=== PATIENT | female | born 1930 | race African-American/Black ===

== ENCOUNTER 2016-12-16 23:27 | Inpatient (IN) | payer MEDICARE, OTHER ==
[~2016-12-16] VITALS: Ht 160 cm; Wt 67.7 kg
[~2016-12-16 23:27] MED LIST: BUPR150T11 PO; FURO80TA72 PO; GLYB5TAB3 PO; HYDR-2666 PO; HYDR-2869 PO; HYDR-965 PO; ISOS20TA4 PO; LOSA25TA PO; MECL12.52 PO; METO-269 PO; MULT1TAB97 PO; OMEGA-3 + VITA1 EACH PO; POTA20TA82 PO; PRED-220 PO; PREG50CA PO
[2016-12-17 00:17] LABS: OBC FLU VALID
[2016-12-17 00:19] LABS: BASO # 0.1 x10^3/uL (0.0-0.2); BASO % 1 % (0-3); EOS % 2 % (0-3); HEMATOCRIT 32.6 % (36.0-47.0); HEMOGLOBIN 10.2 g/dL (12.0-15.5); LYMPH # 2.3 x10^3/uL (1.0-4.8); LYMPH % 38 % (24-48); MEAN CORPUSCULAR HEMOGLOBIN 22 pg (25-35); MEAN CORPUSCULAR HGB CONC 31 g/dL (31-37); MEAN CORPUSCULAR VOLUME 69 fL (79-100); MONO % 6 % (0-9); NEUT % 54 % (31-73); PLATELET COUNT 203 x10^3/uL (140-400); RED BLOOD COUNT 4.73 x10^6/uL (3.50-5.40); RED CELL DISTRIBUTION WIDTH 20.6 % (11.5-14.5); WHITE BLOOD COUNT 6.2 x10^3/uL (4.0-11.0)
[2016-12-17 00:31] LABS: CALCIUM 9.1 mg/dL (8.5-10.1); CREATININE 1.3 mg/dL (0.6-1.0); GFR 46.9; POTASSIUM 4.5 mmol/L (3.5-5.1)
[2016-12-17 00:32] LABS: INR 1.2 (0.8-1.1); PROTHROMBIN TIME PATIENT 14.1 SEC (11.7-14.0)
[2016-12-17 00:37] LABS: ALBUMIN 3.2 g/dL (3.4-5.0); ALBUMIN/GLOBULIN RATIO 0.9 (1.0-1.7); TOTAL BILIRUBIN 0.4 mg/dL (0.2-1.0); TOTAL PROTEIN 6.9 g/dL (6.4-8.2)
[2016-12-17 00:59] LABS: BILIRUBIN,URINE NEGATIVE (NEG); GLUCOSE,URINE NEGATIVE (NEG); NITRITE,URINE NEGATIVE (NEG); PH,URINE 5.5; PROTEIN,URINE NEGATIVE (NEG-TRACE)
[2016-12-17 01:05] LABS: BACTERIA,URINE MANY /HPF (0-FEW); SQUAMOUS EPITHELIAL CELL,UR FEW /LPF
[2016-12-17] MEDS ORDERED: FUROSEMIDE 40 MG/4 ML VIAL IVP ONE (01:15)
--- NOTE | 2016-12-17 01:42 | ED.ADGEN ---
Past Medical History Past Medical History: CAD, CHF, Diabetes-Type II, DVT, Hypertension, UT, Other Additional Past Medical Histor: mi in 1996 Past Surgical History: Appendectomy, Hysterectomy, Pacemaker, Other Additional Past Surgical Histo: triple bypass 1996,hernia repair Alcohol Use: None Drug Use: None Adult General Chief Complaint Chief Complaint: SHORTNESS OF BREATH HPI HPI Patient is a 86 year old woman, history of type 2 diabetes mellitus, hypertension, CHF, who presents to the emergency department from her nursing facility via EMS with a complaint of increasing shortness of breath over the past several days, with cough productive of clear sputum. Patient denies any chest pain, states that she's had increased swelling in her lower extremities over the same time, denies any fevers or chills, any headache, any body aches, any injuries, any GI or complaints. Patient does not use oxygen at baseline, baseline O2 saturation was 89% on room air, patient placed on 2 L nasal cannula , oxygen saturations in the mid 90s. Review of Systems Review of Systems Constitutional: Denies fever or chills. [] Eyes: Denies change in visual acuity. [] HENT: Denies nasal congestion or sore throat. [] Respiratory: Cough productive of clear sputum, shortness of breath. Cardiovascular: Denies chest pain, positive for lower extremity edema. GI: Denies abdominal pain, nausea, vomiting, bloody stools or diarrhea. [] : Denies dysuria. [] Musculoskeletal: Denies back pain or joint pain. [] Integument: Denies rash. [] Neurologic: Denies headache, focal weakness or sensory changes. [] Endocrine: Denies polyuria or polydipsia. [] Lymphatic: Denies swollen glands. [] Psychiatric: Denies depression or anxiety. [] Current Medications Current Medications Current Medications Medications (Trade) Dose Ordered Sig/Santsoh Start Time Stop Time Status Last Admin Dose Admin Furosemide (Lasix) 40 mg 1X ONCE 12/17/16 01:15 12/17/16 01:16 DC 12/17/16 00:59 40 MG Allergies Allergies Allergies Coded Allergies Type Severity Reaction Last Updated Verified Iodinated Contrast Media - IV Dye Allergy Severe Anaphylaxis 11/01/14 Yes Sulfa (Sulfonamide Antibiotics) Allergy Intermediate 11/01/14 Yes Physical Exam Physical Exam Constitutional: Well developed, well nourished, no acute distress, non-toxic appearance. [] HENT: Normocephalic, atraumatic, bilateral external ears normal, oropharynx moist, no oral exudates, nose normal. [] Eyes: PERRLA, EOMI, conjunctiva normal, no discharge. [] Neck: Normal range of motion, no tenderness, supple, no stridor. [] Cardiovascular:Heart rate regular rhythm, no murmur [] Lungs & Thorax: Bilateral breath sounds clear to auscultation [] Abdomen: Bowel sounds normal, soft, no tenderness, no masses, no pulsatile masses. [] Skin: Warm, dry, no erythema, no rash. [] Back: No tenderness, no CVA tenderness. [] Extremities: No tenderness, no cyanosis, no clubbing, ROM intact, no edema. [] Neurologic: Alert and oriented X 3, normal motor function, normal sensory function, no focal deficits noted. [] Psychologic: Affect normal, judgement normal, mood normal. [] Current Patient Data Vital Signs Vital Signs Date Time Temp Pulse Resp B/P Pulse Ox O2 Delivery O2 Flow Rate FiO2 12/16/16 23:40 98.2 63 22 229/96 100 Nasal Cannula 2 98.2 Lab Values Laboratory Tests Test 12/16/16 23:53 12/17/16 00:04 12/17/16 00:30 Influenza Type A Antigen Negative (NEGATIVE) Influenza Type B Antigen Negative (NEGATIVE) White Blood Count 6.2x10^3/uL (4.0-11.0) Red Blood Count 4.73x10^6/uL (3.50-5.40) Hemoglobin 10.2g/dL (12.0-15.5) L Hematocrit 32.6% (36.0-47.0) L Mean Corpuscular Volume 69fL (79-100) L Mean Corpuscular Hemoglobin 22pg (25-35) L Mean Corpuscular Hemoglobin Concent 31g/dL (31-37) Red Cell Distribution Width 20.6% (11.5-14.5) H Platelet Count 203x10^3/uL (140-400) Neutrophils (%) (Auto) 54% (31-73) Lymphocytes (%) (Auto) 38% (24-48) Monocytes (%) (Auto) 6% (0-9) Eosinophils (%) (Auto) 2% (0-3) Basophils (%) (Auto) 1% (0-3) Neutrophils # (Auto) 3.3x10^3uL (1.8-7.7) Lymphocytes # (Auto) 2.3x10^3/uL (1.0-4.8) Monocytes # (Auto) 0.4x10^3/uL (0.0-1.1) Eosinophils # (Auto) 0.1x10^3/uL (0.0-0.7) Basophils # (Auto) 0.1x10^3/uL (0.0-0.2) Platelet Estimate Pending Prothrombin Time 14.1SEC (11.7-14.0) H Prothrombin Time INR 1.2 (0.8-1.1) H PTT 33SEC (24-38) Sodium Level 139mmol/L (136-145) Potassium Level 4.5mmol/L (3.5-5.1) Chloride Level 102mmol/L (98-107) Carbon Dioxide Level 32mmol/L (21-32) Anion Gap 5 (6-14) L Blood Urea Nitrogen 33mg/dL (7-20) H Creatinine 1.3mg/dL (0.6-1.0) H Estimated GFR (Cockcroft-Gault) 46.9 BUN/Creatinine Ratio 25 (6-20) H Glucose Level 133mg/dL (70-99) H Calcium Level 9.1mg/dL (8.5-10.1) Total Bilirubin 0.4mg/dL (0.2-1.0) Aspartate Amino Transferase (AST) 29U/L (15-37) Alanine Aminotransferase (ALT) 43U/L (14-59) Alkaline Phosphatase 106U/L (46-116) Troponin I Quantitative 0.046ng/mL (0.000-0.055) EJ-Knz-M-Type Natriuretic Peptide 8779pg/mL (0-449) H Total Protein 6.9g/dL (6.4-8.2) Albumin 3.2g/dL (3.4-5.0) L Albumin/Globulin Ratio 0.9 (1.0-1.7) L Urine Collection Type U cath Urine Color Yellow Urine Clarity Clear Urine pH 5.5 Urine Specific [place] 1.015 Urine Protein Negativemg/dL (NEG-TRACE) Urine Glucose (UA) Negativemg/dL (NEG) Urine Ketones (Stick) Negativemg/dL (NEG) Urine Blood Negative (NEG) Urine Nitrite Negative (NEG) Urine Bilirubin Negative (NEG) Urine Urobilinogen Dipstick 1.0mg/dL (0.2 mg/dL) Urine Leukocyte Esterase Small (NEG) Urine RBC 1-2/HPF (0-2) Urine WBC 5-10/HPF (0-4) Urine Squamous Epithelial Cells Few/LPF Urine Bacteria Many/HPF (0-FEW) Urine Hyaline Casts Few/HPF Urine Mucus Mod/LPF Laboratory Tests 12/17/16 00:04 Laboratory Tests 12/17/16 00:04 EKG EKG EC: Paced rhythm, with occasional PVCs noted, heart rate 70 bpm, left ventricular hypertrophy noted, limited interpretation secondary to body habitus and paced rhythm. As interpreted by me. Radiology/Procedures Radiology/Procedures Chest x-ray: One view: Patient with evidence of cephalization, possible small effusion in the left lower lobe, concerning for congestive heart failure. Pacemaker ACD in place. No pneumothorax, no discrete infiltrates identified. No bony normalities identified. As interpreted by me. [] Course & Med Decision Making Course & Med Decision Making Pertinent Labs and Imaging studies reviewed. (See chart for details) Patient's examination and history are concerning for CHF exacerbation, patient with a proBNP greater than 8700, chest x-ray findings with cephalization. Patient receives 20 of Lasix once daily orally, creatinine and the ED is 1.3, patient given 40 mg of Lasix IV. She is agreeable for [facility], is resting comfortably on 2 L nasal cannula at this time. Findings as above discussed with Dr. Kinney, call for the patient's primary care provider, patient accepted to his service as a full admission to the cardiac telemetry floor with consultation and bridge orders per his request. Dragon Disclaimer Dragon Disclaimer This electronic medical record was generated, in whole or in part, using a voice recognition dictation system. Departure Impression: Primary Impression: CHF (congestive heart failure) Additional Impression: Cough Disposition: ADMITTED INPATIENT Admitting Physician: Barb Kinney Condition: STABLE Problem Qualifiers Primary Impression: CHF (congestive heart failure) Congestive heart failure type: unspecified congestive heart failure type Congestive heart failure chronicity: unspecified congestive heart failure chronicity Qualified Code: I50.9 - Heart failure, unspecified CHARLES BISWAS DO Dec 17, 2016 01:42
[2016-12-17 03:37] VITALS: BP 180/62
[2016-12-17] MEDS ORDERED: MIRT7.5T8 PO (04:26)
[2016-12-17] MEDS ORDERED: ACET500T68 PO (04:26)
[2016-12-17] MEDS ORDERED: CHOL20002 PO (04:26)
[2016-12-17] MEDS ORDERED: COLL30OI TP (04:26)
[2016-12-17] MEDS ORDERED: FURO20TA3 PO (04:26)
[2016-12-17] MEDS ORDERED: GABA-585 PO (04:26)
[2016-12-17] MEDS ORDERED: MAGN400O4 PO (04:26)
[2016-12-17] MEDS ORDERED: DICL100G7 TP (04:26)
[2016-12-17] MEDS ORDERED: POTA10CA PO (04:26)
[2016-12-17] MEDS ORDERED: PANT40GR PO (04:26)
[2016-12-17] MEDS ORDERED: DOCU-27 PO (04:26)
[2016-12-17 05:02] LABS: PLT ESTIMATE ADEQUATE (ADEQUATE)
[2016-12-17 05:03] LABS: ANISOCYTOSIS MOD; HYPOCHROMIA MOD; MICROCYTOSIS MARKED; TARGET CELLS OCC
[2016-12-17 05:04] LABS: BURR CELLS OCC; OVALOCYTES FEW; POLYCHROMASIA SLIGHT; SCHISTOCYTES OCC
[2016-12-17 07:00] VITALS: BP 153/51
--- NOTE | 2016-12-17 07:42 | RAD ---
Portable chest, 12/16/2016: History: Shortness of breath, chest pain Comparison is made to a study from 06/27/2016. A left-sided transvenous pacemaker remains in place with 2 leads extending into the right heart. There is been a previous median sternotomy. The patient is rotated to the left. There is mild chronic elevation of the right hemidiaphragm. The heart is at the upper limits of normal in size. The pulmonary vascularity is prominent. There are mild left perihilar and bibasilar opacities suggesting mild pulmonary edema. The left hemidiaphragm is partially obscured. There is slight pleural thickening in the lateral costophrenic angles. IMPRESSION: Mild congestive heart failure.
--- NOTE | 2016-12-17 07:56 | EKG ---
[facility] [address] [place] [address] Test Date: 2016-12-16 Test Time: 23:37:35 Pat Name: SHIKHA AGUILAR Department: Room: 263 1 Gender: F Market Development Specialist: : [id number] Requested By: CHARLES BISWAS Order Number: [id number] Reading MD: Gregorio Carter Measurements Intervals [place] Rate: 70 P: AK: QRS: 46 QRSD: 116 T: -132 QT: 402 QTc: 437 Interpretive Statements PROBABLE DEMAND VENTRICULAR PACED RHYTHM Electronically Signed On 12-31-2016 14:47:24 SHAPER SETTER by Gregorio Carter
[2016-12-17] MEDS ORDERED: COLLAGENASE 250 UNIT/GM TOPICAL OINTMENT 30GM TUBE. TP SCH (09:00)
[2016-12-17] MEDS ORDERED: HYDROCODONE/APAP 7.5/325MG TABLET. PO PRN (09:00)
[2016-12-17] MEDS ORDERED: MECLIZINE HCL 12.5 MG TABLET. PO PRN (09:00)
[2016-12-17] MEDS: DOCUSATE SODIUM 100 MG CAPSULE PO SCH ×2 (10:00→21:00)
--- NOTE | 2016-12-17 10:23 | PDOC ---
Provider Note Provider Note Pt seen.H&P dictated. #[id number] TAMERA ALMAZAN MD Dec 17, 2016 10:23
[2016-12-17] MEDS ORDERED: DEXTROSE 50% 25 GM / 50ML DISP.SYRIN. IV PRN (10:30)
[2016-12-17 11:00] VITALS: BP 154/58
[2016-12-17] MEDS: DICLOFENAC SODIUM 1% TOPICAL GEL 100GM TUBE. TP SCH ×4 (11:27→22:27)
[2016-12-17] MEDS: GLYBURIDE 5 MG TABLET PO SCH (11:28)
[2016-12-17] MEDS: buPROPion SR 150 MG TABLET.SA PO SCH (11:28)
[2016-12-17] MEDS: ENOXAPARIN 30 MG/0.3 ML DISP.SYRIN. SQ SCH (11:28)
[2016-12-17] MEDS: HYDRALAZINE 50 MG TABLET PO SCH ×2 (11:29→17:58)
[2016-12-17] MEDS: POTASSIUM CHLORIDE 20 MEQ TABLET.ER. PO SCH ×2 (11:29→17:57)
[2016-12-17] MEDS: MIRTAZAPINE 7.5 MG TABLET. PO SCH (11:30)
[2016-12-17] MEDS: LOSARTAN POTASSIUM 25 MG TABLET. PO SCH (11:30)
[2016-12-17] MEDS: PANTOPRAZOLE 40 MG TABLET. PO SCH (11:30)
[2016-12-17] MEDS: MULTIVITAMIN with MINERAL TABLET. PO SCH (11:30)
[2016-12-17] MEDS: PREDNISONE 10 MG TABLET PO SCH (11:30)
[2016-12-17] MEDS: FUROSEMIDE 80 MG TABLET PO SCH ×2 (11:31→15:46)
[2016-12-17] MEDS: ISOSORBIDE MONONITRATE 20 MG TABLET PO SCH (11:31)
[2016-12-17] MEDS: INSULIN ASPART 300 UNITS/3 ML INSULN.PEN SQ SCH ×2 (12:00→17:00)
[2016-12-17 15:03] VITALS: BP 139/54
[2016-12-17] MEDS: ACETAMINOPHEN 500 MG TABLET PO PRN (15:46)
--- NOTE | 2016-12-17 17:28 | ACF ---
Admission Forms Criteria HEART FAILURE: COMMON COMPLICATIONS Clinical Indications for Inpatient Care (Place 'X' for any and all applicable criteria): Ongoing inpatient care may be indicated for heart failure with ANY ONE of the following (1)(2)(3)(4)(5): [ ]I. Ongoing need for care for primary condition requiring frequent therapy adjustments because of changes in cardiac function (eg, drug dosage changes for drugs that are renally metabolized) [ ]II. New-onset heart failure [ ]III. Heart failure with decreased urine output not responsive to attempts to optimize volume status [ ]IV. Acute cardiac ischemia causing or associated with failure [X]V. Complications of heart failure, including ANY ONE of the following: [ ]a) Pericardial effusion [ ]b) Symptomatic pleural effusion [ ]c) O2 saturation <90% or PO2 < 60 mm Hg (8.0 kPa) on room air or require baseline supplemental O2 [ ]d) Tachypnea [X]e) Dyspnea [ ]f) Syncope [ ]g) Change in mental status [ ]h) Acute renal insufficiency that is severe (reduction of more than 50% in estimated glomerular filtration rate from baseline) or progressive reduction of more than 25% in estimated glomerular filtration rate from baseline, with creatinine continuing to rise) [ ]i) Hemodynamic instability [ ]j) Anasarca [ ]k) Clinically significant metabolic abnormalities due to heart failure (eg, new-onset metabolic acidosis) Extended stay beyond goal length of stay for primary condition may be needed until ALL of the following are present(1)(3): [ ]a) Stable and effective diuretic regimen established (or patient on stable dialysis regimen if in chronic renal failure) [ ]b) Breathing comfortably at rest [ ]c) Saturation of arterial oxygen greater than 90% or at acceptable baseline [ ]d) Pulmonary edema absent or improved [ ]e) Hemodynamic stability [ ]f) Volume status acceptable on oral medication [ ]g) Peripheral or sacral edema absent or improved [ ]h) Renal function stable and manageable at a lower level of care [ ]i) Complications (eg, pleural effusion) resolved or manageable at a lower level of care [ ]j) Patient or caregiver has received written discharge instructions or educational material addressing activity level, diet, discharge medications, follow-up appointment, weight monitoring, and what to do if symptoms worsen The original [email or web address] content created by [employer] has been revised. The portions of the content which have been revised are identified through the use of italic text or in bold, and [facility] has neither reviewed nor approved the modified material.All other unmodified content is copyright [facility]. Please see references footnoted in the original [facility] edition 2016 Admission Criteria Met?: Yes LISSY FAIRBANKS Dec 17, 2016 17:28
[2016-12-17 19:00] VITALS: BP 141/41
[2016-12-17] MEDS ORDERED: PREGABALIN 50 MG CAPSULE PO SCH (21:00)
[2016-12-17] MEDS ORDERED: GABAPENTIN 100 MG CAPSULE. PO SCH (21:00)
[2016-12-17] MEDS ORDERED: METOPROLOL SUCC 24HR ER 50 MG TAB.ER.24H. PO SCH (21:00)
--- NOTE | 2016-12-17 23:11 | HP ---
ADMIT DATE: 12/17/2016 PATIENT'S LOCATION: 253. REASON FOR ADMISSION TO THE HOSPITAL: Shortness of breath, congestive heart failure, acute on chronic. HISTORY OF PRESENT ILLNESS: The patient is an 86-year-old female patient from retirement [facility]. She has history of congestive heart failure, AFib, CAD, previous bypass surgery in the retirement, she was having shortness of breath, sent to the Emergency Room. BNP was elevated to 800. Chest x-ray shows CHF, was admitted with of acute on chronic congestive heart failure. PAST MEDICAL HISTORY: Has CAD, CHF, diabetes type 2, DVT, hypertension, NV, atrial fibrillation. PAST SURGICAL HISTORY: Has a pacemaker, heart bypass surgery, hernia repair, appendectomy, hysterectomy. ALLERGIES: IVP DYE, SULFA. MEDICATIONS: At the retirement, Lasix, hydrocodone q. 6, vitamin D 2000 units daily, omega fish oil daily, Tylenol q. 6, bupropion 150 mg daily, Santyl daily, Voltaren gel daily, Colace daily, Lasix 80 mg twice a day, gabapentin 100 mg 2 at bed time, 2 tablets, total of 200 mg, glyburide 5 mg daily, hydralazine 50 mg 3 times daily, isosorbide 20 mg daily, losartan 25 mg daily, meclizine 12.5 three times a day, metoprolol 50 mg daily, mirtazapine 7.5 mg daily, vitamin 1 daily, Protonix 40 mg daily, potassium 20 mEq twice a day, prednisone 10 mg daily, Lyrica 50 mg daily. FAMILY HISTORY: Positive for diabetes, hypertension, heart disease. SOCIAL HISTORY: Lives at the retirement long-term care resident. REVIEW OF SYSTEMS: Denies any chest pain, complains of cough, short of breath and occasional wheezing. PHYSICAL EXAMINATION: VITAL SIGNS: At the time of admission, temperature 98, pulse 53, respirations 22, blood pressure 229/96 100% on 2 liters. HEENT: Head is atraumatic. Pupils equal. Oral cavity: Dentures. NECK: Supple. Thyroid not enlarged. JVD not elevated. CHEST: Symmetrical. Pacemaker. CARDIOVASCULAR: S1, S2. LUNGS: Crackles heard once at the base. ABDOMEN: Soft, no mass palpable. EXTERNAL GENITALIA: No Johns. RECTAL: Deferred. EXTREMITIES: 2+edema at the ankles and legs. NEUROLOGIC: The patient has arthritis, moving upper extremities very weak and lower extremities. She has a scar in the lower right thigh, not sure of the details. LABORATORY DATA: White count 6, hemoglobin 10, platelets 203. Electrolytes: Sodium 139, potassium 4.5, chloride 102, bicarbonate 32, BUN 35, creatinine 1.3, glucose 133. LFTs were normal. INR is 1.2. Urine negative for infection. Serology negative for influenza. Chest x-ray shows CHF. EKG irregular. FINAL IMPRESSION: 1. Acute on chronic systolic heart failure. 2. Chronic systolic heart failure. 3. History of sick sinus syndrome, history of pacemaker. 4. History of coronary artery disease, previous bypass surgery. 5. Diabetes. 6. Hypertension. 7. General debility. PLAN: At this time, admit to hospital, echocardiogram, cardiology consultation. IV Lasix and DVT prophylaxis and see how the patient's condition improves. TAMERA ALMAZAN MD DR: PORSHA/julio JOB#: [id number] / [id number] JARAD Morales
[2016-12-17 23:50] VITALS: BP 141/55
[2016-12-18 03:50] VITALS: BP 155/54
[2016-12-18 05:19] LABS: BASO # 0.1 x10^3/uL (0.0-0.2); BASO % 1 % (0-3); EOS % 1 % (0-3); HEMOGLOBIN 8.9 g/dL (12.0-15.5); LYMPH # 2.3 x10^3/uL (1.0-4.8); LYMPH % 38 % (24-48); MEAN CORPUSCULAR HEMOGLOBIN 22 pg (25-35); MEAN CORPUSCULAR HGB CONC 32 g/dL (31-37); MEAN CORPUSCULAR VOLUME 69 fL (79-100); MONO % 6 % (0-9); NEUT % 54 % (31-73); PLATELET COUNT 182 x10^3/uL (140-400); RED BLOOD COUNT 4.08 x10^6/uL (3.50-5.40); RED CELL DISTRIBUTION WIDTH 20.2 % (11.5-14.5); WHITE BLOOD COUNT 6.3 x10^3/uL (4.0-11.0)
[2016-12-18 05:35] LABS: CALCIUM 8.5 mg/dL (8.5-10.1); CREATININE 1.4 mg/dL (0.6-1.0); POTASSIUM 4.6 mmol/L (3.5-5.1)
[2016-12-18 05:36] LABS: CHOLESTEROL/HDL RATIO 2.2
[2016-12-18 07:00] VITALS: BP 99/42
[2016-12-18] MEDS: INSULIN ASPART 300 UNITS/3 ML INSULN.PEN SQ SCH ×2 (08:00→12:00)
[2016-12-18] MEDS: HYDRALAZINE 50 MG TABLET PO SCH ×2 (09:21→12:00)
[2016-12-18] MEDS: PANTOPRAZOLE 40 MG TABLET. PO SCH (09:21)
[2016-12-18] MEDS: POTASSIUM CHLORIDE 20 MEQ TABLET.ER. PO SCH (09:22)
[2016-12-18] MEDS: ISOSORBIDE MONONITRATE 20 MG TABLET PO SCH (09:22)
[2016-12-18] MEDS: DOCUSATE SODIUM 100 MG CAPSULE PO SCH (09:22)
[2016-12-18] MEDS: GLYBURIDE 5 MG TABLET PO SCH (09:22)
[2016-12-18] MEDS: buPROPion SR 150 MG TABLET.SA PO SCH (09:22)
[2016-12-18] MEDS: MULTIVITAMIN with MINERAL TABLET. PO SCH (09:22)
[2016-12-18] MEDS: PREDNISONE 10 MG TABLET PO SCH (09:23)
[2016-12-18] MEDS: MIRTAZAPINE 7.5 MG TABLET. PO SCH (09:23)
[2016-12-18] MEDS: FUROSEMIDE 80 MG TABLET PO SCH ×2 (09:23→14:39)
[2016-12-18] MEDS: LOSARTAN POTASSIUM 25 MG TABLET. PO SCH (09:23)
[2016-12-18] MEDS: DICLOFENAC SODIUM 1% TOPICAL GEL 100GM TUBE. TP SCH (09:25)
--- NOTE | 2016-12-18 09:28 | PDOC2 ---
CARDIAC CONSULT DATE OF CONSULT Date of Consult DATE: 12/18/16 TIME: 09:18 REASON FOR CONSULT Reason for Consult: CHF REFERRING PHYSICIAN Referring Physician: Dr. Kinney SOURCE Source: Chart review, Patient HISTORY OF PRESENT ILLNESS HISTORY OF PRESENT ILLNESS This is an 86 yo female, with a history of CHF, CAD s/p CABG, AFIB, HTN, HLP, SSS s/p PPM, and DM II, who presented from [facility] with complaints of shortness of breath. Patient reports experiencing shortness of breath yesterday afternoon when she was positioned on her side in bed. When staff repositioned her on her back, patient reports she was unable to catch her breath so EMS was called. Patient denies any chest pain, palpitations, dizziness , diaphoresis, syncope, or recent orthopnea. Does reports chronic LE edema and has had recent cough productive of clear sputum. Outpatient accountant certified public in Dr. Stroud with [facility] Reports compliance with medications. PAST MEDICAL HISTORY Cardiovascular: AFIB, CAD, CHF, HTN, Hyperlipidemia, Other (SSS s/p PPM) Pulmonary: Pneumonia CENTRAL NERVOUS SYSTEM: Other (no pertinent hx) GI: GERD Heme/Onc: No pertinent hx, Other (DVT) Hepatobiliary: No pertinent hx Psych: No pertinent hx Musculoskeletal: Osteoarthritis Rheumatologic: No pertinent hx Infectious disease: No pertinent hx ENT: No pertinent hx Renal/: No pertinent hx Endocrine: Diabetes PAST SURGICAL HISTORY Past Surgical History: Pacemaker, Appendectomy, Hysterectomy FAMILY HISTORY Family History: Diabetes, Heart Disease, Hypertension SOCIAL HISTORY Smoke: No ALCOHOL: none Drugs: None Lives: Correction CURRENT MEDICATIONS CURRENT MEDICATIONS Current Medications Medications (Trade) Dose Ordered Sig/Santosh Route PRN Reason Start Time Stop Time Status Last Admin Dose Admin Bupropion HCl (Wellbutrin Sr) 150 mg DAILY PO 12/17/16 10:00 12/17/16 11:28 Furosemide (Lasix) 80 mg BID92 PO 12/17/16 10:00 12/17/16 15:46 Gabapentin (Neurontin) 200 mg QHS PO 12/17/16 21:00 12/17/16 22:23 Glyburide (Diabeta) 5 mg DAILY PO 12/17/16 10:00 12/17/16 11:28 Hydralazine HCl (Apresoline) 50 mg TIDWMEALS PO 12/17/16 12:00 12/17/16 17:58 Losartan Potassium (Cozaar) 25 mg DAILY PO 12/17/16 10:00 12/17/16 11:30 Metoprolol Succinate (Toprol Xl) 50 mg HS PO 12/17/16 21:00 12/17/16 22:23 Mirtazapine (Remeron) 7.5 mg DAILY PO 12/17/16 10:00 12/17/16 11:30 Prednisone (Prednisone) 10 mg DAILY PO 12/17/16 10:00 12/17/16 11:30 Pregabalin (Lyrica) 50 mg HS PO 12/17/16 21:00 12/17/16 22:24 Isosorbide Mononitrate (Ismo) 20 mg DAILY PO 12/17/16 10:00 12/17/16 11:31 Multivitamins/ Calcium (Thera M Plus) 1 tab DAILY PO 12/17/16 10:00 12/17/16 11:30 Pantoprazole Sodium (Protonix) 40 mg DAILYAC PO 12/17/16 11:30 12/17/16 11:30 Potassium Chloride (Klor-Con) 20 meq BIDWMEALS PO 12/17/16 10:00 12/17/16 17:57 Enoxaparin Sodium (Lovenox 30mg Syringe) 30 mg Q24H SQ 12/17/16 11:00 12/17/16 11:28 ALLERGIES ALLERGIES: Coded Allergies: Iodinated Contrast Media - IV Dye (Verified Allergy, Severe, Anaphylaxis, 11/01/14) Sulfa (Sulfonamide Antibiotics) (Verified Allergy, Intermediate, 11/01/14) ROS Review of System 14 point ROS conducted with pertinent positives noted above in HPI. PHYSICAL EXAM General: Alert, Oriented X3, Cooperative, No acute distress HEENT: Atraumatic, Mucous membr. moist/pink Lungs: Other (diminished bases ) Heart: Normal S1, Normal S2, Other (2/6 systolic murmur ) Abdomen: Soft, No tenderness Extremities: Other (1-2+ bilateral LE edema ) Skin: No rashes, No breakdown, No significant lesion Neuro: Normal speech, Sensation intact Psych/Mental Status: Mental status NL, Mood NL MUSCULOSKELETAL: Osteoarthritic changes both hands VITALS VITALS Vital Signs Date Time Temp Pulse Resp B/P Pulse Ox O2 Delivery O2 Flow Rate FiO2 12/18/16 03:50 98.4 84 16 155/54 96 Nasal Cannula 2.0 98.4 LABS Lab: Laboratory Tests Test 12/17/16 11:58 12/17/16 17:33 12/17/16 20:56 12/18/16 04:21 Glucose (Fingerstick) 99mg/dL (70-99) 99mg/dL (70-99) 179mg/dL (70-99) White Blood Count 6.3x10^3/uL (4.0-11.0) Red Blood Count 4.08x10^6/uL (3.50-5.40) Hemoglobin 8.9g/dL (12.0-15.5) Hematocrit 28.0% (36.0-47.0) Mean Corpuscular Volume 69fL (79-100) Mean Corpuscular Hemoglobin 22pg (25-35) Mean Corpuscular Hemoglobin Concent 32g/dL (31-37) Red Cell Distribution Width 20.2% (11.5-14.5) Platelet Count 182x10^3/uL (140-400) Neutrophils (%) (Auto) 54% (31-73) Lymphocytes (%) (Auto) 38% (24-48) Monocytes (%) (Auto) 6% (0-9) Eosinophils (%) (Auto) 1% (0-3) Basophils (%) (Auto) 1% (0-3) Neutrophils # (Auto) 3.4x10^3uL (1.8-7.7) Lymphocytes # (Auto) 2.3x10^3/uL (1.0-4.8) Monocytes # (Auto) 0.4x10^3/uL (0.0-1.1) Eosinophils # (Auto) 0.1x10^3/uL (0.0-0.7) Basophils # (Auto) 0.1x10^3/uL (0.0-0.2) Sodium Level 143mmol/L (136-145) Potassium Level 4.6mmol/L (3.5-5.1) Chloride Level 106mmol/L (98-107) Carbon Dioxide Level 33mmol/L (21-32) Anion Gap 4 (6-14) Blood Urea Nitrogen 36mg/dL (7-20) Creatinine 1.4mg/dL (0.6-1.0) Estimated GFR (Cockcroft-Gault) 43.0 Glucose Level 59mg/dL (70-99) Calcium Level 8.5mg/dL (8.5-10.1) Triglycerides Level 41mg/dL (0-150) Cholesterol Level 200mg/dL (0-200) LDL Cholesterol, Calculated 100mg/dL (0-100) VLDL Cholesterol, Calculated 8mg/dL (0-40) HDL Cholesterol 92mg/dL (40-60) Cholesterol/HDL Ratio 2.2 Thyroid Stimulating Hormone (TSH) 6.739uIU/mL (0.358-3.74) Test 12/18/16 09:13 Glucose (Fingerstick) 62mg/dL (70-99) ASSESSMENT/PLAN ASSESSMENT/PLAN 1. Acute on chronic HF improved with diuresis. appears compensated check echo to assess LV function. Maintain BP control continue oral diuresis with monitoring of renal function 2. Dyspnea secondary to acute heart failure improved. 3. CAD s/p bypass stable. CP free echo to assess for WMA 4. SSS s/p PPM 5. Malignant hypertension now controlled continue with current therapy 6. Diabetes controlled per PCP 7. GOOD with CKD Problems: NIESHA LUCAS APRN Dec 18, 2016 09:28
[2016-12-18 11:37] VITALS: BP 89/38
--- NOTE | 2016-12-18 12:20 | CARD ---
APPROVED REPORT EXAM: Two-dimensional and M-mode echocardiogram with Doppler and color Doppler. Other Information Quality : Good Rhythm : NSR INDICATION Congestive Heart Failure 2D DIMENSIONS RVDd2.3 (2.9-3.5cm)Left Atrium(2D)5.8 (1.6-4.0cm) IVSd1.0 (0.7-1.1cm)Aortic Root(2D)2.9 (2.0-3.7cm) LVDd4.7 (3.9-5.9cm)LVOT Diameter2.2 (1.8-2.4cm) PWd1.0 (0.7-1.1cm)LVDs3.4 (2.5-4.0cm) FS (%) 28.3 %SV56.3 ml LVEF(%)45.0 (>50%) Aortic Valve AoV Peak Cali.230.8cm/sAoV VTI44.0cm AO Peak GR.21.3mmHgLVOT Peak Cali.116.5cm/s AO Mean GR.10mmHgAVA (VMAX)2.00cm2 AI P 1/2 [id number] Mitral Valve MV E Hqzkbcex571.1cm/sMV E Peak Gr.11mmHg MV DECEL [id number] A Cjrjtraj727.4cm/s MV E Mean Gr.3mmHgE/A Ratio1.4 MV A [id number] Pulmonary Valve PV Peak Xvgcttxq560.3cm/s Tricuspid Valve TR P. Erftmnrh764tt/sTR Peak Gr.36mmHg Pulmonary Vein S1 Dpcwqhkb65.7cm/sD2 Molkraud82.6cm/s PVa [id number] LEFT VENTRICLE The left ventricle is normal size. There is mild to moderate concentric left ventricular hypertrophy. The left ventricular systolic function is mildly decreased. The Ejection Fraction is 45-50%. There i s global hypokinesis of the left ventricle. Transmitral Doppler flow pattern is Grade II-pseudonormal filling dynamics. RIGHT VENTRICLE The right ventricle is normal size. There is normal right ventricular wall thickness. The right ventr icular systolic function is normal. There is a pacemaker lead in the right heart. ATRIA The left atrium is mild to moderately dilated. The right atrium size is normal. The interatrial septu m is intact with no evidence for an atrial septal defect or patent foramen ovale as noted on 2-D or D oppler imaging. AORTIC VALVE There may be a bioprosthetic aortic valve prosthesis. Doppler and Color Flow revealed mild to moderat e aortic regurgitation. There is no significant aortic valvular stenosis. MITRAL VALVE Mitral annular calcification is mild. The mitral valve leaflets are thickened. There is no evidence o f mitral valve prolapse. There is no mitral valve stenosis. Doppler and Color Flow revealed mild mitr al regurgitation. TRICUSPID VALVE The tricuspid valve leaflets are thickened , but open well. Doppler and Color Flow revealed mild to m oderate tricuspid regurgitation. The pulmonary artery systolic pressure is estimated at 41 mmHg. PULMONIC VALVE Doppler and Color Flow revealed mild pulmonic valvular regurgitation. There is no pulmonic valvular s tenosis. GREAT VESSELS The aortic root is normal in size. The ascending aorta is normal in size. The pulmonary artery is nor mal. The IVC is normal in size and collapses >50% with inspiration. PERICARDIAL EFFUSION There is no evidence of significant pericardial effusion. Critical Notification Critical Value: No <Conclusion> The left ventricle is normal size. The left ventricular systolic function is mildly decreased. The Ejection Fraction is 45-50%. There is mild to moderate concentric left ventricular hypertrophy. There is a pacemaker lead in the right heart. There may be a bioprosthetic aortic valve prosthesis. There is no significant aortic valvular stenosis. Doppler and Color Flow revealed mild to moderate aortic regurgitation. Doppler and Color Flow revealed mild mitral regurgitation. Doppler and Color Flow revealed mild to moderate tricuspid regurgitation. The pulmonary artery systolic pressure is estimated at 41 mmHg.
[2016-12-18] MEDS: ENOXAPARIN 30 MG/0.3 ML DISP.SYRIN. SQ SCH (13:09)
[2016-12-18] MEDS: ACETAMINOPHEN 500 MG TABLET PO PRN (14:39)
--- NOTE | 2016-12-18 15:17 | PDOC ---
PROGRESS NOTES Subjective Subjective no sob or cp today Objective Objective Vital Signs Date Time Temp Pulse Resp B/P Pulse Ox O2 Delivery O2 Flow Rate FiO2 12/18/16 12:00 63 89/38 12/18/16 11:37 98.7 14 95 Nasal Cannula 2.0 98.7 Intake and Output 12/18/16 07:00 Intake Total 280 ml Balance 280 ml Intake Oral 280 ml # Voids 5 # Bowel Movements 1 Physical Exam Abdomen: Soft, No tenderness Heart: Normal S1, Normal S2, Other (2/6 systolic murmur ) Extremities: Other (1-2+ bilateral LE edema ) General: Alert, Oriented X3, Cooperative, No acute distress HEENT: Atraumatic, Mucous membr. moist/pink Lungs: Other (diminished bases ) MUSCULOSKELETAL: Osteoarthritic changes both hands Neuro: Normal speech, Sensation intact Psych/Mental Status: Mental status NL, Mood NL Skin: No rashes, No breakdown, No significant lesion Diagnosis Problem List Problems Medical Problems: (1) CHF (congestive heart failure) Status: Acute (2) Cough Status: Acute Assessment Assessment Problems Medical Problems: (1) CHF (congestive heart failure) Status: Acute (2) Cough Status: Acute FINAL IMPRESSION: 1. Acute on chronic systolic heart failure.40% ejf 2. Chronic systolic heart failure. 3. History of sick sinus syndrome, history of pacemaker. 4. History of coronary artery disease, previous bypass surgery. 5. Diabetes. 6. Hypertension. 7. General debility. PLAN: echo lvf 40% improved with lasix , added aldactone to lasix. spoke with cardiology d/c back to CT today. At this time, admit to hospital, echocardiogram, cardiology consultation. IV Lasix and DVT prophylaxis and see how the patient's condition improves. Problems: Plan Plan of Care Problems Medical Problems: (1) CHF (congestive heart failure) Status: Acute (2) Cough Status: Acute Comment Review of Relevant I have reviewed the following items davin (where applicable) has been applied. Labs Laboratory Tests Test 12/17/16 17:33 12/17/16 20:56 12/18/16 04:21 12/18/16 09:13 Glucose (Fingerstick) 99mg/dL (70-99) 179mg/dL (70-99) 62mg/dL (70-99) White Blood Count 6.3x10^3/uL (4.0-11.0) Red Blood Count 4.08x10^6/uL (3.50-5.40) Hemoglobin 8.9g/dL (12.0-15.5) Hematocrit 28.0% (36.0-47.0) Mean Corpuscular Volume 69fL (79-100) Mean Corpuscular Hemoglobin 22pg (25-35) Mean Corpuscular Hemoglobin Concent 32g/dL (31-37) Red Cell Distribution Width 20.2% (11.5-14.5) Platelet Count 182x10^3/uL (140-400) Neutrophils (%) (Auto) 54% (31-73) Lymphocytes (%) (Auto) 38% (24-48) Monocytes (%) (Auto) 6% (0-9) Eosinophils (%) (Auto) 1% (0-3) Basophils (%) (Auto) 1% (0-3) Neutrophils # (Auto) 3.4x10^3uL (1.8-7.7) Lymphocytes # (Auto) 2.3x10^3/uL (1.0-4.8) Monocytes # (Auto) 0.4x10^3/uL (0.0-1.1) Eosinophils # (Auto) 0.1x10^3/uL (0.0-0.7) Basophils # (Auto) 0.1x10^3/uL (0.0-0.2) Sodium Level 143mmol/L (136-145) Potassium Level 4.6mmol/L (3.5-5.1) Chloride Level 106mmol/L (98-107) Carbon Dioxide Level 33mmol/L (21-32) Anion Gap 4 (6-14) Blood Urea Nitrogen 36mg/dL (7-20) Creatinine 1.4mg/dL (0.6-1.0) Estimated GFR (Cockcroft-Gault) 43.0 Glucose Level 59mg/dL (70-99) Calcium Level 8.5mg/dL (8.5-10.1) Triglycerides Level 41mg/dL (0-150) Cholesterol Level 200mg/dL (0-200) LDL Cholesterol, Calculated 100mg/dL (0-100) VLDL Cholesterol, Calculated 8mg/dL (0-40) HDL Cholesterol 92mg/dL (40-60) Cholesterol/HDL Ratio 2.2 Thyroid Stimulating Hormone (TSH) 6.739uIU/mL (0.358-3.74) Test 12/18/16 13:05 Glucose (Fingerstick) 71mg/dL (70-99) Medications Current Medications Gabapentin (Neurontin) 200 mg QHS PO Last administered on 12/17/16 22:23; Start 12/17/16 at 21:00 Metoprolol Succinate (Toprol Xl) 50 mg HS PO Last administered on 12/17/16 22: 23; Start 12/17/16 at 21:00 Pregabalin (Lyrica) 50 mg HS PO Last administered on 12/17/16 22:24; Start at 21:00 Vitals/I & O Vital Sign - Last 24 Hours 12/17/16 12/17/16 12/17/16 12/17/16 17:58 19:00 20:00 22:23 Temp 98.7 98.7 Pulse 80 63 63 Resp 18 B/P 132/65 141/41 141/41 Pulse Ox 99 O2 Delivery Nasal Cannula Nasal Cannula O2 Flow Rate 2.0 2.0 12/17/16 12/18/16 12/18/16 12/18/16 23:50 03:50 07:00 09:21 Temp 98.4 98.4 98.7 98.4 98.4 98.7 Pulse 78 84 64 64 Resp 20 16 16 B/P 141/55 155/54 99/42 117/44 Pulse Ox 99 96 92 O2 Delivery Nasal Cannula Nasal Cannula Nasal Cannula O2 Flow Rate 2.0 2.0 2.0 12/18/16 12/18/16 12/18/16 12/18/16 09:22 09:23 11:37 12:00 Temp 98.7 98.7 Pulse 64 64 63 63 Resp 14 B/P 117/44 117/44 89/38 89/38 Pulse Ox 95 O2 Delivery Nasal Cannula O2 Flow Rate 2.0 Intake and Output 12/17/16 12/17/16 12/18/16 15:00 23:00 07:00 Intake Total 280 ml Balance 280 ml TAMERA ALMAZAN MD Dec 18, 2016 15:17
[2016-12-18 15:52] VITALS: BP 92/40
--- NOTE | 2016-12-22 16:27 | PDOC ---
Provider Note Provider Note Discharge summary dictated. #[id number] TAMERA ALMAZAN MD Dec 22, 2016 16:27
--- NOTE | 2016-12-23 03:18 | DS ---
DATE OF DISCHARGE: 12/18/2016 REASON FOR ADMISSION TO THE HOSPITAL: Shortness of breath. CONSULTATIONS: Dr. Olmstead. PROCEDURES DONE: Echocardiogram. HOSPITAL COURSE: The patient is an 86-year-old female with history of AFib, CHF, half-way and came with shortness of breath, was found to have heart failure. BNP was elevated, was given IV Lasix. Echocardiogram shows a normal function, slightly decreased systolic ejection fraction 45%-50%, LVH. She has a bioprosthetic aortic valve prosthesis, moderate aortic regurgitation and tricuspid regurgitation. PA pressure was 41. The patient was given Lasix and her condition improved, breathing better and she was discharged back to the half-way. Aldactone was added to Lasix. She is already on beta blockers and SARAHI inhibitors. FINAL DIAGNOSES: 1. Acute on chronic systolic heart failure, ejection fraction 45%. 2. 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 3. Sick sinus syndrome, pacemaker. On the whole patient's condition improved. It was felt that she could be discharged back to the half-way. TAMERA ALMAZAN MD DR: PORSHA/julio JOB#: [id number] / [id number] THERESA
== END 2016-12-18 19:00 | DRG 291 ==
LOC: ER 23:27 → 2 SOUTH 12-17 01:00
PROVIDERS: ADMIT Internal Medicine; ATTEND Internal Medicine
DX: I13.0 Hypertensive heart and chronic kidney disease with heart failure and stage 1 through stage 4 chronic kidney disease, or unspecified chronic kidney disease (principal); I50.43 Acute on chronic combined systolic (congestive) and diastolic (congestive) heart failure; N17.9 Acute kidney failure, unspecified; E78.5 Hyperlipidemia, unspecified; I25.10 Atherosclerotic heart disease of native coronary artery without angina pectoris; E11.22 Type 2 diabetes mellitus with diabetic chronic kidney disease; I48.91 Unspecified atrial fibrillation; I49.5 Sick sinus syndrome; K21.9 Gastro-esophageal reflux disease without esophagitis; M19.90 Unspecified osteoarthritis, unspecified site; N18.9 Chronic kidney disease, unspecified; Z82.49 Family history of ischemic heart disease and other diseases of the circulatory system; Z83.3 Family history of diabetes mellitus; Z90.49 Acquired absence of other specified parts of digestive tract; Z95.0 Presence of cardiac pacemaker; I25.2 Old myocardial infarction; Z95.1 Presence of aortocoronary bypass graft; Z87.01 Personal history of pneumonia (recurrent); Z88.2 Allergy status to sulfonamides; Z91.041 Radiographic dye allergy status; Z79.899 Other long term (current) drug therapy; Z79.82 Long term (current) use of aspirin; Z90.710 Acquired absence of both cervix and uterus
CPT/HCPCS: 36415; 71010; 80048; 80053; 80061; 81001; 82947; 83880; 84443; 84484; 85007; 85027; 85610; 85730; 87641; 87804; 93005; 93306; 96374; J0775; J1650; J1940; J7512; 99285-25

== ENCOUNTER 2016-12-28 04:08 | Emergency (ER) | payer MEDICARE, OTHER ==
[~2016-12-28] VITALS: Ht 160 cm; Wt 67.6 kg
[~2016-12-28 04:08] MED LIST changes: +ACET500T68 PO; +CHOL20002 PO; +COLL30OI TP; +DICL100G7 TP; +DOCU-27 PO; +FURO20TA3 PO; +GABA-585 PO; +MAGN400O4 PO; +MIRT7.5T8 PO; +PANT40GR PO; +POTA10CA PO
[2016-12-28] MEDS ORDERED: LIDOCAINE 1%/EPI 1:100,000 20 ML VIAL. IJ ONE (04:30)
--- NOTE | 2016-12-28 04:33 | PHYS DOC ---
Past Medical History Past Medical History: Arthritis, CAD, CHF, Diabetes-Type II, DVT, Hypertension , [place], Other Additional Past Medical Histor: mi in 1996 Past Surgical History: Appendectomy, Hysterectomy, Pacemaker, Other Additional Past Surgical Histo: triple bypass 1996,hernia repair Alcohol Use: None Drug Use: None Adult General Chief Complaint Chief Complaint: MECHANICAL FALL HPI HPI Patient is a 86 year old female who presents status post fall. Patient is resident at [facility]; she says she had to go to the bathroom tonight and tried to get up on her own rather than pushing the call button. She tripped and fell, hitting her head. She denies loss consciousness. She complains of pain at her left eyebrow (where she has laceration) as well as her left lower extremity. She is unsure of last tetanus booster. No other acute complaints. She denies any chest discomfort, shortness of breath, lightheadedness and to the point. Review of Systems Review of Systems Constitutional: Denies fever or chills Eyes: Denies change in visual acuity or eye pain HENT: Denies nasal congestion or sore throat; pain/laceration at L eyebrow Respiratory: Denies cough or shortness of breath Cardiovascular: Denies chest pain GI: Denies abdominal pain, nausea, vomiting, bloody stools or diarrhea : Denies dysuria or hematuria Musculoskeletal: LLE pain Integument: Denies rash or skin lesions Neurologic: Denies headache, focal weakness or sensory changes Current Medications Current Medications Current Medications Medications (Trade) Dose Ordered Sig/Santosh Start Time Stop Time Status Last Admin Dose Admin Acetaminophen (Tylenol) 650 mg 1X ONCE 12/28/16 05:00 12/28/16 05:01 DC 12/28/16 05:43 650 MG Diphtheria/ Tetanus/Acell Pertussis (Boostrix) 0.5 ml STK-MED ONCE 12/28/16 04:48 12/28/16 04:49 DC Lidocaine/ Epinephrine (Xylocaine 1%-Epi 1:100,000) 20 ml 1X ONCE 12/28/16 04:30 12/28/16 04:34 DC 12/28/16 05:45 20 ML Neomycin/ Polymyxin/ Bacitracin (Triple Antibiotic Ointment) 1 pkt 1X ONCE 12/28/16 06:45 12/28/16 06:46 Tetanus/ Diphtheria Toxoids Adsorbed (Tenivac Syringe) 0.5 ml ONCE ONCE 12/28/16 05:00 12/28/16 05:01 DC 12/28/16 05:45 0.5 ML Allergies Allergies Allergies Coded Allergies Type Severity Reaction Last Updated Verified Iodinated Contrast Media - IV Dye Allergy Severe Anaphylaxis 11/01/14 Yes Sulfa (Sulfonamide Antibiotics) Allergy Intermediate 11/01/14 Yes Physical Exam Physical Exam Constitutional: Well developed, well nourished, no acute distress, non-toxic appearance HENT: Normocephalic, bilateral external ears normal. 2.5cm laceration L eyebrow Eyes: PERRL, EOMI, conjunctiva normal, no discharge Neck: Normal range of motion, no stridor, No midline TTP, no stepoff or deformity Cardiovascular: Heart rate normal, regular rhythm, no murmur Lungs & Thorax: Bilateral breath sounds clear to auscultation Abdomen: Bowel sounds normal, soft, non-distended, no TTP Skin: Warm, dry, no erythema, no rash Back: No midline tenderness, no stepoff Extremities: LLE visually unremarkable compared to RLE; 2+ DP pulse b/l; motor function and sensation to light touch intact; mild general TTP around L hip and L knee Neurologic: Alert and oriented to person and place, GCS 15, CN II-XII grossly intact, strength intact and symmetrical throughout, sensation to light touch intact throughout Current Patient Data Vital Signs Vital Signs Date Time Temp Pulse Resp B/P Pulse Ox O2 Delivery O2 Flow Rate FiO2 12/28/16 06:11 60 14 176/65 100 Room Air 12/28/16 04:11 98.5 98.5 EKG EKG [] Radiology/Procedures Radiology/Procedures CT head/c-spine: IMPRESSION Right sphenoid sinusitis Intracranial atrophy No hemorrhage or mass or acute CVA noted. Degenerative change noted in the cervical spine. No acute cervical spine fracture noted. Ground-glass infiltrates right upper lobe correlation w with a chest x-ray or CT chest would be of benefit. X-ray L hip and pelvis (my read): No acute abnormality X-ray L knee (my read): No acute abnormality Course & Med Decision Making Course & Med Decision Making Pertinent Labs and Imaging studies reviewed. (See chart for details) Patient is 86-year-old female who [facility]. Has laceration to left eyebrow. Will obtain CT head and C-spine to rule out serious injury given age. X-rays of left hip and left knee ordered due to complaint of mild pain in left lower extremity. Dose of acetaminophen and tetanus booster ordered. Imaging results as above. Laceration was cleaned and repaired. CT scan of C-spine shows ground glass opacity in right upper lobe of lung. I discussed with patient the need for further imaging to evaluate this ; however she says she strongly wishes to not do any further imaging this morning. As she does not have any acute pulmonary complaints and is maintaining excellent oxygenation on room air we will hold off on this and she can pursue this at a later time. [facility] with instructions for follow-up and return precautions. Dragon Disclaimer Dragon Disclaimer This electronic medical record was generated, in whole or in part, using a voice recognition dictation system. PROCEDURE Procedure Indication: Left forehead laceration Procedure: The patient was placed in the appropriate position and anesthesia around the laceration was achieved with 1% lidocaine with epinephrine. The area was then thoroughly irrigated with sterile saline. The laceration was closed with 3 sutures of 5-0 Prolene. The wound area was then covered with antibiotic ointment and dressed by nursing. Total repaired wound length: 2.5 cm The patient tolerated the procedure well Complications: None Departure Departure Impression: Primary Impression: Fall Additional Impression: Laceration Disposition: 03 TRANSFER SNF Condition: STABLE Referrals: JARAD DUFFY (PCP) Patient Instructions: Facial Laceration Additional Instructions: Thank you for allowing us to provide care today in the Emergency Department. Your laceration required 3 sutures (stitches) to close. These will need to be taken out in about [address] scan of your neck showed an abnormality in your right upper lung. You will need further pictures to further evaluate this. Schedule a follow up appointment with your primary care doctor as soon as possible. Return promptly to the Emergency Department if you develop any new or concerning symptoms. Problem Qualifiers SHEA ARZOLA MD Dec 28, 2016 04:33
[2016-12-28] MEDS ORDERED: DIPHTH,PERTUSS(ACELL),TET TOX 0.5 ML DISP.SYRIN. VAX IM ONE (04:48)
[2016-12-28] MEDS ORDERED: TETANUS AND DIPHTHERIA TOX/PF 0.5 ML DISP.SYRIN. VAX IM ONE (05:00)
[2016-12-28] MEDS ORDERED: ACETAMINOPHEN 325 MG TABLET. PO ONE (05:00)
--- NOTE | 2016-12-28 05:24 | RAD ---
PROCEDURE CT of brain without contrast, CT cervical spine without contrast HISTORY pt fell earlier this morning; headache; pt denies any neck pain TECHNIQUE One or more of the following individualized dose reduction techniques were utilized for this examination: 1. Automated exposure control; 2. Adjustment of the mA and/or kV according to patient size; 3. Use of iterative reconstruction technique.One or more of the following individualized dose reduction techniques were utilized for this examination: 1. Automated exposure control; 2. Adjustment of the mA and/or kV according to patient size; 3. Use of iterative reconstruction technique. COMPARISON Comparison made with the study from June [address] scan of the brain was done without contrast. There is no intracranial hemorrhage or subdural hematoma. Ventricles are normal in size. There is no mass or shift of the midline. There is a fluid level in the right sphenoid sinus from acute sinusitis. CT cervical spine was done without contrast. There is extensive degenerative change in the cervical spine. There are ground-glass infiltrates in the right upper lobe. CT scan of the chest would be of benefit the a right upper lobe lung disease appears new compared to the old examination. There is a central disc protrusion at C2-3. There is disc space narrowing at almost all levels most prominent in the lower cervical spine. There is facet arthritis at several levels. There is no fracture noted in the cervical spine. There is mild scoliosis. IMPRESSION Right sphenoid sinusitis Intracranial atrophy No hemorrhage or mass or acute CVA noted. Degenerative change noted in the cervical spine. No acute cervical spine fracture noted. Ground-glass infiltrates right upper lobe correlation w with a chest x-ray or CT chest would be of benefit. Electronically signed by: Rachid James MD (Dec 28, 2016 05:23:12)
[2016-12-28 06:11] VITALS: BP 176/65
[2016-12-28] MEDS ORDERED: NEOMY/BACITR/POLYMYXIN OINT PACKET. TP ONE (06:45)
--- NOTE | 2016-12-28 07:08 | RAD ---
Pelvis with left hip, 3 views, 12/28/2016: History: Fall, pain No acute fracture or dislocation is identified. There is mild narrowing of the hip joints with mild marginal spurring. Extensive arterial calcifications are present. Vascular stents are present in the right iliac region. IMPRESSION: No acute bony abnormality is detected.
--- NOTE | 2016-12-28 07:09 | RAD ---
Left knee, 3 views, 12/28/2016: History: Fall, pain The bony structures are demineralized. No acute fracture or dislocation is identified. There is mild marginal spurring with chondrocalcinosis. Extensive arterial calcification is present. Multiple surgical clips are evident in the soft tissues. There is subcutaneous edema. IMPRESSION: 1. Degenerative change with chondrocalcinosis. 2. No acute bony abnormality is detected.
== END 2016-12-28 06:45 | disposition home or self-care (01) ==
LOC: ER 04:08
DX: S01.112A Laceration without foreign body of left eyelid and periocular area, initial encounter (principal); M25.562 Pain in left knee; M25.552 Pain in left hip; I10 Essential (primary) hypertension; E11.9 Type 2 diabetes mellitus without complications; I25.10 Atherosclerotic heart disease of native coronary artery without angina pectoris; I25.2 Old myocardial infarction; I11.0 Hypertensive heart disease with heart failure; I50.9 Heart failure, unspecified; Z95.0 Presence of cardiac pacemaker; Z90.710 Acquired absence of both cervix and uterus; M19.90 Unspecified osteoarthritis, unspecified site; Z86.718 Personal history of other venous thrombosis and embolism; Z88.2 Allergy status to sulfonamides; Z91.041 Radiographic dye allergy status; W01.0XXA Fall on same level from slipping, tripping and stumbling without subsequent striking against object, initial encounter; Y93.89 Activity, other specified; Y92.89 Other specified places as the place of occurrence of the external cause; Y99.8 Other external cause status
CPT/HCPCS: 12011; 70450; 72125; 73502; 73562; 90471; 90714; 99284; J3490

== ENCOUNTER 2017-01-05 07:58 | Inpatient (IN) | payer MEDICARE, OTHER ==
[~2017-01-05] VITALS: Ht 160 cm; Wt 63.6 kg
[2017-01-05] MEDS ORDERED: IV NORMAL SALINE 500ML BAG 500 ML IV ONE (08:30)
[2017-01-05 08:53] LABS: BASO # 0.1 x10^3/uL (0.0-0.2); BASO % 1 % (0-3); EOS % 1 % (0-3); HEMOGLOBIN 9.8 g/dL (12.0-15.5); LYMPH # 2.6 x10^3/uL (1.0-4.8); LYMPH % 26 % (24-48); MEAN CORPUSCULAR HEMOGLOBIN 21 pg (25-35); MEAN CORPUSCULAR HGB CONC 32 g/dL (31-37); MEAN CORPUSCULAR VOLUME 68 fL (79-100); MONO % 8 % (0-9); NEUT % 65 % (31-73); PLATELET COUNT 219 x10^3/uL (140-400); RED BLOOD COUNT 4.56 x10^6/uL (3.50-5.40); RED CELL DISTRIBUTION WIDTH 17.8 % (11.5-14.5)
[2017-01-05 09:04] LABS: BILIRUBIN,URINE NEGATIVE (NEG); GLUCOSE,URINE NEGATIVE (NEG); NITRITE,URINE NEGATIVE (NEG); PROTEIN,URINE NEGATIVE (NEG-TRACE); UROBILINOGEN,URINE 0.2 mg/dL (0.2 mg/dL)
--- NOTE | 2017-01-05 09:04 | PHYS DOC ---
Past Medical History Past Medical History: Arthritis, CAD, CHF, Diabetes-Type II, DVT, Hypertension , VA, Other Additional Past Medical Histor: mi in 1996 Past Surgical History: Appendectomy, Hysterectomy, Pacemaker, Other Additional Past Surgical Histo: triple bypass 1996,hernia repair Alcohol Use: None Drug Use: None Adult General Chief Complaint Chief Complaint: URINARY FREQUENCY HPI HPI Patient is a 86 year old female who presents by EMS from nursing facility for confusion and hallucinations starting overnight. She has been treated with ampicillin since 01/02/17 for UTI. She complains of crampy lower abdominal pain and low back pain that are intermittent and spasm-like. She denies nausea or vomiting, fever or chills, chest pain, dyspnea, cough, headache, vision changes , numbness, tingling, weakness, dizziness. Review of Systems Review of Systems Constitutional: Denies fever or chills [] Eyes: Denies change in visual acuity, redness, or eye pain [] HENT: Denies nasal congestion or sore throat [] Respiratory: Denies cough or shortness of breath [] Cardiovascular: No additional information not addressed in HPI [] GI: Denies nausea, vomiting, bloody stools or diarrhea [] : Denies hematuria [] Musculoskeletal: Denies joint pain [] Integument: Denies rash or skin lesions [] Neurologic: Denies headache, focal weakness or sensory changes [] Endocrine: Denies polyuria or polydipsia [] Current Medications Current Medications Current Medications Medications (Trade) Dose Ordered Sig/Santosh Start Time Stop Time Status Last Admin Dose Admin Sodium Chloride (Iv Sodium Chloride 0.9% 500ml Bag) 500 ml @ 500 mls/hr 1X ONCE 01/05/17 08:30 01/05/17 09:29 DC 01/05/17 08:52 500 MLS/HR Allergies Allergies Allergies Coded Allergies Type Severity Reaction Last Updated Verified Iodinated Contrast Media - Oral and Allergy Severe Anaphylaxis 01/05/17 Yes Sulfa (Sulfonamide Antibiotics) Allergy Intermediate 01/05/17 Yes codeine Allergy Intermediate 01/05/17 Yes iodine Allergy Intermediate 01/05/17 Yes Physical Exam Physical Exam Constitutional: Well developed, well nourished, no acute distress, non-toxic appearance. [] HENT: Normocephalic, atraumatic, bilateral external ears normal, oropharynx dry , no oral exudates, nose normal. [] Eyes: PERRLA, EOMI. [] Neck: Normal range of motion, no tenderness, supple. [] Cardiovascular:Heart rate regular rhythm [] Lungs & Thorax: Bilateral breath sounds clear to auscultation [] Abdomen: Bowel sounds normal, soft, no tenderness. [] Skin: Warm, dry, no erythema, no rash. [] Back: No midline spinal tenderness, no CVA tenderness. Has mild bilateral lumbar paraspinal tenderness with no palpable abnormality [] Extremities: No tenderness, ROM intact. [] Neurologic: Alert and oriented to self, normal motor function, normal sensory function, no focal deficits noted. [] Psychologic: Affect normal, mood normal, cooperative. Appears confused [] Current Patient Data Vital Signs Vital Signs Date Time Temp Pulse Resp B/P Pulse Ox O2 Delivery O2 Flow Rate FiO2 01/05/17 10:02 60 16 130/58 96 Room Air 01/05/17 08:00 100.1 100.1 Lab Values Laboratory Tests Test 01/05/17 08:30 01/05/17 08:50 01/05/17 09:00 White Blood Count 10.0x10^3/uL (4.0-11.0) Red Blood Count 4.56x10^6/uL (3.50-5.40) Hemoglobin 9.8g/dL (12.0-15.5) L Hematocrit 31.0% (36.0-47.0) L Mean Corpuscular Volume 68fL (79-100) L Mean Corpuscular Hemoglobin 21pg (25-35) L Mean Corpuscular Hemoglobin Concent 32g/dL (31-37) Red Cell Distribution Width 17.8% (11.5-14.5) H Platelet Count 219x10^3/uL (140-400) Neutrophils (%) (Auto) 65% (31-73) Lymphocytes (%) (Auto) 26% (24-48) Monocytes (%) (Auto) 8% (0-9) Eosinophils (%) (Auto) 1% (0-3) Basophils (%) (Auto) 1% (0-3) Neutrophils # (Auto) 6.4x10^3uL (1.8-7.7) Lymphocytes # (Auto) 2.6x10^3/uL (1.0-4.8) Monocytes # (Auto) 0.8x10^3/uL (0.0-1.1) Eosinophils # (Auto) 0.1x10^3/uL (0.0-0.7) Basophils # (Auto) 0.1x10^3/uL (0.0-0.2) Platelet Estimate Pending Urine Collection Type Unknown Urine Color Yellow Urine Clarity Clear Urine pH 6.0 Urine Specific [place] 1.010 Urine Protein Negativemg/dL (NEG-TRACE) Urine Glucose (UA) Negativemg/dL (NEG) Urine Ketones (Stick) Negativemg/dL (NEG) Urine Blood Negative (NEG) Urine Nitrite Negative (NEG) Urine Bilirubin Negative (NEG) Urine Urobilinogen Dipstick 0.2mg/dL (0.2 mg/dL) Urine Leukocyte Esterase Negative (NEG) Urine RBC 0/HPF (0-2) Urine WBC 0/HPF (0-4) Urine Squamous Epithelial Cells Few/LPF Urine Bacteria 0/HPF (0-FEW) Sodium Level 142mmol/L (136-145) Potassium Level 4.5mmol/L (3.5-5.1) Chloride Level 102mmol/L (98-107) Carbon Dioxide Level 28mmol/L (21-32) Anion Gap 12 (6-14) Blood Urea Nitrogen 92mg/dL (7-20) H Creatinine 2.5mg/dL (0.6-1.0) H Estimated GFR (Cockcroft-Gault) 22.0 Glucose Level 113mg/dL (70-99) H Calcium Level 9.5mg/dL (8.5-10.1) Laboratory Tests 01/05/17 08:30 Laboratory Tests 01/05/17 09:00 EKG EKG EKG as interpreted by me as normal sinus rhythm, rate 61, no ST-T changes, no ectopy Course & Med Decision Making Course & Med Decision Making Pertinent Labs and Imaging studies reviewed. (See chart for details) No evidence of urinary tract infection on today's urinalysis; suspect it is being treated appropriately with antibiotics. She does exhibit some symptoms of delirium and confusion while here in the however she remains cooperative and has not tried to get of bed. She is tolerating oral intake. Her labs reflect acute renal failure. Suspect metabolic encephalopathy. Will admit for IV hydration and further monitoring. Discussed case with Dr. Kinney, who agrees with plan. Dragon Disclaimer Dragon Disclaimer This electronic medical record was generated, in whole or in part, using a voice recognition dictation system. Departure Departure Impression: Primary Impression: Altered mental status Additional Impression: Acute renal failure Disposition: ADMITTED INPATIENT Condition: STABLE Referrals: JARAD DUFFY (PCP) Problem Qualifiers Primary Impression: Altered mental status Altered mental status type: delirium Qualified Code: R41.0 - Disorientation , unspecified Additional Impression: Acute renal failure Acute renal failure type: unspecified Qualified Code: N17.9 - Acute kidney failure, unspecified Josh CANAS MD Jan 05, 2017 09:04
[2017-01-05 09:08] LABS: BACTERIA,URINE 0 /HPF (0-FEW); RBC,URINE 0 /HPF (0-2); SQUAMOUS EPITHELIAL CELL,UR FEW /LPF; WBC,URINE 0 /HPF (0-4)
[2017-01-05 09:24] LABS: CALCIUM 9.5 mg/dL (8.5-10.1); CREATININE 2.5 mg/dL (0.6-1.0); POTASSIUM 4.5 mmol/L (3.5-5.1)
--- NOTE | 2017-01-05 10:09 | ACF ---
Admission Forms Criteria MENTAL STATUS CHANGE Clinical Indications for Inpatient Care (Place 'X' for any and all applicable criteria): Ongoing inpatient care may be needed for ANY ONE of the following(1)(2)(3)(5)(6) : [X]I. Suspected serious etiology (eg, medical disorder, COMB CAPPER event) of mental status change [ ]II. Danger to self or others not manageable at lower level of care [ ]III. Grave disability (eg, inability to perform self care necessary at lower level of care) [ ]IV. Agitation or inappropriate behavior interfering with care for primary condition (eg, attempting to discontinue lines or drains prematurely, unable to cooperate with respiratory care) [ ]V. Delirium [A] [D][E] as described by ANY ONE of the following(26): [ ]a) Delirium due to alcohol or sedative [F] withdrawal [ ]b) Delirium of uncertain etiology that has not responded to appropriate empiric treatment [ ]c) Delirium that prevents performance of a life-sustaining function (eg, feeding or hydrating oneself) [ ]. General contraindications and/or Inappropriate clinical situations for Observational Care in patients with Mental Status Change, when ANY ONE of the following is required: [ ]a) Prediction of prolongation of LOS based on ANY ONE of the following may be considered as a contraindication for observational care 2, 3, 4, 5, 6, 7, 8, 9, 10, 11 [ ]i) Age > 65 yrs. [ ]ii) Patient arriving by ambulance [ ]iii) Patient with high acuity [ ]iv) Patient requiring vital sign monitoring [ ]v) Patient on IV medication [ ]b) Systolic blood pressures 180mmHg 3,12 [ ]c) Patient with altered mental status including delirium and other alteration of consciousness, (3) [ ]d) Patient whose discharge disposition will be to a penitentiary home or rehabilitation home should not be managed in Emergency Department Observation Unit. CMS rule requires 3 days hospital stay before such placement.3,13 [ ]e) Patient with failure to thrive due to broad array of etiologies 3,16,17 [ ]f) Inability to ambulate 3,14 Extended stay beyond goal length of stay for the primary condition may be needed until ALL of the following are present(3)(5): [ ]a) Underlying medical etiology of mental status change is absent, or has been established and adequately treated [ ]b) Danger to self or others is absent or manageable at lower level of care. [ ]c) Behavior crisis management, including physical or chemical restraints, is not required or available at lower level of car [ ]d) Substance or alcohol withdrawal is absent or manageable at lower level of care. [ ]e) Behavioral symptoms (eg, agitation, somnolence, inappropriate behavior) are absent, or are manageable at lower level of care. The original [facility] content created by [facility] has been revised. The portions of the content which have been revised are identified through the use of italic text or in bold, and [facility] has neither reviewed nor approved the modified material. All other unmodified content is copyright [facility]. Please see references footnoted in the original [facility] edition 2016 Admission Criteria Met?: Yes MANI CRAIN Jan 05, 2017 10:09
--- NOTE | 2017-01-05 10:17 | EKG ---
[facility] [address] [place] [address] Test Date: 2017-01-05 Test Time: 09:44:06 Pat Name: SHIKHA AGUILAR Department: Room: Gender: F [place] [employer]: : 1930 Requested By: Josh CANAS Order Number: [id number] Reading MD: Measurements Intervals [place] Rate: 61 P: VT: QRS: 49 QRSD: 112 T: -15 QT: 402 QTc: 406 Interpretive Statements IRREGULAR RHYTHM, NO P-WAVE FOUND QRS(T) CONTOUR ABNORMALITY CONSISTENT WITH ANTEROSEPTAL INFARCT PROBABLY OLD T ABNORMALITY IN INFERIOR LEADS RI6.01 Unconfirmed report No previous ECG available for comparison
[2017-01-05] MEDS ORDERED: POTASSIUM CL 20MEQ-0.45% NACL 1,000 ML IV ONE (10:30)
[2017-01-05 10:51] LABS: ANISOCYTOSIS SLIGHT; HYPOCHROMIA MOD; MICROCYTOSIS MOD; OVALOCYTES PRESENT; PLT ESTIMATE ADEQUATE (ADEQUATE); POIKILOCYTOSIS SLIGHT; TARGET CELLS PRESENT
[2017-01-05 10:52] LABS: SCHISTOCYTES OCC
[2017-01-05 11:03] VITALS: BP 123/51
[2017-01-05] MEDS ORDERED: ACID1TAB4 PO (11:23)
[2017-01-05] MEDS ORDERED: POTA20TA4 PO (11:23)
[2017-01-05 15:00] VITALS: BP 128/80
[2017-01-05 19:00] VITALS: BP 158/47
[2017-01-05] MEDS ORDERED: DEXTROSE 50% 25 GM / 50ML DISP.SYRIN. IV PRN (21:30)
[2017-01-05] MEDS ORDERED: ISOS20TA2 PO (22:09)
[2017-01-05] MEDS: IV DEXTROSE 5 %-0.45 % NACL 1,000 ML IV SCH (22:53)
[2017-01-05] MEDS: CEFTRIAXONE SODIUM 1 GM in IV NORMAL SALINE 50ML 50 ML IV SCH (22:54)
[2017-01-05 23:00] VITALS: BP 132/35
[2017-01-06 03:00] VITALS: BP 120/43
[2017-01-06 04:26] LABS: BASO % 1 % (0-3); EOS % 2 % (0-3); HEMATOCRIT 27.2 % (36.0-47.0); HEMOGLOBIN 9.1 g/dL (12.0-15.5); LYMPH # 2.5 x10^3/uL (1.0-4.8); LYMPH % 36 % (24-48); MEAN CORPUSCULAR HEMOGLOBIN 22 pg (25-35); MEAN CORPUSCULAR HGB CONC 34 g/dL (31-37); MEAN CORPUSCULAR VOLUME 65 fL (79-100); MONO % 9 % (0-9); NEUT % 53 % (31-73); PLATELET COUNT 195 x10^3/uL (140-400); RED BLOOD COUNT 4.16 x10^6/uL (3.50-5.40); RED CELL DISTRIBUTION WIDTH 17.1 % (11.5-14.5)
[2017-01-06 04:47] LABS: ALBUMIN 2.9 g/dL (3.4-5.0); ALBUMIN/GLOBULIN RATIO 0.7 (1.0-1.7); CALCIUM 8.9 mg/dL (8.5-10.1); CHOLESTEROL/HDL RATIO 2.3; GFR 28.5; POTASSIUM 4.3 mmol/L (3.5-5.1); TOTAL BILIRUBIN 0.8 mg/dL (0.2-1.0); TOTAL PROTEIN 6.9 g/dL (6.4-8.2)
[2017-01-06 06:30] LABS: OBC FLU VALID
--- NOTE | 2017-01-06 07:27 | RAD ---
EXAM: Renal/retroperitonal ultrasound HISTORY: Renal failure. COMPARISON: 05/19/2014. FINDINGS: Ultrasound of the kidneys, bladder and retroperitoneum was performed. The right kidney measures 8.3 cm. Cortical thickness and echogenicity are preserved. There is no hydronephrosis. The left kidney measures 7.4 cm. Cortical thickness and echogenicity are preserved. There is no hydronephrosis. The bladder is distended with a prevoid volume of 661 mL. No focal mural lesions are seen. IMPRESSION: 1. Moderate bilateral renal atrophy. No hydronephrosis. 2. Distended bladder. Correlate to exclude outlet obstruction.
[2017-01-06 07:52] VITALS: BP 130/44
[2017-01-06] MEDS: INSULIN ASPART 300 UNITS/3 ML INSULN.PEN SQ SCH ×3 (08:00→17:47)
[2017-01-06] MEDS: ISOSORBIDE MONONITRATE 20 MG TABLET PO SCH (08:52)
[2017-01-06] MEDS: DOCUSATE SODIUM 100 MG CAPSULE PO SCH (08:53)
[2017-01-06] MEDS: PANTOPRAZOLE 40 MG TABLET. PO SCH (08:53)
[2017-01-06] MEDS: HYDRALAZINE 50 MG TABLET PO SCH ×3 (08:53→17:42)
[2017-01-06] MEDS: HEPARIN PF for SUB-Q USE 5,000 UNIT/0.5 ML VIAL. SQ SCH ×2 (09:00→21:15)
[2017-01-06] MEDS ORDERED: COLLAGENASE 250 UNIT/GM TOPICAL OINTMENT 30GM TUBE. TP SCH (09:00)
--- NOTE | 2017-01-06 09:25 | RAD ---
EXAM: Chest one view. HISTORY: Fever, pneumonia. COMPARISON: 12/16/2016. FINDINGS: A frontal view of the chest is obtained. A left-sided pacemaker has its leads in the right atrium and right ventricle. There are changes of coronary artery bypass grafting. Cholecystectomy clips are noted. The right hemidiaphragm is moderately elevated. There is a small right pleural effusion with associated atelectasis. There is no pneumothorax or pleural effusion. The heart is at least mildly enlarged. There are atherosclerotic calcifications of the aorta. IMPRESSION: 1. Moderate elevation of the right hemidiaphragm. Small right pleural effusion. Right basilar atelectasis. 2. At least mild cardiomegaly.
--- NOTE | 2017-01-06 10:17 | PDOC ---
Provider Note Provider Note Pt seen.H&P dictated. #[id number] TAMERA ALMAZAN MD Jan 06, 2017 10:17
[2017-01-06 11:00] VITALS: BP 142/54
--- NOTE | 2017-01-06 11:45 | PDOC2 ---
CONSULT Date of Consult Date of Consult DATE: 01/06/17 TIME: 11:43 Reason for Consult Reason for Consult: renal Fialure Referring Physician Referring Physician: Dr Kinney Identification/Chief Complaint Chief Complaint confusion and hallucinations Problems: Source Source: Chart review, Patient Past Medical History Cardiovascular: AFIB, CAD, CHF, HTN, Hyperlipidemia, Other Pulmonary: Pneumonia CENTRAL NERVOUS SYSTEM: Other GI: GERD Heme/Onc: No pertinent hx, Other Hepatobiliary: No pertinent hx Psych: No pertinent hx Musculoskeletal: Osteoarthritis Rheumatologic: No pertinent hx Infectious disease: No pertinent hx Renal/: No pertinent hx Endocrine: Diabetes Past Surgical History Past Surgical History: Pacemaker, Appendectomy, Hysterectomy Family History Family History: Diabetes, Heart Disease, Hypertension Social History ALCOHOL: none Drugs: None Lives: Intermediate Domestic Violence: Neg Current Problem List Problem List Problems Medical Problems: (1) Acute renal failure Status: Acute (2) Acute renal failure syndrome Status: Acute (3) Altered mental status Status: Acute Current Medications Current Medications Current Medications Sodium Chloride 500 ml @ 500 mls/hr 1X ONCE IV Last administered on 01/05/17 08:52; Admin Dose 500 MLS/HR; Start 01/05/17 at 08:30; Stop 01/05/17 at 09:29; Status DC Potassium Chloride/Sodium Chloride 1,000 ml @ 125 mls/hr 1X ONCE IV Last administered on 01/05/17 12:23; Admin Dose 125 MLS/HR; Start 01/05/17 at 10:30; Stop 01/05/17 at 21:36; Status DC Ceftriaxone Sodium/Sodium Chloride (Rocephin/Iv Sodium Chloride 0.9% 50ml) 50 ml @ 100 mls/hr QHS IV Last administered on 01/05/17 22:54; Admin Dose 100 MLS /HR; Start 01/05/17 at 22:00 Heparin Sodium (Porcine) 5,000 unit Q12HR SQ Last administered on 01/06/17 09: 00; Admin Dose 5,000 UNIT; Start 01/06/17 at 09:00 Acetaminophen (Tylenol) 500 mg PRN Q8HRS PRN PO MILD PAIN; Start 01/05/17 at 21: 30 Collagenase (Santyl) 1 sade DAILY TP ; Start 01/06/17 at 09:00; Status UNV Docusate Sodium (Colace) 100 mg DAILY PO Last administered on 01/06/17 08:53; Admin Dose 100 MG; Start 01/06/17 at 09:00 Hydralazine HCl (Apresoline) 50 mg TIDWMEALS PO Last administered on 01/06/17 08:53; Admin Dose 50 MG; Start 01/06/17 at 08:00 Metoprolol Succinate (Toprol Xl) 50 mg HS PO ; Start 01/06/17 at 21:00 Isosorbide Mononitrate (Ismo) 20 mg DAILY PO Last administered on 01/06/17 08: 52; Admin Dose 20 MG; Start 01/06/17 at 09:00 Pantoprazole Sodium (Protonix) 40 mg DAILYAC PO Last administered on 01/06/17 08:53; Admin Dose 40 MG; Start 01/06/17 at 07:30 Insulin Aspart (Novolog) 0-5 UNITS TIDWMEALS SQ ; Start 01/06/17 at 08:00 Dextrose 12.5 gm 12.5 gm PRN Q15MIN PRN IV SEE COMMENTS; Start 01/05/17 at 21:30 Dextrose/Sodium Chloride (Iv D5% - 1/2 NS) 1,000 ml @ 75 mls/hr [id number] IV Last administered on 01/05/17 22:53; Admin Dose 75 MLS/HR; Start 01/05/17 at 21: 30 Active Scripts Active Cozaar (Losartan Potassium) 25 Mg Tablet 25 Mg PO DAILY Reported Isosorbide Mononitrate 20 Mg Tablet 20 Mg PO DAILY Floranex Tablet (Acidophilus/Bulgaricus) 1 Each Tablet 1 Each PO Klor-Con M20 (Potassium Chloride) 20 Meq Tab.er.prt 1 Tab PO BID Voltaren (Diclofenac Sodium) 100 Gm Gel..gram. 2 Gm TP QID Vitamin D-3 (Cholecalciferol (Vitamin D3)) 2,000 Unit Tablet 3,000 Unit PO Santyl Ointment (Collagenase) 30 Gm Oint...g. 1 Sade TP DAILY DIRECTED BY PHYSICIAN Protonix (Pantoprazole Sodium) 40 Mg Granpkt.dr 40 Mg PO DAILY Gabapentin 100 Mg Capsule 200 Mg PO QHS Mirtazapine 7.5 Mg Tablet 7.5 Mg PO DAILY Milk Of Magnesia (Magnesium Hydroxide) 400 Mg/5 Ml Oral.susp 1,200 Mg PO Colace (Docusate Sodium) 100 Mg Capsule 1 Cap PO BID Acetaminophen 500 Mg Tablet 1 Tab PO PRN Q8HRS PRN Hydralazine Hcl 50 Mg Tablet 50 Mg PO TIDWMEALS Bupropion Hcl Sr (Bupropion Hcl) 150 Mg Tablet.er 150 Mg PO BID Glyburide 5 Mg Tablet 5 Mg PO DAILY Lasix (Furosemide) 80 Mg Tablet 80 Mg PO BID Potassium Chloride 20 Meq Tablet.er 20 Meq PO BID Meclizine Hcl 12.5 Mg Tablet 12.5 Mg PO PRN TID PRN Lyrica (Pregabalin) 50 Mg Capsule 50 Mg PO HS Toprol Xl (Metoprolol Succinate) 50 Mg Tab.er.24h 50 Mg PO HS Mittie 7.5-325 Tablet (Acetaminophen/Hydrocodone Bitart) 1 Each Tablet 1 Tab PO PRN TID PRN Daily Multiple Vitamin (Multivitamin) 1 Each Tablet 1 Each PO [id number] Allergies Allergies: Coded Allergies: Iodinated Contrast Media - Oral and (Verified Allergy, Severe, Anaphylaxis , 01/05/17) Sulfa (Sulfonamide Antibiotics) (Verified Allergy, Intermediate, 01/05/17) codeine (Verified Allergy, Intermediate, 01/05/17) iodine (Verified Allergy, Intermediate, 01/05/17) ROS Review of System GEN: + Fevers as documented ? Chills Unable to reliably obtain ROS due to confusion Physical Exam Physical Exam General Appearance: min Awake not fully Alert Oriented x ? x1 In no Distress Eyes: VIsion Unchanged Conjunctiva Normal EN: No EN Drainage Mucous Memb. moist Neck: no JVD min JVP Supple no Thyromegaly CVS: S1 S2 ? Murmur No Gallop No Rub no Edema ("big feet" Resp: no Rales no Rhonchi no Acc. Muscle use GI: BAS +ve NO Bruit Non Tender Non Distended : min CVA tenderness; min Suprapubic Tenderness SKIN: no Rashes Breast Exam deferred Mu.Sk: Adequate ROM +ve (lisa neck area) Muscle Atrophy Heme: Unable to palpate Obvious LAD no Splenomegaly NEURO: Does not follow commands per se. Moves upper ext some spontaneously Psych: ? Depressed no Active hallucination currenlty Vital Signs Vital Signs Date Time Temp Pulse Resp B/P Pulse Ox O2 Delivery O2 Flow Rate FiO2 01/06/17 11:00 98.2 76 20 142/54 96 Room Air 98.2 01/06/17 07:52 98.0 Assessment & Plan ARF: SUspect Pyelonephritist. Await Urine Cx. Current FLuid and E-lyte status does not necessitate emergent need for Dialysis. Will re-evaluate for Dialysis in am CKD With renal sclerosis as noted on US - Baseline Creat with ARb on board is probably 1.7 at best or higher. Anemia: check iron Fever - defer to Dr Kinney (? Pyelo vs GB source) . HTN: Current BP meds reviewed. hold ARB Labs Labs Laboratory Tests Test 01/05/17 08:30 01/05/17 08:50 01/05/17 09:00 01/05/17 10:45 White Blood Count 10.0x10^3/uL (4.0-11.0) Red Blood Count 4.56x10^6/uL (3.50-5.40) Hemoglobin 9.8g/dL (12.0-15.5) Hematocrit 31.0% (36.0-47.0) Mean Corpuscular Volume 68fL (79-100) Mean Corpuscular Hemoglobin 21pg (25-35) Mean Corpuscular Hemoglobin Concent 32g/dL (31-37) Red Cell Distribution Width 17.8% (11.5-14.5) Platelet Count 219x10^3/uL (140-400) Neutrophils (%) (Auto) 65% (31-73) Lymphocytes (%) (Auto) 26% (24-48) Monocytes (%) (Auto) 8% (0-9) Eosinophils (%) (Auto) 1% (0-3) Basophils (%) (Auto) 1% (0-3) Neutrophils # (Auto) 6.4x10^3uL (1.8-7.7) Lymphocytes # (Auto) 2.6x10^3/uL (1.0-4.8) Monocytes # (Auto) 0.8x10^3/uL (0.0-1.1) Eosinophils # (Auto) 0.1x10^3/uL (0.0-0.7) Basophils # (Auto) 0.1x10^3/uL (0.0-0.2) Platelet Estimate Adequate (ADEQUATE) Large Platelets Present Hypochromasia Mod Poikilocytosis Slight Anisocytosis Slight Microcytosis Mod Target Cells Present Ovalocytes Present Schistocytes Occ Urine Collection Type Unknown Urine Color Yellow Urine Clarity Clear Urine pH 6.0 Urine Specific [place] 1.010 Urine Protein Negativemg/dL (NEG-TRACE) Urine Glucose (UA) Negativemg/dL (NEG) Urine Ketones (Stick) Negativemg/dL (NEG) Urine Blood Negative (NEG) Urine Nitrite Negative (NEG) Urine Bilirubin Negative (NEG) Urine Urobilinogen Dipstick 0.2mg/dL (0.2 mg/dL) Urine Leukocyte Esterase Negative (NEG) Urine RBC 0/HPF (0-2) Urine WBC 0/HPF (0-4) Urine Squamous Epithelial Cells Few/LPF Urine Bacteria 0/HPF (0-FEW) Sodium Level 142mmol/L (136-145) Potassium Level 4.5mmol/L (3.5-5.1) Chloride Level 102mmol/L (98-107) Carbon Dioxide Level 28mmol/L (21-32) Anion Gap 12 (6-14) Blood Urea Nitrogen 92mg/dL (7-20) Creatinine 2.5mg/dL (0.6-1.0) Estimated GFR (Cockcroft-Gault) 22.0 Glucose Level 113mg/dL (70-99) Calcium Level 9.5mg/dL (8.5-10.1) Nasal Screen MRSA (PCR) Negative (Negative) Test 01/05/17 11:29 01/05/17 16:41 01/05/17 21:24 01/06/17 03:58 Glucose (Fingerstick) 105mg/dL (70-99) 124mg/dL (70-99) 93mg/dL (70-99) White Blood Count 7.0x10^3/uL (4.0-11.0) Red Blood Count 4.16x10^6/uL (3.50-5.40) Hemoglobin 9.1g/dL (12.0-15.5) Hematocrit 27.2% (36.0-47.0) Mean Corpuscular Volume 65fL (79-100) Mean Corpuscular Hemoglobin 22pg (25-35) Mean Corpuscular Hemoglobin Concent 34g/dL (31-37) Red Cell Distribution Width 17.1% (11.5-14.5) Platelet Count 195x10^3/uL (140-400) Neutrophils (%) (Auto) 53% (31-73) Lymphocytes (%) (Auto) 36% (24-48) Monocytes (%) (Auto) 9% (0-9) Eosinophils (%) (Auto) 2% (0-3) Basophils (%) (Auto) 1% (0-3) Neutrophils # (Auto) 3.7x10^3uL (1.8-7.7) Lymphocytes # (Auto) 2.5x10^3/uL (1.0-4.8) Monocytes # (Auto) 0.6x10^3/uL (0.0-1.1) Eosinophils # (Auto) 0.1x10^3/uL (0.0-0.7) Basophils # (Auto) 0.0x10^3/uL (0.0-0.2) Sodium Level 143mmol/L (136-145) Potassium Level 4.3mmol/L (3.5-5.1) Chloride Level 106mmol/L (98-107) Carbon Dioxide Level 28mmol/L (21-32) Anion Gap 9 (6-14) Blood Urea Nitrogen 86mg/dL (7-20) Creatinine 2.0mg/dL (0.6-1.0) Estimated GFR (Cockcroft-Gault) 28.5 BUN/Creatinine Ratio 43 (6-20) Glucose Level 95mg/dL (70-99) Calcium Level 8.9mg/dL (8.5-10.1) Total Bilirubin 0.8mg/dL (0.2-1.0) Aspartate Amino Transf (AST/SGOT) 195U/L (15-37) Alanine Aminotransferase (ALT/SGPT) 181U/L (14-59) Alkaline Phosphatase 99U/L (46-116) Total Protein 6.9g/dL (6.4-8.2) Albumin 2.9g/dL (3.4-5.0) Albumin/Globulin Ratio 0.7 (1.0-1.7) Triglycerides Level 53mg/dL (0-150) Cholesterol Level 179mg/dL (0-200) LDL Cholesterol, Calculated 89mg/dL (0-100) VLDL Cholesterol, Calculated 11mg/dL (0-40) HDL Cholesterol 79mg/dL (40-60) Cholesterol/HDL Ratio 2.3 Thyroid Stimulating Hormone (TSH) 3.961uIU/mL (0.358-3.74) Test 01/06/17 05:00 01/06/17 07:10 01/06/17 10:50 Influenza Type A Antigen Negative (NEGATIVE) Influenza Type B Antigen Negative (NEGATIVE) Glucose (Fingerstick) 97mg/dL (70-99) 124mg/dL (70-99) Laboratory Tests Test 01/05/17 16:41 01/05/17 21:24 01/06/17 03:58 01/06/17 05:00 Glucose (Fingerstick) 124mg/dL (70-99) 93mg/dL (70-99) White Blood Count 7.0x10^3/uL (4.0-11.0) Red Blood Count 4.16x10^6/uL (3.50-5.40) Hemoglobin 9.1g/dL (12.0-15.5) Hematocrit 27.2% (36.0-47.0) Mean Corpuscular Volume 65fL (79-100) Mean Corpuscular Hemoglobin 22pg (25-35) Mean Corpuscular Hemoglobin Concent 34g/dL (31-37) Red Cell Distribution Width 17.1% (11.5-14.5) Platelet Count 195x10^3/uL (140-400) Neutrophils (%) (Auto) 53% (31-73) Lymphocytes (%) (Auto) 36% (24-48) Monocytes (%) (Auto) 9% (0-9) Eosinophils (%) (Auto) 2% (0-3) Basophils (%) (Auto) 1% (0-3) Neutrophils # (Auto) 3.7x10^3uL (1.8-7.7) Lymphocytes # (Auto) 2.5x10^3/uL (1.0-4.8) Monocytes # (Auto) 0.6x10^3/uL (0.0-1.1) Eosinophils # (Auto) 0.1x10^3/uL (0.0-0.7) Basophils # (Auto) 0.0x10^3/uL (0.0-0.2) Sodium Level 143mmol/L (136-145) Potassium Level 4.3mmol/L (3.5-5.1) Chloride Level 106mmol/L (98-107) Carbon Dioxide Level 28mmol/L (21-32) Anion Gap 9 (6-14) Blood Urea Nitrogen 86mg/dL (7-20) Creatinine 2.0mg/dL (0.6-1.0) Estimated GFR (Cockcroft-Gault) 28.5 BUN/Creatinine Ratio 43 (6-20) Glucose Level 95mg/dL (70-99) Calcium Level 8.9mg/dL (8.5-10.1) Total Bilirubin 0.8mg/dL (0.2-1.0) Aspartate Amino Transf (AST/SGOT) 195U/L (15-37) Alanine Aminotransferase (ALT/SGPT) 181U/L (14-59) Alkaline Phosphatase 99U/L (46-116) Total Protein 6.9g/dL (6.4-8.2) Albumin 2.9g/dL (3.4-5.0) Albumin/Globulin Ratio 0.7 (1.0-1.7) Triglycerides Level 53mg/dL (0-150) Cholesterol Level 179mg/dL (0-200) LDL Cholesterol, Calculated 89mg/dL (0-100) VLDL Cholesterol, Calculated 11mg/dL (0-40) HDL Cholesterol 79mg/dL (40-60) Cholesterol/HDL Ratio 2.3 Thyroid Stimulating Hormone (TSH) 3.961uIU/mL (0.358-3.74) Influenza Type A Antigen Negative (NEGATIVE) Influenza Type B Antigen Negative (NEGATIVE) Test 01/06/17 07:10 01/06/17 10:50 Glucose (Fingerstick) 97mg/dL (70-99) 124mg/dL (70-99) Images Images The left ventricle is normal size. The left ventricular systolic function is mildly decreased. The Ejection Fraction is 45-50%. There is mild to moderate concentric left ventricular hypertrophy. There is a pacemaker lead in the right heart. There may be a bioprosthetic aortic valve prosthesis. There is no significant aortic valvular stenosis. Doppler and Color Flow revealed mild to moderate aortic regurgitation. Doppler and Color Flow revealed mild mitral regurgitation. Doppler and Color Flow revealed mild to moderate tricuspid regurgitation. The pulmonary artery systolic pressure is estimated at 41 mmHg. COMPARISON: 05/19/2014. FINDINGS: Ultrasound of the kidneys, bladder and retroperitoneum was performed. The right kidney measures 8.3 cm. Cortical thickness and echogenicity are preserved. There is no hydronephrosis. The left kidney measures 7.4 cm. Cortical thickness and echogenicity are preserved. There is no hydronephrosis. The bladder is distended with a prevoid volume of 661 mL. No focal mural lesions are seen. Renal US IMPRESSION: 1. Moderate bilateral renal atrophy. No hydronephrosis. 2. Distended bladder. Correlate to exclude outlet obstruction. CXR IMPRESSION: 1. Moderate elevation of the right hemidiaphragm. Small right pleural effusion. Right basilar atelectasis. 2. At least mild cardiomegaly. NAVEED TOLENTINO MD Jan 06, 2017 11:45
[2017-01-06 11:56] LABS: BILIRUBIN,URINE NEGATIVE (NEG); GLUCOSE,URINE NEGATIVE (NEG); NITRITE,URINE NEGATIVE (NEG); PROTEIN,URINE NEGATIVE (NEG-TRACE)
[2017-01-06] MEDS ORDERED: MAGNESIUM SULFATE 2GM 50 ML IV PRN (12:00)
[2017-01-06 12:06] LABS: BACTERIA,URINE 0 /HPF (0-FEW); RBC,URINE RARE /HPF (0-2); SQUAMOUS EPITHELIAL CELL,UR FEW /LPF; WBC,URINE RARE /HPF (0-4)
[2017-01-06 15:00] VITALS: BP 138/50
[2017-01-06] MEDS: IV DEXTROSE 5 %-0.45 % NACL 1,000 ML IV SCH (17:42)
[2017-01-06 19:50] VITALS: BP 123/49
[2017-01-06] MEDS: METOPROLOL SUCC 24HR ER 50 MG TAB.ER.24H. PO SCH (21:11)
[2017-01-06] MEDS: CEFTRIAXONE SODIUM 1 GM in IV NORMAL SALINE 50ML 50 ML IV SCH (21:12)
[2017-01-06 23:27] VITALS: BP 102/37
[2017-01-06] MEDS: ACETAMINOPHEN 500 MG TABLET PO PRN (23:58)
[2017-01-07] VITALS (7 sets, daily range): BP systolic 102–137; BP diastolic 40–49
[2017-01-07] MEDS: IV DEXTROSE 5 %-0.45 % NACL 1,000 ML IV SCH ×2 (00:10→14:25)
--- NOTE | 2017-01-07 00:29 | HP ---
ADMIT DATE: 01/05/2017 ATTENDING PHYSICIAN: Barb Almazan M.D. PRIMARY CARE PHYSICIAN: Luisa Perea M.D. REASON FOR ADMISSION TO THE HOSPITAL: Confusion and fever. HISTORY OF PRESENT ILLNESS: The patient is an 86-year-old female patient of Dr. Perea from [facility]. She was sent because of increased confusion, recently seen Dr. Perea in the office for UTI, was treated with antibiotics. This time when she came in, she was found to have acute kidney failure with BUN around close to 100, creatinine around 2.5, was admitted. She also had a fever, was given antibiotic and IV fluids, and renal consult. PAST MEDICAL HISTORY: Has history of coronary artery disease, bypass surgery, CHF, diabetes, DVT, hypertension, AK. PAST SURGICAL HISTORY: Bypass surgery in 1996, pacemaker, appendectomy, hysterectomy, and hernia repair. ALLERGIES: IODINATED CONTRAST, SULFA, CODEINE, AND IODINE. MEDICATIONS: From the long-term, the patient is on [id number] mg twice a day, diclofenac, Voltaren gel, Lasix 80 mg twice a day, gabapentin 200 mg daily, glyburide 5 mg daily, hydrocodone 7.5 q. 6, isosorbide 20 mg daily, losartan 25 mg daily, magnesium p.r.n., meclizine 12.5 mg daily, mirtazapine 7.5 mg daily, potassium 20 mEq daily, Lyrica 50 mg daily, vitamin D 1000 daily, multivitamin daily, hydralazine 50 mg twice a day, metoprolol 50 mg daily, Protonix 40 mg daily. PERSONAL HISTORY: Has been in long-term for a year or so. Denies smoking or alcohol. FAMILY HISTORY: Unremarkable. REVIEW OF SYMPTOMS: Has confusion at the long-term and is improving. GASTROINTESTINAL: No nausea or vomiting. NEUROLOGICAL: Generalized weakness, arthritis. CARDIOVASCULAR: No chest pain. LUNGS: No cough, sputum. PHYSICAL EXAMINATION: GENERAL: The patient is an elderly sick, frail-looking woman. VITAL SIGNS: Temperature 101.8, pulse 71, respirations 18, blood pressure 132/35, and 97% on room air. HEENT: Head is atraumatic. Pupils equal. Oral cavity: Dentures. NECK: Supple. Thyroid not enlarged, JVD not elevated. CHEST: Scar of surgery, pacemaker in left side of chest. CARDIOVASCULAR: S1, S2. LUNGS: Diminished breath sounds. ABDOMEN: Soft, bowel sounds present, no mass palpable. EXTERNAL GENITALIA: No Johns. RECTAL: Deferred. EXTREMITIES: Examination of the sacral area, has a 2 cm stage 2 granulation tissue, ulceration over the sacral area. No foul smelling. EXTREMITIES: 1 to 2+ edema in both lower extremities. Foot, no ulcerations. NEUROLOGIC: The patient is moving upper extremities, weak in the lower extremities. The patient remembers she was in the long-term, does not remember the name, and she says her not too long ago. LABORATORY DATA: Shows a white count of 10, hemoglobin 10, platelets 219. Electrolytes show sodium 142, potassium 4.3, chloride 106, bicarbonate 28, ____ BUN was 92, creatinine 2.5, glucose 105. Chest x-ray, moderate elevation of the right diaphragm, right effusion, mild cardiomegaly. Ultrasound of the kidneys shows bilateral renal atrophy, no hydronephrosis. FINAL IMPRESSION: 1. Mental status changes. 2. Acute renal failure. 3. Fever, possible UTI. 4. Chronic coronary artery disease, heart bypass surgery, pacemaker. 5. Diabetes. 6. Arthritis. 7. Depression. 8. Protein-calorie malnutrition. 9. Stage 2 sacral ulcer present on admission. PLAN: At this time, admit to hospital, hydrate with IV fluids, Johns catheter, maintain input, output, urine cultures. Started on Rocephin. Renal consult and also monitor kidney functions, have air loss mattress and also hold some of the psychiatric medications because of the kidney failure , contributing to her problems. BARB ALMAZAN MD DR: PORSHA/julio JOB#: [id number] / [id number] LUISA Morales
--- NOTE | 2017-01-07 03:00 | CONS ---
DATE OF CONSULTATION: PRIMARY PHYSICIAN: Dr. Kinney. REASON FOR CONSULTATION: Renal failure. HISTORY OF PRESENT ILLNESS: An 86-year-old -[place] female with known history of CKD by her reports. She claims somebody has told her in the past that she had some kidney problems, does not know the details. She presented to the ER with urinary frequency, confusion, hallucination per the ER report. She does not know why she is here on my questioning. She recently had a UTI and was treated with ampicillin. We were asked to see her for an elevated creatinine of 2.0. She was as high as 2.5. Previous creatinines available in the system were 1 and 1.0 in 2014, no interim numbers are available. Prior to that in 2013, she has been 1.3 to 1.7. In this setting, we were asked to see her for further evaluation. She was febrile in the hospital at 100.1 in the ER. She continues to have some low grade fevers, was just trending downwards. Blood pressures appear to have been adequate at this time. She did spike to as high as 101.8. She is a poor historian at this time. REVIEW OF SYSTEMS: Not reliably available from the patient. Denies nausea, vomiting per se fevers as documented. Rest of the details in electronic record. NAVEED TOLENTINO MD DR: NAIMA/julio JOB#: [id number] / [id number]
[2017-01-07 05:57] LABS: BASO % 1 % (0-3); EOS % 1 % (0-3); LYMPH # 2.1 x10^3/uL (1.0-4.8); LYMPH % 33 % (24-48); MEAN CORPUSCULAR HEMOGLOBIN 22 pg (25-35); MEAN CORPUSCULAR HGB CONC 32 g/dL (31-37); MEAN CORPUSCULAR VOLUME 68 fL (79-100); MONO % 9 % (0-9); NEUT % 57 % (31-73); PLATELET COUNT 175 x10^3/uL (140-400); RED BLOOD COUNT 3.69 x10^6/uL (3.50-5.40); RED CELL DISTRIBUTION WIDTH 17.1 % (11.5-14.5); WHITE BLOOD COUNT 6.5 x10^3/uL (4.0-11.0)
[2017-01-07 06:00] LABS: ALBUMIN 2.7 g/dL (3.4-5.0); CALCIUM 8.7 mg/dL (8.5-10.1); CREATININE 1.9 mg/dL (0.6-1.0); GFR 30.3; PHOSPHORUS 4.5 mg/dL (2.6-4.7); POTASSIUM 3.8 mmol/L (3.5-5.1)
[2017-01-07] MEDS: INSULIN ASPART 300 UNITS/3 ML INSULN.PEN SQ SCH ×3 (08:00→17:00)
[2017-01-07] MEDS: PANTOPRAZOLE 40 MG TABLET. PO SCH (10:09)
[2017-01-07] MEDS: HYDRALAZINE 50 MG TABLET PO SCH ×3 (10:10→17:00)
[2017-01-07] MEDS: DOCUSATE SODIUM 100 MG CAPSULE PO SCH (10:10)
[2017-01-07] MEDS: ISOSORBIDE MONONITRATE 20 MG TABLET PO SCH (10:11)
[2017-01-07] MEDS: HEPARIN PF for SUB-Q USE 5,000 UNIT/0.5 ML VIAL. SQ SCH ×2 (10:15→20:59)
--- NOTE | 2017-01-07 14:29 | PDOC ---
PROGRESS NOTES Subjective Subjective feeling better today Objective Objective Vital Signs Date Time Temp Pulse Resp B/P Pulse Ox O2 Delivery O2 Flow Rate FiO2 01/07/17 11:47 59 114/42 01/07/17 10:45 98.7 16 97 Room Air 98.7 01/07/17 08:25 98.0 Intake and Output 01/07/17 07:00 Intake Total 1360 ml Output Total 1050 ml Balance 310 ml Intake Oral 1360 ml Output Urine Total 1050 ml # Bowel Movements 3 Physical Exam Abdomen: Normal bowel sounds, Soft Heart: Normal S1, Normal S2 Extremities: No clubbing General: Alert HEENT: Atraumatic Lungs: Clear to auscultation MUSCULOSKELETAL: No deformity, Osteoarthritic changes both hands Neck: Supple Neuro: Normal speech Psych/Mental Status: Mental status NL Skin: Other (stage 2 ulcer sacral ulcer) Diagnosis Problem List Problems Medical Problems: (1) Acute renal failure Status: Acute (2) Acute renal failure syndrome Status: Acute (3) Altered mental status Status: Acute Assessment Assessment Problems Medical Problems: (1) Acute renal failure Status: Acute (2) Acute renal failure syndrome Status: Acute (3) Altered mental status Status: Acute FINAL IMPRESSION: 1. Mental status changes. 2. Acute renal failure. 3. Fever, possible UTI. 4. Chronic coronary artery disease, heart bypass surgery, pacemaker. 5. Diabetes. 6. Arthritis. 7. Depression. 8. Protein-calorie malnutrition. 9. Stage 2 sacral ulcer present on admission. PLAN: cr down to 1.9. urine c/s neg. sono showed distended bladder. iv fluids. At this time, admit to hospital, hydrate with IV fluids, Johns catheter, maintain input, output, urine cultures. Started on Rocephin. Renal consult and also monitor kidney functions, have air loss mattress and also hold some of the medications because of the kidney failure contributing to her problems. Problems: Plan Plan of Care Problems Medical Problems: (1) Acute renal failure Status: Acute (2) Acute renal failure syndrome Status: Acute (3) Altered mental status Status: Acute Comment Review of Relevant I have reviewed the following items davin (where applicable) has been applied. Labs Laboratory Tests Test 01/06/17 16:17 01/06/17 20:45 01/07/17 05:10 01/07/17 07:43 Glucose (Fingerstick) 180mg/dL (70-99) 85mg/dL (70-99) 124mg/dL (70-99) White Blood Count 6.5x10^3/uL (4.0-11.0) Red Blood Count 3.69x10^6/uL (3.50-5.40) Hemoglobin 8.0g/dL (12.0-15.5) Hematocrit 25.0% (36.0-47.0) Mean Corpuscular Volume 68fL (79-100) Mean Corpuscular Hemoglobin 22pg (25-35) Mean Corpuscular Hemoglobin Concent 32g/dL (31-37) Red Cell Distribution Width 17.1% (11.5-14.5) Platelet Count 175x10^3/uL (140-400) Neutrophils (%) (Auto) 57% (31-73) Lymphocytes (%) (Auto) 33% (24-48) Monocytes (%) (Auto) 9% (0-9) Eosinophils (%) (Auto) 1% (0-3) Basophils (%) (Auto) 1% (0-3) Neutrophils # (Auto) 3.7x10^3uL (1.8-7.7) Lymphocytes # (Auto) 2.1x10^3/uL (1.0-4.8) Monocytes # (Auto) 0.6x10^3/uL (0.0-1.1) Eosinophils # (Auto) 0.1x10^3/uL (0.0-0.7) Basophils # (Auto) 0.0x10^3/uL (0.0-0.2) Sodium Level 145mmol/L (136-145) Potassium Level 3.8mmol/L (3.5-5.1) Chloride Level 108mmol/L (98-107) Carbon Dioxide Level 26mmol/L (21-32) Anion Gap 11 (6-14) Blood Urea Nitrogen 74mg/dL (7-20) Creatinine 1.9mg/dL (0.6-1.0) Estimated GFR (Cockcroft-Gault) 30.3 Glucose Level 108mg/dL (70-99) Calcium Level 8.7mg/dL (8.5-10.1) Phosphorus Level 4.5mg/dL (2.6-4.7) Magnesium Level 2.8mg/dL (1.8-2.4) Albumin 2.7g/dL (3.4-5.0) Test 01/07/17 11:07 Glucose (Fingerstick) 117mg/dL (70-99) Microbiology 01/05/17 Blood Culture - Preliminary, Resulted NO GROWTH AFTER 1 DAY 01/06/17 Urine Culture - Preliminary, Resulted 01/06/17 Urine Culture Result 1 ([facility]) - Preliminary, Resulted Medications Current Medications Metoprolol Succinate (Toprol Xl) 50 mg HS PO Last administered on 01/06/17t 21: 11; Start 01/06/17 at 21:00 Vitals/I & O Vital Sign - Last 24 Hours 01/06/17 01/06/17 01/06/17 01/06/17 15:00 17:42 19:50 20:00 Temp 98.6 98.6 Pulse 89 62 61 Resp 22 18 B/P 138/50 137/44 123/49 Pulse Ox 96 96 O2 Delivery Room Air Room Air Room Air O2 Flow Rate 98.0 01/06/17 01/06/17 01/07/17 01/07/17 21:11 23:27 02:57 07:00 Temp 100.0 97.3 98.9 100.0 97.3 98.9 Pulse 61 61 60 65 Resp 18 18 16 B/P 123/49 102/37 102/40 104/43 Pulse Ox 95 96 95 O2 Delivery Room Air Room Air Room Air 01/07/17 01/07/17 01/07/17 01/07/17 08:25 10:10 10:11 10:45 Temp 98.7 98.7 Pulse 65 65 61 Resp 16 B/P 104/43 104/43 137/47 Pulse Ox 97 O2 Delivery Room Air Room Air O2 Flow Rate 98.0 01/07/17 01/07/17 11:46 11:47 Pulse 59 59 B/P 114/42 114/42 Intake and Output 01/06/17 01/06/17 01/07/17 15:00 23:00 07:00 Intake Total 480 ml 780 ml 100 ml Output Total 600 ml 450 ml Balance 480 ml 180 ml -350 ml Nutrition Consultation Dietary Evaluation: Recommendations by RD: Protein supplementation Comments: REC mvi q day and 100-200mg /d Vit C per wound protocal Expected Outcomes/Goals: to meet > 75% est nutr needs Malnutrition Findings: Body Fat Depletion (Non Severe: Mild Depletion Reduced Cone Machine Feeder Strength: N/A Weight Status: Appropriate Fluid Accumulation (N/A): N/A TAMERA ALMAZAN MD Jan 07, 2017 14:29
[2017-01-07] MEDS: METOPROLOL SUCC 24HR ER 50 MG TAB.ER.24H. PO SCH (20:52)
[2017-01-07] MEDS: CEFTRIAXONE SODIUM 1 GM in IV NORMAL SALINE 50ML 50 ML IV SCH (20:53)
[2017-01-08 03:16] VITALS: BP 107/52
[2017-01-08 06:29] LABS: ALBUMIN 2.6 g/dL (3.4-5.0); CALCIUM 8.8 mg/dL (8.5-10.1); CREATININE 1.6 mg/dL (0.6-1.0); GFR 36.9; POTASSIUM 3.9 mmol/L (3.5-5.1)
[2017-01-08 07:00] VITALS: BP 132/40
[2017-01-08] MEDS: PANTOPRAZOLE 40 MG TABLET. PO SCH (07:55)
[2017-01-08] MEDS: IV DEXTROSE 5 %-0.45 % NACL 1,000 ML IV SCH (07:57)
[2017-01-08] MEDS: INSULIN ASPART 300 UNITS/3 ML INSULN.PEN SQ SCH ×3 (08:00→17:00)
[2017-01-08] MEDS: ISOSORBIDE MONONITRATE 20 MG TABLET PO SCH (09:21)
[2017-01-08] MEDS: DOCUSATE SODIUM 100 MG CAPSULE PO SCH (09:21)
[2017-01-08] MEDS: HYDRALAZINE 50 MG TABLET PO SCH ×3 (09:22→17:07)
[2017-01-08] MEDS: HEPARIN PF for SUB-Q USE 5,000 UNIT/0.5 ML VIAL. SQ SCH ×2 (09:49→21:25)
--- NOTE | 2017-01-08 10:25 | PDOC ---
SUBJECTIVE ROS GOOD+ CKD III Doign well overall, no complains CVS: no Orthopnea, no CP RESP: no SOB, no FAJARDO GI: no Nausea, no Vomiting : no Dysuria, no Urgency OBJECTIVE Vital Signs Vital Signs Date Time Temp Pulse Resp B/P Pulse Ox O2 Delivery O2 Flow Rate FiO2 01/08/17 09:22 62 132/40 01/08/17 07:00 99.1 14 93 Room Air 99.1 01/07/17 20:00 98.0 I & 0 Intake and Output 01/08/17 07:00 Intake Total 390 ml Output Total 850 ml Balance -460 ml Intake Oral 340 ml IV Total 50 ml Output Urine Total 850 ml # Bowel Movements 1 PHYSICAL EXAM Physical Exam General Appearance: min Awake not fully Alert Oriented x ? x1 In no Distress Eyes: VIsion Unchanged Conjunctiva Normal EN: No EN Drainage Mucous Memb. moist Neck: no JVD min JVP Supple no Thyromegaly CVS: S1 S2 ? Murmur No Gallop No Rub no Edema ("big feet" Resp: no Rales no Rhonchi no Acc. Muscle use GI: BAS +ve NO Bruit Non Tender Non Distended : min CVA tenderness; min Suprapubic Tenderness Assessment & Plan ARF: resolving; ? After Johns placed vs due to Held ARB. Await Urine Cx. ct gentel IVF for now CKD - With renal sclerosis as noted on US - Baseline Creat with ARb on board is probably 1.[address] IVf and reval Anemia: check iron Fever - defer to Dr Kinney (? Pyelo vs GB source) . HTN: Current BP meds reviewed. hold ARB COMMENT/RELEVANT DATA Meds Current Medications Medications (Trade) Dose Ordered Sig/Santosh Start Time Stop Time Status Last Admin Dose Admin Acetaminophen (Tylenol) 500 mg PRN Q8HRS PRN 01/05/17 21:30 01/06/17 23:58 500 MG Ceftriaxone Sodium/Sodium Chloride (Rocephin/Iv Sodium Chloride 0.9% 50ml) 50 ml @ 100 mls/hr QHS 01/05/17 22:00 01/08/17 09:09 DC 01/07/17 20:53 100 MLS/HR Collagenase (Santyl) 1 roseann DAILY 01/06/17 09:00 UNV Dextrose 12.5 gm 12.5 gm PRN Q15MIN PRN 01/05/17 21:30 Dextrose/Sodium Chloride 1,000 ml @ 75 mls/hr [id number] 01/05/17 21:30 01/08/17 07:57 75 MLS/HR Docusate Sodium (Colace) 100 mg DAILY 01/06/17 09:00 01/08/17 09:21 100 MG Heparin Sodium (Porcine) 5,000 unit Q12HR 01/06/17 09:00 01/08/17 09:49 5,000 UNIT Hydralazine HCl (Apresoline) 50 mg TIDWMEALS 01/06/17 08:00 01/08/17 09:22 50 MG Insulin Aspart (Novolog) 0-5 UNITS TIDWMEALS 01/06/17 08:00 01/06/17 17:47 2 UNITS Isosorbide Mononitrate (Ismo) 20 mg DAILY 01/06/17 09:00 01/08/17 09:21 20 MG Magnesium Sulfate/ Dextrose (Magnesium Sulfate PREMIX 2GM) 50 ml @ 25 mls/hr PRN DAILY PRN 01/06/17 12:00 Metoprolol Succinate (Toprol Xl) 50 mg HS 01/06/17 21:00 01/07/17 20:52 50 MG Pantoprazole Sodium (Protonix) 40 mg DAILYAC 01/06/17 07:30 01/08/17 07:55 40 MG Potassium Chloride/Sodium Chloride 1,000 ml @ 125 mls/hr 1X ONCE 01/05/17 10:30 01/05/17 21:36 DC 01/05/17 12:23 125 MLS/HR Sodium Chloride 500 ml @ 500 mls/hr 1X ONCE 01/05/17 08:30 01/05/17 09:29 DC 01/05/17 08:52 500 MLS/HR Lab Laboratory Tests Test 01/07/17 11:07 01/07/17 16:30 01/07/17 20:31 01/08/17 05:00 Glucose (Fingerstick) 117mg/dL (70-99) 131mg/dL (70-99) 153mg/dL (70-99) Sodium Level 145mmol/L (136-145) Potassium Level 3.9mmol/L (3.5-5.1) Chloride Level 108mmol/L (98-107) Carbon Dioxide Level 28mmol/L (21-32) Anion Gap 9 (6-14) Blood Urea Nitrogen 62mg/dL (7-20) Creatinine 1.6mg/dL (0.6-1.0) Estimated GFR (Cockcroft-Gault) 36.9 Glucose Level 116mg/dL (70-99) Calcium Level 8.8mg/dL (8.5-10.1) Phosphorus Level 4.0mg/dL (2.6-4.7) Magnesium Level 2.8mg/dL (1.8-2.4) Albumin 2.6g/dL (3.4-5.0) Test 01/08/17 07:36 Glucose (Fingerstick) 126mg/dL (70-99) Other The right kidney measures 8.3 cm. Cortical thickness and echogenicity are preserved. There is no hydronephrosis. The left kidney measures 7.4 cm. Cortical thickness and echogenicity are preserved. There is no hydronephrosis. The bladder is distended with a prevoid volume of 661 mL. No focal mural lesions are seen. IMPRESSION: 1. Moderate bilateral renal atrophy. No hydronephrosis. 2. Distended bladder. Correlate to exclude outlet obstruction. NAVEED TOLENTINO MD Jan 08, 2017 10:25
[2017-01-08 10:33] VITALS: BP 115/42
--- NOTE | 2017-01-08 10:34 | PDOC ---
PROGRESS NOTES Subjective Subjective improving talking well eating well Objective Objective Vital Signs Date Time Temp Pulse Resp B/P Pulse Ox O2 Delivery O2 Flow Rate FiO2 01/08/17 09:22 62 132/40 01/08/17 07:00 99.1 14 93 Room Air 99.1 01/07/17 20:00 98.0 Intake and Output 01/08/17 07:00 Intake Total 390 ml Output Total 850 ml Balance -460 ml Intake Oral 340 ml IV Total 50 ml Output Urine Total 850 ml # Bowel Movements 1 Physical Exam Abdomen: Normal bowel sounds, Soft Heart: Normal S1, Normal S2 Extremities: No clubbing General: Alert HEENT: Atraumatic Lungs: Clear to auscultation MUSCULOSKELETAL: No deformity, Osteoarthritic changes both hands Neck: Supple Neuro: Normal speech Psych/Mental Status: Mental status NL Skin: Other (stage 2 ulcer sacral ulcer) COMMENT birch present, stage 3 sacral ulcer,POA Diagnosis Problem List Problems Medical Problems: (1) Acute renal failure Status: Acute (2) Acute renal failure syndrome Status: Acute (3) Altered mental status Status: Acute Assessment Assessment Problems Medical Problems: (1) Acute renal failure Status: Acute (2) Acute renal failure syndrome Status: Acute (3) Altered mental status Status: Acute FINAL IMPRESSION: 1. Mental status changes. 2. Acute renal failure. 3. Fever, possible UTI. 4. Chronic coronary artery disease, heart bypass surgery, pacemaker. 5. Diabetes. 6. Arthritis. 7. Depression. 8. Protein-calorie malnutrition. 9. Stage 2-3 sacral ulcer present on admission. PLAN: improving cr down to 1.9. urine c/s neg.d/c rocephin sono - showed distended bladder.birch placed iv fluids. d/c back to [place] wednesday. At this time, admit to hospital, hydrate with IV fluids, Birch catheter, maintain input, output, urine cultures. Started on Rocephin. Renal consult and also monitor kidney functions, have air loss mattress and also hold some of the medications because of the kidney failure contributing to her problems. Problems: Plan Plan of Care Problems Medical Problems: (1) Acute renal failure Status: Acute (2) Acute renal failure syndrome Status: Acute (3) Altered mental status Status: Acute Comment Review of Relevant I have reviewed the following items davin (where applicable) has been applied. Labs Laboratory Tests Test 01/07/17 11:07 01/07/17 16:30 01/07/17 20:31 01/08/17 05:00 Glucose (Fingerstick) 117mg/dL (70-99) 131mg/dL (70-99) 153mg/dL (70-99) Sodium Level 145mmol/L (136-145) Potassium Level 3.9mmol/L (3.5-5.1) Chloride Level 108mmol/L (98-107) Carbon Dioxide Level 28mmol/L (21-32) Anion Gap 9 (6-14) Blood Urea Nitrogen 62mg/dL (7-20) Creatinine 1.6mg/dL (0.6-1.0) Estimated GFR (Cockcroft-Gault) 36.9 Glucose Level 116mg/dL (70-99) Calcium Level 8.8mg/dL (8.5-10.1) Phosphorus Level 4.0mg/dL (2.6-4.7) Magnesium Level 2.8mg/dL (1.8-2.4) Albumin 2.6g/dL (3.4-5.0) Test 01/08/17 07:36 Glucose (Fingerstick) 126mg/dL (70-99) Microbiology 01/05/17 Blood Culture - Preliminary, Resulted NO GROWTH AFTER 2 DAYS 01/06/17 Urine Culture - Preliminary, Resulted 01/06/17 Urine Culture Result 1 ([facility]) - Preliminary, Resulted Vitals/I & O Vital Sign - Last 24 Hours 01/07/17 01/07/17 01/07/17 01/07/17 10:45 11:46 11:47 14:55 Temp 98.7 98.1 98.7 98.1 Pulse 61 59 59 61 Resp 16 16 B/P 137/47 114/42 114/42 111/44 Pulse Ox 97 94 O2 Delivery Room Air Room Air 01/07/17 01/07/17 01/07/17 01/07/17 17:00 19:00 20:00 20:52 Temp 98.1 98.1 Pulse 66 60 60 Resp 18 B/P 111/44 112/43 112/43 Pulse Ox 94 O2 Delivery Room Air Room Air O2 Flow Rate 98.0 01/07/17 01/08/17 01/08/17 01/08/17 23:20 03:16 07:00 09:21 Temp 97.0 98.5 99.1 97.0 98.5 99.1 Pulse 60 63 62 62 Resp 18 18 14 B/P 107/49 107/52 132/40 132/40 Pulse Ox 94 96 93 O2 Delivery Room Air Room Air Room Air 01/08/17 09:22 Pulse 62 B/P 132/40 Intake and Output 01/07/17 01/07/17 01/08/17 15:00 23:00 07:00 Intake Total 290 ml 100 ml Output Total 500 ml 350 ml Balance -210 ml -250 ml Nutrition Consultation Dietary Evaluation: Recommendations by RD: Protein supplementation Comments: REC mvi q day and 100-200mg /d Vit C per wound protocal Expected Outcomes/Goals: to meet > 75% est nutr needs Malnutrition Findings: Body Fat Depletion (Non Severe: Mild Depletion Reduced Strand Galvanizer Strength: N/A Weight Status: Appropriate Fluid Accumulation (N/A): N/A TAMERA ALMAZAN MD Jan 08, 2017 10:34
[2017-01-08 10:54] LABS: % SAT IRON 8 % (15-34); IRON,SERUM 14 ug/dL (50-170)
[2017-01-08 15:00] VITALS: BP 142/50
[2017-01-08] MEDS: ACETAMINOPHEN 500 MG TABLET PO PRN (17:06)
[2017-01-08 19:18] VITALS: BP 114/50
[2017-01-08 23:11] VITALS: BP 131/49
[2017-01-09] MEDS: IV DEXTROSE 5 %-0.45 % NACL 1,000 ML IV SCH ×3 (00:11→16:17)
[2017-01-09] MEDS: METOPROLOL SUCC 24HR ER 50 MG TAB.ER.24H. PO SCH ×2 (00:11→20:37)
[2017-01-09 03:24] VITALS: BP 122/48
[2017-01-09 06:42] LABS: ALBUMIN 2.7 g/dL (3.4-5.0); CALCIUM 8.7 mg/dL (8.5-10.1); CREATININE 1.4 mg/dL (0.6-1.0); PHOSPHORUS 3.7 mg/dL (2.6-4.7); POTASSIUM 3.8 mmol/L (3.5-5.1)
[2017-01-09 07:00] VITALS: BP 116/50
[2017-01-09] MEDS: INSULIN ASPART 300 UNITS/3 ML INSULN.PEN SQ SCH ×3 (08:00→17:00)
[2017-01-09] MEDS: DOCUSATE SODIUM 100 MG CAPSULE PO SCH (08:54)
[2017-01-09] MEDS: PANTOPRAZOLE 40 MG TABLET. PO SCH (08:55)
[2017-01-09] MEDS: HYDRALAZINE 50 MG TABLET PO SCH ×3 (08:55→17:00)
[2017-01-09] MEDS: ISOSORBIDE MONONITRATE 20 MG TABLET PO SCH (08:56)
[2017-01-09] MEDS: HEPARIN PF for SUB-Q USE 5,000 UNIT/0.5 ML VIAL. SQ SCH ×2 (09:03→20:41)
--- NOTE | 2017-01-09 09:52 | PDOC ---
KIKA VERAS [employer] TE[employer] 01/09/17 0952: IM PROGRESS NOTES- Subjective Subjective no chest pain or shortness of breath Objective Objective alert, no distress Vitals Vital Signs Date Time Temp Pulse Resp B/P Pulse Ox O2 Delivery O2 Flow Rate FiO2 01/09/17 08:56 70 116/50 01/09/17 07:00 98.6 20 97 Room Air 98.6 01/08/17 07:50 98.0 Input & Output Intake and Output 01/09/17 07:00 Intake Total 580 ml Output Total 1303 ml Balance -723 ml Intake Oral 580 ml Output Urine Total 1300 ml Stool Total 3 ml # Bowel Movements 2 Physical Exam Physical Exam General appearance - alert, chronically ill appearing, and in no distress Mental Status - alert, oriented to person, place, and time, affect appropriate to mood Head - normal Chest - clear to auscultation, no wheezes, rales or rhonchi, symmetric air entry Heart - S1 and S2 normal Abdomen - soft, nontender, nondistended, BS+ Neurological - no acute focal neurological deficits noted Musculoskeletal - no muscular tenderness noted Extremities - ++ pedal edema Skin - warm and dry Labs Laboratory Tests Test 01/07/17 11:07 01/07/17 16:30 01/07/17 20:31 01/08/17 05:00 Glucose (Fingerstick) 117mg/dL (70-99) 131mg/dL (70-99) 153mg/dL (70-99) Reticulocyte Count (auto) 0.7% (0.5-2.5) Sodium Level 145mmol/L (136-145) Potassium Level 3.9mmol/L (3.5-5.1) Chloride Level 108mmol/L (98-107) Carbon Dioxide Level 28mmol/L (21-32) Anion Gap 9 (6-14) Blood Urea Nitrogen 62mg/dL (7-20) Creatinine 1.6mg/dL (0.6-1.0) Estimated GFR (Cockcroft-Gault) 36.9 Glucose Level 116mg/dL (70-99) Calcium Level 8.8mg/dL (8.5-10.1) Phosphorus Level 4.0mg/dL (2.6-4.7) Magnesium Level 2.8mg/dL (1.8-2.4) Iron Level 14ug/dL (50-170) Total Iron Binding Capacity 166ug/dL (250-450) Iron Saturation 8% (15-34) Ferritin 557ng/mL (8-252) Albumin 2.6g/dL (3.4-5.0) Test 01/08/17 07:36 01/08/17 11:00 01/08/17 16:46 01/08/17 20:50 Glucose (Fingerstick) 126mg/dL (70-99) 132mg/dL (70-99) 130mg/dL (70-99) 163mg/dL (70-99) Test 01/09/17 05:26 01/09/17 07:10 Sodium Level 144mmol/L (136-145) Potassium Level 3.8mmol/L (3.5-5.1) Chloride Level 107mmol/L (98-107) Carbon Dioxide Level 28mmol/L (21-32) Anion Gap 9 (6-14) Blood Urea Nitrogen 47mg/dL (7-20) Creatinine 1.4mg/dL (0.6-1.0) Estimated GFR (Cockcroft-Gault) 43.0 Glucose Level 119mg/dL (70-99) Calcium Level 8.7mg/dL (8.5-10.1) Phosphorus Level 3.7mg/dL (2.6-4.7) Magnesium Level 2.7mg/dL (1.8-2.4) Albumin 2.7g/dL (3.4-5.0) Glucose (Fingerstick) 114mg/dL (70-99) Laboratory Tests Test 01/08/17 11:00 01/08/17 16:46 01/08/17 20:50 01/09/17 05:26 Glucose (Fingerstick) 132mg/dL (70-99) 130mg/dL (70-99) 163mg/dL (70-99) Sodium Level 144mmol/L (136-145) Potassium Level 3.8mmol/L (3.5-5.1) Chloride Level 107mmol/L (98-107) Carbon Dioxide Level 28mmol/L (21-32) Anion Gap 9 (6-14) Blood Urea Nitrogen 47mg/dL (7-20) Creatinine 1.4mg/dL (0.6-1.0) Estimated GFR (Cockcroft-Gault) 43.0 Glucose Level 119mg/dL (70-99) Calcium Level 8.7mg/dL (8.5-10.1) Phosphorus Level 3.7mg/dL (2.6-4.7) Magnesium Level 2.7mg/dL (1.8-2.4) Albumin 2.7g/dL (3.4-5.0) Test 01/09/17 07:10 Glucose (Fingerstick) 114mg/dL (70-99) Assessment Assessment Problems Medical Problems: (1) Acute renal failure Status: Acute (2) Acute renal failure syndrome Status: Acute (3) Altered mental status Status: Acute FINAL IMPRESSION: 1. Mental status changes. 2. Acute renal failure. 3. Fever, possible UTI. 4. Chronic coronary artery disease, heart bypass surgery, pacemaker. 5. Diabetes. 6. Arthritis. 7. Depression. 8. Protein-calorie malnutrition. 9. Stage 2-3 sacral ulcer present on admission. PLAN: Fever w/o leukocytosis - elevated temp intermittent since admission: Admit T 100.1F Tm 01/05 101F Tm 01/08 100.8F UA/BC negative. CXR small pleural effusion with atelectasis R lung. 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 H/O systolic CHF and small R pleural effusion. LFTs ordered for 01/10 h/o AVR no anticoagulation CHF systolic EF 45-50% Nov 2016, mod AR, mild MR, mod TR and + pulmonary HTN Decubitus ulcer coccyx - wound care anemia CD - Admit 9.8 07/10 8.0 recheck in AM DM II - Hba1c 5.9 BS 114-113 abnormal TSH - 3.961 edema LE - chronic in nature Please refer to orders for further treatment plan. PLAN: improving cr down to 1.9. urine c/s neg.d/c rocephin sono - showed distended bladder.birch placed iv fluids. d/c back to [place] wednesday. At this time, admit to hospital, hydrate with IV fluids, Birch catheter, maintain input, output, urine cultures. Started on Rocephin. Renal consult and also monitor kidney functions, have air loss mattress and also hold some of the medications because of the kidney failure contributing to her problems. Plan Plan For more details regarding further plans, please refer to the orders. Nutrition Consultation Dietary Evaluation: Recommendations by RD: Protein supplementation, Add supplement feedings Comments: supplement changed to novasource renal bid REC mvi q day and 100-200mg /d Vit C per wound protocal Expected Outcomes/Goals: to meet > 75% est nutr needs Malnutrition Findings: Body Fat Depletion (Non Severe: Mild Depletion Reduced Operations Administrator Strength: N/A Weight Status: Appropriate Fluid Accumulation (N/A): N/A ABHILASH CAUSEY MD 01/09/17 1132: IM PROGRESS NOTES- Assessment Assessment still confused. The patient was seen and examined by me. Chart reviewed and plan of care formulated. Discussed with, reviewed and agree with ROAD SUPERVISOR's notes, plan of care and orders with modifications as necessary. For more details regarding further plans, please refer to the orders. KIKA VERAS APRN Jan 09, 2017 09:52 ABHILASH CAUSEY MD Jan 09, 2017 11:32
[2017-01-09 11:00] VITALS: BP 115/52
--- NOTE | 2017-01-09 13:05 | RAD ---
Exam performed: CT chest without contrast. History: Liver, history of coronary artery disease, CHF, hypertension, DVT and MRI. History of previous bypass surgeries, pacemaker, appendectomy hysterectomy and hernia repair. Date of service: 01/09/17. Comparison: CT chest without contrast from 08/02/06. Technique: Contiguous helical acquisitions are obtained through the chest without IV contrast. Sagittal and coronal reformatted images are obtained and reviewed. Findings: Structures at the thoracic inlet including both lobes of the thyroid gland appear grossly normal. Lack of IV contrast limits evaluation of neck and intrathoracic great vessels, however they appear grossly normal in course and caliber. There is atheromatous calcification of the aorta and coronary arteries. The heart size is mildly enlarged, however stable. No gross pericardial effusion is seen. Interrogation of lungs demonstrates airspace opacities in the right upper lobe extending up to the minor fissure with subtle groundglass opacities in the left upper lobe. There are streaky linear opacities in both lower lobes. Small bilateral pleural effusions, greater on the right. There is chronic elevation of the right hemidiaphragm Limited evaluation of the upper abdominal structures is unremarkable. Spondylotic changes. Impression: 1. Patchy airspace opacities in the right upper lobe extending up to the minor fissure with subtle areas of ground is opacity in the left upper lobe and airspace opacities in the right lower lobe. 2. Small bilateral pleural effusions. Constellation of findings probably reflect developing infiltrates or CHF. Correlate clinically. 3. Streaky bibasilar opacities may represent atelectasis or chronic scarring. PQRS Compliance Statement: One or more of the following individualized dose reduction techniques were utilized for this examination: 1. Automated exposure control 2. Adjustment of the mA and/or kV according to patient size 3. Use of iterative reconstruction technique
[2017-01-09 15:00] VITALS: BP 142/52
[2017-01-09 19:59] VITALS: BP 151/80
[2017-01-09 23:59] VITALS: BP 145/50
[2017-01-10 03:05] LABS: BILIRUBIN,URINE NEGATIVE (NEG); GLUCOSE,URINE NEGATIVE (NEG); NITRITE,URINE NEGATIVE (NEG); PROTEIN,URINE NEGATIVE (NEG-TRACE)
[2017-01-10 03:14] LABS: BACTERIA,URINE FEW /HPF (0-FEW); RBC,URINE 0 /HPF (0-2); SQUAMOUS EPITHELIAL CELL,UR FEW /LPF
[2017-01-10 03:59] VITALS: BP 159/53
[2017-01-10 05:08] LABS: BASO # 0.1 x10^3/uL (0.0-0.2); BASO % 1 % (0-3); EOS % 4 % (0-3); HEMOGLOBIN 8.7 g/dL (12.0-15.5); LYMPH # 1.3 x10^3/uL (1.0-4.8); LYMPH % 23 % (24-48); MEAN CORPUSCULAR HEMOGLOBIN 21 pg (25-35); MEAN CORPUSCULAR HGB CONC 32 g/dL (31-37); MEAN CORPUSCULAR VOLUME 66 fL (79-100); MONO % 11 % (0-9); NEUT % 61 % (31-73); PLATELET COUNT 221 x10^3/uL (140-400); RED BLOOD COUNT 4.07 x10^6/uL (3.50-5.40); RED CELL DISTRIBUTION WIDTH 16.4 % (11.5-14.5)
[2017-01-10 05:22] LABS: ALBUMIN 2.6 g/dL (3.4-5.0); ALBUMIN/GLOBULIN RATIO 0.6 (1.0-1.7); CREATININE 1.3 mg/dL (0.6-1.0); GFR 46.9; PHOSPHORUS 3.2 mg/dL (2.6-4.7); TOTAL BILIRUBIN 0.5 mg/dL (0.2-1.0); TOTAL PROTEIN 6.7 g/dL (6.4-8.2)
[2017-01-10 07:00] VITALS: BP 163/40
[2017-01-10] MEDS: INSULIN ASPART 300 UNITS/3 ML INSULN.PEN SQ SCH ×3 (08:00→17:00)
[2017-01-10] MEDS: IV DEXTROSE 5 %-0.45 % NACL 1,000 ML IV SCH ×2 (08:44→21:26)
[2017-01-10] MEDS: DOCUSATE SODIUM 100 MG CAPSULE PO SCH (08:45)
[2017-01-10] MEDS: PANTOPRAZOLE 40 MG TABLET. PO SCH (08:45)
[2017-01-10] MEDS: ISOSORBIDE MONONITRATE 20 MG TABLET PO SCH (08:45)
[2017-01-10] MEDS: HYDRALAZINE 50 MG TABLET PO SCH ×3 (08:46→17:00)
[2017-01-10] MEDS: HEPARIN PF for SUB-Q USE 5,000 UNIT/0.5 ML VIAL. SQ SCH ×2 (08:55→21:30)
[2017-01-10 10:41] VITALS: BP 147/41
--- NOTE | 2017-01-10 11:08 | PDOC ---
IM PROGRESS NOTES- Subjective Subjective no chest pain or shortness of breath Objective Objective alert, no distress Vitals Vital Signs Date Time Temp Pulse Resp B/P Pulse Ox O2 Delivery O2 Flow Rate FiO2 01/10/17 10:41 97.8 62 18 147/41 95 Room Air 97.8 Input & Output Intake and Output 01/10/17 07:00 Intake Total 390 ml Output Total 800 ml Balance -410 ml Intake Oral 390 ml Output Urine Total 800 ml Physical Exam Physical Exam General appearance - alert, chronically ill appearing, and in no distress Mental Status - alert, oriented to person, place, and time, affect appropriate to mood Head - normal Chest - clear to auscultation, no wheezes, rales or rhonchi, symmetric air entry Heart - S1 and S2 normal Abdomen - soft, nontender, nondistended, BS+ Neurological - no acute focal neurological deficits noted Musculoskeletal - no muscular tenderness noted Extremities - ++ pedal edema Skin - warm and dry Labs Laboratory Tests Test 01/08/17 16:46 01/08/17 20:50 01/09/17 05:26 01/09/17 07:10 Glucose (Fingerstick) 130mg/dL (70-99) 163mg/dL (70-99) 114mg/dL (70-99) Sodium Level 144mmol/L (136-145) Potassium Level 3.8mmol/L (3.5-5.1) Chloride Level 107mmol/L (98-107) Carbon Dioxide Level 28mmol/L (21-32) Anion Gap 9 (6-14) Blood Urea Nitrogen 47mg/dL (7-20) Creatinine 1.4mg/dL (0.6-1.0) Estimated GFR (Cockcroft-Gault) 43.0 Glucose Level 119mg/dL (70-99) Calcium Level 8.7mg/dL (8.5-10.1) Phosphorus Level 3.7mg/dL (2.6-4.7) Magnesium Level 2.7mg/dL (1.8-2.4) Albumin 2.7g/dL (3.4-5.0) Test 01/09/17 10:26 01/09/17 10:45 01/09/17 16:35 01/09/17 21:10 Glucose (Fingerstick) 132mg/dL (70-99) 128mg/dL (70-99) 131mg/dL (70-99) Urine Collection Type U cath Urine Color Yellow Urine Clarity Clear Urine pH 6.0 Urine Specific Jacobson 1.015 Urine Protein Negativemg/dL (NEG-TRACE) Urine Glucose (UA) Negativemg/dL (NEG) Urine Ketones (Stick) Negativemg/dL (NEG) Urine Blood Negative (NEG) Urine Nitrite Negative (NEG) Urine Bilirubin Negative (NEG) Urine Urobilinogen Dipstick 1.0mg/dL (0.2 mg/dL) Urine Leukocyte Esterase Small (NEG) Urine RBC 0/HPF (0-2) Urine WBC 1-4/HPF (0-4) Urine Squamous Epithelial Cells Few/LPF Urine Bacteria Few/HPF (0-FEW) Urine Mucus Slight/LPF Test 01/10/17 04:20 01/10/17 07:47 01/10/17 10:38 White Blood Count 6.0x10^3/uL (4.0-11.0) Red Blood Count 4.07x10^6/uL (3.50-5.40) Hemoglobin 8.7g/dL (12.0-15.5) Hematocrit 27.0% (36.0-47.0) Mean Corpuscular Volume 66fL (79-100) Mean Corpuscular Hemoglobin 21pg (25-35) Mean Corpuscular Hemoglobin Concent 32g/dL (31-37) Red Cell Distribution Width 16.4% (11.5-14.5) Platelet Count 221x10^3/uL (140-400) Neutrophils (%) (Auto) 61% (31-73) Lymphocytes (%) (Auto) 23% (24-48) Monocytes (%) (Auto) 11% (0-9) Eosinophils (%) (Auto) 4% (0-3) Basophils (%) (Auto) 1% (0-3) Neutrophils # (Auto) 3.7x10^3uL (1.8-7.7) Lymphocytes # (Auto) 1.3x10^3/uL (1.0-4.8) Monocytes # (Auto) 0.6x10^3/uL (0.0-1.1) Eosinophils # (Auto) 0.3x10^3/uL (0.0-0.7) Basophils # (Auto) 0.1x10^3/uL (0.0-0.2) Sodium Level 144mmol/L (136-145) Potassium Level 4.0mmol/L (3.5-5.1) Chloride Level 110mmol/L (98-107) Carbon Dioxide Level 25mmol/L (21-32) Anion Gap 9 (6-14) Blood Urea Nitrogen 37mg/dL (7-20) Creatinine 1.3mg/dL (0.6-1.0) Estimated GFR (Cockcroft-Gault) 46.9 BUN/Creatinine Ratio 28 (6-20) Glucose Level 129mg/dL (70-99) Calcium Level 9.0mg/dL (8.5-10.1) Phosphorus Level 3.2mg/dL (2.6-4.7) Magnesium Level 2.4mg/dL (1.8-2.4) Total Bilirubin 0.5mg/dL (0.2-1.0) Aspartate Amino Transf (AST/SGOT) 115U/L (15-37) Alanine Aminotransferase (ALT/SGPT) 179U/L (14-59) Alkaline Phosphatase 151U/L (46-116) Total Protein 6.7g/dL (6.4-8.2) Albumin 2.6g/dL (3.4-5.0) Albumin/Globulin Ratio 0.6 (1.0-1.7) Glucose (Fingerstick) 118mg/dL (70-99) 129mg/dL (70-99) Laboratory Tests Test 01/09/17 16:35 01/09/17 21:10 01/10/17 04:20 01/10/17 07:47 Glucose (Fingerstick) 128mg/dL (70-99) 131mg/dL (70-99) 118mg/dL (70-99) White Blood Count 6.0x10^3/uL (4.0-11.0) Red Blood Count 4.07x10^6/uL (3.50-5.40) Hemoglobin 8.7g/dL (12.0-15.5) Hematocrit 27.0% (36.0-47.0) Mean Corpuscular Volume 66fL (79-100) Mean Corpuscular Hemoglobin 21pg (25-35) Mean Corpuscular Hemoglobin Concent 32g/dL (31-37) Red Cell Distribution Width 16.4% (11.5-14.5) Platelet Count 221x10^3/uL (140-400) Neutrophils (%) (Auto) 61% (31-73) Lymphocytes (%) (Auto) 23% (24-48) Monocytes (%) (Auto) 11% (0-9) Eosinophils (%) (Auto) 4% (0-3) Basophils (%) (Auto) 1% (0-3) Neutrophils # (Auto) 3.7x10^3uL (1.8-7.7) Lymphocytes # (Auto) 1.3x10^3/uL (1.0-4.8) Monocytes # (Auto) 0.6x10^3/uL (0.0-1.1) Eosinophils # (Auto) 0.3x10^3/uL (0.0-0.7) Basophils # (Auto) 0.1x10^3/uL (0.0-0.2) Sodium Level 144mmol/L (136-145) Potassium Level 4.0mmol/L (3.5-5.1) Chloride Level 110mmol/L (98-107) Carbon Dioxide Level 25mmol/L (21-32) Anion Gap 9 (6-14) Blood Urea Nitrogen 37mg/dL (7-20) Creatinine 1.3mg/dL (0.6-1.0) Estimated GFR (Cockcroft-Gault) 46.9 BUN/Creatinine Ratio 28 (6-20) Glucose Level 129mg/dL (70-99) Calcium Level 9.0mg/dL (8.5-10.1) Phosphorus Level 3.2mg/dL (2.6-4.7) Magnesium Level 2.4mg/dL (1.8-2.4) Total Bilirubin 0.5mg/dL (0.2-1.0) Aspartate Amino Transf (AST/SGOT) 115U/L (15-37) Alanine Aminotransferase (ALT/SGPT) 179U/L (14-59) Alkaline Phosphatase 151U/L (46-116) Total Protein 6.7g/dL (6.4-8.2) Albumin 2.6g/dL (3.4-5.0) Albumin/Globulin Ratio 0.6 (1.0-1.7) Test 01/10/17 10:38 Glucose (Fingerstick) 129mg/dL (70-99) Assessment Assessment FINAL IMPRESSION: 1. Mental status changes. 2. Acute renal failure. 3. Fever, possible UTI. 4. Chronic coronary artery disease, heart bypass surgery, pacemaker. 5. Diabetes. 6. Arthritis. 7. Depression. 8. Protein-calorie malnutrition. 9. Stage 2-3 sacral ulcer present on admission. PLAN: Fever w/o leukocytosis - elevated temp intermittent since admission: Admit T 100.1F Tm 01/05 101F Tm 01/08 100.8F UA/BC negative. CXR small pleural effusion with atelectasis R lung. 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 H/O systolic CHF and small R pleural effusion. LFTs ordered for 01/10 h/o AVR no anticoagulation CHF systolic EF 45-50% Nov 2016, mod AR, mild MR, mod TR and + pulmonary HTN Decubitus ulcer coccyx - wound care anemia CD - Admit 9.8 07/10 8.0 recheck in AM DM II - Hba1c 5.9 BS 114-113 abnormal TSH - 3.961 edema LE - chronic in nature still confused. Elevated LFts slightly better. For more details regarding further plans, please refer to the orders. Plan Plan For more details regarding further plans, please refer to the orders. Nutrition Consultation Dietary Evaluation: Recommendations by RD: Protein supplementation, Add supplement feedings Comments: supplement changed to novasource renal bid REC mvi q day and 100-200mg /d Vit C per wound protocal Expected Outcomes/Goals: to meet > 75% est nutr needs Malnutrition Findings: Body Fat Depletion (Non Severe: Mild Depletion Reduced Electron Beam Photo Mask Technician Strength: N/A Weight Status: Appropriate Fluid Accumulation (N/A): N/A ABHILASH CAUSEY MD Jan 10, 2017 11:08
[2017-01-10 14:46] VITALS: BP 140/43
[2017-01-10 19:00] VITALS: BP 172/64
[2017-01-10] MEDS: ACETAMINOPHEN 500 MG TABLET PO PRN (21:24)
[2017-01-10] MEDS: METOPROLOL SUCC 24HR ER 50 MG TAB.ER.24H. PO SCH (21:25)
[2017-01-10 23:09] VITALS: BP 135/56
[2017-01-11 03:00] VITALS: BP 132/48
[2017-01-11 06:16] LABS: ALBUMIN 2.5 g/dL (3.4-5.0); CALCIUM 8.5 mg/dL (8.5-10.1); CREATININE 1.1 mg/dL (0.6-1.0); GFR 56.9; PHOSPHORUS 3.5 mg/dL (2.6-4.7); POTASSIUM 4.2 mmol/L (3.5-5.1)
[2017-01-11 07:00] VITALS: BP 152/40
[2017-01-11] MEDS: INSULIN ASPART 300 UNITS/3 ML INSULN.PEN SQ SCH ×3 (08:00→16:51)
[2017-01-11] MEDS: ISOSORBIDE MONONITRATE 20 MG TABLET PO SCH (08:42)
[2017-01-11] MEDS: DOCUSATE SODIUM 100 MG CAPSULE PO SCH (08:42)
[2017-01-11] MEDS: HYDRALAZINE 50 MG TABLET PO SCH ×3 (08:42→17:05)
[2017-01-11] MEDS: PANTOPRAZOLE 40 MG TABLET. PO SCH (08:42)
[2017-01-11] MEDS: HEPARIN PF for SUB-Q USE 5,000 UNIT/0.5 ML VIAL. SQ SCH ×2 (08:48→20:53)
--- NOTE | 2017-01-11 09:54 | PDOC ---
PROGRESS NOTES Subjective Subjective low grade fever,100 to 100.5 Objective Objective Vital Signs Date Time Temp Pulse Resp B/P Pulse Ox O2 Delivery O2 Flow Rate FiO2 01/11/17 08:42 63 152/40 01/11/17 08:00 Room Air 01/11/17 07:00 97.8 18 96 97.8 Intake and Output 01/11/17 07:00 Intake Total 830 ml Output Total 650 ml Balance 180 ml Intake Oral 830 ml Output Urine Total 650 ml Physical Exam Abdomen: Normal bowel sounds, Soft Heart: Normal S1, Normal S2 Extremities: No clubbing General: Alert HEENT: Atraumatic Lungs: Clear to auscultation MUSCULOSKELETAL: No deformity, Osteoarthritic changes both hands Neck: Supple Neuro: Normal speech Psych/Mental Status: Mental status NL Skin: Other (stage 2 ulcer sacral ulcer) COMMENT birch present, stage 3 sacral ulcer,POA Diagnosis Problem List Problems Medical Problems: (1) Acute renal failure Status: Acute (2) Acute renal failure syndrome Status: Acute (3) Altered mental status Status: Acute Assessment Assessment FINAL IMPRESSION: lung infiltrates ? pneumonia vs chf 1. Mental status changes. 2. Acute renal failure. 3. Fever, possible pneumonia, no uti 4. Chronic coronary artery disease, heart bypass surgery, pacemaker. 5. Diabetes. 6. Arthritis. 7. Depression. 8. Protein-calorie malnutrition. 9. Stage 2-3 sacral ulcer present on admission. PLAN:levaquin pulmonary consult d/c iv fluids.cr 1.2 CT chest reviewed. ?Pneumonia vs effusion Fever w/o leukocytosis - elevated temp intermittent since admission: Admit T 100.1F Tm 01/05 101F Tm 01/08 100.8F UA/BC negative. CXR small pleural effusion with atelectasis R lung. 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 H/O systolic CHF and small R pleural effusion. LFTs ordered for 01/10 h/o AVR no anticoagulation CHF systolic EF 45-50% Nov 2016, mod AR, mild MR, mod TR and + pulmonary HTN Decubitus ulcer coccyx - wound care anemia CD - Admit 9.8 07/10 8.0 recheck in AM DM II - Hba1c 5.9 BS 114-113 abnormal TSH - 3.961 edema LE - chronic in nature still confused. Elevated LFts slightly better. For more details regarding further plans, please refer to the orders. Problems: Plan Plan of Care Problems Medical Problems: (1) Acute renal failure Status: Acute (2) Acute renal failure syndrome Status: Acute (3) Altered mental status Status: Acute Comment Review of Relevant I have reviewed the following items davin (where applicable) has been applied. Labs Laboratory Tests Test 01/10/17 10:38 01/10/17 15:32 01/10/17 20:42 01/11/17 05:20 Glucose (Fingerstick) 129mg/dL (70-99) 142mg/dL (70-99) 160mg/dL (70-99) Sodium Level 144mmol/L (136-145) Potassium Level 4.2mmol/L (3.5-5.1) Chloride Level 110mmol/L (98-107) Carbon Dioxide Level 25mmol/L (21-32) Anion Gap 9 (6-14) Blood Urea Nitrogen 26mg/dL (7-20) Creatinine 1.1mg/dL (0.6-1.0) Estimated GFR (Cockcroft-Gault) 56.9 Glucose Level 128mg/dL (70-99) Calcium Level 8.5mg/dL (8.5-10.1) Phosphorus Level 3.5mg/dL (2.6-4.7) Magnesium Level 2.3mg/dL (1.8-2.4) Albumin 2.5g/dL (3.4-5.0) Microbiology 01/09/17 Blood Culture - Preliminary, Resulted NO GROWTH AFTER 1 DAY 01/06/17 Urine Culture - Final, Complete 01/06/17 Urine Culture Result 1 ([facility]) - Final, Complete Vitals/I & O Vital Sign - Last 24 Hours 01/10/17 01/10/17 01/10/17 01/10/17 10:41 11:58 14:46 19:00 Temp 97.8 97.8 100.5 97.8 97.8 100.5 Pulse 62 62 63 60 Resp 18 18 18 B/P 147/41 147/41 140/43 172/64 Pulse Ox 95 95 96 O2 Delivery Room Air Room Air Room Air 01/10/17 01/10/17 01/10/17 01/11/17 20:00 21:25 23:09 03:00 Temp 100.1 99.3 100.1 99.3 Pulse 60 60 60 Resp 20 18 B/P 172/64 135/56 132/48 Pulse Ox 93 96 O2 Delivery Room Air Room Air Room Air 01/11/17 01/11/17 01/11/17 01/11/17 07:00 08:00 08:42 08:42 Temp 97.8 97.8 Pulse 63 63 63 Resp 18 B/P 152/40 152/40 152/40 Pulse Ox 96 O2 Delivery Room Air Room Air Intake and Output 01/10/17 01/10/17 01/11/17 15:00 23:00 07:00 Intake Total 240 ml 340 ml 250 ml Output Total 450 ml 200 ml Balance 240 ml -110 ml 50 ml Nutrition Consultation Dietary Evaluation: Recommendations by RD: Protein supplementation, Add supplement feedings Comments: supplement changed to novasource renal bid REC mvi q day and 100-200mg /d Vit C per wound protocal Expected Outcomes/Goals: to meet > 75% est nutr needs Malnutrition Findings: Body Fat Depletion (Non Severe: Mild Depletion Reduced Sign Writer Letterer Or Painter Strength: N/A Weight Status: Appropriate Fluid Accumulation (N/A): N/A TAMERA ALMAZAN MD Jan 11, 2017 09:54
[2017-01-11] MEDS ORDERED: LEVOFLOXACIN 500 MG TABLET PO SCH (10:00)
[2017-01-11 10:56] VITALS: BP 139/67
--- NOTE | 2017-01-11 11:41 | PDOC ---
Renal-Progress Notes Subjective Notes Notes CONFUSED History of Present Illness Hx of present illness STABLE Vitals Vitals Vital Signs Date Time Temp Pulse Resp B/P Pulse Ox O2 Delivery O2 Flow Rate FiO2 01/11/17 10:56 97.8 63 18 139/67 96 Room Air 97.8 Weight Weight [ ] I.O. Intake and Output Intake and Output 01/11/17 07:00 Intake Total 830 ml Output Total 650 ml Balance 180 ml Intake Oral 830 ml Output Urine Total 650 ml Labs Labs Laboratory Tests Test 01/10/17 15:32 01/10/17 20:42 01/11/17 05:20 Glucose (Fingerstick) 142mg/dL (70-99) 160mg/dL (70-99) Sodium Level 144mmol/L (136-145) Potassium Level 4.2mmol/L (3.5-5.1) Chloride Level 110mmol/L (98-107) Carbon Dioxide Level 25mmol/L (21-32) Anion Gap 9 (6-14) Blood Urea Nitrogen 26mg/dL (7-20) Creatinine 1.1mg/dL (0.6-1.0) Estimated GFR (Cockcroft-Gault) 56.9 Glucose Level 128mg/dL (70-99) Calcium Level 8.5mg/dL (8.5-10.1) Phosphorus Level 3.5mg/dL (2.6-4.7) Magnesium Level 2.3mg/dL (1.8-2.4) Albumin 2.5g/dL (3.4-5.0) Micro Micro Microbiology 01/09/17 Blood Culture - Preliminary, Resulted NO GROWTH AFTER 2 DAYS 01/06/17 Urine Culture - Final, Complete 01/06/17 Urine Culture Result 1 ([facility]) - Final, Complete Review of Systems Constitutional: yes: no symptom reported Physical Exam General Appearance: no apparent distress Skin: warm Respiratory: decreased breath sounds Heart: S1S2 Abdomen: GT edema Neurology: alert Assessment Assessment IMP GOOD-RESOLVED MILD HYPERVOLEMIA MET ENCEPHALOPATHY PLEURAL EFFUSION PLAN STOP IVF'S IV LASIX D/W ATTENDING WILL FOLLOW TRINITY BRIGHT MD Jan 11, 2017 11:41
[2017-01-11] MEDS: FUROSEMIDE 40 MG/4 ML VIAL IVP SCH (12:58)
--- NOTE | 2017-01-11 14:19 | RAD ---
Indication: Fever and edema. Technique: Grayscale, color-flow, and spectral waveform analysis was performed. No comparison is available. Findings: All visualized vein segments are compressible with normal phasicity of waveform and augmentation. No thrombus on grayscale or color imaging is apparent. Atheromatous disease within the adjacent arteries is noted. Lower extremity edema is noted. Impression: No evidence of deep vein thrombosis in either lower extremity.
[2017-01-11 14:49] VITALS: BP 135/40
--- NOTE | 2017-01-11 17:54 | PDOC ---
PULMONARY PROGRESS NOTES Subjective full note dictated agree with current Rx no need for thoracentesis add IS Vitals Vital Signs Date Time Temp Pulse Resp B/P Pulse Ox O2 Delivery O2 Flow Rate FiO2 01/11/17 17:05 60 154/51 01/11/17 14:49 97.8 18 98 Room Air 97.8 Labs Laboratory Tests Test 01/09/17 21:10 01/10/17 04:20 01/10/17 07:47 01/10/17 10:38 Glucose (Fingerstick) 131mg/dL (70-99) 118mg/dL (70-99) 129mg/dL (70-99) White Blood Count 6.0x10^3/uL (4.0-11.0) Red Blood Count 4.07x10^6/uL (3.50-5.40) Hemoglobin 8.7g/dL (12.0-15.5) Hematocrit 27.0% (36.0-47.0) Mean Corpuscular Volume 66fL (79-100) Mean Corpuscular Hemoglobin 21pg (25-35) Mean Corpuscular Hemoglobin Concent 32g/dL (31-37) Red Cell Distribution Width 16.4% (11.5-14.5) Platelet Count 221x10^3/uL (140-400) Neutrophils (%) (Auto) 61% (31-73) Lymphocytes (%) (Auto) 23% (24-48) Monocytes (%) (Auto) 11% (0-9) Eosinophils (%) (Auto) 4% (0-3) Basophils (%) (Auto) 1% (0-3) Neutrophils # (Auto) 3.7x10^3uL (1.8-7.7) Lymphocytes # (Auto) 1.3x10^3/uL (1.0-4.8) Monocytes # (Auto) 0.6x10^3/uL (0.0-1.1) Eosinophils # (Auto) 0.3x10^3/uL (0.0-0.7) Basophils # (Auto) 0.1x10^3/uL (0.0-0.2) Sodium Level 144mmol/L (136-145) Potassium Level 4.0mmol/L (3.5-5.1) Chloride Level 110mmol/L (98-107) Carbon Dioxide Level 25mmol/L (21-32) Anion Gap 9 (6-14) Blood Urea Nitrogen 37mg/dL (7-20) Creatinine 1.3mg/dL (0.6-1.0) Estimated GFR (Cockcroft-Gault) 46.9 BUN/Creatinine Ratio 28 (6-20) Glucose Level 129mg/dL (70-99) Calcium Level 9.0mg/dL (8.5-10.1) Phosphorus Level 3.2mg/dL (2.6-4.7) Magnesium Level 2.4mg/dL (1.8-2.4) Total Bilirubin 0.5mg/dL (0.2-1.0) Aspartate Amino Transf (AST/SGOT) 115U/L (15-37) Alanine Aminotransferase (ALT/SGPT) 179U/L (14-59) Alkaline Phosphatase 151U/L (46-116) Total Protein 6.7g/dL (6.4-8.2) Albumin 2.6g/dL (3.4-5.0) Albumin/Globulin Ratio 0.6 (1.0-1.7) Test 01/10/17 15:32 01/10/17 20:42 01/11/17 05:20 Glucose (Fingerstick) 142mg/dL (70-99) 160mg/dL (70-99) Sodium Level 144mmol/L (136-145) Potassium Level 4.2mmol/L (3.5-5.1) Chloride Level 110mmol/L (98-107) Carbon Dioxide Level 25mmol/L (21-32) Anion Gap 9 (6-14) Blood Urea Nitrogen 26mg/dL (7-20) Creatinine 1.1mg/dL (0.6-1.0) Estimated GFR (Cockcroft-Gault) 56.9 Glucose Level 128mg/dL (70-99) Calcium Level 8.5mg/dL (8.5-10.1) Phosphorus Level 3.5mg/dL (2.6-4.7) Magnesium Level 2.3mg/dL (1.8-2.4) Albumin 2.5g/dL (3.4-5.0) Laboratory Tests Test 01/10/17 20:42 01/11/17 05:20 Glucose (Fingerstick) 160mg/dL (70-99) Sodium Level 144mmol/L (136-145) Potassium Level 4.2mmol/L (3.5-5.1) Chloride Level 110mmol/L (98-107) Carbon Dioxide Level 25mmol/L (21-32) Anion Gap 9 (6-14) Blood Urea Nitrogen 26mg/dL (7-20) Creatinine 1.1mg/dL (0.6-1.0) Estimated GFR (Cockcroft-Gault) 56.9 Glucose Level 128mg/dL (70-99) Calcium Level 8.5mg/dL (8.5-10.1) Phosphorus Level 3.5mg/dL (2.6-4.7) Magnesium Level 2.3mg/dL (1.8-2.4) Albumin 2.5g/dL (3.4-5.0) Medications Active Scripts Medications Dose Route/Sig Days Date Category Dose Instructions Isosorbide Mononitrate 20 Mg Tablet 20 Mg PO DAILY 01/05/17 Reported Floranex Tablet (Acidophilus/Bulgaricus) 1 Each Tablet 1 Each PO 01/05/17 Reported Klor-Con M20 (Potassium Chloride) 20 Meq Tab.er.prt 1 Tab PO BID 01/05/17 Reported Voltaren (Diclofenac Sodium) 100 Gm Gel..gram. 2 Gm TP QID 12/17/16 Reported Vitamin D-3 (Cholecalciferol (Vitamin D3)) 2,000 Unit Tablet 3,000 Unit PO 12/17/16 Reported Santyl Ointment (Collagenase) 30 Gm Oint...g. 1 Sade TP DAILY 12/17/16 Reported DIRECTED BY PHYSICIAN Protonix (Pantoprazole Sodium) 40 Mg Granpkt.dr 40 Mg PO DAILY 12/17/16 Reported Gabapentin 100 Mg Capsule 200 Mg PO QHS 12/17/16 Reported Mirtazapine 7.5 Mg Tablet 7.5 Mg PO DAILY 12/17/16 Reported Milk Of Magnesia (Magnesium Hydroxide) 400 Mg/5 Ml Oral.susp 1,200 Mg PO 12/17/16 Reported Colace (Docusate Sodium) 100 Mg Capsule 1 Cap PO BID 12/17/16 Reported Acetaminophen 500 Mg Tablet 1 Tab PO PRN Q8HRS PRN 12/17/16 Reported Cozaar (Losartan Potassium) 25 Mg Tablet 25 Mg PO DAILY 05/10/14 Rx Hydralazine Hcl 50 Mg Tablet 50 Mg PO TIDWMEALS 05/07/14 Reported Bupropion Hcl Sr (Bupropion Hcl) 150 Mg Tablet.er 150 Mg PO BID 05/07/14 Reported Glyburide 5 Mg Tablet 5 Mg PO DAILY 05/07/14 Reported Lasix (Furosemide) 80 Mg Tablet 80 Mg PO BID 05/07/14 Reported Potassium Chloride 20 Meq Tablet.er 20 Meq PO BID 05/07/14 Reported Meclizine Hcl 12.5 Mg Tablet 12.5 Mg PO PRN TID PRN 05/07/14 Reported Lyrica (Pregabalin) 50 Mg Capsule 50 Mg PO HS 05/07/14 Reported Toprol Xl (Metoprolol Succinate) 50 Mg Tab.er.24h 50 Mg PO HS 05/07/14 Reported [place] 7.5-325 Tablet (Acetaminophen/Hydrocodone Bitart) 1 Each Tablet 1 Tab PO PRN TID PRN 05/07/14 Reported Daily Multiple Vitamin (Multivitamin) 1 Each Tablet 1 Each PO DAILYWBKFT 05/07/14 Reported CARLOS ENRIQUE GAONA MD Jan 11, 2017 17:54
[2017-01-11 19:00] VITALS: BP 147/54
[2017-01-11] MEDS: METOPROLOL SUCC 24HR ER 50 MG TAB.ER.24H. PO SCH (20:49)
[2017-01-11 23:00] VITALS: BP 166/81
[2017-01-12 03:00] VITALS: BP 150/47
--- NOTE | 2017-01-12 03:10 | CONS ---
DATE OF CONSULTATION: 01/11/2017 ATTENDING PHYSICIAN: Dr. Kinney. DICTATING PHYSICIAN: Dr. Carlos Enrique Gaona. REASON FOR CONSULTATION: The patient seen in pulmonary consultation at the request of Dr. Kinney for abnormal CT chest. HISTORY OF PRESENT ILLNESS: The patient is an 86-year-old female that is severely confused and unable to obtain much history though she answers questions appropriately at times. She knew her name. She smoked, but she states that she quit sometime ago. She presented with confusion and fever from [facility]. She had a previous UTI, was treated with antibiotics, came in with elevated BUN and creatinine. Part of her workup included a CT chest. I reviewed the CT, which reveals atelectasis and some small effusion with some patchy airspace opacities in the right lower lobe and right upper lobe. The patient denies productive cough, no fever or chills. PAST MEDICAL HISTORY: Coronary artery disease status post coronary artery bypass grafting, CHF, diabetes, DVT, hypertension. PAST SURGICAL HISTORY: Coronary artery bypass grafting, pacemaker, appendectomy, hysterectomy, hernia repair. ALLERGIES: LISTED TO CONTRAST DYE, SULFA, CODEINE AND IODINE. MEDICATIONS: List from home from the [facility] was reviewed. CURRENT MEDICATIONS: List was reviewed. SOCIAL HISTORY: She resides at a [facility]. FAMILY HISTORY: Noncontributory. REVIEW OF SYSTEMS: Unobtainable secondary to the patient's condition. PHYSICAL EXAMINATION: VITAL SIGNS: She had a T-max yesterday was 100.5. HEENT: Eyes, sclerae were nonicteric. NECK: Jugular venous distention was not elevated. No lymphadenopathy. CHEST: Full expansion. LUNGS: Poor airway flow, no wheezes. Diminished breath sounds in the bases. CARDIOVASCULAR: Regular rate and rhythm with S1, S2, no S3. ABDOMEN: Soft, nontender, nondistended. EXTREMITIES: No clubbing, cyanosis. Minimal edema. NEUROLOGIC: The patient was awake, alert, following commands. A detailed neuro exam was not performed. She was very weak, unable to raise the legs off the bed. LABORATORY DATA: Reviewed. White count was normal. Hemoglobin and hematocrit were noted. Electrolytes were noted. BUN and creatinine were noted. UA was positive for small leukocyte esterase. She had 1-[address] of the chest reviewed as indicated above. IMPRESSION: 1. Abnormal CT revealing a combination of atelectasis and airspace disease compatible with possibility of pneumonia. 2. Small bilateral effusions. 3. Fever, suspect secondary to above and possibly urinary tract infection. 4. Acute on chronic renal failure per Infectious Disease. 5. Metabolic toxic encephalopathy. 6. Coronary artery disease status post coronary artery bypass grafting. PLAN: 1. Continue current IV antibiotics. 2. Encourage incentive spirometry. 3. No need for thoracentesis. 4. Follow Nephrology input. I do appreciate the privilege in sharing in the patient's care. CARLOS ENRIQUE GAONA MD DR: MARTINA/julio JOB#: [id number] / [id number]
[2017-01-12 04:55] LABS: ALBUMIN 2.3 g/dL (3.4-5.0); CALCIUM 8.8 mg/dL (8.5-10.1); CREATININE 1.1 mg/dL (0.6-1.0); GFR 56.9; PHOSPHORUS 3.4 mg/dL (2.6-4.7); POTASSIUM 3.9 mmol/L (3.5-5.1)
[2017-01-12] MEDS ORDERED: LEVOFLOXACIN 750 MG TABLET. PO SCH (06:00)
[2017-01-12 07:00] VITALS: BP 138/53
[2017-01-12] MEDS: INSULIN ASPART 300 UNITS/3 ML INSULN.PEN SQ SCH ×3 (08:00→17:00)
[2017-01-12] MEDS: PANTOPRAZOLE 40 MG TABLET. PO SCH (08:30)
[2017-01-12] MEDS: DOCUSATE SODIUM 100 MG CAPSULE PO SCH (08:30)
[2017-01-12] MEDS: ISOSORBIDE MONONITRATE 20 MG TABLET PO SCH (08:30)
[2017-01-12] MEDS: HYDRALAZINE 50 MG TABLET PO SCH ×3 (08:31→17:31)
[2017-01-12] MEDS: FUROSEMIDE 40 MG/4 ML VIAL IVP SCH ×2 (08:31→17:31)
[2017-01-12] MEDS: HEPARIN PF for SUB-Q USE 5,000 UNIT/0.5 ML VIAL. SQ SCH ×2 (08:43→20:19)
--- NOTE | 2017-01-12 09:49 | PDOC ---
PULMONARY PROGRESS NOTES Subjective pt not more soa Vitals Vital Signs Date Time Temp Pulse Resp B/P Pulse Ox O2 Delivery O2 Flow Rate FiO2 01/12/17 08:31 62 138/53 01/12/17 07:45 Room Air 01/12/17 07:00 97.9 18 96 97.9 General: Alert Lungs: Clear, Other (decrease bs in bases) Cardiovascular: S1 Abdomen: Soft Neuro Exam: Alert Extremities: No Edema Skin: Warm Labs Laboratory Tests Test 01/10/17 10:38 01/10/17 15:32 01/10/17 20:42 01/11/17 05:20 Glucose (Fingerstick) 129mg/dL (70-99) 142mg/dL (70-99) 160mg/dL (70-99) Sodium Level 144mmol/L (136-145) Potassium Level 4.2mmol/L (3.5-5.1) Chloride Level 110mmol/L (98-107) Carbon Dioxide Level 25mmol/L (21-32) Anion Gap 9 (6-14) Blood Urea Nitrogen 26mg/dL (7-20) Creatinine 1.1mg/dL (0.6-1.0) Estimated GFR (Cockcroft-Gault) 56.9 Glucose Level 128mg/dL (70-99) Calcium Level 8.5mg/dL (8.5-10.1) Phosphorus Level 3.5mg/dL (2.6-4.7) Magnesium Level 2.3mg/dL (1.8-2.4) Albumin 2.5g/dL (3.4-5.0) Test 01/11/17 07:06 01/11/17 10:24 01/11/17 15:58 01/11/17 20:33 Glucose (Fingerstick) 121mg/dL (70-99) 139mg/dL (70-99) 103mg/dL (70-99) 119mg/dL (70-99) Test 01/12/17 03:05 01/12/17 07:04 Sodium Level 144mmol/L (136-145) Potassium Level 3.9mmol/L (3.5-5.1) Chloride Level 108mmol/L (98-107) Carbon Dioxide Level 27mmol/L (21-32) Anion Gap 9 (6-14) Blood Urea Nitrogen 25mg/dL (7-20) Creatinine 1.1mg/dL (0.6-1.0) Estimated GFR (Cockcroft-Gault) 56.9 Glucose Level 102mg/dL (70-99) Calcium Level 8.8mg/dL (8.5-10.1) Phosphorus Level 3.4mg/dL (2.6-4.7) Albumin 2.3g/dL (3.4-5.0) Glucose (Fingerstick) 93mg/dL (70-99) Laboratory Tests Test 01/11/17 10:24 01/11/17 15:58 01/11/17 20:33 01/12/17 03:05 Glucose (Fingerstick) 139mg/dL (70-99) 103mg/dL (70-99) 119mg/dL (70-99) Sodium Level 144mmol/L (136-145) Potassium Level 3.9mmol/L (3.5-5.1) Chloride Level 108mmol/L (98-107) Carbon Dioxide Level 27mmol/L (21-32) Anion Gap 9 (6-14) Blood Urea Nitrogen 25mg/dL (7-20) Creatinine 1.1mg/dL (0.6-1.0) Estimated GFR (Cockcroft-Gault) 56.9 Glucose Level 102mg/dL (70-99) Calcium Level 8.8mg/dL (8.5-10.1) Phosphorus Level 3.4mg/dL (2.6-4.7) Albumin 2.3g/dL (3.4-5.0) Test 01/12/17 07:04 Glucose (Fingerstick) 93mg/dL (70-99) Medications Active Scripts Medications Dose Route/Sig Days Date Category Dose Instructions Isosorbide Mononitrate 20 Mg Tablet 20 Mg PO DAILY 01/05/17 Reported Floranex Tablet (Acidophilus/Bulgaricus) 1 Each Tablet 1 Each PO 01/05/17 Reported Klor-Con M20 (Potassium Chloride) 20 Meq Tab.er.prt 1 Tab PO BID 01/05/17 Reported Voltaren (Diclofenac Sodium) 100 Gm Gel..gram. 2 Gm TP QID 12/17/16 Reported Vitamin D-3 (Cholecalciferol (Vitamin D3)) 2,000 Unit Tablet 3,000 Unit PO 12/17/16 Reported Santyl Ointment (Collagenase) 30 Gm Oint...g. 1 Sade TP DAILY 12/17/16 Reported DIRECTED BY PHYSICIAN Protonix (Pantoprazole Sodium) 40 Mg Granpkt.dr 40 Mg PO DAILY 12/17/16 Reported Gabapentin 100 Mg Capsule 200 Mg PO QHS 12/17/16 Reported Mirtazapine 7.5 Mg Tablet 7.5 Mg PO DAILY 12/17/16 Reported Milk Of Magnesia (Magnesium Hydroxide) 400 Mg/5 Ml Oral.susp 1,200 Mg PO 12/17/16 Reported Colace (Docusate Sodium) 100 Mg Capsule 1 Cap PO BID 12/17/16 Reported Acetaminophen 500 Mg Tablet 1 Tab PO PRN Q8HRS PRN 12/17/16 Reported Cozaar (Losartan Potassium) 25 Mg Tablet 25 Mg PO DAILY 05/10/14 Rx Hydralazine Hcl 50 Mg Tablet 50 Mg PO TIDWMEALS 05/07/14 Reported Bupropion Hcl Sr (Bupropion Hcl) 150 Mg Tablet.er 150 Mg PO BID 05/07/14 Reported Glyburide 5 Mg Tablet 5 Mg PO DAILY 05/07/14 Reported Lasix (Furosemide) 80 Mg Tablet 80 Mg PO BID 05/07/14 Reported Potassium Chloride 20 Meq Tablet.er 20 Meq PO BID 05/07/14 Reported Meclizine Hcl 12.5 Mg Tablet 12.5 Mg PO PRN TID PRN 05/07/14 Reported Lyrica (Pregabalin) 50 Mg Capsule 50 Mg PO HS 05/07/14 Reported Toprol Xl (Metoprolol Succinate) 50 Mg Tab.er.24h 50 Mg PO HS 05/07/14 Reported [place] 7.5-325 Tablet (Acetaminophen/Hydrocodone Bitart) 1 Each Tablet 1 Tab PO PRN TID PRN 05/07/14 Reported Daily Multiple Vitamin (Multivitamin) 1 Each Tablet 1 Each PO DAILYWBKFT 05/07/14 Reported Impression . 1. Abnormal CT revealing a combination of atelectasis and airspace disease compatible with possibility of pneumonia. 2. Small bilateral effusions. 3. Fever, suspect secondary to above and possibly urinary tract infection. 4. Acute on chronic renal failure per Infectious Disease. 5. Metabolic toxic encephalopathy. 6. Coronary artery disease status post coronary artery bypass grafting. Plan . 1. IV lasix 2. Encourage incentive spirometry. 3. No need for thoracentesis. 4. switch to oral antibx in am ok by me and d/c CARLOS ENRIQUE GAONA MD Jan 12, 2017 09:49
--- NOTE | 2017-01-12 09:58 | PDOC ---
PROGRESS NOTES Subjective Subjective weak not eating much Objective Objective Vital Signs Date Time Temp Pulse Resp B/P Pulse Ox O2 Delivery O2 Flow Rate FiO2 01/12/17 08:31 62 138/53 01/12/17 07:45 Room Air 01/12/17 07:00 97.9 18 96 97.9 Intake and Output 01/12/17 07:00 Intake Total 580 ml Output Total 1900 ml Balance -1320 ml Intake Oral 580 ml Output Urine Total 1900 ml Physical Exam Abdomen: Normal bowel sounds, Soft Heart: Normal S1, Normal S2 Extremities: No clubbing General: Alert HEENT: Atraumatic Lungs: Clear to auscultation MUSCULOSKELETAL: No deformity, Osteoarthritic changes both hands Neck: Supple Neuro: Normal speech Psych/Mental Status: Mental status NL Skin: Other (stage 2 ulcer sacral ulcer) COMMENT birch present, stage 3 sacral ulcer,POA Diagnosis Problem List Problems Medical Problems: (1) Acute renal failure Status: Acute (2) Acute renal failure syndrome Status: Acute (3) Altered mental status Status: Acute Assessment Assessment FINAL IMPRESSION: lung infiltrates ? pneumonia vs chf 1. Mental status changes. 2. Acute renal failure. 3. Fever, possible pneumonia, no uti 4. Chronic coronary artery disease, heart bypass surgery, pacemaker. 5. Diabetes. 6. Arthritis. 7. Depression. 8. Protein-calorie malnutrition. 9. Stage 2-3 sacral ulcer present on admission. PLAN:iv lasix started yesterday levaquin po every otherday 750 mg pulmonary consult appreciated d/c iv fluids.cr 1.2 CT chest reviewed. ?Pneumonia vs effusion pt/ot rehab consult Problems: Plan Plan of Care Problems Medical Problems: (1) Acute renal failure Status: Acute (2) Acute renal failure syndrome Status: Acute (3) Altered mental status Status: Acute Comment Review of Relevant I have reviewed the following items davin (where applicable) has been applied. Labs Laboratory Tests Test 01/11/17 10:24 01/11/17 15:58 01/11/17 20:33 01/12/17 03:05 Glucose (Fingerstick) 139mg/dL (70-99) 103mg/dL (70-99) 119mg/dL (70-99) Sodium Level 144mmol/L (136-145) Potassium Level 3.9mmol/L (3.5-5.1) Chloride Level 108mmol/L (98-107) Carbon Dioxide Level 27mmol/L (21-32) Anion Gap 9 (6-14) Blood Urea Nitrogen 25mg/dL (7-20) Creatinine 1.1mg/dL (0.6-1.0) Estimated GFR (Cockcroft-Gault) 56.9 Glucose Level 102mg/dL (70-99) Calcium Level 8.8mg/dL (8.5-10.1) Phosphorus Level 3.4mg/dL (2.6-4.7) Albumin 2.3g/dL (3.4-5.0) Test 01/12/17 07:04 Glucose (Fingerstick) 93mg/dL (70-99) Microbiology 01/09/17 Blood Culture - Preliminary, Resulted NO GROWTH AFTER 2 DAYS 01/10/17 Urine Culture - Preliminary, Resulted 01/10/17 Urine Culture Result 1 ([facility]) - Preliminary, Resulted Medications Current Medications Furosemide (Lasix) 40 mg BID92 IVP Last administered on 01/12/17 08:31; Start 01/11/17 at 14:00 Levofloxacin (Levaquin) 500 mg DAILY06 PO Last administered on 01/11/17 12:58 ; Start 01/11/17 at 10:00; Stop 01/11/17 at 14:20; Status DC Levofloxacin (Levaquin) 750 mg Q48H PO Last administered on 01/12/17 05:51; Start 01/12/17 at 06:00 Vitals/I & O Vital Sign - Last 24 Hours 01/11/17 01/11/17 01/11/17 01/11/17 10:56 13:00 14:49 17:05 Temp 97.8 97.8 97.8 97.8 Pulse 63 60 92 60 Resp 18 18 B/P 139/67 155/55 135/40 154/51 Pulse Ox 96 98 O2 Delivery Room Air Room Air 01/11/17 01/11/17 01/11/17 01/11/17 19:00 20:00 20:49 23:00 Temp 98.8 97.9 98.8 97.9 Pulse 62 62 77 Resp 18 18 B/P 147/54 147/54 166/81 Pulse Ox 97 96 O2 Delivery Room Air 01/12/17 01/12/17 01/12/17 01/12/17 03:00 07:00 07:45 08:30 Temp 99.2 97.9 99.2 97.9 Pulse 60 62 62 Resp 18 18 B/P 150/47 138/53 138/53 Pulse Ox 96 96 O2 Delivery Room Air Room Air 01/12/17 08:31 Pulse 62 B/P 138/53 Intake and Output 01/11/17 01/11/17 01/12/17 15:00 23:00 07:00 Intake Total 240 ml 240 ml 100 ml Output Total 750 ml 700 ml 450 ml Balance -510 ml -460 ml -350 ml Nutrition Consultation Dietary Evaluation: Recommendations by RD: Protein supplementation, Add supplement feedings Comments: supplement changed to novasource renal bid REC mvi q day and 100-200mg /d Vit C per wound protocal Expected Outcomes/Goals: to meet > 75% est nutr needs Malnutrition Findings: Body Fat Depletion (Non Severe: Mild Depletion Reduced 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
[2017-01-12 10:48] VITALS: BP 135/58
--- NOTE | 2017-01-12 11:28 | PDOC ---
Renal-Progress Notes Subjective Notes Notes BETTER Vitals Vitals Vital Signs Date Time Temp Pulse Resp B/P Pulse Ox O2 Delivery O2 Flow Rate FiO2 01/12/17 10:48 97.7 62 18 135/58 96 Room Air 97.7 Weight Weight [ ] I.O. Intake and Output Intake and Output 01/12/17 07:00 Intake Total 580 ml Output Total 1900 ml Balance -1320 ml Intake Oral 580 ml Output Urine Total 1900 ml Labs Labs Laboratory Tests Test 01/11/17 15:58 01/11/17 20:33 01/12/17 03:05 01/12/17 07:04 Glucose (Fingerstick) 103mg/dL (70-99) 119mg/dL (70-99) 93mg/dL (70-99) Sodium Level 144mmol/L (136-145) Potassium Level 3.9mmol/L (3.5-5.1) Chloride Level 108mmol/L (98-107) Carbon Dioxide Level 27mmol/L (21-32) Anion Gap 9 (6-14) Blood Urea Nitrogen 25mg/dL (7-20) Creatinine 1.1mg/dL (0.6-1.0) Estimated GFR (Cockcroft-Gault) 56.9 Glucose Level 102mg/dL (70-99) Calcium Level 8.8mg/dL (8.5-10.1) Phosphorus Level 3.4mg/dL (2.6-4.7) Albumin 2.3g/dL (3.4-5.0) Test 01/12/17 10:12 Glucose (Fingerstick) 113mg/dL (70-99) Micro Micro Microbiology 01/09/17 Blood Culture - Preliminary, Resulted NO GROWTH AFTER 3 DAYS 01/10/17 Urine Culture - Preliminary, Resulted 01/10/17 Urine Culture Result 1 ([facility]) - Preliminary, Resulted Review of Systems Constitutional: yes: no symptom reported Physical Exam General Appearance: no apparent distress Skin: warm Respiratory: decreased breath sounds Heart: S1S2 Abdomen: GT edema Neurology: alert Assessment Assessment IMP GOOD-RESOLVED MILD HYPERVOLEMIA MET ENCEPHALOPATHY PLEURAL EFFUSION PLAN IV LASIX PROB CHANGE TO ORAL LASIX IN AM D/W ATTENDING WILL FOLLOW TRINITY BRIGHT MD Jan 12, 2017 11:28
--- NOTE | 2017-01-12 15:01 | RAD ---
Indication: Heart failure. Technique: Upright portable chest radiograph was obtained. Comparison is from January 05, 2017. Findings: Small bilateral pleural effusions are suspected. Band of atelectasis is noted on the right, appears increased. No focal airspace disease is apparent. Heart is upper limits of normal in size. There is no definite heart failure. There is atheromatous disease in the thoracic aorta. Median sternotomy wires are noted. Impression: 1. Small bilateral pleural effusions. 2. Band of atelectasis on the right, increased.
[2017-01-12 15:03] VITALS: BP 139/54
[2017-01-12 19:00] VITALS: BP 133/50
[2017-01-12] MEDS: METOPROLOL SUCC 24HR ER 50 MG TAB.ER.24H. PO SCH (20:12)
[2017-01-12 22:30] VITALS: BP 140/59
--- NOTE | 2017-01-13 01:10 | CONS ---
DATE OF CONSULTATION: 01/12/2017 ATTENDING PHYSICIAN: Dr. Kinney. The patient was seen at the request of Dr. Kinney for rehab evaluation. HISTORY OF PRESENT ILLNESS: This is an 86-year-old female, a patient of Dr. Perea. The patient from [facility]. She was admitted with increased confusion. Was noted with urinary tract infection and was treated with antibiotics. She was admitted on 01/05/2017 with acute renal failure with a BUN around 100, creatinine 2.5, fever. The patient with known coronary artery disease, coronary artery bypass graft, congestive heart failure, diabetes mellitus, deep venous thrombosis, hypertension, myocardial infarction, permanent pacemaker placement, appendectomy, hysterectomy, hernia repair, KNOWN ALLERGIC TO CONTRAST MEDIA IODINATED, SULFA, CODEINE AND IODINE. The patient is a resident of [facility] for about a year. The patient gets up with some help and gets around in a wheelchair, but right now since she has been in the hospital, she is refusing to get up and she is not eating much. The patient denies any pain. PHYSICAL EXAMINATION: Today revealed an elderly female. She is awake, oriented to person, follows commands appropriately, moves all 4 extremities voluntarily, where she had 4/5 grade muscle strength. Deep tendon reflexes are decreased overall. She had equal perception of touch and pinprick sensation bilaterally. She had crepitus on range of motion of both knee joints. Some stiffness of her hip joints and shoulder joints. She had hand intrinsic muscle atrophy bilaterally. The patient requires help with bed mobility. I have not tested her transfers or ambulation capacity at the present time as she is somewhat not interested in getting up. Oral intake remains low. She had a dressing to her coccyx area skin breakdown. ASSESSMENT: Mobility and self-care limitations in a patient with deconditioned state from recent hospitalization for treatment of acute renal failure; urinary tract infection; diabetes mellitus with peripheral neuropathy; degenerative joint disease of both hips, knees and shoulders; depression; protein calorie nutrition; stage 2 sacral decubitus ulcer. The patient with known coronary artery disease, coronary artery bypass graft, permanent pacemaker. RECOMMENDATIONS: Agree with the plan for physical therapy and occupational therapy and when medically stable to transfer her back to [facility]. Dr. Kinney, I appreciate asking me to participate in the care of this interesting patient. I will be glad to follow her with you as needed for her rehabilitation. STANLEY ESTRADA MD DR: BENNY/julio JOB#: [id number] / [id number]
[2017-01-13 07:00] VITALS: BP 138/59
[2017-01-13 07:00] LABS: ALBUMIN 2.7 g/dL (3.4-5.0); CALCIUM 8.8 mg/dL (8.5-10.1); CREATININE 1.6 mg/dL (0.6-1.0); GFR 36.9; PHOSPHORUS 3.9 mg/dL (2.6-4.7); POTASSIUM 4.3 mmol/L (3.5-5.1)
[2017-01-13] MEDS: INSULIN ASPART 300 UNITS/3 ML INSULN.PEN SQ SCH ×2 (08:00→12:00)
[2017-01-13] MEDS: DOCUSATE SODIUM 100 MG CAPSULE PO SCH (08:13)
[2017-01-13] MEDS: ISOSORBIDE MONONITRATE 20 MG TABLET PO SCH (08:13)
[2017-01-13] MEDS: HYDRALAZINE 50 MG TABLET PO SCH ×2 (08:13→13:03)
[2017-01-13] MEDS: PANTOPRAZOLE 40 MG TABLET. PO SCH (08:13)
[2017-01-13] MEDS: FUROSEMIDE 40 MG/4 ML VIAL IVP SCH (08:24)
[2017-01-13] MEDS: HEPARIN PF for SUB-Q USE 5,000 UNIT/0.5 ML VIAL. SQ SCH (08:34)
--- NOTE | 2017-01-13 10:06 | PDOC ---
PROGRESS NOTES Subjective Subjective She denies any pain. Objective Objective Vital Signs Date Time Temp Pulse Resp B/P Pulse Ox O2 Delivery O2 Flow Rate FiO2 01/13/17 08:13 67 138/59 01/13/17 08:05 Room Air 01/13/17 07:00 100.0 20 97 100.0 01/08/17 07:50 98.0 Intake and Output 01/13/17 07:00 Intake Total 500 ml Output Total 2400 ml Balance -1900 ml Intake Oral 500 ml Output Urine Total 2400 ml Physical Exam Physical Exam She got up with physical assistance and made a few steps at bedside slowly using roller walker and she is eating better. Assessment Assessment Problems Medical Problems: (1) Acute renal failure Status: Acute (2) Acute renal failure syndrome Status: Acute (3) Altered mental status Status: Acute Plan Plan of Care To SNF when medically stable. Comment Review of Relevant I have reviewed the following items davin (where applicable) has been applied. Labs Laboratory Tests Test 01/11/17 10:24 01/11/17 15:58 01/11/17 20:33 01/12/17 03:05 Glucose (Fingerstick) 139mg/dL (70-99) 103mg/dL (70-99) 119mg/dL (70-99) Sodium Level 144mmol/L (136-145) Potassium Level 3.9mmol/L (3.5-5.1) Chloride Level 108mmol/L (98-107) Carbon Dioxide Level 27mmol/L (21-32) Anion Gap 9 (6-14) Blood Urea Nitrogen 25mg/dL (7-20) Creatinine 1.1mg/dL (0.6-1.0) Estimated GFR (Cockcroft-Gault) 56.9 Glucose Level 102mg/dL (70-99) Calcium Level 8.8mg/dL (8.5-10.1) Phosphorus Level 3.4mg/dL (2.6-4.7) Albumin 2.3g/dL (3.4-5.0) Test 01/12/17 07:04 01/12/17 10:12 01/12/17 16:32 01/12/17 20:16 Glucose (Fingerstick) 93mg/dL (70-99) 113mg/dL (70-99) 112mg/dL (70-99) 118mg/dL (70-99) Test 01/13/17 05:25 01/13/17 07:18 Sodium Level 143mmol/L (136-145) Potassium Level 4.3mmol/L (3.5-5.1) Chloride Level 107mmol/L (98-107) Carbon Dioxide Level 25mmol/L (21-32) Anion Gap 11 (6-14) Blood Urea Nitrogen 29mg/dL (7-20) Creatinine 1.6mg/dL (0.6-1.0) Estimated GFR (Cockcroft-Gault) 36.9 Glucose Level 100mg/dL (70-99) Calcium Level 8.8mg/dL (8.5-10.1) Phosphorus Level 3.9mg/dL (2.6-4.7) Albumin 2.7g/dL (3.4-5.0) Glucose (Fingerstick) 116mg/dL (70-99) Laboratory Tests Test 01/12/17 10:12 01/12/17 16:32 01/12/17 20:16 01/13/17 05:25 Glucose (Fingerstick) 113mg/dL (70-99) 112mg/dL (70-99) 118mg/dL (70-99) Sodium Level 143mmol/L (136-145) Potassium Level 4.3mmol/L (3.5-5.1) Chloride Level 107mmol/L (98-107) Carbon Dioxide Level 25mmol/L (21-32) Anion Gap 11 (6-14) Blood Urea Nitrogen 29mg/dL (7-20) Creatinine 1.6mg/dL (0.6-1.0) Estimated GFR (Cockcroft-Gault) 36.9 Glucose Level 100mg/dL (70-99) Calcium Level 8.8mg/dL (8.5-10.1) Phosphorus Level 3.9mg/dL (2.6-4.7) Albumin 2.7g/dL (3.4-5.0) Test 01/13/17 07:18 Glucose (Fingerstick) 116mg/dL (70-99) Microbiology 01/09/17 Blood Culture - Preliminary, Resulted NO GROWTH AFTER 3 DAYS 01/10/17 Urine Culture - Final, Complete 01/10/17 Urine Culture Result 1 ([facility]) - Final, Complete Medications Current Medications Sodium Chloride 500 ml @ 500 mls/hr 1X ONCE IV Last administered on 01/05/17 08:52; Start 01/05/17 at 08:30; Stop 01/05/17 at 09:29; Status DC Potassium Chloride/Sodium Chloride 1,000 ml @ 125 mls/hr 1X ONCE IV Last administered on 01/05/17 12:23; Start 01/05/17 at 10:30; Stop 01/05/17 at 21:36; Status DC Ceftriaxone Sodium/Sodium Chloride (Rocephin/Iv Sodium Chloride 0.9% 50ml) 50 ml @ 100 mls/hr QHS IV Last administered on 01/07/17 20:53; Start 01/05/17 at 22:00; Stop 01/08/17 at 09:09; Status DC Heparin Sodium (Porcine) 5,000 unit Q12HR SQ Last administered on 01/13/17 08: 34; Start 01/06/17 at 09:00 Acetaminophen (Tylenol) 500 mg PRN Q8HRS PRN PO MILD PAIN Last administered on 01/10/17 21:24; Start 01/05/17 at 21:30 Collagenase (Santyl) 1 sade DAILY TP ; Start 01/06/17 at 09:00; Status UNV Docusate Sodium (Colace) 100 mg DAILY PO Last administered on 01/13/17 08:13; Start 01/06/17 at 09:00 Hydralazine HCl (Apresoline) 50 mg TIDWMEALS PO Last administered on 01/13/17 08:13; Start 01/06/17 at 08:00 Metoprolol Succinate (Toprol Xl) 50 mg HS PO Last administered on 01/12/17 20: 12; Start 01/06/17 at 21:00 Isosorbide Mononitrate (Ismo) 20 mg DAILY PO Last administered on 01/13/17 08: 13; Start 01/06/17 at 09:00 Pantoprazole Sodium (Protonix) 40 mg DAILYAC PO Last administered on 01/13/17 08:13; Start 01/06/17 at 07:30 Insulin Aspart (Novolog) 0-5 UNITS TIDWMEALS SQ Last administered on 01/06/17 17:47; Start 01/06/17 at 08:00 Dextrose 12.5 gm 12.5 gm PRN Q15MIN PRN IV SEE COMMENTS; Start 01/05/17 at 21:30 Dextrose/Sodium Chloride 1,000 ml @ 75 mls/hr [id number] IV Last administered on 01/10/17 21:26; Start 01/05/17 at 21:30; Stop 01/11/17 at 09:28; Status DC Magnesium Sulfate/ Dextrose (Magnesium Sulfate PREMIX 2GM) 50 ml @ 25 mls/hr PRN DAILY PRN IV for Mag < 1.7 on am labs; Start 01/06/17 at 12:00 Levofloxacin (Levaquin) 500 mg DAILY06 PO Last administered on 01/11/17 12:58 ; Start 01/11/17 at 10:00; Stop 01/11/17 at 14:20; Status DC Furosemide (Lasix) 40 mg BID92 IVP Last administered on 01/13/17 08:24; Start 01/11/17 at 14:00 Levofloxacin (Levaquin) 750 mg Q48H PO Last administered on 01/12/17 05:51; Start 01/12/17 at 06:00 Active Scripts Active Cozaar (Losartan Potassium) 25 Mg Tablet 25 Mg PO DAILY Reported Isosorbide Mononitrate 20 Mg Tablet 20 Mg PO DAILY Floranex Tablet (Acidophilus/Bulgaricus) 1 Each Tablet 1 Each PO Klor-Con M20 (Potassium Chloride) 20 Meq Tab.er.prt 1 Tab PO BID Voltaren (Diclofenac Sodium) 100 Gm Gel..gram. 2 Gm TP QID Vitamin D-3 (Cholecalciferol (Vitamin D3)) 2,000 Unit Tablet 3,000 Unit PO Santyl Ointment (Collagenase) 30 Gm Oint...g. 1 Sade TP DAILY DIRECTED BY PHYSICIAN Protonix (Pantoprazole Sodium) 40 Mg Granpkt.dr 40 Mg PO DAILY Gabapentin 100 Mg Capsule 200 Mg PO QHS Mirtazapine 7.5 Mg Tablet 7.5 Mg PO DAILY Milk Of Magnesia (Magnesium Hydroxide) 400 Mg/5 Ml Oral.susp 1,200 Mg PO Colace (Docusate Sodium) 100 Mg Capsule 1 Cap PO BID Acetaminophen 500 Mg Tablet 1 Tab PO PRN Q8HRS PRN Hydralazine Hcl 50 Mg Tablet 50 Mg PO TIDWMEALS Bupropion Hcl Sr (Bupropion Hcl) 150 Mg Tablet.er 150 Mg PO BID Glyburide 5 Mg Tablet 5 Mg PO DAILY Lasix (Furosemide) 80 Mg Tablet 80 Mg PO BID Potassium Chloride 20 Meq Tablet.er 20 Meq PO BID Meclizine Hcl 12.5 Mg Tablet 12.5 Mg PO PRN TID PRN Lyrica (Pregabalin) 50 Mg Capsule 50 Mg PO HS Toprol Xl (Metoprolol Succinate) 50 Mg Tab.er.24h 50 Mg PO HS [place] 7.5-325 Tablet (Acetaminophen/Hydrocodone Bitart) 1 Each Tablet 1 Tab PO PRN TID PRN Daily Multiple Vitamin (Multivitamin) 1 Each Tablet 1 Each PO DAILYWBKFT Vitals/I & O Vital Sign - Last 24 Hours 01/12/17 01/12/17 01/12/17 01/12/17 10:48 12:05 15:03 17:31 Temp 97.7 97.7 97.7 97.7 Pulse 62 87 62 60 Resp 18 18 B/P 135/58 130/67 139/54 139/48 Pulse Ox 96 96 O2 Delivery Room Air Room Air 01/12/17 01/12/17 01/12/17 01/12/17 19:00 20:00 20:12 22:30 Temp 99.9 99.5 99.9 99.5 Pulse 60 60 60 Resp 16 18 B/P 133/50 133/50 140/59 Pulse Ox 94 95 O2 Delivery Room Air Room Air Room Air 01/13/17 01/13/17 01/13/17 01/13/17 07:00 08:05 08:13 08:13 Temp 100.0 100.0 Pulse 67 67 67 Resp 20 B/P 138/59 138/59 138/59 Pulse Ox 97 O2 Delivery Room Air Room Air Intake and Output 01/12/17 01/12/17 01/13/17 15:00 23:00 07:00 Intake Total 500 ml Output Total 900 ml 1500 ml Balance -900 ml -1000 ml Nutrition Consultation Dietary Evaluation: Recommendations by RD: Protein supplementation, Add supplement feedings Comments: supplement changed to boost glucose control REC mvi q day and 100-200mg /d Vit C per wound protocal Expected Outcomes/Goals: to meet > 75% est nutr needs Malnutrition Findings: Body Fat Depletion (Non Severe: Mild Depletion Reduced Program Engagement Director Strength: N/A Weight Status: Appropriate Fluid Accumulation (N/A): N/A STANLEY ESTRADA MD Jan 13, 2017 10:06
[2017-01-13 10:46] VITALS: BP 124/57
--- NOTE | 2017-01-13 11:02 | PDOC ---
PULMONARY PROGRESS NOTES Subjective pt not more soa Vitals Vital Signs Date Time Temp Pulse Resp B/P Pulse Ox O2 Delivery O2 Flow Rate FiO2 01/13/17 10:46 99.0 61 18 124/57 97 Room Air 99.0 General: Alert Lungs: Clear, Other (decrease bs in bases) Cardiovascular: S1 Abdomen: Soft Neuro Exam: Alert Extremities: No Edema Skin: Warm Labs Laboratory Tests Test 01/11/17 15:58 01/11/17 20:33 01/12/17 03:05 01/12/17 07:04 Glucose (Fingerstick) 103mg/dL (70-99) 119mg/dL (70-99) 93mg/dL (70-99) Sodium Level 144mmol/L (136-145) Potassium Level 3.9mmol/L (3.5-5.1) Chloride Level 108mmol/L (98-107) Carbon Dioxide Level 27mmol/L (21-32) Anion Gap 9 (6-14) Blood Urea Nitrogen 25mg/dL (7-20) Creatinine 1.1mg/dL (0.6-1.0) Estimated GFR (Cockcroft-Gault) 56.9 Glucose Level 102mg/dL (70-99) Calcium Level 8.8mg/dL (8.5-10.1) Phosphorus Level 3.4mg/dL (2.6-4.7) Albumin 2.3g/dL (3.4-5.0) Test 01/12/17 10:12 01/12/17 16:32 01/12/17 20:16 01/13/17 05:25 Glucose (Fingerstick) 113mg/dL (70-99) 112mg/dL (70-99) 118mg/dL (70-99) Sodium Level 143mmol/L (136-145) Potassium Level 4.3mmol/L (3.5-5.1) Chloride Level 107mmol/L (98-107) Carbon Dioxide Level 25mmol/L (21-32) Anion Gap 11 (6-14) Blood Urea Nitrogen 29mg/dL (7-20) Creatinine 1.6mg/dL (0.6-1.0) Estimated GFR (Cockcroft-Gault) 36.9 Glucose Level 100mg/dL (70-99) Calcium Level 8.8mg/dL (8.5-10.1) Phosphorus Level 3.9mg/dL (2.6-4.7) Albumin 2.7g/dL (3.4-5.0) Test 01/13/17 07:18 01/13/17 10:34 Glucose (Fingerstick) 116mg/dL (70-99) 138mg/dL (70-99) Laboratory Tests Test 01/12/17 16:32 01/12/17 20:16 01/13/17 05:25 01/13/17 07:18 Glucose (Fingerstick) 112mg/dL (70-99) 118mg/dL (70-99) 116mg/dL (70-99) Sodium Level 143mmol/L (136-145) Potassium Level 4.3mmol/L (3.5-5.1) Chloride Level 107mmol/L (98-107) Carbon Dioxide Level 25mmol/L (21-32) Anion Gap 11 (6-14) Blood Urea Nitrogen 29mg/dL (7-20) Creatinine 1.6mg/dL (0.6-1.0) Estimated GFR (Cockcroft-Gault) 36.9 Glucose Level 100mg/dL (70-99) Calcium Level 8.8mg/dL (8.5-10.1) Phosphorus Level 3.9mg/dL (2.6-4.7) Albumin 2.7g/dL (3.4-5.0) Test 01/13/17 10:34 Glucose (Fingerstick) 138mg/dL (70-99) Medications Active Scripts Medications Dose Route/Sig Days Date Category Dose Instructions Isosorbide Mononitrate 20 Mg Tablet 20 Mg PO DAILY 01/05/17 Reported Floranex Tablet (Acidophilus/Bulgaricus) 1 Each Tablet 1 Each PO 01/05/17 Reported Klor-Con M20 (Potassium Chloride) 20 Meq Tab.er.prt 1 Tab PO BID 01/05/17 Reported Voltaren (Diclofenac Sodium) 100 Gm Gel..gram. 2 Gm TP QID 12/17/16 Reported Vitamin D-3 (Cholecalciferol (Vitamin D3)) 2,000 Unit Tablet 3,000 Unit PO 12/17/16 Reported Santyl Ointment (Collagenase) 30 Gm Oint...g. 1 Sade TP DAILY 12/17/16 Reported DIRECTED BY PHYSICIAN Protonix (Pantoprazole Sodium) 40 Mg Granpkt.dr 40 Mg PO DAILY 12/17/16 Reported Gabapentin 100 Mg Capsule 200 Mg PO QHS 12/17/16 Reported Mirtazapine 7.5 Mg Tablet 7.5 Mg PO DAILY 12/17/16 Reported Milk Of Magnesia (Magnesium Hydroxide) 400 Mg/5 Ml Oral.susp 1,200 Mg PO 12/17/16 Reported Colace (Docusate Sodium) 100 Mg Capsule 1 Cap PO BID 12/17/16 Reported Acetaminophen 500 Mg Tablet 1 Tab PO PRN Q8HRS PRN 12/17/16 Reported Cozaar (Losartan Potassium) 25 Mg Tablet 25 Mg PO DAILY 05/10/14 Rx Hydralazine Hcl 50 Mg Tablet 50 Mg PO TIDWMEALS 05/07/14 Reported Bupropion Hcl Sr (Bupropion Hcl) 150 Mg Tablet.er 150 Mg PO BID 05/07/14 Reported Glyburide 5 Mg Tablet 5 Mg PO DAILY 05/07/14 Reported Lasix (Furosemide) 80 Mg Tablet 80 Mg PO BID 05/07/14 Reported Potassium Chloride 20 Meq Tablet.er 20 Meq PO BID 05/07/14 Reported Meclizine Hcl 12.5 Mg Tablet 12.5 Mg PO PRN TID PRN 05/07/14 Reported Lyrica (Pregabalin) 50 Mg Capsule 50 Mg PO HS 05/07/14 Reported Toprol Xl (Metoprolol Succinate) 50 Mg Tab.er.24h 50 Mg PO HS 05/07/14 Reported [place] 7.5-325 Tablet (Acetaminophen/Hydrocodone Bitart) 1 Each Tablet 1 Tab PO PRN TID PRN 05/07/14 Reported Daily Multiple Vitamin (Multivitamin) 1 Each Tablet 1 Each PO DAILYWBKFT 05/07/14 Reported Impression . 1. Abnormal CT revealing a combination of atelectasis and airspace disease compatible with possibility of pneumonia. 2. Small bilateral effusions. 3. Fever, suspect secondary to above and possibly urinary tract infection. 4. Acute on chronic renal failure per Infectious Disease. 5. Metabolic toxic encephalopathy. 6. Coronary artery disease status post coronary artery bypass grafting. Plan . 1. IV lasix 2. Encourage incentive spirometry. 3. No need for thoracentesis. 4. switch to oral antibx in am ok by me and d/c SISILLO,SABATO MD Jan 13, 2017 11:02
--- NOTE | 2017-01-13 11:12 | PDOC ---
Renal-Progress Notes Subjective Notes Notes BETTER History of Present Illness Hx of present illness BETTER Vitals Vitals Vital Signs Date Time Temp Pulse Resp B/P Pulse Ox O2 Delivery O2 Flow Rate FiO2 01/13/17 10:46 99.0 61 18 124/57 97 Room Air 99.0 Weight Weight [ ] I.O. Intake and Output Intake and Output 01/13/17 07:00 Intake Total 500 ml Output Total 2400 ml Balance -1900 ml Intake Oral 500 ml Output Urine Total 2400 ml Labs Labs Laboratory Tests Test 01/12/17 16:32 01/12/17 20:16 01/13/17 05:25 01/13/17 07:18 Glucose (Fingerstick) 112mg/dL (70-99) 118mg/dL (70-99) 116mg/dL (70-99) Sodium Level 143mmol/L (136-145) Potassium Level 4.3mmol/L (3.5-5.1) Chloride Level 107mmol/L (98-107) Carbon Dioxide Level 25mmol/L (21-32) Anion Gap 11 (6-14) Blood Urea Nitrogen 29mg/dL (7-20) Creatinine 1.6mg/dL (0.6-1.0) Estimated GFR (Cockcroft-Gault) 36.9 Glucose Level 100mg/dL (70-99) Calcium Level 8.8mg/dL (8.5-10.1) Phosphorus Level 3.9mg/dL (2.6-4.7) Albumin 2.7g/dL (3.4-5.0) Test 01/13/17 10:34 Glucose (Fingerstick) 138mg/dL (70-99) Micro Micro Microbiology 01/09/17 Blood Culture - Preliminary, Resulted NO GROWTH AFTER 4 DAYS 01/10/17 Urine Culture - Final, Complete 01/10/17 Urine Culture Result 1 ([facility]) - Final, Complete Review of Systems Constitutional: yes: no symptom reported Physical Exam General Appearance: no apparent distress Skin: warm Respiratory: decreased breath sounds Heart: S1S2 Abdomen: GT edema Neurology: alert Assessment Assessment IMP GOOD-RESOLVED BUT SLIGHT PRE RENAL STATE NOW MILD HYPERVOLEMIA-RESOLVED MET ENCEPHALOPATHY PLEURAL EFFUSION-SMALL PLAN STOP IV LASIX PROB WILL NEED SMALL ORAL LASIX DOSE AT SOME TIME IN THE FUTURE WILL FOLLOW TRINITY BRIGHT MD Jan 13, 2017 11:12
--- NOTE | 2017-01-13 12:35 | PDOC ---
PROGRESS NOTES Subjective Subjective sitting in chair and eating breakfast Objective Objective Vital Signs Date Time Temp Pulse Resp B/P Pulse Ox O2 Delivery O2 Flow Rate FiO2 01/13/17 10:46 99.0 61 18 124/57 97 Room Air 99.0 Intake and Output 01/13/17 07:00 Intake Total 500 ml Output Total 2400 ml Balance -1900 ml Intake Oral 500 ml Output Urine Total 2400 ml Physical Exam Abdomen: Normal bowel sounds, Soft Heart: Normal S1, Normal S2 Extremities: No clubbing General: Alert HEENT: Atraumatic Lungs: Clear to auscultation MUSCULOSKELETAL: No deformity, Osteoarthritic changes both hands Neck: Supple Neuro: Normal speech Psych/Mental Status: Mental status NL Skin: Other (stage 2 ulcer sacral ulcer) COMMENT birch present, stage 3 sacral ulcer,POA Diagnosis Problem List Problems Medical Problems: (1) Acute renal failure Status: Acute (2) Acute renal failure syndrome Status: Acute (3) Altered mental status Status: Acute Assessment Assessment FINAL IMPRESSION: lung infiltrates ? pneumonia vs chf 1. Mental status changes. 2. Acute renal failure. 3. Fever, possible pneumonia, no uti 4. Chronic coronary artery disease, heart bypass surgery, pacemaker. 5. Diabetes. 6. Arthritis. 7. Depression. 8. Protein-calorie malnutrition. 9. Stage 2-3 sacral ulcer present on admission. PLAN: d/c back to [facility] today. poor prognosis. stable for discharge iv lasix changed to PO 40 mg+kcl 20 meq levaquin po every otherday 750 mgX 3 more doses pulmonary consult appreciated monitor labs at [facility]. CT chest reviewed. ?Pneumonia vs effusion pt/ot rehab consult Problems: Plan Plan of Care Problems Medical Problems: (1) Acute renal failure Status: Acute (2) Acute renal failure syndrome Status: Acute (3) Altered mental status Status: Acute Comment Review of Relevant I have reviewed the following items davin (where applicable) has been applied. Labs Laboratory Tests Test 01/12/17 16:32 01/12/17 20:16 01/13/17 05:25 01/13/17 07:18 Glucose (Fingerstick) 112mg/dL (70-99) 118mg/dL (70-99) 116mg/dL (70-99) Sodium Level 143mmol/L (136-145) Potassium Level 4.3mmol/L (3.5-5.1) Chloride Level 107mmol/L (98-107) Carbon Dioxide Level 25mmol/L (21-32) Anion Gap 11 (6-14) Blood Urea Nitrogen 29mg/dL (7-20) Creatinine 1.6mg/dL (0.6-1.0) Estimated GFR (Cockcroft-Gault) 36.9 Glucose Level 100mg/dL (70-99) Calcium Level 8.8mg/dL (8.5-10.1) Phosphorus Level 3.9mg/dL (2.6-4.7) Albumin 2.7g/dL (3.4-5.0) Test 01/13/17 10:34 Glucose (Fingerstick) 138mg/dL (70-99) Microbiology 01/09/17 Blood Culture - Preliminary, Resulted NO GROWTH AFTER 4 DAYS 01/10/17 Urine Culture - Final, Complete 01/10/17 Urine Culture Result 1 ([facility]) - Final, Complete Vitals/I & O Vital Sign - Last 24 Hours 01/12/17 01/12/17 01/12/17 01/12/17 15:03 17:31 19:00 20:00 Temp 97.7 99.9 97.7 99.9 Pulse 62 60 60 Resp 18 16 B/P 139/54 139/48 133/50 Pulse Ox 96 94 O2 Delivery Room Air Room Air Room Air 01/12/17 01/12/17 01/13/17 01/13/17 20:12 22:30 07:00 08:05 Temp 99.5 100.0 99.5 100.0 Pulse 60 60 67 Resp 18 20 B/P 133/50 140/59 138/59 Pulse Ox 95 97 O2 Delivery Room Air Room Air Room Air 01/13/17 01/13/17 01/13/17 08:13 08:13 10:46 Temp 99.0 99.0 Pulse 67 67 61 Resp 18 B/P 138/59 138/59 124/57 Pulse Ox 97 O2 Delivery Room Air Intake and Output 01/12/17 01/12/17 01/13/17 15:00 23:00 07:00 Intake Total 500 ml Output Total 900 ml 1500 ml Balance -900 ml -1000 ml Nutrition Consultation Dietary Evaluation: Recommendations by RD: Protein supplementation, Add supplement feedings Comments: supplement changed to boost glucose control REC mvi q day and 100-200mg /d Vit C per wound protocal Expected Outcomes/Goals: to meet > 75% est nutr needs Malnutrition Findings: Body Fat Depletion (Non Severe: Mild Depletion Reduced Substance Abuse Specialist Strength: N/A Weight Status: Appropriate Fluid Accumulation (N/A): N/A TAMERA ALMAZAN MD Jan 13, 2017 12:35
[2017-01-13 13:03] VITALS: BP 127/56
== END 2017-01-13 14:00 | DRG 682 ==
LOC: ER 07:58 → 5 SOUTH 10:03
PROVIDERS: ADMIT Internal Medicine; ATTEND Internal Medicine
DX: N17.0 Acute kidney failure with tubular necrosis (principal); G92 Toxic encephalopathy; J18.9 Pneumonia, unspecified organism; L89.153 Pressure ulcer of sacral region, stage 3; E44.0 Moderate protein-calorie malnutrition; I13.0 Hypertensive heart and chronic kidney disease with heart failure and stage 1 through stage 4 chronic kidney disease, or unspecified chronic kidney disease; E11.42 Type 2 diabetes mellitus with diabetic polyneuropathy; E78.5 Hyperlipidemia, unspecified; F32.9 Major depressive disorder, single episode, unspecified; I25.10 Atherosclerotic heart disease of native coronary artery without angina pectoris; I48.91 Unspecified atrial fibrillation; I50.9 Heart failure, unspecified; M16.0 Bilateral primary osteoarthritis of hip; M54.5 Low back pain; E11.22 Type 2 diabetes mellitus with diabetic chronic kidney disease; N18.9 Chronic kidney disease, unspecified; K21.9 Gastro-esophageal reflux disease without esophagitis; Z87.891 Personal history of nicotine dependence; Z83.3 Family history of diabetes mellitus; Z82.49 Family history of ischemic heart disease and other diseases of the circulatory system; Z90.49 Acquired absence of other specified parts of digestive tract; Z87.440 Personal history of urinary (tract) infections; Z91.041 Radiographic dye allergy status; Z95.0 Presence of cardiac pacemaker; Z95.1 Presence of aortocoronary bypass graft; Z87.01 Personal history of pneumonia (recurrent); Z88.5 Allergy status to narcotic agent; Z88.2 Allergy status to sulfonamides; Z90.710 Acquired absence of both cervix and uterus; Z68.24 Body mass index [BMI] 24.0-24.9, adult; I25.2 Old myocardial infarction
CPT/HCPCS: 36415; 51701; 71010; 71250; 76770; 80048; 80053; 80061; 80069; 81001; 82728; 82947; 83036; 83540; 83550; 83735; 84100; 84443; 85007; 85027; 85045; 87040; 87086; 87641; 87804; 93005; 93970; 96360; G0238; J0696; J1815; J1940; J7040; 92610; 97116; 97530; 97535; 99285-25

== ENCOUNTER 2017-01-18 12:54 | Inpatient (IN) | payer MEDICARE, OTHER ==
[~2017-01-18] VITALS: Ht 160 cm; Wt 65.3 kg
[~2017-01-18 12:54] MED LIST changes: +ACID1TAB4 PO; +ISOS20TA2 PO; +POTA20TA4 PO
[2017-01-18 13:32] LABS: BILIRUBIN,URINE NEGATIVE (NEG); GLUCOSE,URINE NEGATIVE (NEG); NITRITE,URINE NEGATIVE (NEG); PH,URINE 5.5; PROTEIN,URINE NEGATIVE (NEG-TRACE); UROBILINOGEN,URINE 0.2 mg/dL (0.2 mg/dL)
[2017-01-18 13:38] LABS: NEG OBC FOB NEG; POS OBC FOB POS
[2017-01-18 13:41] LABS: BACTERIA,URINE 0 /HPF (0-FEW); RBC,URINE 0 /HPF (0-2); WBC,URINE >40 /HPF (0-4)
[2017-01-18 13:42] LABS: YEAST,URINE PRESENT /HPF
--- NOTE | 2017-01-18 13:51 | RAD ---
Portable chest, 01/18/2017: History: Low hemoglobin Comparison is made to a study from 01/12/2017. There has been a previous median sternotomy. A left-sided transvenous pacemaker remains in place with 2 leads extending into the right heart. The heart is mildly enlarged. There is calcific plaquing of the aorta. The pulmonary vascularity is normal. Previously seen pleural fluid and infiltrate in the left base have largely cleared. There is mild chronic elevation of the right hemidiaphragm. Unchanged blunting of the right lateral costophrenic angle may be due to a small amount of residual pleural fluid or scarring. No new abnormality is detected. IMPRESSION: 1. Interval clearing of the left lung base. 2. Possible small residual right pleural effusion.
--- NOTE | 2017-01-18 13:57 | PHYS DOC ---
Past Medical History Past Medical History: A-Fib, Anemia, Depression, Diabetes-Type II, GERD, High Cholesterol, Hypertension, UTI Additional Past Medical Histor: chronic kidney disease, sick sinus syndrome, diastolic heart failure Past Surgical History: Coronary Bypass Surgery, Pacemaker Additional Past Surgical Histo: triple bypass 1996,hernia repair Alcohol Use: None Drug Use: None Adult General Chief Complaint Chief Complaint: ABNORMAL LABS HPI HPI 86-year-old female presenting to the emergency department today with a low hemoglobin. The patient has chronic dementia. Per report the patient was getting routine blood work and her hemoglobin was reportedly 7.4 at the outside facility. Onset today. Location generalized. Duration intermittent. No alleviating factors present. She has a history of A. fib, diabetes GERD hypertension. She is status post pacemaker placement and triple bypass surgery. Review of systems is negative for abdominal pain nausea vomiting diaphoresis chest pain shortness of breath. There were no reports from senior living with dark stools. All other review of systems is negative unless otherwise noted in history of present illness. Review of Systems Review of Systems SEE ABOVE. Allergies Allergies Allergies Coded Allergies Type Severity Reaction Last Updated Verified Iodinated Contrast Media - Oral and Allergy Severe Anaphylaxis 01/05/17 Yes Sulfa (Sulfonamide Antibiotics) Allergy Intermediate 01/05/17 Yes codeine Allergy Intermediate 01/05/17 Yes iodine Allergy Intermediate 01/05/17 Yes Physical Exam Physical Exam Constitutional: Well developed, well nourished, no acute distress, non-toxic appearance. HENT: Normocephalic, atraumatic, bilateral external ears normal, oropharynx moist, no oral exudates, nose normal. [] Eyes: PERRLA, EOMI, conjunctiva normal, no discharge. Neck: Normal range of motion, no tenderness, supple, no stridor. Cardiovascular:Heart rate regular rhythm, no murmur Lungs & Thorax: Bilateral breath sounds clear to auscultation [] Abdomen: Bowel sounds normal, soft, no tenderness, no masses, no pulsatile masses. Skin: Warm, dry, no erythema, no rash. Back: No tenderness, no CVA tenderness. [] Extremities: No tenderness, no cyanosis, no clubbing, ROM intact, no edema. Neurologic: pt at baseline mental status per senior living, normal motor function , normal sensory function, no focal deficits noted. Moving all extremities. Normal strength in upper and lower extremities. Symmetric facial smile. Psychologic: Affect normal, judgement normal, mood normal. Current Patient Data Vital Signs Vital Signs Date Time Temp Pulse Resp B/P Pulse Ox O2 Delivery O2 Flow Rate FiO2 01/18/17 13:26 98.5 65 16 129/59 98 Room Air 98.5 Lab Values Laboratory Tests Test 01/18/17 13:10 01/18/17 13:26 Stool Occult Blood Negative (NEG) Urine Collection Type U cath Urine Color Yellow Urine Clarity Clear Urine pH 5.5 Urine Specific [place] 1.015 Urine Protein Negativemg/dL (NEG-TRACE) Urine Glucose (UA) Negativemg/dL (NEG) Urine Ketones (Stick) Negativemg/dL (NEG) Urine Blood Negative (NEG) Urine Nitrite Negative (NEG) Urine Bilirubin Negative (NEG) Urine Urobilinogen Dipstick 0.2mg/dL (0.2 mg/dL) Urine Leukocyte Esterase Large (NEG) Urine RBC 0/HPF (0-2) Urine WBC >40/HPF (0-4) Urine Bacteria 0/HPF (0-FEW) Urine Hyaline Casts Moderate/HPF Urine Mucus Slight/LPF Urine Yeast Present/HPF EKG EKG [] Radiology/Procedures Radiology/Procedures [] Course & Med Decision Making Course & Med Decision Making Pertinent Labs and Imaging studies reviewed. (See chart for details) 86-year-old female presenting to the emergency department with a low hemoglobin on outside labs. On triage vital signs here afebrile normal heart rate. Normal blood pressure. Patient is on metoprolol at home however. Pertinent physical exam shows baseline mental status. Occult testing negative. Otherwise blood work obtained. Urine analysis shows mild pyuria without bacteria. Leuk esterase positive. Patient was subsequently admitted to our hospital for further evaluation workup and care. Because this is a medical [place] patient I attempted to admit the patient to Dr. Stroud and Dr. Haile who recommended the patient be admitted to our hospitalist team. Dragon Disclaimer Dragon Disclaimer This electronic medical record was generated, in whole or in part, using a voice recognition dictation system. Departure Departure Impression: Primary Impression: Severe anemia Disposition: ADMITTED INPATIENT Admitting Physician: Delon Eaton Condition: STABLE Referrals: CHARLY YANCEY (PCP) TERESITA JESUS MD Jan 18, 2017 13:57
--- NOTE | 2017-01-18 14:12 | EKG ---
[facility] [address] [place] [address] Test Date: 2017-01-18 Test Time: 13:05:36 Pat Name: SHIKHA AGUILAR Department: Room: Gender: F [employer] Fitter: : [id number] Requested By: TERESITA JESUS Order Number: [id number] Reading MD: Measurements Intervals [place] Rate: 81 P: MD: QRS: 43 QRSD: 120 T: 179 QT: 380 QTc: 442 Interpretive Statements IRREGULAR RHYTHM, NO P-WAVE FOUND QRS(T) CONTOUR ABNORMALITY CONSISTENT WITH SEPTAL INFARCT AGE UNDETERMINED T ABNORMALITY IN HIGH LATERAL LEADS INFERIOR LEADS RI6.01 Unconfirmed report No previous ECG available for comparison
[2017-01-18 14:44] LABS: BASO # 0.1 x10^3/uL (0.0-0.2); BASO % 1 % (0-3); EOS % 3 % (0-3); HEMATOCRIT 25.7 % (36.0-47.0); HEMOGLOBIN 8.2 g/dL (12.0-15.5); LYMPH # 2.3 x10^3/uL (1.0-4.8); LYMPH % 26 % (24-48); MEAN CORPUSCULAR HEMOGLOBIN 22 pg (25-35); MEAN CORPUSCULAR HGB CONC 32 g/dL (31-37); MEAN CORPUSCULAR VOLUME 68 fL (79-100); MONO % 7 % (0-9); NEUT % 64 % (31-73); PLATELET COUNT 320 x10^3/uL (140-400); RED CELL DISTRIBUTION WIDTH 16.1 % (11.5-14.5); WHITE BLOOD COUNT 8.8 x10^3/uL (4.0-11.0)
[2017-01-18] MEDS ORDERED: ONDANSETRON PF 4 MG/2 ML VIAL. IV PRN ×2 (14:45→15:45)
[2017-01-18] MEDS ORDERED: MORPHINE SULFATE 2 MG/ML DISP.SYRIN. IV PRN (14:45)
[2017-01-18 14:52] LABS: INR 1.3 (0.8-1.1); PROTHROMBIN TIME PATIENT 15.4 SEC (11.7-14.0)
[2017-01-18 15:01] LABS: CALCIUM 8.9 mg/dL (8.5-10.1); CREATININE 1.8 mg/dL (0.6-1.0); GFR 32.2; POTASSIUM 5.3 mmol/L (3.5-5.1)
[2017-01-18 15:15] LABS: ALBUMIN 2.8 g/dL (3.4-5.0); DIRECT BILIRUBIN 0.2 mg/dL (0.0-0.2); TOTAL BILIRUBIN 0.5 mg/dL (0.2-1.0); TOTAL PROTEIN 6.7 g/dL (6.4-8.2)
[2017-01-18] MEDS ORDERED: POTA20TA84 PO (15:44)
[2017-01-18] MEDS ORDERED: hydrALAZINE 20 MG/ML VIAL. IVP PRN ×2 (15:45)
[2017-01-18] MEDS ORDERED: IV NORMAL SALINE 1000ML BAG 1,000 ML IV ONE (15:45)
[2017-01-18] MEDS ORDERED: ACETAMINOPHEN 325 MG TABLET. PO PRN (15:45)
--- NOTE | 2017-01-18 15:45 | PDOC1 ---
History and Physical Date of Admission Date of Admission 01/18/17 Identification/Chief Complaint Chief Complaint anemia Problems: Source Source: Caregiver, Chart review, Patient History of Present Illness History of Present Illness HPI HPI 86-year-old female presenting to the emergency department today with a low hemoglobin. Pt was just DCed here [address] Kinney FOR ? PNA, however, ERP said dr. Stroud wants pt to be admited by hospitalist. Pt has moderate dementia, from SNF. She feels ok, except some weak from yesterday, denies fever, chills, cough, N/ V. Daughter said she had dark stool long time ago. As per ERP, Hb was 7.4 in SNF and sent her here, Hb here is 8.2 wo any intervention. She has a history of A. fib, diabetes GERD hypertension. She is status post pacemaker placement and triple bypass surgery 20ys ago. fobt neg as per ERP. Past Medical History Cardiovascular: AFIB, CAD, CHF, HTN, Hyperlipidemia, Other Pulmonary: Pneumonia CENTRAL NERVOUS SYSTEM: Other GI: GERD Heme/Onc: No pertinent hx, Other Hepatobiliary: No pertinent hx Psych: No pertinent hx Rheumatologic: No pertinent hx Infectious disease: No pertinent hx Renal/: No pertinent hx Endocrine: Diabetes Past Surgical History Past Surgical History: Pacemaker, Appendectomy, Hysterectomy Family History Family History: Diabetes, Heart Disease, Hypertension Social History Smoke: No ALCOHOL: none Drugs: None Current Problem List Problem List Problems Medical Problems: (1) Severe anemia Status: Acute Current Medications Current Medications Current Medications Medications (Trade) Dose Ordered Sig/Santosh Start Time Stop Time Status Last Admin Dose Admin Morphine Sulfate 2 mg PRN Q2HR PRN 01/18/17 14:45 01/19/17 14:44 Ondansetron HCl (Zofran) 4 mg PRN Q8HRS PRN 01/18/17 14:45 01/19/17 14:44 Allergies Allergies Allergies Coded Allergies Type Severity Reaction Last Updated Verified Iodinated Contrast Media - Oral and Allergy Severe Anaphylaxis 01/05/17 Yes Sulfa (Sulfonamide Antibiotics) Allergy Intermediate 01/05/17 Yes codeine Allergy Intermediate 01/05/17 Yes iodine Allergy Intermediate 01/05/17 Yes ROS Review of System CONSTITUTIONAL: No fever or chills EYES: No recent changes SKIN: No rash or itching CARDIOVASCULAR: No chest pain, syncope, palpitations, or edema RESPIRATORY: No SOB or cough GASTROINTESTINAL: No nausea, vomiting or abdominal pain NEUROLOGICAL: No headaches or weakness ENDOCRINE: No cold or heat intolerance GENITOURINARY: No urgency or frequency of urination MUSCULOSKELETAL: No back pain or joint pain LYMPHATICS: No enlarged lymph nodes PSYCHIATRIC: No anxiety or depression Physical Exam Physical Exam GEN.: No apparent distress. Alert and oriented. HEENT: Head is normocephalic, atraumatic NECK: Supple. LUNGS: Clear to auscultation. HEART: RRR, S1, S2 present. Peripheral pulses intact ABDOMEN: Soft, nontender. Positive bowel sounds. EXTREMITIES: Without any cyanosis. NEUROLOGIC: Normal speech, normal tone PSYCHIATRIC: Normal affect, normal mood. SKIN: No ulcerations Vitals Vitals Vital Signs Date Time Temp Pulse Resp B/P Pulse Ox O2 Delivery O2 Flow Rate FiO2 01/18/17 15:04 60 18 143/63 99 Room Air 01/18/17 13:26 98.5 98.5 Labs Labs Laboratory Tests Test 01/18/17 13:10 01/18/17 13:26 01/18/17 14:15 01/18/17 14:30 Stool Occult Blood Negative (NEG) Urine Collection Type U cath Urine Color Yellow Urine Clarity Clear Urine pH 5.5 Urine Specific [place] 1.015 Urine Protein Negativemg/dL (NEG-TRACE) Urine Glucose (UA) Negativemg/dL (NEG) Urine Ketones (Stick) Negativemg/dL (NEG) Urine Blood Negative (NEG) Urine Nitrite Negative (NEG) Urine Bilirubin Negative (NEG) Urine Urobilinogen Dipstick 0.2mg/dL (0.2 mg/dL) Urine Leukocyte Esterase Large (NEG) Urine RBC 0/HPF (0-2) Urine WBC >40/HPF (0-4) Urine Bacteria 0/HPF (0-FEW) Urine Hyaline Casts Moderate/HPF Urine Mucus Slight/LPF Urine Yeast Present/HPF GP-Sjj-A-Type Natriuretic Peptide 5008pg/mL (0-449) White Blood Count 8.8x10^3/uL (4.0-11.0) Red Blood Count 3.80x10^6/uL (3.50-5.40) Hemoglobin 8.2g/dL (12.0-15.5) Hematocrit 25.7% (36.0-47.0) Mean Corpuscular Volume 68fL (79-100) Mean Corpuscular Hemoglobin 22pg (25-35) Mean Corpuscular Hemoglobin Concent 32g/dL (31-37) Red Cell Distribution Width 16.1% (11.5-14.5) Platelet Count 320x10^3/uL (140-400) Neutrophils (%) (Auto) 64% (31-73) Lymphocytes (%) (Auto) 26% (24-48) Monocytes (%) (Auto) 7% (0-9) Eosinophils (%) (Auto) 3% (0-3) Basophils (%) (Auto) 1% (0-3) Neutrophils # (Auto) 5.6x10^3uL (1.8-7.7) Lymphocytes # (Auto) 2.3x10^3/uL (1.0-4.8) Monocytes # (Auto) 0.6x10^3/uL (0.0-1.1) Eosinophils # (Auto) 0.2x10^3/uL (0.0-0.7) Basophils # (Auto) 0.1x10^3/uL (0.0-0.2) Prothrombin Time 15.4SEC (11.7-14.0) Prothromb Time International Ratio 1.3 (0.8-1.1) Activated Partial Thromboplast Time 30SEC (24-38) Sodium Level 140mmol/L (136-145) Potassium Level 5.3mmol/L (3.5-5.1) Chloride Level 103mmol/L (98-107) Carbon Dioxide Level 23mmol/L (21-32) Anion Gap 14 (6-14) Blood Urea Nitrogen 75mg/dL (7-20) Creatinine 1.8mg/dL (0.6-1.0) Estimated GFR (Cockcroft-Gault) 32.2 Glucose Level 95mg/dL (70-99) Lactic Acid Level 1.6mmol/L (0.4-2.0) Calcium Level 8.9mg/dL (8.5-10.1) Total Bilirubin 0.5mg/dL (0.2-1.0) Direct Bilirubin 0.2mg/dL (0.0-0.2) Aspartate Amino Transf (AST/SGOT) 120U/L (15-37) Alanine Aminotransferase (ALT/SGPT) 103U/L (14-59) Alkaline Phosphatase 162U/L (46-116) Troponin I Quantitative 0.041ng/mL (0.000-0.055) Total Protein 6.7g/dL (6.4-8.2) Albumin 2.8g/dL (3.4-5.0) Lipase 126U/L (73-393) Laboratory Tests Test 01/18/17 13:10 01/18/17 13:26 01/18/17 14:15 01/18/17 14:30 Stool Occult Blood Negative (NEG) Urine Collection Type U cath Urine Color Yellow Urine Clarity Clear Urine pH 5.5 Urine Specific [place] 1.015 Urine Protein Negativemg/dL (NEG-TRACE) Urine Glucose (UA) Negativemg/dL (NEG) Urine Ketones (Stick) Negativemg/dL (NEG) Urine Blood Negative (NEG) Urine Nitrite Negative (NEG) Urine Bilirubin Negative (NEG) Urine Urobilinogen Dipstick 0.2mg/dL (0.2 mg/dL) Urine Leukocyte Esterase Large (NEG) Urine RBC 0/HPF (0-2) Urine WBC >40/HPF (0-4) Urine Bacteria 0/HPF (0-FEW) Urine Hyaline Casts Moderate/HPF Urine Mucus Slight/LPF Urine Yeast Present/HPF [id number]-Type Natriuretic Peptide 5008pg/mL (0-449) White Blood Count 8.8x10^3/uL (4.0-11.0) Red Blood Count 3.80x10^6/uL (3.50-5.40) Hemoglobin 8.2g/dL (12.0-15.5) Hematocrit 25.7% (36.0-47.0) Mean Corpuscular Volume 68fL (79-100) Mean Corpuscular Hemoglobin 22pg (25-35) Mean Corpuscular Hemoglobin Concent 32g/dL (31-37) Red Cell Distribution Width 16.1% (11.5-14.5) Platelet Count 320x10^3/uL (140-400) Neutrophils (%) (Auto) 64% (31-73) Lymphocytes (%) (Auto) 26% (24-48) Monocytes (%) (Auto) 7% (0-9) Eosinophils (%) (Auto) 3% (0-3) Basophils (%) (Auto) 1% (0-3) Neutrophils # (Auto) 5.6x10^3uL (1.8-7.7) Lymphocytes # (Auto) 2.3x10^3/uL (1.0-4.8) Monocytes # (Auto) 0.6x10^3/uL (0.0-1.1) Eosinophils # (Auto) 0.2x10^3/uL (0.0-0.7) Basophils # (Auto) 0.1x10^3/uL (0.0-0.2) Prothrombin Time 15.4SEC (11.7-14.0) Prothromb Time International Ratio 1.3 (0.8-1.1) Activated Partial Thromboplast Time 30SEC (24-38) Sodium Level 140mmol/L (136-145) Potassium Level 5.3mmol/L (3.5-5.1) Chloride Level 103mmol/L (98-107) Carbon Dioxide Level 23mmol/L (21-32) Anion Gap 14 (6-14) Blood Urea Nitrogen 75mg/dL (7-20) Creatinine 1.8mg/dL (0.6-1.0) Estimated GFR (Cockcroft-Gault) 32.2 Glucose Level 95mg/dL (70-99) Lactic Acid Level 1.6mmol/L (0.4-2.0) Calcium Level 8.9mg/dL (8.5-10.1) Total Bilirubin 0.5mg/dL (0.2-1.0) Direct Bilirubin 0.2mg/dL (0.0-0.2) Aspartate Amino Transf (AST/SGOT) 120U/L (15-37) Alanine Aminotransferase (ALT/SGPT) 103U/L (14-59) Alkaline Phosphatase 162U/L (46-116) Troponin I Quantitative 0.041ng/mL (0.000-0.055) Total Protein 6.7g/dL (6.4-8.2) Albumin 2.8g/dL (3.4-5.0) Lipase 126U/L (73-393) VTE Prophylaxis Ordered VTE Prophylaxis Devices: Yes VTE Pharmacological Prophylaxi: Yes Assessment/Plan Assessment/Plan 1. cHRONIC anemia, 2/2 iron deficiency likely 2. CKD 3 3. hyperkalemia 4. dementia, moderate 5. h/o afib 6. depression 7. dm2 8. gerd 9. hld 10. htn 11. sick sinus syndrome with PPM 12. H/O CAD with cabg 13. chronic systolic CHF 14.dm2. diet control 15. OA, Back pain 16. mild malnutrition plan: 1. cont home meds, hold lasix for today, gentlE IVF for 1 L 2. check fobt, iron, vitb12, fa 3. PTOT DVT PPX pt will be signed off to dr. Kinney, notified nurse. CHAKA MADRID MD Jan 18, 2017 15:44
[2017-01-18] MEDS ORDERED: FURO40TA4 PO (15:47)
[2017-01-18] MEDS ORDERED: INSU100V13 SQ (15:47)
[2017-01-18 16:28] VITALS: BP 137/37
[2017-01-18 16:29] VITALS: BP 137/37
[2017-01-18 17:28] LABS: HYPOCHROMIA MOD; MICROCYTOSIS MARKED; PLT ESTIMATE ADEQUATE (ADEQUATE)
[2017-01-18] MEDS ORDERED: HYDROCODONE/APAP 7.5/325MG TABLET. PO PRN (17:45)
[2017-01-18] MEDS ORDERED: ACETAMINOPHEN 500 MG TABLET PO PRN (17:45)
[2017-01-18] MEDS: HYDRALAZINE 50 MG TABLET PO SCH (18:15)
[2017-01-18] MEDS: CEPHALEXIN 250 MG CAPSULE PO SCH ×2 (18:15→21:05)
[2017-01-18 19:30] VITALS: BP 108/38
[2017-01-18] MEDS ORDERED: INSULIN DETEMIR 300 UNITS/3 ML INSULN.PEN. SQ SCH (21:00)
[2017-01-18] MEDS: METOPROLOL SUCC 24HR ER 50 MG TAB.ER.24H. PO SCH (21:00)
[2017-01-18] MEDS ORDERED: HEPARIN PF for SUB-Q USE 5,000 UNIT/0.5 ML VIAL. SQ SCH (21:00)
[2017-01-18] MEDS: MIRTAZAPINE 7.5 MG TABLET. PO SCH (21:05)
[2017-01-18] MEDS: DICLOFENAC SODIUM 1% TOPICAL GEL 100GM TUBE. TP SCH (21:09)
[2017-01-18] MEDS: HEPARIN PF for SUB-Q USE 5,000 UNIT/0.5 ML VIAL. SQ SCH (21:15)
[2017-01-18 21:50] VITALS: BP 117/38
[2017-01-18 22:11] VITALS: BP 90/39
[2017-01-18 23:15] VITALS: BP 111/38
[2017-01-19] VITALS (7 sets, daily range): BP systolic 88–142; BP diastolic 35–48
--- NOTE | 2017-01-19 00:20 | ACF ---
Admission Forms Criteria ANEMIA, IRON DEFICIENCY OR UNSPECIFIED Clinical Indications for Inpatient Care (Place 'X' for any and all applicable criteria): Admission is indicated for ANY ONE of the following(1)(2)(3)(4)(5)(6)(7): [X] I. Inpatient admission required rather than observation care (Also use Anemia, Iron Deficiency or Unspecified: Observation Care guideline as appropriate) because of ANY ONE of the following: [] a) Hemodynamic instability that is severe or persistent [] b) Active bleeding that cannot be rapidly controlled [] c) CVS symptoms (i.e., dyspnea, chest pain, heart failure) that are severe or persistent [] d) Neurologic symptoms (i.e., cognitive impairment, recurrent syncope or near syncope) that are severe or persistent [] e) Cardiac arrhythmias of immediate concern [] f) Acute peripheral ischemia (e.g., pulseless, cool, mottled, or cyanotic extremity) [] g) High-risk low platelet count [] h) Acute renal failure [] i) Ongoing transfusion for blood loss (greater than 2 units) [] j) IV fluid to replace significant ongoing (eg, >24 hours) losses (> 3 L/m2 per day) [] k) Pulmonary artery catheter monitoring [] l) Supplemental oxygen or respiratory treatments for over 24 hours that are performable only in acute inpatient setting [] m) Immediate inpatient surgery [X] n) Other condition, treatment or monitoring requiring inpatient admission [] II Active massive hemorrhage [] III. Active hemolysis with rapidly progressive anemia [A](6) Extended stay beyond goal length of stay may be needed for (17)(18) []a) Diagnosed cause of anemia requiring longer hospitalization (eg, active GI bleeding, immune hemolysis requiring electrophoresis, complications of malignancy requiring acute care []b) Continued emergent anemia indicators (23) []c) Transfusion reactions []d) Associated leukopenia or thrombocytopenia needing inpatient care []e) Active comorbidities (eg, renal failure, heart failure) The original [facility] content created by [facility] has been revised. The portions of the content which have been revised are identified through the use of italic text or in bold. [facility] Guidelines has neither reviewed nor approved the modified material. All other unmodified content is copyright [facility] Care [facility]. Please see references footnoted in the original [facility] edition 2016 Admission Criteria Met?: Yes ANTHONY PLASCENCIA Jan 19, 2017 00:20
[2017-01-19] MEDS ORDERED: IV NORMAL SALINE 500ML BAG 500 ML IV ONE (04:00)
[2017-01-19 04:17] LABS: BASO # 0.1 x10^3/uL (0.0-0.2); BASO % 1 % (0-3); EOS % 3 % (0-3); HEMATOCRIT 26.1 % (36.0-47.0); HEMOGLOBIN 8.3 g/dL (12.0-15.5); LYMPH # 1.9 x10^3/uL (1.0-4.8); LYMPH % 27 % (24-48); MEAN CORPUSCULAR HEMOGLOBIN 22 pg (25-35); MEAN CORPUSCULAR HGB CONC 32 g/dL (31-37); MEAN CORPUSCULAR VOLUME 69 fL (79-100); MONO % 12 % (0-9); NEUT % 57 % (31-73); PLATELET COUNT 290 x10^3/uL (140-400); RED BLOOD COUNT 3.79 x10^6/uL (3.50-5.40); RED CELL DISTRIBUTION WIDTH 17.2 % (11.5-14.5); WHITE BLOOD COUNT 7.1 x10^3/uL (4.0-11.0)
[2017-01-19 04:32] LABS: % SAT IRON 15 % (15-34); IRON,SERUM 23 ug/dL (50-170)
[2017-01-19 04:44] LABS: ALBUMIN 2.3 g/dL (3.4-5.0); ALBUMIN/GLOBULIN RATIO 0.5 (1.0-1.7); CALCIUM 8.8 mg/dL (8.5-10.1); CREATININE 1.7 mg/dL (0.6-1.0); GFR 34.4; POTASSIUM 4.3 mmol/L (3.5-5.1); TOTAL BILIRUBIN 0.8 mg/dL (0.2-1.0); TOTAL PROTEIN 6.5 g/dL (6.4-8.2)
[2017-01-19] MEDS: DEXTROSE 50% 25 GM / 50ML DISP.SYRIN. IV PRN ×2 (04:56→07:47)
[2017-01-19] MEDS: HEPARIN PF for SUB-Q USE 5,000 UNIT/0.5 ML VIAL. SQ SCH ×2 (06:05→21:18)
[2017-01-19] MEDS: HYDRALAZINE 50 MG TABLET PO SCH ×3 (07:42→17:00)
[2017-01-19] MEDS: CEPHALEXIN 250 MG CAPSULE PO SCH ×3 (07:51→20:52)
[2017-01-19] MEDS: DOCUSATE SODIUM 100 MG CAPSULE PO SCH (07:51)
[2017-01-19] MEDS: MULTIVITAMIN with MINERAL TABLET. PO SCH (07:51)
[2017-01-19] MEDS: POTASSIUM CHLORIDE 20 MEQ TABLET.ER. PO SCH (07:51)
[2017-01-19] MEDS: INSULIN ASPART 300 UNITS/3 ML INSULN.PEN SQ SCH ×3 (07:52→17:00)
[2017-01-19] MEDS: LOSARTAN POTASSIUM 25 MG TABLET. PO SCH (07:52)
[2017-01-19] MEDS: ISOSORBIDE MONONITRATE 20 MG TABLET PO SCH (07:52)
[2017-01-19] MEDS: FUROSEMIDE 40 MG TABLET PO SCH ×2 (07:53→07:54)
[2017-01-19] MEDS: PANTOPRAZOLE 40 MG TABLET. PO SCH (07:58)
--- NOTE | 2017-01-19 08:06 | RAD ---
Abdominal ultrasound, 01/18/2017: History: Elevated liver function test The gallbladder is surgically absent. The common hepatic duct is within normal limits in size for the postcholecystectomy state. There is no evidence of a hepatic mass. Limited views of the pancreatic body show no abnormality. Other portions of the pancreas were obscured by overlying bowel. The spleen is of normal size. There is right renal cortical scarring. There is no evidence of hydronephrosis or a renal mass. Aortic atherosclerosis is present. The distal abdominal aorta was obscured by overlying bowel. The visualized portions of the inferior vena cava are unremarkable. IMPRESSION: 1. Status post cholecystectomy. 2. Aortic atherosclerosis. 3. No acute abdominal abnormality is detected.
[2017-01-19] MEDS: COLLAGENASE 250 UNIT/GM TOPICAL OINTMENT 30GM TUBE. TP SCH (09:00)
[2017-01-19] MEDS: DICLOFENAC SODIUM 1% TOPICAL GEL 100GM TUBE. TP SCH ×4 (09:00→21:18)
--- NOTE | 2017-01-19 10:25 | PDOC ---
PROGRESS NOTES Subjective Subjective c/o back pain Objective Objective Vital Signs Date Time Temp Pulse Resp B/P Pulse Ox O2 Delivery O2 Flow Rate FiO2 01/19/17 08:00 Room Air 01/19/17 07:00 97.9 60 18 104/47 96 97.9 01/18/17 23:15 99.0 Intake and Output 01/19/17 07:00 Intake Total 150 ml Balance 150 ml Intake Oral 150 ml # Voids 5 Physical Exam Abdomen: Normal bowel sounds, Soft Heart: Regular rate, Normal S1 Extremities: Other (edema legs) General: No acute distress Lungs: Other (dec breath sounds) MUSCULOSKELETAL: No deformity, Osteoarthritic changes both hands Neck: Supple Skin: Other (sacral ulcer stage3 ,POA) Diagnosis Problem List Problems Medical Problems: (1) Elevated LFTs Status: Acute (2) Severe anemia Status: Acute Assessment Assessment Problems Medical Problems: (1) Elevated LFTs Status: Acute (2) Severe anemia Status: Acute Assessment/Plan: hypoglycemia sugars in 30 range 1. CHRONIC anemia, 2/2 iron deficiency likely 2. CKD 3 3. hyperkalemia 4. dementia, moderate 5. h/o afib 6. depression 7. dm2 8. gerd 9. hld 10. htn 11. sick sinus syndrome with PPM 12. H/O CAD with cabg 13. chronic systolic CHF 14.dm2. diet control 15. OA, Back pain 16. mild malnutrition plan: d/c scheduled insulin ,sliding scale. LFT down. sono abdomen -neg. s/p transfusion 1 unit. hb 8.3 x ray spine rehab consult. will consult palliative team for goals multiple admissions,general decline 1. cont home meds, hold lasix for today, gentlE IVF for 1 L 2. check fobt, iron, vitb12, fa 3. PTOT DVT PPX Problems: Plan Plan of Care Problems Medical Problems: (1) Elevated LFTs Status: Acute (2) Severe anemia Status: Acute Comment Review of Relevant I have reviewed the following items davin (where applicable) has been applied. Labs Laboratory Tests Test 01/18/17 13:10 01/18/17 13:26 01/18/17 14:15 01/18/17 14:30 Stool Occult Blood Negative (NEG) Urine Collection Type U cath Urine Color Yellow Urine Clarity Clear Urine pH 5.5 Urine Specific [place] 1.015 Urine Protein Negativemg/dL (NEG-TRACE) Urine Glucose (UA) Negativemg/dL (NEG) Urine Ketones (Stick) Negativemg/dL (NEG) Urine Blood Negative (NEG) Urine Nitrite Negative (NEG) Urine Bilirubin Negative (NEG) Urine Urobilinogen Dipstick 0.2mg/dL (0.2 mg/dL) Urine Leukocyte Esterase Large (NEG) Urine RBC 0/HPF (0-2) Urine WBC >40/HPF (0-4) Urine Bacteria 0/HPF (0-FEW) Urine Hyaline Casts Moderate/HPF Urine Mucus Slight/LPF Urine Yeast Present/HPF KL-Wve-A-Type Natriuretic Peptide 5008pg/mL (0-449) White Blood Count 8.8x10^3/uL (4.0-11.0) Red Blood Count 3.80x10^6/uL (3.50-5.40) Hemoglobin 8.2g/dL (12.0-15.5) Hematocrit 25.7% (36.0-47.0) Mean Corpuscular Volume 68fL (79-100) Mean Corpuscular Hemoglobin 22pg (25-35) Mean Corpuscular Hemoglobin Concent 32g/dL (31-37) Red Cell Distribution Width 16.1% (11.5-14.5) Platelet Count 320x10^3/uL (140-400) Neutrophils (%) (Auto) 64% (31-73) Lymphocytes (%) (Auto) 26% (24-48) Monocytes (%) (Auto) 7% (0-9) Eosinophils (%) (Auto) 3% (0-3) Basophils (%) (Auto) 1% (0-3) Neutrophils # (Auto) 5.6x10^3uL (1.8-7.7) Lymphocytes # (Auto) 2.3x10^3/uL (1.0-4.8) Monocytes # (Auto) 0.6x10^3/uL (0.0-1.1) Eosinophils # (Auto) 0.2x10^3/uL (0.0-0.7) Basophils # (Auto) 0.1x10^3/uL (0.0-0.2) Platelet Estimate Adequate (ADEQUATE) Hypochromasia Mod Microcytosis Marked Prothrombin Time 15.4SEC (11.7-14.0) Prothromb Time International Ratio 1.3 (0.8-1.1) Activated Partial Thromboplast Time 30SEC (24-38) Sodium Level 140mmol/L (136-145) Potassium Level 5.3mmol/L (3.5-5.1) Chloride Level 103mmol/L (98-107) Carbon Dioxide Level 23mmol/L (21-32) Anion Gap 14 (6-14) Blood Urea Nitrogen 75mg/dL (7-20) Creatinine 1.8mg/dL (0.6-1.0) Estimated GFR (Cockcroft-Gault) 32.2 Glucose Level 95mg/dL (70-99) Lactic Acid Level 1.6mmol/L (0.4-2.0) Calcium Level 8.9mg/dL (8.5-10.1) Total Bilirubin 0.5mg/dL (0.2-1.0) Direct Bilirubin 0.2mg/dL (0.0-0.2) Aspartate Amino Transf (AST/SGOT) 120U/L (15-37) Alanine Aminotransferase (ALT/SGPT) 103U/L (14-59) Alkaline Phosphatase 162U/L (46-116) Troponin I Quantitative 0.041ng/mL (0.000-0.055) Total Protein 6.7g/dL (6.4-8.2) Albumin 2.8g/dL (3.4-5.0) Lipase 126U/L (73-393) Test 01/18/17 16:43 01/18/17 20:43 01/19/17 03:45 01/19/17 05:03 Glucose (Fingerstick) 109mg/dL (70-99) 145mg/dL (70-99) 139mg/dL (70-99) White Blood Count 7.1x10^3/uL (4.0-11.0) Red Blood Count 3.79x10^6/uL (3.50-5.40) Hemoglobin 8.3g/dL (12.0-15.5) Hematocrit 26.1% (36.0-47.0) Mean Corpuscular Volume 69fL (79-100) Mean Corpuscular Hemoglobin 22pg (25-35) Mean Corpuscular Hemoglobin Concent 32g/dL (31-37) Red Cell Distribution Width 17.2% (11.5-14.5) Platelet Count 290x10^3/uL (140-400) Neutrophils (%) (Auto) 57% (31-73) Lymphocytes (%) (Auto) 27% (24-48) Monocytes (%) (Auto) 12% (0-9) Eosinophils (%) (Auto) 3% (0-3) Basophils (%) (Auto) 1% (0-3) Neutrophils # (Auto) 4.1x10^3uL (1.8-7.7) Lymphocytes # (Auto) 1.9x10^3/uL (1.0-4.8) Monocytes # (Auto) 0.8x10^3/uL (0.0-1.1) Eosinophils # (Auto) 0.2x10^3/uL (0.0-0.7) Basophils # (Auto) 0.1x10^3/uL (0.0-0.2) Sodium Level 141mmol/L (136-145) Potassium Level 4.3mmol/L (3.5-5.1) Chloride Level 107mmol/L (98-107) Carbon Dioxide Level 25mmol/L (21-32) Anion Gap 9 (6-14) Blood Urea Nitrogen 76mg/dL (7-20) Creatinine 1.7mg/dL (0.6-1.0) Estimated GFR (Cockcroft-Gault) 34.4 BUN/Creatinine Ratio 45 (6-20) Glucose Level 33mg/dL (70-99) Calcium Level 8.8mg/dL (8.5-10.1) Iron Level 23ug/dL (50-170) Total Iron Binding Capacity 150ug/dL (250-450) Iron Saturation 15% (15-34) Ferritin 710ng/mL (8-252) Total Bilirubin 0.8mg/dL (0.2-1.0) Aspartate Amino Transf (AST/SGOT) 73U/L (15-37) Alanine Aminotransferase (ALT/SGPT) 76U/L (14-59) Alkaline Phosphatase 127U/L (46-116) Total Protein 6.5g/dL (6.4-8.2) Albumin 2.3g/dL (3.4-5.0) Albumin/Globulin Ratio 0.5 (1.0-1.7) Test 01/19/17 07:40 01/19/17 07:52 Glucose (Fingerstick) 29mg/dL (70-99) 247mg/dL (70-99) Medications Current Medications Acetaminophen (Tylenol) 500 mg PRN Q8HRS PRN PO PAIN Last administered on 21:05; Start 01/18/17 at 17:45 Acetaminophen (Tylenol) 650 mg PRN Q6HRS PRN PO MILD PAIN / TEMP Last administered on 01/18/17 18:15; Start 01/18/17 at 15:45 Acetaminophen/ Hydrocodone Bitart (Lortab 7.5/325) 1 tab PRN TID PRN PO PAIN; Start 01/18/17 at 17:45 Cephalexin HCl (Keflex) 250 mg TID PO Last administered on 01/19/17 07:51; Start 01/18/17 at 18:30 Collagenase (Santyl) 1 roseann DAILY TP ; Start 01/19/17 at 09:00 Dextrose 12.5 gm PRN Q15MIN PRN IV SEE COMMENTS Last administered on 01/19/17 07:47; Start 01/18/17 at 17:45 Dextrose/Sodium Chloride (Iv D5% - NS) 1,000 ml @ 75 mls/hr [id number] IV ; Start 01/19/17 at 11:30 Diclofenac Sodium (Voltaren) 2 roseann QID TP Last administered on 01/18/17 21:09 ; Start 01/18/17 at 21:00 Docusate Sodium (Colace) 100 mg DAILY08 PO Last administered on 01/19/17 07:51 ; Start 01/19/17 at 08:00 Furosemide (Lasix) 40 mg DAILY PO ; Start 01/19/17 at 09:00 Heparin Sodium (Porcine) 5,000 unit Q8HRS SQ Last administered on 01/19/17 06: 05; Start 01/18/17 at 22:00 Heparin Sodium (Porcine) 5000 unit 5,000 unit Q12HR SQ ; Start 01/18/17 at 21:00 ; Status UNV Hydralazine HCl (Apresoline) 10 mg PRN Q4HRS PRN IVP ELEVATED BP, SEE COMMENTS ; Start 01/18/17 at 15:45 Hydralazine HCl (Apresoline) 10 mg PRN Q4HRS PRN IVP ELEVATED BP, SEE COMMENTS ; Start 01/18/17 at 15:45; Status Cancel Hydralazine HCl (Apresoline) 50 mg TIDWMEALS PO Last administered on 01/18/17 18:15; Start 01/18/17 at 18:30 Insulin Aspart (Novolog) 0-5 UNITS TIDWMEALS SQ ; Start 01/19/17 at 08:00 Insulin Detemir (Levemir) 10 units QHS SQ Last administered on 01/18/17 21:14 ; Start 01/18/17 at 21:00; Stop 01/19/17 at 08:33; Status DC Isosorbide Mononitrate (Ismo) 20 mg DAILY PO ; Start 01/19/17 at 09:00 Losartan Potassium (Cozaar) 25 mg DAILY PO ; Start 01/19/17 at 09:00 Metoprolol Succinate (Toprol Xl) 50 mg HS PO ; Start 01/18/17 at 21:00 Mirtazapine (Remeron) 7.5 mg HS PO Last administered on 01/18/17 21:05; Start 01/18/17 at 21:00 Morphine Sulfate 2 mg PRN Q2HR PRN IV PAIN; Start 01/18/17 at 14:45; Stop 01/19 at 14:44 Multivitamins (Thera M Plus) 1 tab DAILY PO Last administered on 01/19/17 07: 51; Start 01/19/17 at 09:00 Ondansetron HCl (Zofran) 4 mg PRN Q8HRS PRN IV NAUSEA/VOMITING; Start 01/18/17 at 14:45; Stop 01/19/17 at 14:44 Ondansetron HCl 4 mg 4 mg PRN Q6HRS PRN IV NAUSEA/VOMITING; Start 01/18/17 at 15:45 Pantoprazole Sodium (Protonix) 40 mg DAILYAC PO Last administered on 01/19/17 07:58; Start 01/19/17 at 07:30 Potassium Chloride (Klor-Con) 20 meq DAILYWBKFT PO Last administered on 07:51; Start 01/19/17 at 08:00 Sodium Chloride 500 ml @ 500 mls/hr 1X ONCE IV Last administered on t 03:55; Start 01/19/17 at 04:00; Stop 01/19/17 at 05:00; Status DC Sodium Chloride (Iv Sodium Chloride 0.9% 1000ml Bag) 1,000 ml @ 75 mls/hr 1X ONCE IV Last administered on 01/18/17t 18:21; Start 01/18/17 at 15:45; Stop at 05:04; Status DC Vitals/I & O Vital Sign - Last 24 Hours 01/18/17 01/18/17 01/18/17 01/18/17 13:22 13:26 13:34 14:04 Temp 98.5 98.5 Pulse 66 65 60 60 Resp B/P 129/59 129/59 136/57 135/58 Pulse Ox 98 98 99 99 O2 Delivery Room Air Room Air Room Air Room Air 01/18/17 01/18/17 01/18/17 01/18/17 15:04 16:28 16:29 18:15 Temp 97.8 97.8 97.8 97.8 Pulse 60 62 62 62 Resp 16 15 B/P 143/63 137/37 137/37 137/37 Pulse Ox 99 99 99 O2 Delivery Room Air 01/18/17 01/18/17 01/18/17 01/18/17 19:28 19:30 20:00 21:00 Temp 99.3 99.3 Pulse 61 Resp 18 B/P 108/38 108/38 Pulse Ox 98 O2 Delivery Room Air Room Air Room Air 01/18/17 01/18/17 01/18/17 01/18/17 21:50 22:11 23:15 23:15 Temp 98.5 97.3 97.5 97.5 98.5 97.3 97.5 97.5 Pulse 73 62 63 63 Resp 16 18 18 B/P 117/38 90/39 111/38 111/38 O2 Delivery Room Air O2 Flow Rate 99.0 01/19/17 01/19/17 01/19/17 01/19/17 00:20 03:35 07:00 08:00 Temp 98.4 97.7 97.9 98.4 97.7 97.9 Pulse 67 60 60 Resp 18 18 18 B/P 100/40 88/35 104/47 Pulse Ox 97 96 O2 Delivery Room Air Room Air Room Air Intake and Output 01/18/17 01/18/17 01/19/17 15:00 23:00 07:00 Intake Total 150 ml Balance 150 ml TAMERA ALMAZAN MD Jan 19, 2017 10:25
[2017-01-19 11:21] LABS: FOLATE 6.8 ng/ml (3.2-20.0)
[2017-01-19] MEDS: IV DEXTROSE 5% - 0.9 % NACL 1,000 ML IV SCH (12:00)
--- NOTE | 2017-01-19 14:57 | RAD ---
Single AP view of the lumbar spine without comparison for back pain. Findings: There is a levoscoliosis of the lumbar spine, with a rotary component. Multilevel facet arthrosis is likely present, but is poorly evaluated in the absence of the lateral projection. Extensive vasculopathy is noted with dense calcification of aorta and iliac arteries, as well as several tandem stents involving the right common and external iliac artery. Postsurgical sutures are seen seen throughout the pelvis. Dense atherosclerotic calcifications are present within the SFA distributions bilaterally. Postsurgical changes are seen throughout the right upper quadrant of the abdomen as well. A nerve stimulator or other similar-appearing implement overlies the thoracolumbar junction. The distal tip of the atrial lead of the pacemaker is noted. Moderate amount stool is present in the rectum. Impression: 1. Rotolevoscoliosis of the lumbar spine likely with multilevel degenerative changes which are poorly evaluated with AP projection alone. Consider full radiographs of the lumbar spine or further evaluation with CT for delineation of osseous anatomy and pathology or MRI for delineation of the soft tissues and discs. 2. Extensive vasculopathy.
--- NOTE | 2017-01-19 15:15 | RAD ---
Single AP view of the thoracic spine for history of back pain, AP view requested only. Findings: Coarse interstitial changes are seen throughout both lungs, though these are not seen to optimal advantage. Dual-lead pacemaker is present. Extensive postsurgical changes of the mediastinum are noted with post surgical changes also seen in the upper abdomen. No definite fracture or acute osseous abnormality of the straight thoracic spine is noted, however if there strong clinical concern for acute osseous pathology, consider further evaluation with CT scan of the thoracic spine. Impression: 1. No definite fracture or acute osseous abnormality of the thoracic spine. Evaluation is limited with a single AP view however. 2. Extensive postsurgical changes as described.
[2017-01-19] MEDS: MIRTAZAPINE 7.5 MG TABLET. PO SCH (20:52)
[2017-01-19] MEDS: METOPROLOL SUCC 24HR ER 50 MG TAB.ER.24H. PO SCH (20:53)
[2017-01-20] MEDS: IV DEXTROSE 5% - 0.9 % NACL 1,000 ML IV SCH ×2 (03:15→14:10)
[2017-01-20 03:25] VITALS: BP 142/56
[2017-01-20 04:51] LABS: CALCIUM 9.1 mg/dL (8.5-10.1); CREATININE 1.5 mg/dL (0.6-1.0); GFR 39.7; POTASSIUM 4.7 mmol/L (3.5-5.1)
[2017-01-20 04:57] LABS: BASO # 0.1 x10^3/uL (0.0-0.2); BASO % 1 % (0-3); EOS % 2 % (0-3); HEMATOCRIT 31.1 % (36.0-47.0); HEMOGLOBIN 9.7 g/dL (12.0-15.5); LYMPH # 1.9 x10^3/uL (1.0-4.8); LYMPH % 16 % (24-48); MEAN CORPUSCULAR HEMOGLOBIN 21 pg (25-35); MEAN CORPUSCULAR HGB CONC 31 g/dL (31-37); MEAN CORPUSCULAR VOLUME 69 fL (79-100); MONO % 6 % (0-9); NEUT % 75 % (31-73); PLATELET COUNT 359 x10^3/uL (140-400); RED BLOOD COUNT 4.51 x10^6/uL (3.50-5.40); RED CELL DISTRIBUTION WIDTH 16.7 % (11.5-14.5); WHITE BLOOD COUNT 12.3 x10^3/uL (4.0-11.0)
[2017-01-20 07:15] VITALS: BP 140/48
[2017-01-20] MEDS: INSULIN ASPART 300 UNITS/3 ML INSULN.PEN SQ SCH ×3 (08:00→16:24)
[2017-01-20] MEDS: CEPHALEXIN 250 MG CAPSULE PO SCH ×3 (08:17→23:10)
[2017-01-20] MEDS: HYDRALAZINE 50 MG TABLET PO SCH ×3 (08:18→16:23)
[2017-01-20] MEDS: MULTIVITAMIN with MINERAL TABLET. PO SCH (08:19)
[2017-01-20] MEDS: DOCUSATE SODIUM 100 MG CAPSULE PO SCH (08:19)
[2017-01-20] MEDS: ISOSORBIDE MONONITRATE 20 MG TABLET PO SCH (08:19)
[2017-01-20] MEDS: FUROSEMIDE 40 MG TABLET PO SCH (08:19)
[2017-01-20] MEDS: POTASSIUM CHLORIDE 20 MEQ TABLET.ER. PO SCH (08:19)
[2017-01-20] MEDS: LOSARTAN POTASSIUM 25 MG TABLET. PO SCH (08:19)
[2017-01-20] MEDS: PANTOPRAZOLE 40 MG TABLET. PO SCH (08:20)
[2017-01-20] MEDS: DICLOFENAC SODIUM 1% TOPICAL GEL 100GM TUBE. TP SCH ×4 (09:00→21:00)
[2017-01-20] MEDS: COLLAGENASE 250 UNIT/GM TOPICAL OINTMENT 30GM TUBE. TP SCH (09:00)
--- NOTE | 2017-01-20 09:45 | CONS ---
DATE OF CONSULTATION: 01/19/2017 ATTENDING PHYSICIAN: Dr. Kinney. The patient was seen at the request of Dr. Kinney for rehab evaluation. HISTORY OF PRESENT ILLNESS: This is an 86-year-old female known to me. She was discharged from this medical center last week. The patient was admitted through the Emergency Room with anemia. The patient had a chronic anemia, iron deficiency, likely chronic kidney disease stage III, hyperkalemia, dementia, atrial fibrillation, depression, diabetes mellitus type 2, gastroesophageal reflux disease, hyperlipidemia, hypertension, sick sinus syndrome, status post permanent pacemaker placement, coronary artery disease status post coronary artery bypass graft, chronic systolic congestive heart failure, osteoarthritis, malnutrition. Patient had x-rays of thoracic and lumbar spine done, which failed to reveal any acute abnormalities. Ultrasound of the abdomen also failed to reveal any abnormalities. The patient had chest x-ray, which revealed ____ of the left lung base, possible small residual right pleural effusion. PHYSICAL EXAMINATION: Today, revealed an elderly female, she is awake, oriented to place and person, follows commands appropriately, moves all 4 extremities voluntarily, less so upper or lower extremities. She had crepitus on range of motion on both shoulder joints and also knee joints. She had pain on attempted movements of her knees. She had generalized muscle weakness, more so of her lower extremities and also shoulder girdle muscles. Deep tendon reflexes are absent at both knees and ankles. She had equal perception of touch and pinprick sensation bilaterally. She had tenderness to palpation over thoracolumbar paraspinal muscles extending over to sacroiliac joint area and straight leg raising test is negative bilaterally, movements of thoracolumbar spines are painfully limited. She had dressing to her coccyx area. ASSESSMENT: Mobility and self-care limitation in a patient with chronic lower back pain from degenerative disk disease and degenerative joint disease of lumbar vertebrae without any clinical evidence of ongoing lumbar radiculopathy, degenerative joint disease of both shoulders with rotator cuff lesions and degenerative joint disease of both hips and knees with pain in her knees, clinical evidence of peripheral neuropathy. The patient with anemia, hypertension, coronary artery disease, congestive heart failure. RECOMMENDATIONS: To consider injecting her knees to help ease her pain to get her up as tolerated. Dr. Kinney, I appreciate asking me to participate in the care of this interesting patient. I will be glad to follow her with you as needed for her rehabilitation. STANLEY ESTRADA MD DR: BENNY/julio JOB#: [id number] / [id number]
--- NOTE | 2017-01-20 10:38 | PDOC ---
PROGRESS NOTES Subjective Subjective pain in the back Objective Objective Vital Signs Date Time Temp Pulse Resp B/P Pulse Ox O2 Delivery O2 Flow Rate FiO2 01/20/17 08:19 60 140/48 01/20/17 08:00 Room Air 01/20/17 07:15 98.6 17 100 98.6 Intake and Output 01/20/17 07:00 Intake Total 970 ml Balance 970 ml Intake Oral 970 ml # Voids 11 Physical Exam Abdomen: Normal bowel sounds, Soft Heart: Regular rate, Normal S1 Extremities: Other (edema legs) General: No acute distress Lungs: Other (dec breath sounds) MUSCULOSKELETAL: No deformity, Osteoarthritic changes both hands Neck: Supple Skin: Other (sacral ulcer stage3 ,POA) Diagnosis Problem List Problems Medical Problems: (1) Elevated LFTs Status: Acute (2) Severe anemia Status: Acute Assessment Assessment Problems Medical Problems: (1) Elevated LFTs Status: Acute (2) Severe anemia Status: Acute Assessment/Plan: DJD spine with back pain hypoglycemia sugars in 30 range 1. CHRONIC anemia, 2/2 iron deficiency likely 2. CKD 3 3. hyperkalemia 4. dementia, moderate 5. h/o afib 6. depression 7. dm2 8. gerd 9. hld 10. htn 11. sick sinus syndrome with PPM 12. H/O CAD with cabg 13. chronic systolic CHF 14.dm2. diet control 15. OA, Back pain 16. mild malnutrition plan:x ray spine . rehab consult. pain meds d/c scheduled insulin ,sliding scale. LFT down. sono abdomen -neg. s/p transfusion 1 unit. hb 9.7, cr 1.5 will consult palliative team for goals multiple admissions,general decline Problems: Plan Plan of Care Problems Medical Problems: (1) Elevated LFTs Status: Acute (2) Severe anemia Status: Acute Comment Review of Relevant I have reviewed the following items davin (where applicable) has been applied. Labs Laboratory Tests Test 01/19/17 11:55 01/19/17 12:48 01/19/17 14:52 01/19/17 17:11 Glucose (Fingerstick) 55mg/dL (70-99) 70mg/dL (70-99) 82mg/dL (70-99) 94mg/dL (70-99) Test 01/19/17 21:23 01/20/17 03:46 01/20/17 07:27 Glucose (Fingerstick) 169mg/dL (70-99) 133mg/dL (70-99) White Blood Count 12.3x10^3/uL (4.0-11.0) Red Blood Count 4.51x10^6/uL (3.50-5.40) Hemoglobin 9.7g/dL (12.0-15.5) Hematocrit 31.1% (36.0-47.0) Mean Corpuscular Volume 69fL (79-100) Mean Corpuscular Hemoglobin 21pg (25-35) Mean Corpuscular Hemoglobin Concent 31g/dL (31-37) Red Cell Distribution Width 16.7% (11.5-14.5) Platelet Count 359x10^3/uL (140-400) Neutrophils (%) (Auto) 75% (31-73) Lymphocytes (%) (Auto) 16% (24-48) Monocytes (%) (Auto) 6% (0-9) Eosinophils (%) (Auto) 2% (0-3) Basophils (%) (Auto) 1% (0-3) Neutrophils # (Auto) 9.3x10^3uL (1.8-7.7) Lymphocytes # (Auto) 1.9x10^3/uL (1.0-4.8) Monocytes # (Auto) 0.7x10^3/uL (0.0-1.1) Eosinophils # (Auto) 0.3x10^3/uL (0.0-0.7) Basophils # (Auto) 0.1x10^3/uL (0.0-0.2) Sodium Level 141mmol/L (136-145) Potassium Level 4.7mmol/L (3.5-5.1) Chloride Level 106mmol/L (98-107) Carbon Dioxide Level 24mmol/L (21-32) Anion Gap 11 (6-14) Blood Urea Nitrogen 57mg/dL (7-20) Creatinine 1.5mg/dL (0.6-1.0) Estimated GFR (Cockcroft-Gault) 39.7 Glucose Level 151mg/dL (70-99) Calcium Level 9.1mg/dL (8.5-10.1) Medications Current Medications Dextrose/Sodium Chloride (Iv D5% - NS) 1,000 ml @ 75 mls/hr [id number] IV Last administered on 01/20/17 03:15; Start 01/19/17 at 11:30 Heparin Sodium (Porcine) 5,000 unit BID SQ Last administered on 01/19/17 21:18 ; Start 01/19/17 at 21:00 Vitals/I & O Vital Sign - Last 24 Hours 01/19/17 01/19/17 01/19/17 01/19/17 11:00 15:00 19:25 20:00 Temp 98.4 97.5 98.5 98.4 97.5 98.5 Pulse 62 69 60 Resp 18 16 B/P 102/42 128/38 119/36 Pulse Ox 96 97 98 O2 Delivery Room Air Room Air Room Air Room Air 01/19/17 01/19/17 01/20/17 01/20/17 20:53 23:25 03:25 07:15 Temp 98.5 98.7 98.6 98.5 98.7 98.6 Pulse 60 60 60 60 Resp 17 B/P 119/36 142/48 142/56 140/48 Pulse Ox 97 97 100 O2 Delivery Room Air Room Air Room Air 01/20/17 01/20/17 01/20/17 01/20/17 08:00 08:18 08:19 08:19 Pulse 60 60 60 B/P 140/48 140/48 140/48 O2 Delivery Room Air Intake and Output 01/19/17 01/19/17 01/20/17 15:00 23:00 07:00 Intake Total 620 ml 350 ml Balance 620 ml 350 ml Nutrition Consultation Dietary Evaluation: Recommendations by RD: Increase Calorie Intake, Protein supplementation, Add supplement feedings Comments: boost glucose control tid REC: vit c 500 mg bid Expected Outcomes/Goals: to meet > 75% est nutrition needs Malnutrition Findings: Body Fat Depletion (Non Severe: Mild Depletion Reduced Grants Assistant Strength: N/A Weight Status: Appropriate Fluid Accumulation (N/A): N/A TAMERA ALMAZAN MD Jan 20, 2017 10:38
[2017-01-20 10:50] VITALS: BP 109/34
--- NOTE | 2017-01-20 10:56 | PDOC ---
PROGRESS NOTES Subjective Subjective No new complaints. Objective Objective Vital Signs Date Time Temp Pulse Resp B/P Pulse Ox O2 Delivery O2 Flow Rate FiO2 01/20/17 10:50 98.5 63 17 109/34 97 Room Air 98.5 01/18/17 23:15 99.0 Intake and Output 01/20/17 07:00 Intake Total 970 ml Balance 970 ml Intake Oral 970 ml # Voids 11 Physical Exam Physical Exam I have not observed any tenderness to palpation over thoraco lumbar spine area. SLR test is negative bilaterally and she had stiffness of her knees and she requires help with bed mobility. Assessment Assessment Problems Medical Problems: (1) Elevated LFTs Status: Acute (2) Severe anemia Status: Acute Plan Plan of Care To get her up as tolerated with abdominal binder as lumbar support and to consider knee joint injections if knees are painful when she gets up. Comment Review of Relevant I have reviewed the following items davin (where applicable) has been applied. Labs Laboratory Tests Test 01/18/17 13:10 01/18/17 13:26 01/18/17 14:15 01/18/17 14:30 Stool Occult Blood Negative (NEG) Urine Collection Type U cath Urine Color Yellow Urine Clarity Clear Urine pH 5.5 Urine Specific [place] 1.015 Urine Protein Negativemg/dL (NEG-TRACE) Urine Glucose (UA) Negativemg/dL (NEG) Urine Ketones (Stick) Negativemg/dL (NEG) Urine Blood Negative (NEG) Urine Nitrite Negative (NEG) Urine Bilirubin Negative (NEG) Urine Urobilinogen Dipstick 0.2mg/dL (0.2 mg/dL) Urine Leukocyte Esterase Large (NEG) Urine RBC 0/HPF (0-2) Urine WBC >40/HPF (0-4) Urine Bacteria 0/HPF (0-FEW) Urine Hyaline Casts Moderate/HPF Urine Mucus Slight/LPF Urine Yeast Present/HPF OE-Whj-[id number]-Type Natriuretic Peptide 5008pg/mL (0-449) White Blood Count 8.8x10^3/uL (4.0-11.0) Red Blood Count 3.80x10^6/uL (3.50-5.40) Hemoglobin 8.2g/dL (12.0-15.5) Hematocrit 25.7% (36.0-47.0) Mean Corpuscular Volume 68fL (79-100) Mean Corpuscular Hemoglobin 22pg (25-35) Mean Corpuscular Hemoglobin Concent 32g/dL (31-37) Red Cell Distribution Width 16.1% (11.5-14.5) Platelet Count 320x10^3/uL (140-400) Neutrophils (%) (Auto) 64% (31-73) Lymphocytes (%) (Auto) 26% (24-48) Monocytes (%) (Auto) 7% (0-9) Eosinophils (%) (Auto) 3% (0-3) Basophils (%) (Auto) 1% (0-3) Neutrophils # (Auto) 5.6x10^3uL (1.8-7.7) Lymphocytes # (Auto) 2.3x10^3/uL (1.0-4.8) Monocytes # (Auto) 0.6x10^3/uL (0.0-1.1) Eosinophils # (Auto) 0.2x10^3/uL (0.0-0.7) Basophils # (Auto) 0.1x10^3/uL (0.0-0.2) Platelet Estimate Adequate (ADEQUATE) Hypochromasia Mod Microcytosis Marked Prothrombin Time 15.4SEC (11.7-14.0) Prothromb Time International Ratio 1.3 (0.8-1.1) Activated Partial Thromboplast Time 30SEC (24-38) Sodium Level 140mmol/L (136-145) Potassium Level 5.3mmol/L (3.5-5.1) Chloride Level 103mmol/L (98-107) Carbon Dioxide Level 23mmol/L (21-32) Anion Gap 14 (6-14) Blood Urea Nitrogen 75mg/dL (7-20) Creatinine 1.8mg/dL (0.6-1.0) Estimated GFR (Cockcroft-Gault) 32.2 Glucose Level 95mg/dL (70-99) Lactic Acid Level 1.6mmol/L (0.4-2.0) Calcium Level 8.9mg/dL (8.5-10.1) Total Bilirubin 0.5mg/dL (0.2-1.0) Direct Bilirubin 0.2mg/dL (0.0-0.2) Aspartate Amino Transf (AST/SGOT) 120U/L (15-37) Alanine Aminotransferase (ALT/SGPT) 103U/L (14-59) Alkaline Phosphatase 162U/L (46-116) Troponin I Quantitative 0.041ng/mL (0.000-0.055) Total Protein 6.7g/dL (6.4-8.2) Albumin 2.8g/dL (3.4-5.0) Lipase 126U/L (73-393) Test 01/18/17 16:43 01/18/17 20:43 01/18/17 21:40 01/19/17 03:45 Glucose (Fingerstick) 109mg/dL (70-99) 145mg/dL (70-99) Nasal Screen MRSA (PCR) Negative (Negative) White Blood Count 7.1x10^3/uL (4.0-11.0) Red Blood Count 3.79x10^6/uL (3.50-5.40) Hemoglobin 8.3g/dL (12.0-15.5) Hematocrit 26.1% (36.0-47.0) Mean Corpuscular Volume 69fL (79-100) Mean Corpuscular Hemoglobin 22pg (25-35) Mean Corpuscular Hemoglobin Concent 32g/dL (31-37) Red Cell Distribution Width 17.2% (11.5-14.5) Platelet Count 290x10^3/uL (140-400) Neutrophils (%) (Auto) 57% (31-73) Lymphocytes (%) (Auto) 27% (24-48) Monocytes (%) (Auto) 12% (0-9) Eosinophils (%) (Auto) 3% (0-3) Basophils (%) (Auto) 1% (0-3) Neutrophils # (Auto) 4.1x10^3uL (1.8-7.7) Lymphocytes # (Auto) 1.9x10^3/uL (1.0-4.8) Monocytes # (Auto) 0.8x10^3/uL (0.0-1.1) Eosinophils # (Auto) 0.2x10^3/uL (0.0-0.7) Basophils # (Auto) 0.1x10^3/uL (0.0-0.2) Sodium Level 141mmol/L (136-145) Potassium Level 4.3mmol/L (3.5-5.1) Chloride Level 107mmol/L (98-107) Carbon Dioxide Level 25mmol/L (21-32) Anion Gap 9 (6-14) Blood Urea Nitrogen 76mg/dL (7-20) Creatinine 1.7mg/dL (0.6-1.0) Estimated GFR (Cockcroft-Gault) 34.4 BUN/Creatinine Ratio 45 (6-20) Glucose Level 33mg/dL (70-99) Hemoglobin A1c 5.9% (4.8-5.6) Calcium Level 8.8mg/dL (8.5-10.1) Iron Level 23ug/dL (50-170) Total Iron Binding Capacity 150ug/dL (250-450) Iron Saturation 15% (15-34) Ferritin 710ng/mL (8-252) Total Bilirubin 0.8mg/dL (0.2-1.0) Aspartate Amino Transf (AST/SGOT) 73U/L (15-37) Alanine Aminotransferase (ALT/SGPT) 76U/L (14-59) Alkaline Phosphatase 127U/L (46-116) Total Protein 6.5g/dL (6.4-8.2) Albumin 2.3g/dL (3.4-5.0) Albumin/Globulin Ratio 0.5 (1.0-1.7) Vitamin B12 Level 736pg/mL (247-911) Serum Folate 6.80ng/ml (3.2-20.0) Test 01/19/17 05:03 01/19/17 07:40 01/19/17 07:52 01/19/17 11:55 Glucose (Fingerstick) 139mg/dL (70-99) 29mg/dL (70-99) 247mg/dL (70-99) 55mg/dL (70-99) Test 01/19/17 12:48 01/19/17 14:52 01/19/17 17:11 01/19/17 21:23 Glucose (Fingerstick) 70mg/dL (70-99) 82mg/dL (70-99) 94mg/dL (70-99) 169mg/dL (70-99) Test 01/20/17 03:46 01/20/17 07:27 White Blood Count 12.3x10^3/uL (4.0-11.0) Red Blood Count 4.51x10^6/uL (3.50-5.40) Hemoglobin 9.7g/dL (12.0-15.5) Hematocrit 31.1% (36.0-47.0) Mean Corpuscular Volume 69fL (79-100) Mean Corpuscular Hemoglobin 21pg (25-35) Mean Corpuscular Hemoglobin Concent 31g/dL (31-37) Red Cell Distribution Width 16.7% (11.5-14.5) Platelet Count 359x10^3/uL (140-400) Neutrophils (%) (Auto) 75% (31-73) Lymphocytes (%) (Auto) 16% (24-48) Monocytes (%) (Auto) 6% (0-9) Eosinophils (%) (Auto) 2% (0-3) Basophils (%) (Auto) 1% (0-3) Neutrophils # (Auto) 9.3x10^3uL (1.8-7.7) Lymphocytes # (Auto) 1.9x10^3/uL (1.0-4.8) Monocytes # (Auto) 0.7x10^3/uL (0.0-1.1) Eosinophils # (Auto) 0.3x10^3/uL (0.0-0.7) Basophils # (Auto) 0.1x10^3/uL (0.0-0.2) Sodium Level 141mmol/L (136-145) Potassium Level 4.7mmol/L (3.5-5.1) Chloride Level 106mmol/L (98-107) Carbon Dioxide Level 24mmol/L (21-32) Anion Gap 11 (6-14) Blood Urea Nitrogen 57mg/dL (7-20) Creatinine 1.5mg/dL (0.6-1.0) Estimated GFR (Cockcroft-Gault) 39.7 Glucose Level 151mg/dL (70-99) Calcium Level 9.1mg/dL (8.5-10.1) Glucose (Fingerstick) 133mg/dL (70-99) Laboratory Tests Test 01/19/17 11:55 01/19/17 12:48 01/19/17 14:52 01/19/17 17:11 Glucose (Fingerstick) 55mg/dL (70-99) 70mg/dL (70-99) 82mg/dL (70-99) 94mg/dL (70-99) Test 01/19/17 21:23 01/20/17 03:46 01/20/17 07:27 Glucose (Fingerstick) 169mg/dL (70-99) 133mg/dL (70-99) White Blood Count 12.3x10^3/uL (4.0-11.0) Red Blood Count 4.51x10^6/uL (3.50-5.40) Hemoglobin 9.7g/dL (12.0-15.5) Hematocrit 31.1% (36.0-47.0) Mean Corpuscular Volume 69fL (79-100) Mean Corpuscular Hemoglobin 21pg (25-35) Mean Corpuscular Hemoglobin Concent 31g/dL (31-37) Red Cell Distribution Width 16.7% (11.5-14.5) Platelet Count 359x10^3/uL (140-400) Neutrophils (%) (Auto) 75% (31-73) Lymphocytes (%) (Auto) 16% (24-48) Monocytes (%) (Auto) 6% (0-9) Eosinophils (%) (Auto) 2% (0-3) Basophils (%) (Auto) 1% (0-3) Neutrophils # (Auto) 9.3x10^3uL (1.8-7.7) Lymphocytes # (Auto) 1.9x10^3/uL (1.0-4.8) Monocytes # (Auto) 0.7x10^3/uL (0.0-1.1) Eosinophils # (Auto) 0.3x10^3/uL (0.0-0.7) Basophils # (Auto) 0.1x10^3/uL (0.0-0.2) Sodium Level 141mmol/L (136-145) Potassium Level 4.7mmol/L (3.5-5.1) Chloride Level 106mmol/L (98-107) Carbon Dioxide Level 24mmol/L (21-32) Anion Gap 11 (6-14) Blood Urea Nitrogen 57mg/dL (7-20) Creatinine 1.5mg/dL (0.6-1.0) Estimated GFR (Cockcroft-Gault) 39.7 Glucose Level 151mg/dL (70-99) Calcium Level 9.1mg/dL (8.5-10.1) Medications Current Medications Ondansetron HCl (Zofran) 4 mg PRN Q8HRS PRN IV NAUSEA/VOMITING; Start 01/18/17 at 14:45; Stop 01/19/17 at 14:44; Status DC Morphine Sulfate 2 mg PRN Q2HR PRN IV PAIN; Start 01/18/17 at 14:45; Stop 01/19 at 14:44; Status DC Hydralazine HCl (Apresoline) 10 mg PRN Q4HRS PRN IVP ELEVATED BP, SEE COMMENTS ; Start 01/18/17 at 15:45; Status Cancel Acetaminophen (Tylenol) 650 mg PRN Q6HRS PRN PO MILD PAIN / TEMP Last administered on 01/18/17 18:15; Start 01/18/17 at 15:45 Ondansetron HCl 4 mg 4 mg PRN Q6HRS PRN IV NAUSEA/VOMITING; Start 01/18/17 at 15:45 Sodium Chloride (Iv Sodium Chloride 0.9% 1000ml Bag) 1,000 ml @ 75 mls/hr 1X ONCE IV Last administered on 01/18/17 18:21; Start 01/18/17 at 15:45; Stop at 05:04; Status DC Heparin Sodium (Porcine) 5,000 unit Q8HRS SQ Last administered on 01/19/17 06: 05; Start 01/18/17 at 22:00; Stop 01/19/17 at 10:20; Status DC Hydralazine HCl (Apresoline) 10 mg PRN Q4HRS PRN IVP ELEVATED BP, SEE COMMENTS ; Start 01/18/17 at 15:45 Cephalexin HCl (Keflex) 250 mg TID PO Last administered on 01/20/17 08:17; Start 01/18/17 at 18:30 Acetaminophen (Tylenol) 500 mg PRN Q8HRS PRN PO PAIN Last administered on 21:05; Start 01/18/17 at 17:45 Collagenase (Santyl) 1 sade DAILY TP ; Start 01/19/17 at 09:00 Diclofenac Sodium (Voltaren) 2 sade QID TP Last administered on 01/19/17 21:18 ; Start 01/18/17 at 21:00 Docusate Sodium (Colace) 100 mg DAILY08 PO Last administered on 01/20/17 08:19 ; Start 01/19/17 at 08:00 Furosemide (Lasix) 40 mg DAILY PO Last administered on 01/20/17 08:19; Start 01/19/17 at 09:00 Hydralazine HCl (Apresoline) 50 mg TIDWMEALS PO Last administered on 01/20/17 08:18; Start 01/18/17 at 18:30 Acetaminophen/ Hydrocodone Bitart (Lortab 7.5/325) 1 tab PRN TID PRN PO PAIN; Start 01/18/17 at 17:45 Isosorbide Mononitrate (Ismo) 20 mg DAILY PO Last administered on 01/20/17 08: 19; Start 01/19/17 at 09:00 Losartan Potassium (Cozaar) 25 mg DAILY PO Last administered on 01/20/17 08:19 ; Start 01/19/17 at 09:00 Metoprolol Succinate (Toprol Xl) 50 mg HS PO Last administered on 01/19/17 20: 53; Start 01/18/17 at 21:00 Mirtazapine (Remeron) 7.5 mg HS PO Last administered on 01/19/17 20:52; Start 01/18/17 at 21:00 Insulin Detemir (Levemir) 10 units QHS SQ Last administered on 01/18/17 21:14 ; Start 01/18/17 at 21:00; Stop 01/19/17 at 08:33; Status DC Multivitamins (Thera M Plus) 1 tab DAILY PO Last administered on 01/20/17 08: 19; Start 01/19/17 at 09:00 Pantoprazole Sodium (Protonix) 40 mg DAILYAC PO Last administered on 01/20/17 08:20; Start 01/19/17 at 07:30 Potassium Chloride (Klor-Con) 20 meq DAILYWBKFT PO Last administered on 08:19; Start 01/19/17 at 08:00 Insulin Aspart (Novolog) 0-5 UNITS TIDWMEALS SQ ; Start 01/19/17 at 08:00 Dextrose 12.5 gm PRN Q15MIN PRN IV SEE COMMENTS Last administered on 01/19/17 07:47; Start 01/18/17 at 17:45 Heparin Sodium (Porcine) 5000 unit 5,000 unit Q12HR SQ ; Start 01/18/17 at 21:00 ; Status UNV Sodium Chloride 500 ml @ 500 mls/hr 1X ONCE IV Last administered on 03:55; Start 01/19/17 at 04:00; Stop 01/19/17 at 05:00; Status DC Dextrose/Sodium Chloride (Iv D5% - NS) 1,000 ml @ 75 mls/hr [id number] IV Last administered on 01/20/17 03:15; Start 01/19/17 at 11:30 Heparin Sodium (Porcine) 5,000 unit BID SQ Last administered on 01/19/17 21:18 ; Start 01/19/17 at 21:00 Active Scripts Active Cozaar (Losartan Potassium) 25 Mg Tablet 25 Mg PO DAILY Reported Levemir (Insulin Detemir) 100 Unit/1 Ml Vial 10 Unit SQ HS Furosemide 40 Mg Tablet 1 Tab PO DAILY K-Tab ER (Potassium Chloride) 20 Meq Tablet.er 20 Meq PO DAILY Isosorbide Mononitrate 20 Mg Tablet 20 Mg PO DAILY Voltaren (Diclofenac Sodium) 100 Gm Gel..gram. 2 Gm TP QID Vitamin D-3 (Cholecalciferol (Vitamin D3)) 2,000 Unit Tablet 3,000 Unit PO Santyl Ointment (Collagenase) 30 Gm Oint...g. 1 Sade TP DAILY DIRECTED BY PHYSICIAN Protonix (Pantoprazole Sodium) 40 Mg Granpkt.dr 40 Mg PO DAILY Mirtazapine 7.5 Mg Tablet 7.5 Mg PO HS Milk Of Magnesia (Magnesium Hydroxide) 400 Mg/5 Ml Oral.susp 1,200 Mg PO Colace (Docusate Sodium) 100 Mg Capsule 1 Cap PO DAILY08 Acetaminophen 500 Mg Tablet 1 Tab PO PRN Q8HRS PRN Hydralazine Hcl 50 Mg Tablet 50 Mg PO TIDWMEALS Toprol Xl (Metoprolol Succinate) 50 Mg Tab.er.24h 50 Mg PO HS [place] 7.5-325 Tablet (Acetaminophen/Hydrocodone Bitart) 1 Each Tablet 1 Tab PO PRN TID PRN Daily Multiple Vitamin (Multivitamin) 1 Each Tablet 1 Each PO DAILYWBKFT Vitals/I & O Vital Sign - Last 24 Hours 01/19/17 01/19/17 01/19/17 01/19/17 11:00 15:00 19:25 20:00 Temp 98.4 97.5 98.5 98.4 97.5 98.5 Pulse 62 69 60 Resp 18 16 B/P 102/42 128/38 119/36 Pulse Ox 96 97 98 O2 Delivery Room Air Room Air Room Air Room Air 01/19/17 01/19/17 01/20/17 01/20/17 20:53 23:25 03:25 07:15 Temp 98.5 98.7 98.6 98.5 98.7 98.6 Pulse 60 60 60 60 Resp 16 16 17 B/P 119/36 142/48 142/56 140/48 Pulse Ox 97 97 100 O2 Delivery Room Air Room Air Room Air 01/20/17 01/20/17 01/20/17 01/20/17 08:00 08:18 08:19 08:19 Pulse 60 60 60 B/P 140/48 140/48 140/48 O2 Delivery Room Air 01/20/17 10:50 Temp 98.5 98.5 Pulse 63 Resp 17 B/P 109/34 Pulse Ox 97 O2 Delivery Room Air Intake and Output 01/19/17 01/19/17 01/20/17 15:00 23:00 07:00 Intake Total 620 ml 350 ml Balance 620 ml 350 ml Nutrition Consultation Dietary Evaluation: Recommendations by RD: Increase Calorie Intake, Protein supplementation, Add supplement feedings Comments: boost glucose control tid REC: vit c 500 mg bid Expected Outcomes/Goals: to meet > 75% est nutrition needs Malnutrition Findings: Body Fat Depletion (Non Severe: Mild Depletion Reduced Sap Project Manager Strength: N/A Weight Status: Appropriate Fluid Accumulation (N/A): N/A STANLEY ESTRADA MD Jan 20, 2017 10:56
[2017-01-20] MEDS: HEPARIN PF for SUB-Q USE 5,000 UNIT/0.5 ML VIAL. SQ SCH ×2 (11:22→23:14)
[2017-01-20 15:02] VITALS: BP 129/48
[2017-01-20 19:25] VITALS: BP 139/46
[2017-01-20] MEDS: MIRTAZAPINE 7.5 MG TABLET. PO SCH (23:10)
[2017-01-20] MEDS: METOPROLOL SUCC 24HR ER 50 MG TAB.ER.24H. PO SCH (23:10)
[2017-01-20 23:25] VITALS: BP 131/54
[2017-01-21 03:30] VITALS: BP 156/55
[2017-01-21] MEDS: IV DEXTROSE 5% - 0.9 % NACL 1,000 ML IV SCH (03:30)
[2017-01-21 06:59] LABS: BASO # 0.1 x10^3/uL (0.0-0.2); BASO % 1 % (0-3); EOS % 2 % (0-3); HEMATOCRIT 29.4 % (36.0-47.0); HEMOGLOBIN 9.3 g/dL (12.0-15.5); LYMPH # 1.3 x10^3/uL (1.0-4.8); LYMPH % 12 % (24-48); MEAN CORPUSCULAR HEMOGLOBIN 22 pg (25-35); MEAN CORPUSCULAR HGB CONC 32 g/dL (31-37); MEAN CORPUSCULAR VOLUME 69 fL (79-100); MONO % 9 % (0-9); NEUT % 77 % (31-73); PLATELET COUNT 334 x10^3/uL (140-400); RED BLOOD COUNT 4.24 x10^6/uL (3.50-5.40); RED CELL DISTRIBUTION WIDTH 16.5 % (11.5-14.5); WHITE BLOOD COUNT 10.9 x10^3/uL (4.0-11.0)
[2017-01-21 07:00] VITALS: BP 151/58
[2017-01-21 07:07] LABS: CALCIUM 8.9 mg/dL (8.5-10.1); CREATININE 1.3 mg/dL (0.6-1.0); GFR 46.9; POTASSIUM 4.6 mmol/L (3.5-5.1)
[2017-01-21] MEDS: INSULIN ASPART 300 UNITS/3 ML INSULN.PEN SQ SCH ×2 (08:00→12:00)
[2017-01-21] MEDS: ISOSORBIDE MONONITRATE 20 MG TABLET PO SCH (08:11)
[2017-01-21] MEDS: CEPHALEXIN 250 MG CAPSULE PO SCH ×2 (08:11→14:00)
[2017-01-21] MEDS: LOSARTAN POTASSIUM 25 MG TABLET. PO SCH (08:12)
[2017-01-21] MEDS: PANTOPRAZOLE 40 MG TABLET. PO SCH (08:12)
[2017-01-21] MEDS: MULTIVITAMIN with MINERAL TABLET. PO SCH (08:12)
[2017-01-21] MEDS: FUROSEMIDE 40 MG TABLET PO SCH (08:12)
[2017-01-21] MEDS: POTASSIUM CHLORIDE 20 MEQ TABLET.ER. PO SCH (08:12)
[2017-01-21] MEDS: HYDRALAZINE 50 MG TABLET PO SCH ×2 (08:12→12:10)
[2017-01-21] MEDS: DOCUSATE SODIUM 100 MG CAPSULE PO SCH (08:12)
[2017-01-21] MEDS: HEPARIN PF for SUB-Q USE 5,000 UNIT/0.5 ML VIAL. SQ SCH (08:21)
[2017-01-21] MEDS: COLLAGENASE 250 UNIT/GM TOPICAL OINTMENT 30GM TUBE. TP SCH (08:22)
[2017-01-21] MEDS: DICLOFENAC SODIUM 1% TOPICAL GEL 100GM TUBE. TP SCH ×2 (08:23→12:12)
--- NOTE | 2017-01-21 10:17 | PDOC ---
PROGRESS NOTES Subjective Subjective feels ok Objective Objective Vital Signs Date Time Temp Pulse Resp B/P Pulse Ox O2 Delivery O2 Flow Rate FiO2 01/21/17 08:12 62 151/58 01/21/17 07:00 98.4 18 100 Room Air 98.4 Intake and Output 01/21/17 07:00 Intake Total 500 ml Balance 500 ml Intake Oral 500 ml # Voids 10 Physical Exam Abdomen: Normal bowel sounds, Soft Heart: Regular rate, Normal S1 Extremities: Other (edema legs) General: No acute distress Lungs: Other (dec breath sounds) MUSCULOSKELETAL: No deformity, Osteoarthritic changes both hands Neck: Supple Skin: Other (sacral ulcer stage3 ,POA) Diagnosis Problem List Problems Medical Problems: (1) Elevated LFTs Status: Acute (2) Severe anemia Status: Acute Assessment Assessment Problems Medical Problems: (1) Elevated LFTs Status: Acute (2) Severe anemia Status: Acute Assessment/Plan: DJD spine with back pain hypoglycemia sugars in 30 range 1. CHRONIC anemia, 2/2 iron deficiency likely 2. CKD 3 3. hyperkalemia 4. dementia, moderate 5. h/o afib 6. depression 7. dm2 8. gerd 9. hld 10. htn 11. sick sinus syndrome with PPM 12. H/O CAD with cabg 13. chronic systolic CHF 14.dm2. diet control 15. OA, Back pain 16. mild malnutrition plan: d/c back to [place] today. x ray spine djd . rehab consult appreciated. pain meds d/c scheduled insulin ,sliding scale. LFT down. sono abdomen -neg. s/p transfusion 1 unit. hb 9.7, cr 1.5 spoke with daughter about pts condition ,declining,discussed about end of life and goals of care ,interested in Hospice, will set up for evaluation with hospice when pt goes back to [place] total time spent 17 mts in coordinating hospice care and discussions Problems: Plan Plan of Care Problems Medical Problems: (1) Elevated LFTs Status: Acute (2) Severe anemia Status: Acute Comment Review of Relevant I have reviewed the following items davin (where applicable) has been applied. Labs Laboratory Tests Test 01/20/17 11:23 01/20/17 16:42 01/20/17 20:50 01/21/17 06:30 Glucose (Fingerstick) 131mg/dL (70-99) 136mg/dL (70-99) 142mg/dL (70-99) White Blood Count 10.9x10^3/uL (4.0-11.0) Red Blood Count 4.24x10^6/uL (3.50-5.40) Hemoglobin 9.3g/dL (12.0-15.5) Hematocrit 29.4% (36.0-47.0) Mean Corpuscular Volume 69fL (79-100) Mean Corpuscular Hemoglobin 22pg (25-35) Mean Corpuscular Hemoglobin Concent 32g/dL (31-37) Red Cell Distribution Width 16.5% (11.5-14.5) Platelet Count 334x10^3/uL (140-400) Neutrophils (%) (Auto) 77% (31-73) Lymphocytes (%) (Auto) 12% (24-48) Monocytes (%) (Auto) 9% (0-9) Eosinophils (%) (Auto) 2% (0-3) Basophils (%) (Auto) 1% (0-3) Neutrophils # (Auto) 8.4x10^3uL (1.8-7.7) Lymphocytes # (Auto) 1.3x10^3/uL (1.0-4.8) Monocytes # (Auto) 0.9x10^3/uL (0.0-1.1) Eosinophils # (Auto) 0.3x10^3/uL (0.0-0.7) Basophils # (Auto) 0.1x10^3/uL (0.0-0.2) Sodium Level 141mmol/L (136-145) Potassium Level 4.6mmol/L (3.5-5.1) Chloride Level 108mmol/L (98-107) Carbon Dioxide Level 24mmol/L (21-32) Anion Gap 9 (6-14) Blood Urea Nitrogen 42mg/dL (7-20) Creatinine 1.3mg/dL (0.6-1.0) Estimated GFR (Cockcroft-Gault) 46.9 Glucose Level 129mg/dL (70-99) Calcium Level 8.9mg/dL (8.5-10.1) Test 01/21/17 07:15 Glucose (Fingerstick) 124mg/dL (70-99) Microbiology 01/18/17 Urine Culture - Final, Complete 01/18/17 Urine Culture Result 1 ([facility]) - Final, Complete Vitals/I & O Vital Sign - Last 24 Hours 01/20/17 01/20/17 01/20/17 01/20/17 10:50 15:02 19:25 20:00 Temp 98.5 98.8 99.6 98.5 98.8 99.6 Pulse 63 65 61 Resp 20 B/P 109/34 129/48 139/46 Pulse Ox 97 97 96 O2 Delivery Room Air Room Air Room Air Room Air 01/20/17 01/20/17 01/21/17 01/21/17 23:10 23:25 03:30 07:00 Temp 99.2 98.2 98.4 99.2 98.2 98.4 Pulse 61 60 63 62 Resp 18 B/P 139/46 131/54 156/55 151/58 Pulse Ox 97 100 100 O2 Delivery Room Air Room Air Room Air 01/21/17 01/21/17 01/21/17 08:11 08:12 08:12 Pulse 62 62 62 B/P 151/58 151/58 151/58 Intake and Output 01/20/17 01/20/17 01/21/17 15:00 23:00 07:00 Intake Total 100 ml 400 ml Balance 100 ml 400 ml Nutrition Consultation Dietary Evaluation: Recommendations by RD: Increase Calorie Intake, Protein supplementation, Add supplement feedings Comments: boost glucose control tid REC: vit c 500 mg bid Expected Outcomes/Goals: to meet > 75% est nutrition needs Malnutrition Findings: Body Fat Depletion (Non Severe: Mild Depletion Reduced Technology Recruiter Strength: N/A Weight Status: Appropriate Fluid Accumulation (N/A): N/A TAMERA ALMAZAN MD Jan 21, 2017 10:17
[2017-01-21 11:00] VITALS: BP 158/59
--- NOTE | 2017-01-21 11:34 | PDOC ---
Provider Note Provider Note Discharge summary dictated. #[id number] TAMERA ALMAZAN MD Jan 21, 2017 11:34
[2017-01-21 12:10] VITALS: BP 158/59
--- NOTE | 2017-01-21 15:15 | DS ---
DATE OF DISCHARGE: 01/18/2017 REASON FOR ADMISSION TO THE HOSPITAL: 1. Anemia. 2. Chronic renal insufficiency. 3. Congestive heart failure. CONSULTATIONS: Dr. Boyce. PROCEDURES DONE: Transfusion, ultrasound of the abdomen, negative. HOSPITAL COURSE: The patient is an 86-year-old female. The patient was recently discharged from the hospital with acute renal failure, change in mental status, those were all corrected and they did her routine labs, her hemoglobin was low at 7.6, was given transfusion, went up to 9 and the patient had elevated liver function tests around 150 range. Ultrasound of the abdomen was done, was negative, status post gallbladder surgery, no abnormality in the liver. LFTs were coming down. She was complaining a lot of nausea, lot of back pain, was seen by Dr. Boyce. X-rays of the spine, no fractures. The patient has back surgeries in the past. On the whole, the patient's condition stabilized and she was discharged back to the sn[facility]. The patient's condition has been declining and has been discussed with her daughter and recommend probably hospice would a good service for her than the snf rather than trying to be more aggressive with her chronic conditions including bypass surgery, valvular disease, AFib, pacemaker, general debility and kidney failure. FINAL DIAGNOSES: 1. Anemia, requiring transfusion. 2. Chronic systolic heart failure. 3. Chronic atrial fibrillation. 4. Chronic kidney disease stage 3. 5. Dementia. 6. Arthritis. 7. Elevated liver function tests. DISPOSITION: Back to the snf. See MRAD for discharge medications. TAMERA ALMAZAN MD DR: PORSHA/julio JOB#: [id number] / [id number] Luisa Erazo
--- NOTE | 2017-01-21 15:46 | PDOC ---
PROGRESS NOTES Subjective Subjective She still admits low back pain with mobility. Objective Objective Vital Signs Date Time Temp Pulse Resp B/P Pulse Ox O2 Delivery O2 Flow Rate FiO2 01/21/17 12:10 63 158/59 01/21/17 11:00 97.7 20 98 Room Air 97.7 01/21/17 08:00 99.0 Intake and Output 01/21/17 07:00 Intake Total 500 ml Balance 500 ml Intake Oral 500 ml # Voids 10 Physical Exam Physical Exam She is awake and comfortable,supine in bed and she is not getting up much. Assessment Assessment Problems Medical Problems: (1) Elevated LFTs Status: Acute (2) Severe anemia Status: Acute Plan Plan of Care To SNF or home with home health follow up when medically stable. Comment Review of Relevant I have reviewed the following items davin (where applicable) has been applied. Labs Laboratory Tests Test 01/19/17 17:11 01/19/17 21:23 01/20/17 03:46 01/20/17 07:27 Glucose (Fingerstick) 94mg/dL (70-99) 169mg/dL (70-99) 133mg/dL (70-99) White Blood Count 12.3x10^3/uL (4.0-11.0) Red Blood Count 4.51x10^6/uL (3.50-5.40) Hemoglobin 9.7g/dL (12.0-15.5) Hematocrit 31.1% (36.0-47.0) Mean Corpuscular Volume 69fL (79-100) Mean Corpuscular Hemoglobin 21pg (25-35) Mean Corpuscular Hemoglobin Concent 31g/dL (31-37) Red Cell Distribution Width 16.7% (11.5-14.5) Platelet Count 359x10^3/uL (140-400) Neutrophils (%) (Auto) 75% (31-73) Lymphocytes (%) (Auto) 16% (24-48) Monocytes (%) (Auto) 6% (0-9) Eosinophils (%) (Auto) 2% (0-3) Basophils (%) (Auto) 1% (0-3) Neutrophils # (Auto) 9.3x10^3uL (1.8-7.7) Lymphocytes # (Auto) 1.9x10^3/uL (1.0-4.8) Monocytes # (Auto) 0.7x10^3/uL (0.0-1.1) Eosinophils # (Auto) 0.3x10^3/uL (0.0-0.7) Basophils # (Auto) 0.1x10^3/uL (0.0-0.2) Sodium Level 141mmol/L (136-145) Potassium Level 4.7mmol/L (3.5-5.1) Chloride Level 106mmol/L (98-107) Carbon Dioxide Level 24mmol/L (21-32) Anion Gap 11 (6-14) Blood Urea Nitrogen 57mg/dL (7-20) Creatinine 1.5mg/dL (0.6-1.0) Estimated GFR (Cockcroft-Gault) 39.7 Glucose Level 151mg/dL (70-99) Calcium Level 9.1mg/dL (8.5-10.1) Test 01/20/17 11:23 01/20/17 16:42 01/20/17 20:50 01/21/17 06:30 Glucose (Fingerstick) 131mg/dL (70-99) 136mg/dL (70-99) 142mg/dL (70-99) White Blood Count 10.9x10^3/uL (4.0-11.0) Red Blood Count 4.24x10^6/uL (3.50-5.40) Hemoglobin 9.3g/dL (12.0-15.5) Hematocrit 29.4% (36.0-47.0) Mean Corpuscular Volume 69fL (79-100) Mean Corpuscular Hemoglobin 22pg (25-35) Mean Corpuscular Hemoglobin Concent 32g/dL (31-37) Red Cell Distribution Width 16.5% (11.5-14.5) Platelet Count 334x10^3/uL (140-400) Neutrophils (%) (Auto) 77% (31-73) Lymphocytes (%) (Auto) 12% (24-48) Monocytes (%) (Auto) 9% (0-9) Eosinophils (%) (Auto) 2% (0-3) Basophils (%) (Auto) 1% (0-3) Neutrophils # (Auto) 8.4x10^3uL (1.8-7.7) Lymphocytes # (Auto) 1.3x10^3/uL (1.0-4.8) Monocytes # (Auto) 0.9x10^3/uL (0.0-1.1) Eosinophils # (Auto) 0.3x10^3/uL (0.0-0.7) Basophils # (Auto) 0.1x10^3/uL (0.0-0.2) Sodium Level 141mmol/L (136-145) Potassium Level 4.6mmol/L (3.5-5.1) Chloride Level 108mmol/L (98-107) Carbon Dioxide Level 24mmol/L (21-32) Anion Gap 9 (6-14) Blood Urea Nitrogen 42mg/dL (7-20) Creatinine 1.3mg/dL (0.6-1.0) Estimated GFR (Cockcroft-Gault) 46.9 Glucose Level 129mg/dL (70-99) Calcium Level 8.9mg/dL (8.5-10.1) Test 01/21/17 07:15 01/21/17 12:09 Glucose (Fingerstick) 124mg/dL (70-99) 112mg/dL (70-99) Laboratory Tests Test 01/20/17 16:42 01/20/17 20:50 01/21/17 06:30 01/21/17 07:15 Glucose (Fingerstick) 136mg/dL (70-99) 142mg/dL (70-99) 124mg/dL (70-99) White Blood Count 10.9x10^3/uL (4.0-11.0) Red Blood Count 4.24x10^6/uL (3.50-5.40) Hemoglobin 9.3g/dL (12.0-15.5) Hematocrit 29.4% (36.0-47.0) Mean Corpuscular Volume 69fL (79-100) Mean Corpuscular Hemoglobin 22pg (25-35) Mean Corpuscular Hemoglobin Concent 32g/dL (31-37) Red Cell Distribution Width 16.5% (11.5-14.5) Platelet Count 334x10^3/uL (140-400) Neutrophils (%) (Auto) 77% (31-73) Lymphocytes (%) (Auto) 12% (24-48) Monocytes (%) (Auto) 9% (0-9) Eosinophils (%) (Auto) 2% (0-3) Basophils (%) (Auto) 1% (0-3) Neutrophils # (Auto) 8.4x10^3uL (1.8-7.7) Lymphocytes # (Auto) 1.3x10^3/uL (1.0-4.8) Monocytes # (Auto) 0.9x10^3/uL (0.0-1.1) Eosinophils # (Auto) 0.3x10^3/uL (0.0-0.7) Basophils # (Auto) 0.1x10^3/uL (0.0-0.2) Sodium Level 141mmol/L (136-145) Potassium Level 4.6mmol/L (3.5-5.1) Chloride Level 108mmol/L (98-107) Carbon Dioxide Level 24mmol/L (21-32) Anion Gap 9 (6-14) Blood Urea Nitrogen 42mg/dL (7-20) Creatinine 1.3mg/dL (0.6-1.0) Estimated GFR (Cockcroft-Gault) 46.9 Glucose Level 129mg/dL (70-99) Calcium Level 8.9mg/dL (8.5-10.1) Test 01/21/17 12:09 Glucose (Fingerstick) 112mg/dL (70-99) Microbiology 01/18/17 Urine Culture - Final, Complete 01/18/17 Urine Culture Result 1 ([facility]) - Final, Complete Medications Current Medications Ondansetron HCl (Zofran) 4 mg PRN Q8HRS PRN IV NAUSEA/VOMITING; Start 01/18/17 at 14:45; Stop 01/19/17 at 14:44; Status DC Morphine Sulfate 2 mg PRN Q2HR PRN IV PAIN; Start 01/18/17 at 14:45; Stop 01/19 at 14:44; Status DC Hydralazine HCl (Apresoline) 10 mg PRN Q4HRS PRN IVP ELEVATED BP, SEE COMMENTS ; Start 01/18/17 at 15:45; Status Cancel Acetaminophen (Tylenol) 650 mg PRN Q6HRS PRN PO MILD PAIN / TEMP Last administered on 01/18/17 18:15; Start 01/18/17 at 15:45; Stop 01/21/17 at 14:46 ; Status DC Ondansetron HCl 4 mg 4 mg PRN Q6HRS PRN IV NAUSEA/VOMITING; Start 01/18/17 at 15:45; Stop 01/21/17 at 14:46; Status DC Sodium Chloride (Iv Sodium Chloride 0.9% 1000ml Bag) 1,000 ml @ 75 mls/hr 1X ONCE IV Last administered on 01/18/17 18:21; Start 01/18/17 at 15:45; Stop at 05:04; Status DC Heparin Sodium (Porcine) 5,000 unit Q8HRS SQ Last administered on 01/19/17 06: 05; Start 01/18/17 at 22:00; Stop 01/19/17 at 10:20; Status DC Hydralazine HCl (Apresoline) 10 mg PRN Q4HRS PRN IVP ELEVATED BP, SEE COMMENTS ; Start 01/18/17 at 15:45; Stop 01/21/17 at 14:46; Status DC Cephalexin HCl (Keflex) 250 mg TID PO Last administered on 01/21/17 08:11; Start 01/18/17 at 18:30; Stop 01/21/17 at 14:46; Status DC Acetaminophen (Tylenol) 500 mg PRN Q8HRS PRN PO PAIN Last administered on 21:05; Start 01/18/17 at 17:45; Stop 01/21/17 at 14:46; Status DC Collagenase (Santyl) 1 sade DAILY TP Last administered on 01/21/17 08:22; Start 01/19/17 at 09:00; Stop 01/21/17 at 14:46; Status DC Diclofenac Sodium (Voltaren) 2 sade QID TP Last administered on 01/21/17 12:12 ; Start 01/18/17 at 21:00; Stop 01/21/17 at 14:46; Status DC Docusate Sodium (Colace) 100 mg DAILY08 PO Last administered on 01/21/17 08:12 ; Start 01/19/17 at 08:00; Stop 01/21/17 at 14:46; Status DC Furosemide (Lasix) 40 mg DAILY PO Last administered on 01/21/17 08:12; Start 01/19/17 at 09:00; Stop 01/21/17 at 14:46; Status DC Hydralazine HCl (Apresoline) 50 mg TIDWMEALS PO Last administered on 01/21/17 12:10; Start 01/18/17 at 18:30; Stop 01/21/17 at 14:46; Status DC Acetaminophen/ Hydrocodone Bitart (Lortab 7.5/325) 1 tab PRN TID PRN PO PAIN; Start 01/18/17 at 17:45; Stop 01/21/17 at 14:46; Status DC Isosorbide Mononitrate (Ismo) 20 mg DAILY PO Last administered on 01/21/17 08: 11; Start 01/19/17 at 09:00; Stop 01/21/17 at 14:46; Status DC Losartan Potassium (Cozaar) 25 mg DAILY PO Last administered on 01/21/17 08:12 ; Start 01/19/17 at 09:00; Stop 01/21/17 at 14:46; Status DC Metoprolol Succinate (Toprol Xl) 50 mg HS PO Last administered on 01/20/17 23: 10; Start 01/18/17 at 21:00; Stop 01/21/17 at 14:46; Status DC Mirtazapine (Remeron) 7.5 mg HS PO Last administered on 01/20/17 23:10; Start 01/18/17 at 21:00; Stop 01/21/17 at 14:46; Status DC Insulin Detemir (Levemir) 10 units QHS SQ Last administered on 01/18/17 21:14 ; Start 01/18/17 at 21:00; Stop 01/19/17 at 08:33; Status DC Multivitamins (Thera M Plus) 1 tab DAILY PO Last administered on 01/21/17 08: 12; Start 01/19/17 at 09:00; Stop 01/21/17 at 14:46; Status DC Pantoprazole Sodium (Protonix) 40 mg DAILYAC PO Last administered on 01/21/17 08:12; Start 01/19/17 at 07:30; Stop 01/21/17 at 14:46; Status DC Potassium Chloride (Klor-Con) 20 meq DAILYWBKFT PO Last administered on 08:12; Start 01/19/17 at 08:00; Stop 01/21/17 at 14:46; Status DC Insulin Aspart (Novolog) 0-5 UNITS TIDWMEALS SQ ; Start 01/19/17 at 08:00; Stop 01/21/17 at 14:46; Status DC Dextrose 12.5 gm PRN Q15MIN PRN IV SEE COMMENTS Last administered on 01/19/17 07:47; Start 01/18/17 at 17:45; Stop 01/21/17 at 14:46; Status DC Heparin Sodium (Porcine) 5000 unit 5,000 unit Q12HR SQ ; Start 01/18/17 at 21:00 ; Status UNV Sodium Chloride 500 ml @ 500 mls/hr 1X ONCE IV Last administered on 03:55; Start 01/19/17 at 04:00; Stop 01/19/17 at 05:00; Status DC Dextrose/Sodium Chloride (Iv D5% - NS) 1,000 ml @ 75 mls/hr [id number] IV Last administered on 01/20/17 03:15; Start 01/19/17 at 11:30; Stop 01/21/17 at 14:46 ; Status DC Heparin Sodium (Porcine) 5,000 unit BID SQ Last administered on 01/21/17 08:21 ; Start 01/19/17 at 21:00; Stop 01/21/17 at 14:46; Status DC Active Scripts Active Cozaar (Losartan Potassium) 25 Mg Tablet 25 Mg PO DAILY Reported Levemir (Insulin Detemir) 100 Unit/1 Ml Vial 10 Unit SQ HS Furosemide 40 Mg Tablet 1 Tab PO DAILY K-Tab ER (Potassium Chloride) 20 Meq Tablet.er 20 Meq PO DAILY Isosorbide Mononitrate 20 Mg Tablet 20 Mg PO DAILY Voltaren (Diclofenac Sodium) 100 Gm Gel..gram. 2 Gm TP QID Vitamin D-3 (Cholecalciferol (Vitamin D3)) 2,000 Unit Tablet 3,000 Unit PO Santyl Ointment (Collagenase) 30 Gm Oint...g. 1 Sade TP DAILY DIRECTED BY PHYSICIAN Protonix (Pantoprazole Sodium) 40 Mg Granpkt.dr 40 Mg PO DAILY Mirtazapine 7.5 Mg Tablet 7.5 Mg PO HS Milk Of Magnesia (Magnesium Hydroxide) 400 Mg/5 Ml Oral.susp 1,200 Mg PO Colace (Docusate Sodium) 100 Mg Capsule 1 Cap PO DAILY08 Acetaminophen 500 Mg Tablet 1 Tab PO PRN Q8HRS PRN Hydralazine Hcl 50 Mg Tablet 50 Mg PO TIDWMEALS Toprol Xl (Metoprolol Succinate) 50 Mg Tab.er.24h 50 Mg PO HS Albers 7.5-325 Tablet (Acetaminophen/Hydrocodone Bitart) 1 Each Tablet 1 Tab PO PRN TID PRN Daily Multiple Vitamin (Multivitamin) 1 Each Tablet 1 Each PO DAILYWBKFT Vitals/I & O Vital Sign - Last 24 Hours 01/20/17 01/20/17 01/20/17 01/20/17 19:25 20:00 23:10 23:25 Temp 99.6 99.2 99.6 99.2 Pulse 61 61 60 Resp 20 20 B/P 139/46 139/46 131/54 Pulse Ox 96 97 O2 Delivery Room Air Room Air Room Air 01/21/17 01/21/17 01/21/17 01/21/17 03:30 07:00 08:00 08:11 Temp 98.2 98.4 98.2 98.4 Pulse 63 62 62 Resp 20 18 B/P 156/55 151/58 151/58 Pulse Ox 100 100 O2 Delivery Room Air Room Air Room Air O2 Flow Rate 99.0 01/21/17 01/21/17 01/21/17 01/21/17 08:12 08:12 11:00 12:10 Temp 97.7 97.7 Pulse 62 62 59 63 Resp 20 B/P 151/58 151/58 158/59 158/59 Pulse Ox 98 O2 Delivery Room Air Intake and Output 01/20/17 01/20/17 01/21/17 15:00 23:00 07:00 Intake Total 100 ml 400 ml Balance 100 ml 400 ml Nutrition Consultation Dietary Evaluation: Recommendations by RD: Increase Calorie Intake, Protein supplementation, Add supplement feedings Comments: boost glucose control tid REC: vit c 500 mg bid Expected Outcomes/Goals: to meet > 75% est nutrition needs Malnutrition Findings: Body Fat Depletion (Non Severe: Mild Depletion 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
== END 2017-01-21 14:46 | DRG 812 ==
LOC: ER 12:54 → INTOOBSV 14:31 → 6 SOUTH 14:31 → OBSVTOIN 14:51 → ER 14:56
PROVIDERS: ADMIT Internal Medicine; ATTEND Internal Medicine
PROC: 30233N1 Transfusion of Nonautologous Red Blood Cells into Peripheral Vein, Percutaneous Approach (ICD-10-PCS; principal; 2017-01-18)
DX: D50.9 Iron deficiency anemia, unspecified (principal); E44.1 Mild protein-calorie malnutrition; I50.42 Chronic combined systolic (congestive) and diastolic (congestive) heart failure; I13.0 Hypertensive heart and chronic kidney disease with heart failure and stage 1 through stage 4 chronic kidney disease, or unspecified chronic kidney disease; E11.22 Type 2 diabetes mellitus with diabetic chronic kidney disease; E78.00 Pure hypercholesterolemia, unspecified; E78.5 Hyperlipidemia, unspecified; E87.5 Hyperkalemia; F03.90 Unspecified dementia, unspecified severity, without behavioral disturbance, psychotic disturbance, mood disturbance, and anxiety; F32.9 Major depressive disorder, single episode, unspecified; G89.29 Other chronic pain; I25.10 Atherosclerotic heart disease of native coronary artery without angina pectoris; I48.2 Chronic atrial fibrillation; K21.9 Gastro-esophageal reflux disease without esophagitis; M19.90 Unspecified osteoarthritis, unspecified site; N18.3 Chronic kidney disease, stage 3 (moderate); Z82.49 Family history of ischemic heart disease and other diseases of the circulatory system; Z95.0 Presence of cardiac pacemaker; Z83.3 Family history of diabetes mellitus; Z95.1 Presence of aortocoronary bypass graft
CPT/HCPCS: 36415; 71010; 72020; 76700; 80048; 80053; 80076; 81001; 82274; 82607; 82728; 82746; 82947; 83036; 83540; 83550; 83605; 83690; 83880; 84484; 85007; 85027; 85610; 85730; 86850; 86900; 86901; 86920; 87086; 87641; 93005; G0379; J0775; J1815; J7030; J7040; J7042; P9016

== ENCOUNTER 2017-09-14 20:13 | Inpatient (IN) | payer MEDICARE, OTHER ==
[~2017-09-14] VITALS: Ht 162.6 cm; Wt 73.9 kg
[~2017-09-14 20:13] MED LIST changes: +ACID1TAB13 PO; -ACID1TAB4 PO; +DICL100G18 TP; -DICL100G7 TP; +DOCU-109 PO; -DOCU-27 PO; +FURO40TA4 PO; -HYDR-2666 PO; +HYDR-2758 PO; +INSU100V13 SQ; -MAGN400O4 PO; +MAGN400O7 PO; -POTA10CA PO; +POTA20TA84 PO; +POTASSIUM CHLO10 MEQ PO
--- NOTE | 2017-09-14 20:47 | PHYS DOC ---
Past Medical History Past Medical History: A-Fib, Anemia, CHF, Depression, Diabetes-Type II, GERD, High Cholesterol, Hypertension, UTI Additional Past Medical Histor: chronic kidney disease, sick sinus syndrome, Past Surgical History: Coronary Bypass Surgery, Pacemaker Additional Past Surgical Histo: triple bypass 1996,hernia repair Alcohol Use: None Drug Use: None Adult General Chief Complaint Chief Complaint: SHORTNESS OF BREATH HPI HPI Patient is a 87 year old F who presents with increased shortness of breath and altered breathing. Patient is a known history of congestive heart failure is currently on hospice and is having worsening shortness of breath with lower extremity swelling. EMS was called out and patient was in the low 70s and O2 saturation therefore placed on BiPAP and transported her to the emergency room. Patient states she is short of breath. Patient denies any fevers. Review of Systems Review of Systems GEN: Denies fevers, chills, sweats HEENT: Denies blurred vision, sore throat CV: Denies chest pain RESP: Shortness of breath GI: Denies n/v/d NEURO: Denies confusion, dizziness MSK: Denies weakness, joint pain/swelling All other systems were reviewed and found to be within normal limits, except as documented in this note. Current Medications Current Medications Current Medications Medications (Trade) Dose Ordered Sig/Santosh Start Time Stop Time Status Last Admin Dose Admin Aspirin (Children'S Aspirin) 324 mg 1X ONCE 09/14/17 22:30 09/14/17 22:31 DC Piperacillin Sod/ Tazobactam Sod (Zosyn Per Pharmacy) 1 each PRN DAILY PRN 09/14/17 22:45 UNV Vancomycin HCl (Vanco Per Pharmacy) 1 each PRN DAILY PRN 09/14/17 22:45 UNV Allergies Allergies Allergies Coded Allergies Type Severity Reaction Last Updated Verified Iodinated Contrast- Oral and IV Dye Allergy Severe Anaphylaxis 01/05/17 Yes Sulfa (Sulfonamide Antibiotics) Allergy Intermediate 01/05/17 Yes codeine Allergy Intermediate 01/05/17 Yes iodine Allergy Intermediate 01/05/17 Yes Physical Exam Physical Exam GEN.: No apparent distress. Alert and oriented. HEENT: Head is normocephalic, atraumatic NECK: Supple. LUNGS: Decreased breath sounds and crackles at the bases bilaterally HEART: Tachycardi, S1, S2 present. Peripheral pulses intact ABDOMEN: Soft, nontender. Positive bowel sounds. EXTREMITIES: Without any cyanosis, +2 pitting edema to lower extremity bilaterally NEUROLOGIC: Normal speech, normal tone PSYCHIATRIC: Normal affect, normal mood. SKIN: No ulcerations Current Patient Data Vital Signs Vital Signs Date Time Temp Pulse Resp B/P (MAP) Pulse Ox O2 Delivery O2 Flow Rate FiO2 09/14/17 21:30 96 18 117/56 (76) 99 BiPAP/CPAP 09/14/17 20:19 98.4 98.4 Lab Values Laboratory Tests Test 09/14/17 20:47 09/14/17 21:20 09/14/17 21:35 White Blood Count 11.3 x10^3/uL (4.0-11.0) H Red Blood Count 4.87 x10^6/uL (3.50-5.40) Hemoglobin 10.4 g/dL (12.0-15.5) L Hematocrit 34.0 % (36.0-47.0) L Mean Corpuscular Volume 70 fL (79-100) L Mean Corpuscular Hemoglobin 21 pg (25-35) L Mean Corpuscular Hemoglobin Concent 31 g/dL (31-37) Red Cell Distribution Width 19.8 % (11.5-14.5) H Platelet Count 246 x10^3/uL (140-400) Neutrophils (%) (Auto) 89 % (31-73) H Lymphocytes (%) (Auto) 3 % (24-48) L Monocytes (%) (Auto) 8 % (0-9) Eosinophils (%) (Auto) 0 % (0-3) Basophils (%) (Auto) 1 % (0-3) Neutrophils # (Auto) 10.0 x10^3uL (1.8-7.7) H Lymphocytes # (Auto) 0.3 x10^3/uL (1.0-4.8) L Monocytes # (Auto) 0.8 x10^3/uL (0.0-1.1) Eosinophils # (Auto) 0.0 x10^3/uL (0.0-0.7) Basophils # (Auto) 0.1 x10^3/uL (0.0-0.2) Segmented Neutrophils % 77 % (35-66) H Band Neutrophils % 13 % (0-9) H Lymphocytes % 4 % (24-48) L Monocytes % 6 % (0-10) Platelet Estimate Adequate (ADEQUATE) Large Platelets Occ Giant Platelets Occ Hypochromasia Slight Microcytosis Mod Macrocytosis Slight Troponin I Quantitative 0.067 ng/mL (0.000-0.055) IR-Aep-C-Type Natriuretic Peptide 6575 pg/mL (0-449) H Urine Collection Type Unknown Urine Color Yellow Urine Clarity Clear Urine pH 5.5 Urine Specific [place] 1.015 Urine Protein Negative mg/dL (NEG-TRACE) Urine Glucose (UA) Negative mg/dL (NEG) Urine Ketones (Stick) Negative mg/dL (NEG) Urine Blood Negative (NEG) Urine Nitrite Negative (NEG) Urine Bilirubin Negative (NEG) Urine Urobilinogen Dipstick 0.2 mg/dL (0.2 mg/dL) Urine Leukocyte Esterase Trace (NEG) Urine RBC Occ /HPF (0-2) Urine WBC 1-4 /HPF (0-4) Urine Squamous Epithelial Cells Many /LPF Urine Bacteria Few /HPF (0-FEW) Urine Mucus Mod /LPF Sodium Level 138 mmol/L (136-145) Potassium Level 5.8 mmol/L (3.5-5.1) H Chloride Level 101 mmol/L (98-107) Carbon Dioxide Level 33 mmol/L (21-32) H Anion Gap 4 (6-14) L Blood Urea Nitrogen 51 mg/dL (7-20) H Creatinine 2.0 mg/dL (0.6-1.0) H Estimated GFR (Cockcroft-Gault) 28.5 BUN/Creatinine Ratio 26 (6-20) H Glucose Level 173 mg/dL (70-99) H Calcium Level 9.3 mg/dL (8.5-10.1) Total Bilirubin 0.4 mg/dL (0.2-1.0) Aspartate Amino Transferase (AST) 18 U/L (15-37) Alanine Aminotransferase (ALT) 23 U/L (14-59) Alkaline Phosphatase 100 U/L (46-116) Total Protein 8.3 g/dL (6.4-8.2) H Albumin 3.7 g/dL (3.4-5.0) Albumin/Globulin Ratio 0.8 (1.0-1.7) L Laboratory Tests 09/14/17 20:47 Laboratory Tests 09/14/17 21:35 EKG EKG 2024: EKG shows sinus tach rate of 119 no STEMI[] Radiology/Procedures Radiology/Procedures Chest x-ray shows bilateral pleural effusions and infiltrates to the right lower lobe[] Course & Med Decision Making Course & Med Decision Making Pertinent Labs and Imaging studies reviewed. (See chart for details) ED course: Patient is seen and examined emergency room CBC, CMP, troponin, BNP, blood cultures, lactic acid, EKG, chest x-ray were ordered 2240: Discussed findings with family at bedside who stated the patient is a DNR however they do want the patient admitted for IV antibiotics and Lasix. There come to the patient being on BiPAP. Explained to the patient has elevated troponin but not a STEMI 2249: Discussed CC/HP/PMH with Dr. Stroud and recommends admit to Dr. Kinney with cardiology and pulmonary consult MDM: After reviewing the chart, CC/HPI/PMH, physical exam, [lab results], [ radiological results], I believe the patient has acute CHF exacerbation with developed a right lower lobe pneumonia causing severe respiratory distress after talking with the family and discussed the patient's wishes they like to admit to the hospital and give IV antibiotics and Lasix and continue with BiPAP. Patient is a DNR. [] Dragon Disclaimer Dragon Disclaimer This electronic medical record was generated, in whole or in part, using a voice recognition dictation system. Departure Departure Impression: Primary Impression: CHF exacerbation Additional Impressions: Right lower lobe pneumonia Elevated troponin Disposition: ADMITTED INPATIENT Admitting Physician: Barb Kinney Condition: GUARDED Referrals: CHARLY YANCEY (PCP) Problem Qualifiers DAVID PANG DO Sep 14, 2017 20:47
[2017-09-14 21:06] LABS: BASO # 0.1 x10^3/uL (0.0-0.2); BASO % 1 % (0-3); EOS % 0 % (0-3); HEMOGLOBIN 10.4 g/dL (12.0-15.5); LYMPH # 0.3 x10^3/uL (1.0-4.8); LYMPH % 3 % (24-48); MEAN CORPUSCULAR HEMOGLOBIN 21 pg (25-35); MEAN CORPUSCULAR HGB CONC 31 g/dL (31-37); MEAN CORPUSCULAR VOLUME 70 fL (79-100); MONO % 8 % (0-9); NEUT % 89 % (31-73); PLATELET COUNT 246 x10^3/uL (140-400); RED BLOOD COUNT 4.87 x10^6/uL (3.50-5.40); RED CELL DISTRIBUTION WIDTH 19.8 % (11.5-14.5); WHITE BLOOD COUNT 11.3 x10^3/uL (4.0-11.0)
[2017-09-14 21:26] LABS: BILIRUBIN,URINE NEGATIVE (NEG); GLUCOSE,URINE NEGATIVE (NEG); NITRITE,URINE NEGATIVE (NEG); PH,URINE 5.5; PROTEIN,URINE NEGATIVE (NEG-TRACE); UROBILINOGEN,URINE 0.2 mg/dL (0.2 mg/dL)
[2017-09-14 21:34] LABS: RBC,URINE OCC /HPF (0-2)
[2017-09-14 21:35] LABS: BACTERIA,URINE FEW /HPF (0-FEW); SQUAMOUS EPITHELIAL CELL,UR MANY /LPF
[2017-09-14 21:53] LABS: CALCIUM 9.3 mg/dL (8.5-10.1); GFR 28.5; POTASSIUM 5.8 mmol/L (3.5-5.1)
[2017-09-14 21:59] LABS: ALBUMIN 3.7 g/dL (3.4-5.0); ALBUMIN/GLOBULIN RATIO 0.8 (1.0-1.7); TOTAL BILIRUBIN 0.4 mg/dL (0.2-1.0); TOTAL PROTEIN 8.3 g/dL (6.4-8.2)
[2017-09-14 22:02] LABS: HYPOCHROMIA SLIGHT; MICROCYTOSIS MOD; PLT ESTIMATE ADEQUATE (ADEQUATE)
[2017-09-14] MEDS ORDERED: ASPIRIN CHEWABLE 81 MG TABLET. PO ONE (22:30)
[2017-09-14] MEDS ORDERED: PIP/TAZO PER PHARMACY MC PRN (22:45)
[2017-09-14] MEDS ORDERED: NITROGLYCERIN SUBLINGUAL 0.4 MG BOTTLE OF 25. SL PRN (23:00)
[2017-09-14] MEDS ORDERED: VANCOMYCIN 1.75 GM in IV DEXTROSE 5% 500 ML IV ONE (23:00)
[2017-09-14] MEDS ORDERED: ONDANSETRON PF 4 MG/2 ML VIAL. IV PRN (23:00)
[2017-09-14] MEDS ORDERED: ACETAMINOPHEN 325 MG TABLET. PO PRN (23:00)
[2017-09-14] MEDS ORDERED: MORPHINE SULFATE 4 MG/ML DISP.SYRIN. IV PRN (23:00)
[2017-09-15] VITALS (31 sets, daily range): BP systolic 68–161; BP diastolic 31–94
[2017-09-15] MEDS: PIPERACILLIN/TAZO IV Push 2.25 GM VIAL. IVP SCH ×4 (00:13→18:00)
[2017-09-15] MEDS: VANCOMYCIN PER PHARMACY MC PRN ×2 (01:08→12:12)
[2017-09-15] MEDS ORDERED: NOREPINEPHRIN PREMIX 250 ML IV PRN (01:30)
[2017-09-15] MEDS ORDERED: IV NORMAL SALINE 500ML BAG 500 ML IV ONE (02:00)
[2017-09-15] MEDS: IV NORMAL SALINE 1000ML BAG 1,000 ML IV SCH ×3 (05:08→14:55)
[2017-09-15] MEDS ORDERED: SPIR25TA3 PO (05:52)
[2017-09-15] MEDS ORDERED: HYOS0.1264 PO (05:52)
[2017-09-15] MEDS ORDERED: HALO2TAB PO (05:52)
[2017-09-15] MEDS ORDERED: LORA0.5T PO (05:52)
[2017-09-15] MEDS ORDERED: DICL100G18 TP (05:52)
[2017-09-15] MEDS ORDERED: GABA-585 PO (05:52)
[2017-09-15 06:26] LABS: CALCIUM 8.8 mg/dL (8.5-10.1); CREATININE 2.1 mg/dL (0.6-1.0); GFR 26.9
[2017-09-15 06:36] LABS: BASO % 0 % (0-3); EOS % 1 % (0-3); HEMATOCRIT 28.1 % (36.0-47.0); HEMOGLOBIN 8.7 g/dL (12.0-15.5); LYMPH # 2.6 x10^3/uL (1.0-4.8); LYMPH % 22 % (24-48); MEAN CORPUSCULAR HEMOGLOBIN 21 pg (25-35); MEAN CORPUSCULAR HGB CONC 31 g/dL (31-37); MEAN CORPUSCULAR VOLUME 69 fL (79-100); MONO % 5 % (0-9); NEUT % 72 % (31-73); PLATELET COUNT 184 x10^3/uL (140-400); RED BLOOD COUNT 4.11 x10^6/uL (3.50-5.40); RED CELL DISTRIBUTION WIDTH 19.5 % (11.5-14.5); WHITE BLOOD COUNT 11.6 x10^3/uL (4.0-11.0)
--- NOTE | 2017-09-15 07:00 | EKG ---
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
--- NOTE | 2017-09-15 07:37 | RAD ---
Portable chest, 09/14/2017: History: Shortness of breath Comparison is made to a study from 01/18/2017. A left-sided transvenous pacemaker remains in place with 2 leads extending in the right heart. There has been a previous median sternotomy. The heart is enlarged. The pulmonary vascularity is at the upper limits of normal. There is mild chronic elevation of the right hemidiaphragm. Mild bibasilar opacities have developed suggesting infiltrate and pleural fluid. There is no evidence of pneumothorax. The bony structures are demineralized. IMPRESSION: 1. Cardiomegaly and aortic atherosclerosis. 2. Mild bibasilar infiltrates and pleural effusions have developed, most likely due to congestive heart failure.
--- NOTE | 2017-09-15 10:08 | PDOC2 ---
CARDIAC CONSULT DATE OF CONSULT Date of Consult DATE: 09/15/17 TIME: 09:47 REASON FOR CONSULT Reason for Consult: Elevated troponin REFERRING PHYSICIAN Referring Physician: Oliver SOURCE Source: Chart review HISTORY OF PRESENT ILLNESS HISTORY OF PRESENT ILLNESS This is an 87 yo female admitted for complains of SOA. Pt was at a ns home and apparently on hospice. She was noted with SOA and increasing leg swelling and was noted by EMS at 70% on EMS. She was placed on Bipap and now on NC. Her BP was low and was placed on pressor. She moans when I pressed her legs but otherwise eyes close and by baseline per staff she is confuse. Per staff apparently family revoked the hospice care prompting transfer to hospital. Per staff pt baseline mental status is confuse with dementia. No mention of CP , palpitations during the event and no prior falls. No family member is available for further details. PAST MEDICAL HISTORY Past Medical History Cardiovascular: AFIB, CAD, CHF, HTN, Hyperlipidemia, Other (SSS s/p PPM) Pulmonary: Pneumonia CENTRAL NERVOUS SYSTEM: Dementia GI: GERD Heme/Onc: anemia, Other (DVT) Hepatobiliary: No pertinent hx Psych: depression Musculoskeletal: Osteoarthritis Rheumatologic: No pertinent hx Infectious disease: No pertinent hx ENT: No pertinent hx Renal/: CKD3 Endocrine: Diabetes 2 PAST SURGICAL HISTORY Past Surgical History Pacemaker, Appendectomy, Hysterectomy, CABG, hernia repair FAMILY HISTORY Family History Diabetes, Heart Disease, Hypertension SOCIAL HISTORY Social History Smoke: No ALCOHOL: none Drugs: None Lives: Correction CURRENT MEDICATIONS CURRENT MEDICATIONS Current Medications Medications (Trade) Dose Ordered Sig/Santosh Route PRN Reason Start Time Stop Time Status Last Admin Dose Admin Aspirin (Children'S Aspirin) 324 mg 1X ONCE PO 09/14/17 22:30 09/14/17 22:31 DC 09/14/17 23:15 Vancomycin HCl (Vanco Per Pharmacy) 1 each PRN DAILY PRN MC SEE COMMENTS 09/14/17 22:45 09/15/17 01:08 Piperacillin Sod/ Tazobactam Sod (Zosyn) 2.25 gm Q6HRS IVP 09/15/17 00:00 09/15/17 06:22 Vancomycin HCl 1.75 gm/Dextrose 500 ml @ 250 mls/hr 1X ONCE IV 09/14/17 23:00 09/15/17 00:59 DC 09/14/17 23:16 Norepinephrine Bitartrate 250 ml @ 0 mls/hr CONT PRN IV SEE I/O RECORD 09/15/17 01:30 09/15/17 01:30 Sodium Chloride 500 ml @ 500 mls/hr 1X ONCE IV 09/15/17 02:00 09/15/17 02:59 DC 09/15/17 01:39 Sodium Chloride 1,000 ml @ 100 mls/hr Q10H IV 09/15/17 02:00 09/15/17 05:08 ALLERGIES ALLERGIES: Coded Allergies: Iodinated Contrast- Oral and IV Dye (Verified Allergy, Severe, Anaphylaxis , 01/05/17) Sulfa (Sulfonamide Antibiotics) (Verified Allergy, Intermediate, 01/05/17) codeine (Verified Allergy, Intermediate, 01/05/17) iodine (Verified Allergy, Intermediate, 01/05/17) ROS Review of System unreliable PHYSICAL EXAM General: Other (nonverbal) HEENT: Atraumatic Lungs: Other (basilar crackles) Heart: Regular rate (SR), Other (4/6 systolic murmur to LLS border) Abdomen: Soft Extremities: Other (3+ bilateral LE pitting edema) Skin: No breakdown Neuro: Sensation intact Psych/Mental Status: Other (lethargic) MUSCULOSKELETAL: Osteoarthritic changes both hands VITALS VITALS Vital Signs Date Time Temp Pulse Resp B/P (MAP) Pulse Ox O2 Delivery O2 Flow Rate FiO2 09/15/17 09:00 71 11 98/40 (59) 100 Nasal Cannula 2.0 09/15/17 08:00 97.9 97.9 LABS Lab: Laboratory Tests Test 09/14/17 20:47 09/14/17 21:20 09/14/17 21:35 09/14/17 23:33 White Blood Count 11.3 x10^3/uL (4.0-11.0) Red Blood Count 4.87 x10^6/uL (3.50-5.40) Hemoglobin 10.4 g/dL (12.0-15.5) Hematocrit 34.0 % (36.0-47.0) Mean Corpuscular Volume 70 fL (79-100) Mean Corpuscular Hemoglobin 21 pg (25-35) Mean Corpuscular Hemoglobin Concent 31 g/dL (31-37) Red Cell Distribution Width 19.8 % (11.5-14.5) Platelet Count 246 x10^3/uL (140-400) Neutrophils (%) (Auto) 89 % (31-73) Lymphocytes (%) (Auto) 3 % (24-48) Monocytes (%) (Auto) 8 % (0-9) Eosinophils (%) (Auto) 0 % (0-3) Basophils (%) (Auto) 1 % (0-3) Neutrophils # (Auto) 10.0 x10^3uL (1.8-7.7) Lymphocytes # (Auto) 0.3 x10^3/uL (1.0-4.8) Monocytes # (Auto) 0.8 x10^3/uL (0.0-1.1) Eosinophils # (Auto) 0.0 x10^3/uL (0.0-0.7) Basophils # (Auto) 0.1 x10^3/uL (0.0-0.2) Segmented Neutrophils % 77 % (35-66) Band Neutrophils % 13 % (0-9) Lymphocytes % 4 % (24-48) Monocytes % 6 % (0-10) Platelet Estimate Adequate (ADEQUATE) Large Platelets Occ Giant Platelets Occ Hypochromasia Slight Microcytosis Mod Macrocytosis Slight Lactic Acid Level 1.8 mmol/L (0.4-2.0) 1.4 mmol/L (0.4-2.0) Troponin I Quantitative 0.067 ng/mL (0.000-0.055) VT-Qix-L-Type Natriuretic Peptide 6575 pg/mL (0-449) Urine Collection Type Unknown Urine Color Yellow Urine Clarity Clear Urine pH 5.5 Urine Specific [place] 1.015 Urine Protein Negative mg/dL (NEG-TRACE) Urine Glucose (UA) Negative mg/dL (NEG) Urine Ketones (Stick) Negative mg/dL (NEG) Urine Blood Negative (NEG) Urine Nitrite Negative (NEG) Urine Bilirubin Negative (NEG) Urine Urobilinogen Dipstick 0.2 mg/dL (0.2 mg/dL) Urine Leukocyte Esterase Trace (NEG) Urine RBC Occ /HPF (0-2) Urine WBC 1-4 /HPF (0-4) Urine Squamous Epithelial Cells Many /LPF Urine Bacteria Few /HPF (0-FEW) Urine Mucus Mod /LPF Sodium Level 138 mmol/L (136-145) Potassium Level 5.8 mmol/L (3.5-5.1) Chloride Level 101 mmol/L (98-107) Carbon Dioxide Level 33 mmol/L (21-32) Anion Gap 4 (6-14) Blood Urea Nitrogen 51 mg/dL (7-20) Creatinine 2.0 mg/dL (0.6-1.0) Estimated GFR (Cockcroft-Gault) 28.5 BUN/Creatinine Ratio 26 (6-20) Glucose Level 173 mg/dL (70-99) Calcium Level 9.3 mg/dL (8.5-10.1) Total Bilirubin 0.4 mg/dL (0.2-1.0) Aspartate Amino Transf (AST/SGOT) 18 U/L (15-37) Alanine Aminotransferase (ALT/SGPT) 23 U/L (14-59) Alkaline Phosphatase 100 U/L (46-116) Total Protein 8.3 g/dL (6.4-8.2) Albumin 3.7 g/dL (3.4-5.0) Albumin/Globulin Ratio 0.8 (1.0-1.7) Test 09/15/17 05:00 White Blood Count 11.6 x10^3/uL (4.0-11.0) Red Blood Count 4.11 x10^6/uL (3.50-5.40) Hemoglobin 8.7 g/dL (12.0-15.5) Hematocrit 28.1 % (36.0-47.0) Mean Corpuscular Volume 69 fL (79-100) Mean Corpuscular Hemoglobin 21 pg (25-35) Mean Corpuscular Hemoglobin Concent 31 g/dL (31-37) Red Cell Distribution Width 19.5 % (11.5-14.5) Platelet Count 184 x10^3/uL (140-400) Neutrophils (%) (Auto) 72 % (31-73) Lymphocytes (%) (Auto) 22 % (24-48) Monocytes (%) (Auto) 5 % (0-9) Eosinophils (%) (Auto) 1 % (0-3) Basophils (%) (Auto) 0 % (0-3) Neutrophils # (Auto) 8.3 x10^3uL (1.8-7.7) Lymphocytes # (Auto) 2.6 x10^3/uL (1.0-4.8) Monocytes # (Auto) 0.6 x10^3/uL (0.0-1.1) Eosinophils # (Auto) 0.1 x10^3/uL (0.0-0.7) Basophils # (Auto) 0.0 x10^3/uL (0.0-0.2) Sodium Level 139 mmol/L (136-145) Potassium Level 5.0 mmol/L (3.5-5.1) Chloride Level 103 mmol/L (98-107) Carbon Dioxide Level 28 mmol/L (21-32) Anion Gap 8 (6-14) Blood Urea Nitrogen 53 mg/dL (7-20) Creatinine 2.1 mg/dL (0.6-1.0) Estimated GFR (Cockcroft-Gault) 26.9 Glucose Level 141 mg/dL (70-99) Calcium Level 8.8 mg/dL (8.5-10.1) Troponin I Quantitative 1.642 ng/mL (0.000-0.055) ECHOCARDIOGRAM ECHOCARDIOGRAM <Conclusion> The left ventricle is normal size. The left ventricular systolic function is mildly decreased. The Ejection Fraction is 45-50%. There is mild to moderate concentric left ventricular hypertrophy. There is a pacemaker lead in the right heart. There may be a bioprosthetic aortic valve prosthesis. There is no significant aortic valvular stenosis. Doppler and Color Flow revealed mild to moderate aortic regurgitation. Doppler and Color Flow revealed mild mitral regurgitation. Doppler and Color Flow revealed mild to moderate tricuspid regurgitation. The pulmonary artery systolic pressure is estimated at 41 mmHg. DATE: 12/18/16 1220 ASSESSMENT/PLAN ASSESSMENT/PLAN 1. NSTEMI: troponin 1.6, EKG with inferolateral ST depression 2. Acute on chronic systolic/diastolic CHF 3. Shock: BP improved 4. Chronic microcytic anemia: from 10.4 to 8.7. 8-9 appears to be her baseline 5. GOOD on CKD 6. CAD: CABG in the past 7. SSS: PPM 8. HTN: hold all BP meds. 9. Hx of PAFIB 10. Dementia: pt is on hospice and apparently family revoked this to be treated and sent to hospital. 11. Acute respiratory failure: multifactorial 12. Encephalopathy 13. DM2/HLP Recommendations 1. TTE, heparin drip, ASA. Repeat EKG, continue to trend troponin. Diuretic therapy with caution 2. Interrogate device 3. Will need to discuss with family their intentions for goals of care as per staff this is not the first time they have revoked hospice. 4. Consider palliative consult. 5. Titrate vasopressor as warranted. 6. Will medically treat at this time pending follow up with family's intention. Problems: NEWTON PUENTE APRN Sep 15, 2017 10:08
[2017-09-15] MEDS ORDERED: HEPARIN for IV BOLUS 10,000 UNIT/10 ML VIAL. IV PRN (10:15)
[2017-09-15] MEDS ORDERED: HEPARIN 25,000UTS/500ML PREMIX 500 ML IV PRN (10:15)
--- NOTE | 2017-09-15 10:23 | PDOC ---
Provider Note Provider Note Pt seen in ICU, H&P dictated. #[id number] TAMERA ALMAZAN MD Sep 15, 2017 10:23
[2017-09-15] MEDS ORDERED: FUROSEMIDE 20 MG/2 ML VIAL. IVP ONE (10:30)
[2017-09-15] MEDS ORDERED: DEXTROSE 50% 25 GM / 50ML DISP.SYRIN. IV PRN (10:30)
--- NOTE | 2017-09-15 10:32 | EKG ---
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
[2017-09-15 10:33] LABS: % EOS 2 % (0-5)
[2017-09-15 10:34] LABS: ANISOCYTOSIS PRESENT; HYPOCHROMIA MOD; MICROCYTOSIS MARKED; PLT ESTIMATE ADEQUATE (ADEQUATE)
[2017-09-15 10:45] LABS: CHOLESTEROL/HDL RATIO 1.9
[2017-09-15] MEDS: INSULIN ASPART 300 UNITS/3 ML INSULN.PEN SQ SCH ×2 (12:00→17:00)
--- NOTE | 2017-09-15 12:40 | RAD ---
Bilateral lower extremity venous ultrasound, 09/15/2017: History: Leg edema Duplex evaluation of the deep veins in the lower extremities was performed including grayscale, color-flow and spectral Doppler analysis. The femoral and popliteal veins demonstrate normal compressibility and normal responses to distal augmentation maneuvers. Color imaging of those vessels shows no evidence of intraluminal clot. The visualized deep veins in both calves are patent. IMPRESSION: There is no sonographic evidence of deep vein thrombosis in either lower extremity.
--- NOTE | 2017-09-15 12:57 | CONS ---
DATE OF CONSULTATION: PULMONARY CONSULTATION ATTENDING PHYSICIAN: Dr. Kinney. REASON FOR CONSULTATION: Respiratory failure, congestive heart failure, shock. HISTORY OF PRESENT ILLNESS: The patient is an 87-year-old female who has past medical history of cardiomyopathy based on last echo in December 2016 with an EF of 45%. She has a history of congestive heart failure and egia-gu-ippgrvqo aortic insufficiency. She was brought into the hospital with increasing shortness of breath and increasing leg swelling. She was noted to have a saturation of 70% by EMS, she was placed on BiPAP. Her blood pressure was low and was placed on Levophed. The patient moans and is in pain as well, does not respond to much commands, but in no obvious respiratory distress. Her chest x-ray was reviewed by me and it was consistent with congestive heart failure with right-sided pleural effusion. The patient's blood pressure has stabilized and she is off the Levophed; however, the blood pressure has been labile. She is off the BiPAP and on a cannula now. Her renal function was abnormal as well with a BUN of 53 and a creatinine of 2.1. Her troponin level was 1.6. I have been asked to see her for further evaluation. Family revoked the hospice status. PAST MEDICAL HISTORY: Significant of AFib, history of cardiomyopathy, CHF, hyperlipidemia, history of pacemaker placement, pneumonia, dementia, GERD, history of DVT, osteoarthritis, CKD stage 3, type 2 diabetes. PAST SURGICAL HISTORY: Pacemaker, appendectomy, hysterectomy, CABG and hernia repair. FAMILY HISTORY: Diabetes and hypertension. SOCIAL HISTORY: No history of tobacco use. [facility] in the [facility]. ALLERGIES: IODINE ORAL AND IV DYE, SULFA, CODEINE AND IODINE. MEDICATIONS: All reviewed as listed in the MRAD including antibiotic, vancomycin and Zosyn. REVIEW OF SYSTEMS: Unable to obtain from the patient due to her mental status. PHYSICAL EXAMINATION: VITAL SIGNS: Blood pressure has varied from 98 systolic to 131 systolic, afebrile, pulse ox 98% on 2 liters. NECK: Supple. LUNGS: With crackles anteriorly. CARDIOVASCULAR: Regular rate. ABDOMEN: Soft. EXTREMITIES: With 3+ pitting edema bilaterally. LABORATORY DATA: Reviewed. BUN 53, creatinine 2.1. Troponin 1.64. White cell count 11.6, hemoglobin 8.7, platelets are 184. IMPRESSION: 1. Acute hypoxic respiratory failure secondary to acute systolic heart failure/cardiogenic shock. 2. Hypotension secondary to cardiogenic shock. Unlikely sepsis. 3. History of cardiomyopathy with an ejection fraction of 45% in December of this year. Would recommend repeating an echo to see if further decline in the ejection fraction. She also has ozyq-zw-rfkufvxi aortic insufficiency. 4. Increased troponin, suspect non-ST myocardial infarction. 5. Mild reactive leukocytosis. 6. Underlying dementia and encephalopathy. RECOMMENDATIONS: 1. Continue with present oxygen via nasal cannula with p.r.n. BiPAP. 2. P.r.n. vasopressor. 3. Antibiotics can be discontinued in the next 24 hours. I do not see any clinical signs of infection. This is all heart failure. 4. Cardiology recommendations. 5. We would recommend having another discussion with the family and consider going back to supportive care and hospice. 6. Cautious diuresis. 7. Discussed with RN and RT. We will follow along with you. Critical care time 38 minutes. WILL LEWIS MD DR: PETE/julio JOB#: [id number] / [id number] THERESA
--- NOTE | 2017-09-15 13:14 | HP ---
ADMIT DATE: 09/14/2017 REASON FOR ADMISSION TO THE HOSPITAL: Shortness of breath, hypertension, congestive heart failure. HISTORY OF PRESENT ILLNESS: The patient is an 87-year-old female. The patient lives at [facility]. She was having shortness of breath and alteration in the breathing. She has a known history of congestive heart failure. The patient is presently on hospice. As the patient's saturation was in the 70s, was placed on BiPAP and was transferred to the Emergency Room. Family revoked the hospice, was admitted to the hospital. PAST MEDICAL HISTORY: History of diabetes, atrial fibrillation, congestive heart failure, anemia, depression, hypertension, UTI, chronic kidney disease, sick sinus syndrome. PAST SURGICAL HISTORY: Had a coronary artery bypass surgery, pacemaker, hernia repair, appendectomy, hysterectomy. ALLERGIES: CONTRAST, IVP DYE, SULFA, CODEINE AND IODINE. MEDICATIONS: At the facility, the patient is at [facility], Tylenol, Santyl, Voltaren gel, Lasix 40 mg daily, gabapentin 200 mg 3 times daily, haloperidol 0.5 p.r.n., hydralazine 25 mg 3 times daily, hydrocodone 7.5 three times a day, isosorbide 20 mg daily. Ativan 0.5 three times a day, Cozaar 25 mg daily, milk of magnesia, mirtazapine 7.5 mg at bedtime, spironolactone 25 mg daily, vitamin D 2000 daily, insulin 10 units at bedtime, Protonix 40 mg daily, potassium 20 mEq daily, vitamin daily, metoprolol XL 50 mg daily. SOCIAL HISTORY: No history of smoking, alcohol, or drug abuse. She lives at the [facility]. FAMILY HISTORY: Unremarkable. PHYSICAL EXAMINATION: GENERAL: The patient looks sicker, elderly female in the ICU, not in any distress at this point. VITAL SIGNS: At the time of admission shows temperature 98, pulse 118, respirations 28, blood pressure 169/71, 97 on BiPAP. HEENT: Head is atraumatic. Pupils are equal. The patient is off BiPAP, no oxygen nasal cannula. Oral cavity is dry. NECK: Supple. CHEST: Symmetrical. CARDIOVASCULAR: S1, S2, irregular. LUNGS: Few crackles at the bases, decreased breath sounds. ABDOMEN: Soft, nontender, she has surgical scars in the lower abdomen. EXTERNAL GENITALIA: Johns placed. RECTAL: Deferred. EXTREMITIES: Has 3+ edema all the way from the feet up to the mid thighs, pitting. No calf tenderness noted. NEUROLOGIC: The patient is just trying to wake up. Able to follow simple commands, like sticking out her tongue. LABORATORY DATA: Shows a white count of 11.3, hemoglobin 10.4, platelets 246. Electrolytes: Sodium 138, potassium 5.8, chloride 101, bicarbonate 33, BUN 51, creatinine 2.0. Lactic acid 1.8, came down to 1.4. LFTs were normal. Troponin 1.65. Albumin 3.7. Urine shows negative for infections. Chest x-ray: Cardiomegaly, bibasilar infiltrates, pleural effusion. FINAL IMPRESSION: 1. Acute shortness of breath with hypotension on pressors levophed. 2. Healthcare-associated pneumonia. Chest x-ray shows bilateral infiltrates with pleural effusion. 3. Hypotension with possible sepsis. 4. Atrial fibrillation. 5. Hypertension. 6. Chronic systolic heart failure. 7. Diabetes. 8. 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 9. Protein-calorie malnutrition. 10.Elevated troponin PLAN: The patient was admitted to the ICU, initially placed on BiPAP, she was weaned off BiPAP and oxygen. Troponin was elevated, so Cardiology was consulted. Monitor troponin and also the patient will be put on broad spectrum antibiotics. Suspect gram-negative, gram-positive bacteremia, vancomycin and Zosyn were given after blood culture was done. Cardiology was consulted, started on heparin drip and also echocardiogram for left ventricular function and see how the patient's condition improves. The patient was on hospice before. They revoked hospice 2 times, will have palliative team talk to the family again and have a family discussion. TAMERA ALMAZAN MD DR: PORSHA/julio JOB#: [id number] / [id number] THERESA
--- NOTE | 2017-09-15 13:47 | CARD ---
APPROVED REPORT EXAM: Two-dimensional and M-mode echocardiogram with Doppler and color Doppler. Other Information Quality : Average Rhythm : NSR INDICATION Non STEMI 2D DIMENSIONS RVDd2.7 (2.9-3.5cm)Left Atrium(2D)4.3 (1.6-4.0cm) IVSd1.3 (0.7-1.1cm)Aortic Root(2D)2.1 (2.0-3.7cm) LVDd5.1 (3.9-5.9cm)LVOT Diameter2.0 (1.8-2.4cm) PWd1.3 (0.7-1.1cm)LVDs4.0 (2.5-4.0cm) FS (%) 20.6 %SV50.8 ml LVEF(%)41.8 (>50%) Aortic Valve AoV Peak Cali.175.1cm/sAoV VTI34.5cm AO Peak GR.12.3mmHgLVOT VTI 15.33cm AO Mean GR.7mmHgAVA (VTI)1.44cm2 Mitral Valve MV E Qbomoahv334.7cm/sMV E Peak Gr.12mmHg MV DECEL [id number] A Tiwcqdqs39.0cm/s MV CPB17wqV/A Ratio2.4 MV A [id number] (PHT)5.50cm2 Tricuspid Valve TR P. Pczmchcl453et/sRAP [id number] TR Peak Gr.03xmJrNLDH07rxBb LEFT VENTRICLE The left ventricle is normal size. There is borderline to mild concentric left ventricular hypertroph y. Left ventricle systolic function is mildly impaired. The Ejection Fraction is 45%. There is global hypokinesis of the left ventricle. Transmitral Doppler flow pattern is Grade II-pseudonormal filling dynamics. RIGHT VENTRICLE The right ventricle is normal size. The right ventricular systolic function is normal. ATRIA The left atrium is borderline dilated. The right atrium size is normal. The interatrial septum is int act with no evidence for an atrial septal defect or patent foramen ovale as noted on 2-D or Doppler i maging. AORTIC VALVE The aortic valve is not well visualized but there appears to be a bioprosthetic valve. Doppler and Co kristine Flow revealed mild aortic regurgitation. Calculated aortic valve area is 1.44 cm2 with maximum pr essure gradient of 12 mmHg and mean pressure gradient of 7 mmHg. MITRAL VALVE Mitral annular calcification is mild. The mitral valve leaflets are thickened and calcified. There is no mitral valve stenosis. Doppler and Color Flow revealed mild mitral regurgitation. TRICUSPID VALVE The tricuspid valve is not well visualized. Doppler and Color Flow revealed moderate tricuspid regurg itation. There is moderate pulmonary hypertension. The PA pressure was estimated at 59 mmHg. There is no tricuspid valve stenosis. PULMONIC VALVE The pulmonic valve is not well visualized. Doppler and Color Flow revealed no pulmonic valvular regur gitation. There is no pulmonic valvular stenosis. GREAT VESSELS The aortic root is normal in size. Pulmonary veins not recorded. The IVC is normal in size and collap ses <50% with inspiration. PERICARDIAL EFFUSION There is large right pleural effusion. There is no evidence of significant pericardial effusion. Critical Notification Critical Value: No <Conclusion> Left ventricle systolic function is mildly impaired. The Ejection Fraction is 45%. Pacer wire noted in right atrium and right ventricle. The aortic valve is not well visualized but there appears to be a bioprosthetic valve, functioning we ll with mean pressure gradient of 7 mmHg. Mild aortic regurgitation. Mild mitral regurgitation. Moderate tricuspid regurgitation. The PA pressure was estimated at 59 mmHg. There is no evidence of significant pericardial effusion.
[2017-09-16] VITALS (10 sets, daily range): BP systolic 114–173; BP diastolic 47–77
[2017-09-16] MEDS: PIPERACILLIN/TAZO IV Push 2.25 GM VIAL. IVP SCH ×4 (00:17→17:12)
[2017-09-16] MEDS: IV NORMAL SALINE 1000ML BAG 1,000 ML IV SCH (00:18)
[2017-09-16 04:31] LABS: BASO # 0.1 x10^3/uL (0.0-0.2); BASO % 1 % (0-3); EOS % 2 % (0-3); HEMATOCRIT 30.1 % (36.0-47.0); HEMOGLOBIN 9.3 g/dL (12.0-15.5); LYMPH # 1.2 x10^3/uL (1.0-4.8); LYMPH % 14 % (24-48); MEAN CORPUSCULAR HEMOGLOBIN 22 pg (25-35); MEAN CORPUSCULAR HGB CONC 31 g/dL (31-37); MEAN CORPUSCULAR VOLUME 70 fL (79-100); MONO % 5 % (0-9); NEUT % 78 % (31-73); PLATELET COUNT 185 x10^3/uL (140-400); RED BLOOD COUNT 4.31 x10^6/uL (3.50-5.40); RED CELL DISTRIBUTION WIDTH 19.3 % (11.5-14.5); WHITE BLOOD COUNT 8.4 x10^3/uL (4.0-11.0)
[2017-09-16 04:49] LABS: CALCIUM 8.6 mg/dL (8.5-10.1); CREATININE 1.6 mg/dL (0.6-1.0); GFR 36.8; POTASSIUM 4.6 mmol/L (3.5-5.1)
[2017-09-16] MEDS: INSULIN ASPART 300 UNITS/3 ML INSULN.PEN SQ SCH ×3 (08:00→17:00)
--- NOTE | 2017-09-16 10:03 | PDOC ---
PROGRESS NOTES Subjective Subjective seen in ICU,pt more awake ,talking now Objective Objective Vital Signs Date Time Temp Pulse Resp B/P (MAP) Pulse Ox O2 Delivery O2 Flow Rate FiO2 09/16/17 08:00 Room Air 09/16/17 06:00 113 18 121/77 (92) 100 4.0 09/16/17 04:00 98.0 98.0 Intake and Output 09/16/17 07:00 Intake Total 5590 ml Output Total 2585 ml Balance 3005 ml Intake Oral 350 ml IV Total 5240 ml Output Urine Total 2585 ml # Bowel Movements 2 Physical Exam Abdomen: Soft Heart: Other (4/6 systolic murmur to LLS border, tachycardia) Extremities: Other (3+ bilateral LE pitting edema) General: Other (awake) HEENT: Atraumatic Lungs: Other (basilar crackles) MUSCULOSKELETAL: Osteoarthritic changes both hands Neuro: Sensation intact Psych/Mental Status: Other (lethargic) Skin: No breakdown COMMENT edema both legs 2+ Diagnosis Problem List Problems Medical Problems: (1) CHF exacerbation Status: Acute (2) Elevated troponin Status: Acute (3) Right lower lobe pneumonia Status: Acute Assessment Assessment Problems Medical Problems: (1) CHF exacerbation Status: Acute (2) Elevated troponin Status: Acute (3) Right lower lobe pneumonia Status: Acute FINAL IMPRESSION: 1. Acute shortness of breath with hypotension on pressors levophed. 2. Healthcare-associated pneumonia. suspect gram neg and gram positive bacteria. 3. Hypotension with possible sepsis. 4. Atrial fibrillation. 5. Hypertension. 6. Chronic systolic heart failure. 7. Diabetes. 8. 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 9. Protein-calorie malnutrition. 10.Elevated troponin PLAN: still on pressors low dose central line today on broad spectrum antibiotics for pneumonia . spoke with daughter , who is at bedside palliative team to have family meeting today. DNR/DNI. ECHO 40% ejf, doppler leg -neg for DVT. appreciate cardiology and pul in put. off bipap on n/c today. dvt prevention The patient was admitted to the ICU, initially placed on BiPAP, she was weaned off BiPAP and oxygen. Troponin was elevated, so Cardiology was consulted. Monitor troponin and also the patient will be put on broad spectrum antibiotics. Suspect gram-negative, gram-positive bacteremia, vancomycin and Zosyn were given after blood culture was done. Cardiology was consulted, started on heparin drip and also echocardiogram for left ventricular function and see how the patient's condition improves. The patient was on hospice before. They revoked hospice 2 times, will have palliative team talk to the family again and have a family discussion. Problems: Plan Plan of Care Problems Medical Problems: (1) CHF exacerbation Status: Acute (2) Elevated troponin Status: Acute (3) Right lower lobe pneumonia Status: Acute Comment Review of Relevant I have reviewed the following items davin (where applicable) has been applied. Labs Laboratory Tests Test 09/15/17 11:30 09/15/17 14:31 09/15/17 18:45 09/15/17 22:09 Troponin I Quantitative 1.289 ng/mL (0.000-0.055) Glucose (Fingerstick) 102 mg/dL (70-99) 115 mg/dL (70-99) Heparin Anti-Xa Act, Unfractionated 0.19 IU/mL (0.30-0.70) Test 09/16/17 03:00 White Blood Count 8.4 x10^3/uL (4.0-11.0) Red Blood Count 4.31 x10^6/uL (3.50-5.40) Hemoglobin 9.3 g/dL (12.0-15.5) Hematocrit 30.1 % (36.0-47.0) Mean Corpuscular Volume 70 fL (79-100) Mean Corpuscular Hemoglobin 22 pg (25-35) Mean Corpuscular Hemoglobin Concent 31 g/dL (31-37) Red Cell Distribution Width 19.3 % (11.5-14.5) Platelet Count 185 x10^3/uL (140-400) Neutrophils (%) (Auto) 78 % (31-73) Lymphocytes (%) (Auto) 14 % (24-48) Monocytes (%) (Auto) 5 % (0-9) Eosinophils (%) (Auto) 2 % (0-3) Basophils (%) (Auto) 1 % (0-3) Neutrophils # (Auto) 6.5 x10^3uL (1.8-7.7) Lymphocytes # (Auto) 1.2 x10^3/uL (1.0-4.8) Monocytes # (Auto) 0.4 x10^3/uL (0.0-1.1) Eosinophils # (Auto) 0.2 x10^3/uL (0.0-0.7) Basophils # (Auto) 0.1 x10^3/uL (0.0-0.2) Heparin Anti-Xa Act, Unfractionated 0.67 IU/mL (0.30-0.70) Sodium Level 142 mmol/L (136-145) Potassium Level 4.6 mmol/L (3.5-5.1) Chloride Level 106 mmol/L (98-107) Carbon Dioxide Level 30 mmol/L (21-32) Anion Gap 6 (6-14) Blood Urea Nitrogen 47 mg/dL (7-20) Creatinine 1.6 mg/dL (0.6-1.0) Estimated GFR (Cockcroft-Gault) 36.8 Glucose Level 96 mg/dL (70-99) Calcium Level 8.6 mg/dL (8.5-10.1) Microbiology 09/14/17 Blood Culture - Preliminary, Resulted NO GROWTH AFTER 1 DAY 09/14/17 Urine Culture - Preliminary, Resulted 09/14/17 Urine Culture Result 1 ([facility]) - Preliminary, Resulted Medications Current Medications Dextrose (Dextrose 50%-Water Syringe) 12.5 gm PRN Q15MIN PRN IV SEE COMMENTS; Start 09/15/17 at 10:30 Furosemide (Lasix) 20 mg 1X ONCE IVP Last administered on 09/15/17 11:24; Start 09/15/17 at 10:30; Stop 09/15/17 at 10:31; Status DC Heparin Sodium (Porcine) (Heparin Sodium) 1,900 unit PRN Q6HRS PRN IV FOR UFH LEVEL LESS THAN 0.2 Last administered on 09/15/17 20:38; Start 09/15/17 at 10 :15 Heparin Sodium/ Dextrose 500 ml @ 0 mls/hr CONT PRN IV SEE I/O RECORD Last administered on 09/15/17 11:23; Start 09/15/17 at 10:15 Insulin Aspart (NovoLOG) 0-7 UNITS TIDWMEALS SQ ; Start 09/15/17 at 12:00 Vancomycin HCl 1 each 1X ONCE MC ; Start 09/18/17 at 22:30; Stop 09/18/17 at 22:31 Vancomycin HCl 1 gm/Dextrose 250 ml @ 250 mls/hr Q48H IV ; Start 09/16/17 at 23:00 Vitals/I & O Vital Sign - Last 24 Hours 09/15/17 09/15/17 09/15/17 09/15/17 10:00 10:45 11:00 12:00 Temp 98.2 98.2 Pulse 64 82 86 87 Resp 16 12 11 11 B/P (MAP) 143/46 (78) 157/58 (91) 131/62 (85) 100/59 (73) Pulse Ox 99 99 98 98 O2 Delivery Nasal Cannula Nasal Cannula Nasal Cannula Nasal Cannula O2 Flow Rate 2.0 2.0 2.0 2.0 09/15/17 09/15/17 09/15/17 09/15/17 12:00 12:30 12:45 14:27 Pulse 87 74 81 Resp 11 10 12 B/P (MAP) 68/31 (43) 132/69 (90) 115/46 (69) Pulse Ox 98 98 100 O2 Delivery Nasal Cannula Nasal Cannula Nasal Cannula Nasal Cannula O2 Flow Rate 3.0 2.0 2.0 2.0 09/15/17 09/15/17 09/15/17 09/15/17 15:38 16:00 16:00 17:00 Temp 98.4 98.4 Pulse 78 83 99 Resp 14 12 12 B/P (MAP) 110/64 (79) 125/46 (72) 146/71 (96) Pulse Ox 100 100 98 O2 Delivery Nasal Cannula Nasal Cannula Nasal Cannula Nasal Cannula O2 Flow Rate 3.0 3.0 3.0 3.0 09/15/17 09/15/17 09/15/17 09/15/17 18:02 19:00 20:00 20:00 Temp 98.1 98.1 Pulse 117 100 99 Resp 24 12 12 B/P (MAP) 147/60 (89) 157/59 (91) Pulse Ox 100 100 100 O2 Delivery Nasal Cannula Nasal Cannula Nasal Cannula Nasal Cannula O2 Flow Rate 3.0 4.0 4.0 4.0 09/15/17 09/15/17 09/15/17 09/15/17 21:00 22:00 23:00 23:59 Pulse 121 114 93 Resp 10 17 13 B/P (MAP) 143/94 (110) 99/58 (72) 127/58 (81) Pulse Ox 100 100 100 O2 Delivery Nasal Cannula Nasal Cannula Nasal Cannula Nasal Cannula O2 Flow Rate 4.0 4.0 4.0 4.0 09/16/17 09/16/17 09/16/17 09/16/17 00:00 01:00 02:00 03:00 Temp 98.3 98.3 Pulse 95 102 102 115 Resp 14 12 15 13 B/P (MAP) 116/53 (74) 117/47 (70) 133/58 (83) 115/58 (77) Pulse Ox 100 100 100 100 O2 Delivery Nasal Cannula Nasal Cannula Nasal Cannula Nasal Cannula O2 Flow Rate 4.0 4.0 4.0 4.0 09/16/17 09/16/17 09/16/17 09/16/17 04:00 04:00 05:00 06:00 Temp 98.0 98.0 Pulse 115 122 113 Resp 16 20 18 B/P (MAP) 115/63 (80) 114/61 (78) 121/77 (92) Pulse Ox 100 100 100 O2 Delivery Nasal Cannula Nasal Cannula Nasal Cannula Nasal Cannula O2 Flow Rate 4.0 4.0 4.0 4.0 09/16/17 08:00 O2 Delivery Room Air Intake and Output 09/15/17 09/15/17 09/16/17 15:00 23:00 07:00 Intake Total 1070 ml 579 ml 3941 ml Output Total 635 ml 1365 ml 585 ml Balance 435 ml -786 ml 3356 ml TAMERA ALMAZAN MD Sep 16, 2017 10:03
[2017-09-16] MEDS ORDERED: HALOPERIDOL 2 MG TABLET. PO PRN (10:45)
[2017-09-16] MEDS ORDERED: METOPROLOL SUCC 24HR ER 25 MG TAB.ER.24H. PO SCH ×2 (11:00→13:30)
--- NOTE | 2017-09-16 11:13 | PDOC ---
PULMONARY PROGRESS NOTES Subjective looks better, off pressor Vitals Vital Signs Date Time Temp Pulse Resp B/P (MAP) Pulse Ox O2 Delivery O2 Flow Rate FiO2 09/16/17 08:00 Room Air 09/16/17 06:00 113 18 121/77 (92) 100 4.0 09/16/17 04:00 98.0 98.0 General: Alert, No acute distress Lungs: Clear Cardiovascular: S1 Abdomen: Soft Extremities: Other (trace edema) Skin: Warm Labs Laboratory Tests Test 09/14/17 20:47 09/14/17 21:20 09/14/17 21:35 09/14/17 23:33 White Blood Count 11.3 x10^3/uL (4.0-11.0) Red Blood Count 4.87 x10^6/uL (3.50-5.40) Hemoglobin 10.4 g/dL (12.0-15.5) Hematocrit 34.0 % (36.0-47.0) Mean Corpuscular Volume 70 fL (79-100) Mean Corpuscular Hemoglobin 21 pg (25-35) Mean Corpuscular Hemoglobin Concent 31 g/dL (31-37) Red Cell Distribution Width 19.8 % (11.5-14.5) Platelet Count 246 x10^3/uL (140-400) Neutrophils (%) (Auto) 89 % (31-73) Lymphocytes (%) (Auto) 3 % (24-48) Monocytes (%) (Auto) 8 % (0-9) Eosinophils (%) (Auto) 0 % (0-3) Basophils (%) (Auto) 1 % (0-3) Neutrophils # (Auto) 10.0 x10^3uL (1.8-7.7) Lymphocytes # (Auto) 0.3 x10^3/uL (1.0-4.8) Monocytes # (Auto) 0.8 x10^3/uL (0.0-1.1) Eosinophils # (Auto) 0.0 x10^3/uL (0.0-0.7) Basophils # (Auto) 0.1 x10^3/uL (0.0-0.2) Segmented Neutrophils % 77 % (35-66) Band Neutrophils % 13 % (0-9) Lymphocytes % 4 % (24-48) Monocytes % 6 % (0-10) Platelet Estimate Adequate (ADEQUATE) Large Platelets Occ Giant Platelets Occ Hypochromasia Slight Microcytosis Mod Macrocytosis Slight Lactic Acid Level 1.8 mmol/L (0.4-2.0) 1.4 mmol/L (0.4-2.0) Troponin I Quantitative 0.067 ng/mL (0.000-0.055) CL-Tse-H-Type Natriuretic Peptide 6575 pg/mL (0-449) Urine Collection Type Unknown Urine Color Yellow Urine Clarity Clear Urine pH 5.5 Urine Specific [place] 1.015 Urine Protein Negative mg/dL (NEG-TRACE) Urine Glucose (UA) Negative mg/dL (NEG) Urine Ketones (Stick) Negative mg/dL (NEG) Urine Blood Negative (NEG) Urine Nitrite Negative (NEG) Urine Bilirubin Negative (NEG) Urine Urobilinogen Dipstick 0.2 mg/dL (0.2 mg/dL) Urine Leukocyte Esterase Trace (NEG) Urine RBC Occ /HPF (0-2) Urine WBC 1-4 /HPF (0-4) Urine Squamous Epithelial Cells Many /LPF Urine Bacteria Few /HPF (0-FEW) Urine Mucus Mod /LPF Sodium Level 138 mmol/L (136-145) Potassium Level 5.8 mmol/L (3.5-5.1) Chloride Level 101 mmol/L (98-107) Carbon Dioxide Level 33 mmol/L (21-32) Anion Gap 4 (6-14) Blood Urea Nitrogen 51 mg/dL (7-20) Creatinine 2.0 mg/dL (0.6-1.0) Estimated GFR (Cockcroft-Gault) 28.5 BUN/Creatinine Ratio 26 (6-20) Glucose Level 173 mg/dL (70-99) Calcium Level 9.3 mg/dL (8.5-10.1) Total Bilirubin 0.4 mg/dL (0.2-1.0) Aspartate Amino Transf (AST/SGOT) 18 U/L (15-37) Alanine Aminotransferase (ALT/SGPT) 23 U/L (14-59) Alkaline Phosphatase 100 U/L (46-116) Total Protein 8.3 g/dL (6.4-8.2) Albumin 3.7 g/dL (3.4-5.0) Albumin/Globulin Ratio 0.8 (1.0-1.7) Test 09/15/17 00:49 09/15/17 05:00 09/15/17 11:30 09/15/17 14:31 Nasal Screen MRSA (PCR) Negative (Negative) White Blood Count 11.6 x10^3/uL (4.0-11.0) Red Blood Count 4.11 x10^6/uL (3.50-5.40) Hemoglobin 8.7 g/dL (12.0-15.5) Hematocrit 28.1 % (36.0-47.0) Mean Corpuscular Volume 69 fL (79-100) Mean Corpuscular Hemoglobin 21 pg (25-35) Mean Corpuscular Hemoglobin Concent 31 g/dL (31-37) Red Cell Distribution Width 19.5 % (11.5-14.5) Platelet Count 184 x10^3/uL (140-400) Neutrophils (%) (Auto) 72 % (31-73) Lymphocytes (%) (Auto) 22 % (24-48) Monocytes (%) (Auto) 5 % (0-9) Eosinophils (%) (Auto) 1 % (0-3) Basophils (%) (Auto) 0 % (0-3) Neutrophils # (Auto) 8.3 x10^3uL (1.8-7.7) Lymphocytes # (Auto) 2.6 x10^3/uL (1.0-4.8) Monocytes # (Auto) 0.6 x10^3/uL (0.0-1.1) Eosinophils # (Auto) 0.1 x10^3/uL (0.0-0.7) Basophils # (Auto) 0.0 x10^3/uL (0.0-0.2) Segmented Neutrophils % 68 % (35-66) Band Neutrophils % 2 % (0-9) Lymphocytes % 23 % (24-48) Monocytes % 5 % (0-10) Eosinophils % 2 % (0-5) Platelet Estimate Adequate (ADEQUATE) Hypochromasia Mod Anisocytosis Present Microcytosis Marked Sodium Level 139 mmol/L (136-145) Potassium Level 5.0 mmol/L (3.5-5.1) Chloride Level 103 mmol/L (98-107) Carbon Dioxide Level 28 mmol/L (21-32) Anion Gap 8 (6-14) Blood Urea Nitrogen 53 mg/dL (7-20) Creatinine 2.1 mg/dL (0.6-1.0) Estimated GFR (Cockcroft-Gault) 26.9 Glucose Level 141 mg/dL (70-99) Calcium Level 8.8 mg/dL (8.5-10.1) Troponin I Quantitative 1.642 ng/mL (0.000-0.055) 1.289 ng/mL (0.000-0.055) Triglycerides Level 38 mg/dL (0-150) Cholesterol Level 159 mg/dL (0-200) LDL Cholesterol, Calculated 69 mg/dL (0-100) VLDL Cholesterol, Calculated 8 mg/dL (0-40) Non-HDL Cholesterol Calculated 77 mg/dL (0-129) HDL Cholesterol 82 mg/dL (40-60) Cholesterol/HDL Ratio 1.9 Glucose (Fingerstick) 102 mg/dL (70-99) Test 09/15/17 18:45 09/15/17 22:09 09/16/17 03:00 09/16/17 10:00 Heparin Anti-Xa Act, Unfractionated 0.19 IU/mL (0.30-0.70) 0.67 IU/mL (0.30-0.70) 0.61 IU/mL (0.30-0.70) Glucose (Fingerstick) 115 mg/dL (70-99) White Blood Count 8.4 x10^3/uL (4.0-11.0) Red Blood Count 4.31 x10^6/uL (3.50-5.40) Hemoglobin 9.3 g/dL (12.0-15.5) Hematocrit 30.1 % (36.0-47.0) Mean Corpuscular Volume 70 fL (79-100) Mean Corpuscular Hemoglobin 22 pg (25-35) Mean Corpuscular Hemoglobin Concent 31 g/dL (31-37) Red Cell Distribution Width 19.3 % (11.5-14.5) Platelet Count 185 x10^3/uL (140-400) Neutrophils (%) (Auto) 78 % (31-73) Lymphocytes (%) (Auto) 14 % (24-48) Monocytes (%) (Auto) 5 % (0-9) Eosinophils (%) (Auto) 2 % (0-3) Basophils (%) (Auto) 1 % (0-3) Neutrophils # (Auto) 6.5 x10^3uL (1.8-7.7) Lymphocytes # (Auto) 1.2 x10^3/uL (1.0-4.8) Monocytes # (Auto) 0.4 x10^3/uL (0.0-1.1) Eosinophils # (Auto) 0.2 x10^3/uL (0.0-0.7) Basophils # (Auto) 0.1 x10^3/uL (0.0-0.2) Sodium Level 142 mmol/L (136-145) Potassium Level 4.6 mmol/L (3.5-5.1) Chloride Level 106 mmol/L (98-107) Carbon Dioxide Level 30 mmol/L (21-32) Anion Gap 6 (6-14) Blood Urea Nitrogen 47 mg/dL (7-20) Creatinine 1.6 mg/dL (0.6-1.0) Estimated GFR (Cockcroft-Gault) 36.8 Glucose Level 96 mg/dL (70-99) Calcium Level 8.6 mg/dL (8.5-10.1) Laboratory Tests Test 09/15/17 11:30 09/15/17 14:31 09/15/17 18:45 09/15/17 22:09 Troponin I Quantitative 1.289 ng/mL (0.000-0.055) Glucose (Fingerstick) 102 mg/dL (70-99) 115 mg/dL (70-99) Heparin Anti-Xa Act, Unfractionated 0.19 IU/mL (0.30-0.70) Test 09/16/17 03:00 09/16/17 10:00 White Blood Count 8.4 x10^3/uL (4.0-11.0) Red Blood Count 4.31 x10^6/uL (3.50-5.40) Hemoglobin 9.3 g/dL (12.0-15.5) Hematocrit 30.1 % (36.0-47.0) Mean Corpuscular Volume 70 fL (79-100) Mean Corpuscular Hemoglobin 22 pg (25-35) Mean Corpuscular Hemoglobin Concent 31 g/dL (31-37) Red Cell Distribution Width 19.3 % (11.5-14.5) Platelet Count 185 x10^3/uL (140-400) Neutrophils (%) (Auto) 78 % (31-73) Lymphocytes (%) (Auto) 14 % (24-48) Monocytes (%) (Auto) 5 % (0-9) Eosinophils (%) (Auto) 2 % (0-3) Basophils (%) (Auto) 1 % (0-3) Neutrophils # (Auto) 6.5 x10^3uL (1.8-7.7) Lymphocytes # (Auto) 1.2 x10^3/uL (1.0-4.8) Monocytes # (Auto) 0.4 x10^3/uL (0.0-1.1) Eosinophils # (Auto) 0.2 x10^3/uL (0.0-0.7) Basophils # (Auto) 0.1 x10^3/uL (0.0-0.2) Heparin Anti-Xa Act, Unfractionated 0.67 IU/mL (0.30-0.70) 0.61 IU/mL (0.30-0.70) Sodium Level 142 mmol/L (136-145) Potassium Level 4.6 mmol/L (3.5-5.1) Chloride Level 106 mmol/L (98-107) Carbon Dioxide Level 30 mmol/L (21-32) Anion Gap 6 (6-14) Blood Urea Nitrogen 47 mg/dL (7-20) Creatinine 1.6 mg/dL (0.6-1.0) Estimated GFR (Cockcroft-Gault) 36.8 Glucose Level 96 mg/dL (70-99) Calcium Level 8.6 mg/dL (8.5-10.1) Medications Active Scripts Medications Dose Route/Sig Max Daily Dose Days Date Category Dose Instructions Lorazepam 0.5 Mg Tablet 1 Tab PO TID 09/15/17 Reported Haloperidol 2 Mg Tablet 0.5 Tab PO PRN Q4HRS PRN 09/15/17 Reported Voltaren (Diclofenac Sodium) 100 Gm Gel..gram. 1 Gm TP PRN BID PRN 09/15/17 Reported Gabapentin 100 Mg Capsule 200 Mg PO TID 09/15/17 Reported Levsin (Hyoscyamine Sulfate) 0.125 Mg Tablet 1 Tab PO Q4HRS 09/15/17 Reported Spironolactone 25 Mg Tablet 1 Tab PO DAILY 09/15/17 Reported Levemir (Insulin Detemir) 100 Unit/1 Ml Vial 10 Unit SQ HS 01/18/17 Reported Furosemide 40 Mg Tablet 1 Tab PO DAILY 01/18/17 Reported K-Tab ER (Potassium Chloride) 20 Meq Tablet.er 20 Meq PO DAILY 01/18/17 Reported Isosorbide Mononitrate 20 Mg Tablet 20 Mg PO DAILY 01/05/17 Reported Voltaren (Diclofenac Sodium) 100 Gm Gel..gram. 2 Gm TP QID 12/17/16 Reported Vitamin D-3 (Cholecalciferol (Vitamin D3)) 2,000 Unit Tablet 3,000 Unit PO 12/17/16 Reported Santyl Ointment (Collagenase) 30 Gm Oint...g. 1 Sade TP DAILY 12/17/16 Reported DIRECTED BY PHYSICIAN Protonix (Pantoprazole Sodium) 40 Mg Granpkt.dr 40 Mg PO DAILY 12/17/16 Reported Mirtazapine 7.5 Mg Tablet 7.5 Mg PO HS 12/17/16 Reported Milk Of Magnesia (Magnesium Hydroxide) 400 Mg/5 Ml Oral.susp 1,200 Mg PO 12/17/16 Reported Colace (Docusate Sodium) 100 Mg Capsule 1 Cap PO DAILY08 12/17/16 Reported Acetaminophen 500 Mg Tablet 1 Tab PO PRN Q8HRS PRN 12/17/16 Reported Cozaar (Losartan Potassium) 25 Mg Tablet 25 Mg PO DAILY 05/10/14 Rx Hydralazine Hcl 50 Mg Tablet 25 Mg PO TIDWMEALS 05/07/14 Reported Toprol Xl (Metoprolol Succinate) 50 Mg Tab.er.24h 25 Mg PO HS 05/07/14 Reported [place] 7.5-325 Tablet (Acetaminophen/Hydrocodone Bitart) 1 Each Tablet 1 Tab PO PRN TID PRN 05/07/14 Reported Daily Multiple Vitamin (Multivitamin) 1 Each Tablet 1 Each PO [id number] 05/07/14 Reported Impression . 1. Acute hypoxic respiratory failure secondary to acute systolic heart failure/cardiogenic shock. 2. Hypotension secondary to cardiogenic shock. Unlikely sepsis. 3. History of cardiomyopathy with an ejection fraction of 45% . She also has [id number] aortic insufficiency. 4. Increased troponin, suspect non-ST myocardial infarction. 5. Mild reactive leukocytosis. 6. Underlying dementia and encephalopathy. Plan . 1. Continue with present oxygen via nasal cannula with p.r.n. BiPAP. 2. P.r.n. vasopressor. 3. Antibiotics can be discontinued. I do not see any clinical signs of infection. This is all heart failure. 4. Cardiology recommendations. 5. Had discussion with the family . DNR/DNI. continue medical treatment 6. Cautious diuresis. 7. Discussed with WILL VEGA MD Sep 16, 2017 11:13
--- NOTE | 2017-09-16 13:05 | PDOC ---
CARDIO Progress Notes Date and Time Date of Service 09/16/2017 Time of Evaluation 1300 Subjective Subjective: No Chest Pain, No shortness of breath, Other ("my legs ache") Vitals Vitals Vital Signs Date Time Temp Pulse Resp B/P (MAP) Pulse Ox O2 Delivery O2 Flow Rate FiO2 09/16/17 11:00 113 140/78 09/16/17 08:00 Room Air 09/16/17 06:00 18 100 4.0 09/16/17 04:00 98.0 98.0 Weight Weight [ ] Input and Output Intake and Output Intake and Output 09/16/17 07:00 Intake Total 5590 ml Output Total 2585 ml Balance 3005 ml Intake Oral 350 ml IV Total 5240 ml Output Urine Total 2585 ml # Bowel Movements 2 Laboratory Labs Laboratory Tests Test 09/15/17 14:31 09/15/17 18:45 09/15/17 22:09 09/16/17 03:00 Glucose (Fingerstick) 102 mg/dL (70-99) 115 mg/dL (70-99) Heparin Anti-Xa Act, Unfractionated 0.19 IU/mL (0.30-0.70) 0.67 IU/mL (0.30-0.70) White Blood Count 8.4 x10^3/uL (4.0-11.0) Red Blood Count 4.31 x10^6/uL (3.50-5.40) Hemoglobin 9.3 g/dL (12.0-15.5) Hematocrit 30.1 % (36.0-47.0) Mean Corpuscular Volume 70 fL (79-100) Mean Corpuscular Hemoglobin 22 pg (25-35) Mean Corpuscular Hemoglobin Concent 31 g/dL (31-37) Red Cell Distribution Width 19.3 % (11.5-14.5) Platelet Count 185 x10^3/uL (140-400) Neutrophils (%) (Auto) 78 % (31-73) Lymphocytes (%) (Auto) 14 % (24-48) Monocytes (%) (Auto) 5 % (0-9) Eosinophils (%) (Auto) 2 % (0-3) Basophils (%) (Auto) 1 % (0-3) Neutrophils # (Auto) 6.5 x10^3uL (1.8-7.7) Lymphocytes # (Auto) 1.2 x10^3/uL (1.0-4.8) Monocytes # (Auto) 0.4 x10^3/uL (0.0-1.1) Eosinophils # (Auto) 0.2 x10^3/uL (0.0-0.7) Basophils # (Auto) 0.1 x10^3/uL (0.0-0.2) Sodium Level 142 mmol/L (136-145) Potassium Level 4.6 mmol/L (3.5-5.1) Chloride Level 106 mmol/L (98-107) Carbon Dioxide Level 30 mmol/L (21-32) Anion Gap 6 (6-14) Blood Urea Nitrogen 47 mg/dL (7-20) Creatinine 1.6 mg/dL (0.6-1.0) Estimated GFR (Cockcroft-Gault) 36.8 Glucose Level 96 mg/dL (70-99) Calcium Level 8.6 mg/dL (8.5-10.1) Test 09/16/17 10:00 09/16/17 11:47 Heparin Anti-Xa Act, Unfractionated 0.61 IU/mL (0.30-0.70) Glucose (Fingerstick) 117 mg/dL (70-99) Microbiology Micro Microbiology 09/15/17 Blood Culture - Preliminary, Resulted NO GROWTH AFTER 1 DAY 09/14/17 Urine Culture - Preliminary, Resulted 09/14/17 Urine Culture Result 1 ([facility]) - Preliminary, Resulted Physical Exam HEENT: Neck Supple W Full Motion Chest: Symmetric LUNGS: Clear to Auscultation Heart: S1S2, irregularly irregular (AFIB ) Extremities: No Calf Tenderness Neurology: alert, follow commands Assessment Assessment AFIB RVR BB and dig Hospice when DC 1. NSTEMI: CP free 2. Acute on chronic systolic/diastolic CHF: compensated. EF 45% with valvular insufficiency and mod pulmonary HTN 3. Shock: resolved 4. Chronic microcytic anemia 5. GOOD on CKD: improving 6. CAD: CABG in the past 7. SSS: PPM 8. HTN: controlled. off levophed 9. PAFIB: now on AFIB RVR 10. Dementia 11. Acute respiratory failure: much better, off O2 12. Encephalopathy 13. DM2/HLP Recommendations 1. Pt to be transitioned to comfort care per staff. Continue with ASA. Dig x1 and restart home toprol and may uptitrate as warranted. 2. DC heparin. 3. Pt was on hospice and apparently revoked this x2. Nothing further at this time. Pls call if any questions. NEWTON PUENTE BUCKET TURNER Sep 16, 2017 13:05
[2017-09-16] MEDS ORDERED: DIGOXIN IV 500 MCG/2 ML AMPUL. IV ONE (13:15)
[2017-09-16] MEDS ORDERED: METOPROLOL SUCC 24HR ER 25 MG TAB.ER.24H. PO ONE (13:15)
--- NOTE | 2017-09-16 13:51 | RAD ---
Single view of the Chest 09/16/2017 11:56 AM Indication: Congestive heart failure. Comparison: Chest radiograph September 14, 2017 Findings: No pneumothorax is identified. Small bilateral pleural effusions are again noted, similar to comparison study. There is persistent central vascular congestion and interstitial thickening suggestive of edema. The heart is enlarged but stable. Prior median sternotomy noted. Dual-lead pacemaking device from a left subclavian approach is grossly stable. No acute osseous changes are seen. Impression: Stable changes of congestive failure including small pleural effusions, central vascular congestion, and mild interstitial edema
[2017-09-16] MEDS: ASPIRIN ENTERIC COATED 81 MG TABLET.DR. PO SCH (17:12)
[2017-09-16] MEDS: ACETAMINOPHEN 500 MG TABLET PO PRN (19:44)
[2017-09-16] MEDS: LABETALOL 20 MG/4 ML DISP.SYRIN. IVP PRN (19:44)
[2017-09-16] MEDS ORDERED: PIP/TAZO PER PHARMACY MC PRN (22:45)
[2017-09-16] MEDS ORDERED: VANCOMYCIN 1 GM in IV DEXTROSE 5% 250 ML IV SCH (23:00)
[2017-09-16] MEDS ORDERED: VANCOMYCIN 1 GM in IV DEXTROSE 5% 250 ML IV ONE (23:00)
[2017-09-17] VITALS (7 sets, daily range): BP systolic 147–183; BP diastolic 69–103
[2017-09-17] MEDS: PIPERACILLIN/TAZO IV Push 2.25 GM VIAL. IVP SCH (00:33)
[2017-09-17 03:46] LABS: BASO % 0 % (0-3); EOS % 0 % (0-3); HEMATOCRIT 34.5 % (36.0-47.0); HEMOGLOBIN 10.6 g/dL (12.0-15.5); LYMPH # 0.5 x10^3/uL (1.0-4.8); LYMPH % 7 % (24-48); MEAN CORPUSCULAR HEMOGLOBIN 22 pg (25-35); MEAN CORPUSCULAR HGB CONC 31 g/dL (31-37); MEAN CORPUSCULAR VOLUME 70 fL (79-100); MONO % 8 % (0-9); NEUT % 85 % (31-73); PLATELET COUNT 201 x10^3/uL (140-400); RED BLOOD COUNT 4.92 x10^6/uL (3.50-5.40); RED CELL DISTRIBUTION WIDTH 19.4 % (11.5-14.5); WHITE BLOOD COUNT 7.7 x10^3/uL (4.0-11.0)
[2017-09-17 04:08] LABS: CALCIUM 9.1 mg/dL (8.5-10.1); CREATININE 2.1 mg/dL (0.6-1.0); GFR 26.9
[2017-09-17] MEDS: INSULIN ASPART 300 UNITS/3 ML INSULN.PEN SQ SCH ×3 (08:00→17:48)
[2017-09-17] MEDS: ASPIRIN ENTERIC COATED 81 MG TABLET.DR. PO SCH (08:45)
[2017-09-17] MEDS: METOPROLOL SUCC 24HR ER 25 MG TAB.ER.24H. PO SCH (09:00)
[2017-09-17] MEDS ORDERED: FUROSEMIDE 40 MG/4 ML VIAL. IVP ONE (09:00)
--- NOTE | 2017-09-17 10:30 | PDOC ---
PROGRESS NOTES Subjective Subjective feeling better ,smiling ,eating breakfast Objective Objective Vital Signs Date Time Temp Pulse Resp B/P (MAP) Pulse Ox O2 Delivery O2 Flow Rate FiO2 09/17/17 07:00 98.4 114 19 163/96 (118) 94 Room Air 98.4 Intake and Output 09/17/17 07:00 Intake Total 220 ml Balance 220 ml Intake Oral 220 ml Physical Exam Abdomen: Soft Heart: Other (4/6 systolic murmur to LLS border, tachycardia improving 100 range) Extremities: Other (3+ bilateral LE pitting edema) General: Other (awake) HEENT: Atraumatic Lungs: Other (basilar crackles) MUSCULOSKELETAL: Osteoarthritic changes both hands Neuro: Normal speech, Sensation intact Psych/Mental Status: Other (lethargic) Skin: No breakdown COMMENT edema both legs 2+ Diagnosis Problem List Problems Medical Problems: (1) CHF exacerbation Status: Acute (2) Elevated troponin Status: Acute (3) Right lower lobe pneumonia Status: Acute Assessment Assessment Problems Medical Problems: (1) CHF exacerbation Status: Acute (2) Elevated troponin Status: Acute (3) Right lower lobe pneumonia Status: Acute FINAL IMPRESSION: 1. Acute shortness of breath with hypotension on pressors (levophed) ,resolved. 2. Doubt Healthcare-associated pneumonia. cxr improved,more likely chf rather than pneumonia 3. Hypotension with possible sepsis. 4. Atrial fibrillation. 5. Hypertension. 6. Chronic systolic heart failure. 7. Diabetes. 8. 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 9. Protein-calorie malnutrition. 10.Elevated troponin PLAN: moved out of icu off pressors off antibiotics d/c to SNU tomorrow IV lasix 1 dose and inc Bb presley dose spoke with daughter , palliative team to have family meeting today. DNR/DNI. ECHO 40% ejf, doppler leg -neg for DVT. appreciate cardiology and pul in put. off bipap on n/c . dvt prevention Problems: Plan Plan of Care Problems Medical Problems: (1) CHF exacerbation Status: Acute (2) Elevated troponin Status: Acute (3) Right lower lobe pneumonia Status: Acute Comment Review of Relevant I have reviewed the following items davin (where applicable) has been applied. Labs Laboratory Tests Test 09/16/17 11:47 09/16/17 17:59 09/16/17 20:39 09/17/17 03:00 Glucose (Fingerstick) 117 mg/dL (70-99) 106 mg/dL (70-99) 125 mg/dL (70-99) White Blood Count 7.7 x10^3/uL (4.0-11.0) Red Blood Count 4.92 x10^6/uL (3.50-5.40) Hemoglobin 10.6 g/dL (12.0-15.5) Hematocrit 34.5 % (36.0-47.0) Mean Corpuscular Volume 70 fL (79-100) Mean Corpuscular Hemoglobin 22 pg (25-35) Mean Corpuscular Hemoglobin Concent 31 g/dL (31-37) Red Cell Distribution Width 19.4 % (11.5-14.5) Platelet Count 201 x10^3/uL (140-400) Neutrophils (%) (Auto) 85 % (31-73) Lymphocytes (%) (Auto) 7 % (24-48) Monocytes (%) (Auto) 8 % (0-9) Eosinophils (%) (Auto) 0 % (0-3) Basophils (%) (Auto) 0 % (0-3) Neutrophils # (Auto) 6.6 x10^3uL (1.8-7.7) Lymphocytes # (Auto) 0.5 x10^3/uL (1.0-4.8) Monocytes # (Auto) 0.6 x10^3/uL (0.0-1.1) Eosinophils # (Auto) 0.0 x10^3/uL (0.0-0.7) Basophils # (Auto) 0.0 x10^3/uL (0.0-0.2) Sodium Level 140 mmol/L (136-145) Potassium Level 5.0 mmol/L (3.5-5.1) Chloride Level 104 mmol/L (98-107) Carbon Dioxide Level 22 mmol/L (21-32) Anion Gap 14 (6-14) Blood Urea Nitrogen 53 mg/dL (7-20) Creatinine 2.1 mg/dL (0.6-1.0) Estimated GFR (Cockcroft-Gault) 26.9 Glucose Level 162 mg/dL (70-99) Calcium Level 9.1 mg/dL (8.5-10.1) Test 09/17/17 07:26 Glucose (Fingerstick) 167 mg/dL (70-99) Microbiology 09/15/17 Blood Culture - Preliminary, Resulted NO GROWTH AFTER 1 DAY 09/14/17 Urine Culture - Final, Complete 09/14/17 Urine Culture Result 1 ([facility]) - Final, Complete Medications Current Medications Acetaminophen (Tylenol) 500 mg PRN Q8HRS PRN PO PAIN Last administered on 09/16 19:44; Start 09/16/17 at 11:30 Aspirin (Ecotrin) 81 mg DAILYWBKFT PO Last administered on 09/17/17 08:45; Start 09/16/17 at 13:30 Digoxin (Lanoxin) 500 mcg 1X ONCE IV Last administered on 09/16/17 14:12; Start 09/16/17 at 13:15; Stop 09/16/17 at 13:16; Status DC Furosemide (Lasix) 40 mg 1X ONCE IVP Last administered on 09/17/17 10:02; Start 09/17/17 at 09:00; Stop 09/17/17 at 09:01; Status DC Haloperidol (Haldol) 1 mg PRN Q4HRS PRN PO ANXIETY / AGITATION Last administered on 09/16/17 21:59; Start 09/16/17 at 10:45 Labetalol HCl (Normodyne) 20 mg PRN Q2HR PRN IVP HYPERTENSION, SEE COMMENTS Last administered on 09/16/17 19:44; Start 09/16/17 at 19:45 Metoprolol Succinate (Toprol Xl) 25 mg 1X ONCE PO Last administered on 17:12; Start 09/16/17 at 13:15; Stop 09/16/17 at 13:16; Status DC Metoprolol Succinate (Toprol Xl) 25 mg DAILY PO Last administered on 11:00; Start 09/16/17 at 11:00; Stop 09/16/17 at 13:04; Status DC Metoprolol Succinate (Toprol Xl) 50 mg DAILY PO ; Start 09/16/17 at 13:30; Stop 09/17/17 at 08:48; Status DC Metoprolol Succinate (Toprol Xl) 75 mg DAILY PO ; Start 09/17/17 at 09:00 Piperacillin Sod/ Tazobactam Sod (Zosyn Per Pharmacy) 1 each PRN DAILY PRN MC SEE COMMENTS; Start 09/16/17 at 22:45; Stop 09/17/17 at 05:00; Status DC Vancomycin HCl 1 each 1X ONCE MC ; Start 09/18/17 at 22:30; Stop 09/18/17 at 22:31 Vancomycin HCl 1 gm/Dextrose 250 ml @ 250 mls/hr ONCE ONCE IV Last administered on 09/16/17t 23:24; Start 09/16/17 at 23:00; Stop 09/16/17 at 23 :59; Status DC Vancomycin HCl 1 gm/Dextrose 250 ml @ 250 mls/hr Q48H IV ; Start 09/16/17 at 23:00; Stop 09/16/17 at 23:00; Status DC Vitals/I & O Vital Sign - Last 24 Hours 09/16/17 09/16/17 09/16/17 09/16/17 11:00 14:12 17:12 18:10 Pulse 113 113 110 B/P (MAP) 140/78 140/78 138/78 O2 Delivery Room Air 09/16/17 09/16/17 09/16/17 09/16/17 18:24 19:31 19:44 20:00 Temp 98.9 98.8 98.9 98.8 Pulse 105 103 108 Resp 21 20 B/P (MAP) 154/70 (98) 173/75 (107) 173/75 Pulse Ox 98 95 O2 Delivery Room Air Room Air Room Air 09/16/17 09/17/17 09/17/17 22:52 02:43 07:00 Temp 98.4 98.6 98.4 98.4 98.6 98.4 Pulse 95 104 114 Resp 20 18 19 B/P (MAP) 168/69 (102) 147/69 (95) 163/96 (118) Pulse Ox 94 94 94 O2 Delivery Room Air Room Air Room Air Intake and Output 09/16/17 09/16/17 09/17/17 15:00 23:00 07:00 Intake Total 220 ml 0 ml Balance 220 ml 0 ml TAMERA ALMAZAN MD Sep 17, 2017 10:30
[2017-09-17] MEDS ORDERED: METOPROLOL SUCC 24HR ER 25 MG TAB.ER.24H. PO ONE (11:30)
--- NOTE | 2017-09-17 12:15 | PDOC ---
PULMONARY PROGRESS NOTES Subjective looks better, off pressor Vitals Vital Signs Date Time Temp Pulse Resp B/P (MAP) Pulse Ox O2 Delivery O2 Flow Rate FiO2 09/17/17 11:36 92 167/85 09/17/17 10:41 98.8 18 96 Room Air 98.8 General: Alert, No acute distress Lungs: Clear Cardiovascular: S1 Abdomen: Soft Extremities: Other (trace edema) Skin: Warm Labs Laboratory Tests Test 09/15/17 14:31 09/15/17 18:45 09/15/17 22:09 09/16/17 03:00 Glucose (Fingerstick) 102 mg/dL (70-99) 115 mg/dL (70-99) Heparin Anti-Xa Act, Unfractionated 0.19 IU/mL (0.30-0.70) 0.67 IU/mL (0.30-0.70) White Blood Count 8.4 x10^3/uL (4.0-11.0) Red Blood Count 4.31 x10^6/uL (3.50-5.40) Hemoglobin 9.3 g/dL (12.0-15.5) Hematocrit 30.1 % (36.0-47.0) Mean Corpuscular Volume 70 fL (79-100) Mean Corpuscular Hemoglobin 22 pg (25-35) Mean Corpuscular Hemoglobin Concent 31 g/dL (31-37) Red Cell Distribution Width 19.3 % (11.5-14.5) Platelet Count 185 x10^3/uL (140-400) Neutrophils (%) (Auto) 78 % (31-73) Lymphocytes (%) (Auto) 14 % (24-48) Monocytes (%) (Auto) 5 % (0-9) Eosinophils (%) (Auto) 2 % (0-3) Basophils (%) (Auto) 1 % (0-3) Neutrophils # (Auto) 6.5 x10^3uL (1.8-7.7) Lymphocytes # (Auto) 1.2 x10^3/uL (1.0-4.8) Monocytes # (Auto) 0.4 x10^3/uL (0.0-1.1) Eosinophils # (Auto) 0.2 x10^3/uL (0.0-0.7) Basophils # (Auto) 0.1 x10^3/uL (0.0-0.2) Sodium Level 142 mmol/L (136-145) Potassium Level 4.6 mmol/L (3.5-5.1) Chloride Level 106 mmol/L (98-107) Carbon Dioxide Level 30 mmol/L (21-32) Anion Gap 6 (6-14) Blood Urea Nitrogen 47 mg/dL (7-20) Creatinine 1.6 mg/dL (0.6-1.0) Estimated GFR (Cockcroft-Gault) 36.8 Glucose Level 96 mg/dL (70-99) Calcium Level 8.6 mg/dL (8.5-10.1) Test 09/16/17 10:00 09/16/17 11:47 09/16/17 17:59 09/16/17 20:39 Heparin Anti-Xa Act, Unfractionated 0.61 IU/mL (0.30-0.70) Glucose (Fingerstick) 117 mg/dL (70-99) 106 mg/dL (70-99) 125 mg/dL (70-99) Test 09/17/17 03:00 09/17/17 07:26 09/17/17 11:21 White Blood Count 7.7 x10^3/uL (4.0-11.0) Red Blood Count 4.92 x10^6/uL (3.50-5.40) Hemoglobin 10.6 g/dL (12.0-15.5) Hematocrit 34.5 % (36.0-47.0) Mean Corpuscular Volume 70 fL (79-100) Mean Corpuscular Hemoglobin 22 pg (25-35) Mean Corpuscular Hemoglobin Concent 31 g/dL (31-37) Red Cell Distribution Width 19.4 % (11.5-14.5) Platelet Count 201 x10^3/uL (140-400) Neutrophils (%) (Auto) 85 % (31-73) Lymphocytes (%) (Auto) 7 % (24-48) Monocytes (%) (Auto) 8 % (0-9) Eosinophils (%) (Auto) 0 % (0-3) Basophils (%) (Auto) 0 % (0-3) Neutrophils # (Auto) 6.6 x10^3uL (1.8-7.7) Lymphocytes # (Auto) 0.5 x10^3/uL (1.0-4.8) Monocytes # (Auto) 0.6 x10^3/uL (0.0-1.1) Eosinophils # (Auto) 0.0 x10^3/uL (0.0-0.7) Basophils # (Auto) 0.0 x10^3/uL (0.0-0.2) Sodium Level 140 mmol/L (136-145) Potassium Level 5.0 mmol/L (3.5-5.1) Chloride Level 104 mmol/L (98-107) Carbon Dioxide Level 22 mmol/L (21-32) Anion Gap 14 (6-14) Blood Urea Nitrogen 53 mg/dL (7-20) Creatinine 2.1 mg/dL (0.6-1.0) Estimated GFR (Cockcroft-Gault) 26.9 Glucose Level 162 mg/dL (70-99) Calcium Level 9.1 mg/dL (8.5-10.1) Glucose (Fingerstick) 167 mg/dL (70-99) 147 mg/dL (70-99) Laboratory Tests Test 09/16/17 17:59 09/16/17 20:39 09/17/17 03:00 09/17/17 07:26 Glucose (Fingerstick) 106 mg/dL (70-99) 125 mg/dL (70-99) 167 mg/dL (70-99) White Blood Count 7.7 x10^3/uL (4.0-11.0) Red Blood Count 4.92 x10^6/uL (3.50-5.40) Hemoglobin 10.6 g/dL (12.0-15.5) Hematocrit 34.5 % (36.0-47.0) Mean Corpuscular Volume 70 fL (79-100) Mean Corpuscular Hemoglobin 22 pg (25-35) Mean Corpuscular Hemoglobin Concent 31 g/dL (31-37) Red Cell Distribution Width 19.4 % (11.5-14.5) Platelet Count 201 x10^3/uL (140-400) Neutrophils (%) (Auto) 85 % (31-73) Lymphocytes (%) (Auto) 7 % (24-48) Monocytes (%) (Auto) 8 % (0-9) Eosinophils (%) (Auto) 0 % (0-3) Basophils (%) (Auto) 0 % (0-3) Neutrophils # (Auto) 6.6 x10^3uL (1.8-7.7) Lymphocytes # (Auto) 0.5 x10^3/uL (1.0-4.8) Monocytes # (Auto) 0.6 x10^3/uL (0.0-1.1) Eosinophils # (Auto) 0.0 x10^3/uL (0.0-0.7) Basophils # (Auto) 0.0 x10^3/uL (0.0-0.2) Sodium Level 140 mmol/L (136-145) Potassium Level 5.0 mmol/L (3.5-5.1) Chloride Level 104 mmol/L (98-107) Carbon Dioxide Level 22 mmol/L (21-32) Anion Gap 14 (6-14) Blood Urea Nitrogen 53 mg/dL (7-20) Creatinine 2.1 mg/dL (0.6-1.0) Estimated GFR (Cockcroft-Gault) 26.9 Glucose Level 162 mg/dL (70-99) Calcium Level 9.1 mg/dL (8.5-10.1) Test 09/17/17 11:21 Glucose (Fingerstick) 147 mg/dL (70-99) Medications Active Scripts Medications Dose Route/Sig Max Daily Dose Days Date Category Dose Instructions Lorazepam 0.5 Mg Tablet 1 Tab PO TID 09/15/17 Reported Haloperidol 2 Mg Tablet 0.5 Tab PO PRN Q4HRS PRN 09/15/17 Reported Voltaren (Diclofenac Sodium) 100 Gm Gel..gram. 1 Gm TP PRN BID PRN 09/15/17 Reported Gabapentin 100 Mg Capsule 200 Mg PO TID 09/15/17 Reported Levsin (Hyoscyamine Sulfate) 0.125 Mg Tablet 1 Tab PO Q4HRS 09/15/17 Reported Spironolactone 25 Mg Tablet 1 Tab PO DAILY 09/15/17 Reported Levemir (Insulin Detemir) 100 Unit/1 Ml Vial 10 Unit SQ HS 01/18/17 Reported Furosemide 40 Mg Tablet 1 Tab PO DAILY 01/18/17 Reported K-Tab ER (Potassium Chloride) 20 Meq Tablet.er 20 Meq PO DAILY 01/18/17 Reported Isosorbide Mononitrate 20 Mg Tablet 20 Mg PO DAILY 01/05/17 Reported Voltaren (Diclofenac Sodium) 100 Gm Gel..gram. 2 Gm TP QID 12/17/16 Reported Vitamin D-3 (Cholecalciferol (Vitamin D3)) 2,000 Unit Tablet 3,000 Unit PO 12/17/16 Reported Santyl Ointment (Collagenase) 30 Gm Oint...g. 1 Sade TP DAILY 12/17/16 Reported DIRECTED BY PHYSICIAN Protonix (Pantoprazole Sodium) 40 Mg Granpkt.dr 40 Mg PO DAILY 12/17/16 Reported Mirtazapine 7.5 Mg Tablet 7.5 Mg PO HS 12/17/16 Reported Milk Of Magnesia (Magnesium Hydroxide) 400 Mg/5 Ml Oral.susp 1,200 Mg PO 12/17/16 Reported Colace (Docusate Sodium) 100 Mg Capsule 1 Cap PO DAILY08 12/17/16 Reported Acetaminophen 500 Mg Tablet 1 Tab PO PRN Q8HRS PRN 12/17/16 Reported Cozaar (Losartan Potassium) 25 Mg Tablet 25 Mg PO DAILY 05/10/14 Rx Hydralazine Hcl 50 Mg Tablet 25 Mg PO TIDWMEALS 05/07/14 Reported Toprol Xl (Metoprolol Succinate) 50 Mg Tab.er.24h 25 Mg PO HS 05/07/14 Reported [place]y 7.5-325 Tablet (Acetaminophen/Hydrocodone Bitart) 1 Each Tablet 1 Tab PO PRN TID PRN 05/07/14 Reported Daily Multiple Vitamin (Multivitamin) 1 Each Tablet 1 Each PO DAILYWBKFT 05/07/14 Reported Impression . 1. Acute hypoxic respiratory failure secondary to acute systolic heart failure/cardiogenic shock. 2. Hypotension secondary to cardiogenic shock. Unlikely sepsis. 3. History of cardiomyopathy with an ejection fraction of 45% . She also has sudm-st-[id number] aortic insufficiency. 4. Increased troponin, suspect non-ST myocardial infarction. 5. Mild reactive leukocytosis. 6. Underlying dementia and encephalopathy. Plan . 1. Continue with present oxygen via nasal cannula 2. P.r.n. vasopressor. 3. Antibiotics can be discontinued. I do not see any clinical signs of infection. This is all heart failure. 4. Cardiology recommendations. 5. Had discussion with the family . DNR/DNI. continue medical treatment 6. Cautious diuresis. 7. Discussed with RN/ WILL TORREZ MD Sep 17, 2017 12:15
--- NOTE | 2017-09-17 13:45 | PDOC ---
CARDIO Progress Notes Date and Time Date of Service 09/17/2017 Time of Evaluation 1150 Subjective Subjective: No Chest Pain, No shortness of breath, No Palpitations Vitals Vitals Vital Signs Date Time Temp Pulse Resp B/P (MAP) Pulse Ox O2 Delivery O2 Flow Rate FiO2 09/17/17 11:36 92 167/85 09/17/17 10:41 98.8 18 96 Room Air 98.8 Weight Weight [ ] Input and Output Intake and Output Intake and Output 09/17/17 07:00 Intake Total 220 ml Balance 220 ml Intake Oral 220 ml Laboratory Labs Laboratory Tests Test 09/16/17 17:59 09/16/17 20:39 09/17/17 03:00 09/17/17 07:26 Glucose (Fingerstick) 106 mg/dL (70-99) 125 mg/dL (70-99) 167 mg/dL (70-99) White Blood Count 7.7 x10^3/uL (4.0-11.0) Red Blood Count 4.92 x10^6/uL (3.50-5.40) Hemoglobin 10.6 g/dL (12.0-15.5) Hematocrit 34.5 % (36.0-47.0) Mean Corpuscular Volume 70 fL (79-100) Mean Corpuscular Hemoglobin 22 pg (25-35) Mean Corpuscular Hemoglobin Concent 31 g/dL (31-37) Red Cell Distribution Width 19.4 % (11.5-14.5) Platelet Count 201 x10^3/uL (140-400) Neutrophils (%) (Auto) 85 % (31-73) Lymphocytes (%) (Auto) 7 % (24-48) Monocytes (%) (Auto) 8 % (0-9) Eosinophils (%) (Auto) 0 % (0-3) Basophils (%) (Auto) 0 % (0-3) Neutrophils # (Auto) 6.6 x10^3uL (1.8-7.7) Lymphocytes # (Auto) 0.5 x10^3/uL (1.0-4.8) Monocytes # (Auto) 0.6 x10^3/uL (0.0-1.1) Eosinophils # (Auto) 0.0 x10^3/uL (0.0-0.7) Basophils # (Auto) 0.0 x10^3/uL (0.0-0.2) Sodium Level 140 mmol/L (136-145) Potassium Level 5.0 mmol/L (3.5-5.1) Chloride Level 104 mmol/L (98-107) Carbon Dioxide Level 22 mmol/L (21-32) Anion Gap 14 (6-14) Blood Urea Nitrogen 53 mg/dL (7-20) Creatinine 2.1 mg/dL (0.6-1.0) Estimated GFR (Cockcroft-Gault) 26.9 Glucose Level 162 mg/dL (70-99) Calcium Level 9.1 mg/dL (8.5-10.1) Test 09/17/17 11:21 Glucose (Fingerstick) 147 mg/dL (70-99) Microbiology Micro Microbiology 09/15/17 Blood Culture - Preliminary, Resulted NO GROWTH AFTER 2 DAYS 09/14/17 Urine Culture - Final, Complete 09/14/17 Urine Culture Result 1 ([facility]) - Final, Complete Physical Exam HEENT: Neck Supple W Full Motion Chest: Symmetric LUNGS: Other (basilar crackles) Heart: S1S2, irregularly irregular (AFIB ) Abdomen: Soft N/T Extremities: No Calf Tenderness Neurology: alert, follow commands Assessment Assessment 1. NSTEMI: CP free 2. Acute on chronic systolic/diastolic CHF: Overhydration overnight, appears compensated 3. Shock: resolved 4. Chronic microcytic anemia 5. GOOD on CKD: improving 6. CAD: CABG in the past 7. SSS: PPM 8. HTN: controlled. off levophed 9. PAFIB: HR at 110 AFIB 10. Dementia: pleasant at this time 11. Acute respiratory failure: much better 12. Encephalopathy: improved 13. DM2/HLP Recommendations 1. Transitioning to comfort care when discharged to SNU 2. x1 IV lasix. Increase metoprolol. May diurese PRN with po lasix depending on his po hydration 3. Nothing further at this time and will sign off. NEWTON PUENTE ACCOUNTING ASSISTANT Sep 17, 2017 13:45
--- NOTE | 2017-09-17 13:52 | RAD ---
Single view of the Chest 09/17/2017 12:28 PM Indication: chf f/u Comparison: Chest radiograph, yesterday Findings: There are bilateral pleural effusions, slightly increased in the interim, now moderate on the right and small in the left. No pneumothorax. Central pulmonary vascular congestion persists. Postoperative changes to the mediastinum are similar. Dual-lead pacemaking device from a left subclavian approach is unchanged. Impression: Bilateral pleural effusions, moderate on the right and smaller left. Persistent central vascular congestion. Findings consistent with congestive failure.
[2017-09-17] MEDS: LABETALOL 20 MG/4 ML DISP.SYRIN. IVP PRN ×2 (19:50→23:23)
[2017-09-17] MEDS: ACETAMINOPHEN 500 MG TABLET PO PRN (20:42)
[2017-09-18 00:22] VITALS: BP 164/75
[2017-09-18 03:10] VITALS: BP 158/85
[2017-09-18 03:27] LABS: BASO # 0.1 x10^3/uL (0.0-0.2); BASO % 1 % (0-3); EOS % 0 % (0-3); HEMATOCRIT 33.9 % (36.0-47.0); HEMOGLOBIN 10.6 g/dL (12.0-15.5); LYMPH # 0.7 x10^3/uL (1.0-4.8); LYMPH % 8 % (24-48); MEAN CORPUSCULAR HEMOGLOBIN 21 pg (25-35); MEAN CORPUSCULAR HGB CONC 31 g/dL (31-37); MEAN CORPUSCULAR VOLUME 68 fL (79-100); MONO % 8 % (0-9); NEUT % 83 % (31-73); PLATELET COUNT 202 x10^3/uL (140-400); RED BLOOD COUNT 4.97 x10^6/uL (3.50-5.40); RED CELL DISTRIBUTION WIDTH 18.8 % (11.5-14.5); WHITE BLOOD COUNT 8.7 x10^3/uL (4.0-11.0)
[2017-09-18 03:38] LABS: CALCIUM 9.8 mg/dL (8.5-10.1); CREATININE 2.3 mg/dL (0.6-1.0); GFR 24.2
[2017-09-18 07:00] VITALS: BP 172/95
[2017-09-18] MEDS: INSULIN ASPART 300 UNITS/3 ML INSULN.PEN SQ SCH ×2 (07:55→12:00)
[2017-09-18] MEDS: METOPROLOL SUCC 24HR ER 25 MG TAB.ER.24H. PO SCH (08:25)
[2017-09-18] MEDS: ASPIRIN ENTERIC COATED 81 MG TABLET.DR. PO SCH (08:26)
--- NOTE | 2017-09-18 10:46 | PDOC ---
PULMONARY PROGRESS NOTES Subjective looks better, Vitals Vital Signs Date Time Temp Pulse Resp B/P (MAP) Pulse Ox O2 Delivery O2 Flow Rate FiO2 09/18/17 08:56 Room Air 4.0 09/18/17 08:25 87 172/95 09/18/17 07:00 98.6 20 98.6 09/18/17 03:10 96 General: Alert, No acute distress Lungs: Clear Cardiovascular: S1 Abdomen: Soft Extremities: Other (trace edema) Skin: Warm Labs Laboratory Tests Test 09/16/17 11:47 09/16/17 17:59 09/16/17 20:39 09/17/17 03:00 Glucose (Fingerstick) 117 mg/dL (70-99) 106 mg/dL (70-99) 125 mg/dL (70-99) White Blood Count 7.7 x10^3/uL (4.0-11.0) Red Blood Count 4.92 x10^6/uL (3.50-5.40) Hemoglobin 10.6 g/dL (12.0-15.5) Hematocrit 34.5 % (36.0-47.0) Mean Corpuscular Volume 70 fL (79-100) Mean Corpuscular Hemoglobin 22 pg (25-35) Mean Corpuscular Hemoglobin Concent 31 g/dL (31-37) Red Cell Distribution Width 19.4 % (11.5-14.5) Platelet Count 201 x10^3/uL (140-400) Neutrophils (%) (Auto) 85 % (31-73) Lymphocytes (%) (Auto) 7 % (24-48) Monocytes (%) (Auto) 8 % (0-9) Eosinophils (%) (Auto) 0 % (0-3) Basophils (%) (Auto) 0 % (0-3) Neutrophils # (Auto) 6.6 x10^3uL (1.8-7.7) Lymphocytes # (Auto) 0.5 x10^3/uL (1.0-4.8) Monocytes # (Auto) 0.6 x10^3/uL (0.0-1.1) Eosinophils # (Auto) 0.0 x10^3/uL (0.0-0.7) Basophils # (Auto) 0.0 x10^3/uL (0.0-0.2) Sodium Level 140 mmol/L (136-145) Potassium Level 5.0 mmol/L (3.5-5.1) Chloride Level 104 mmol/L (98-107) Carbon Dioxide Level 22 mmol/L (21-32) Anion Gap 14 (6-14) Blood Urea Nitrogen 53 mg/dL (7-20) Creatinine 2.1 mg/dL (0.6-1.0) Estimated GFR (Cockcroft-Gault) 26.9 Glucose Level 162 mg/dL (70-99) Calcium Level 9.1 mg/dL (8.5-10.1) Test 09/17/17 07:26 09/17/17 11:21 09/17/17 16:17 09/17/17 20:41 Glucose (Fingerstick) 167 mg/dL (70-99) 147 mg/dL (70-99) 182 mg/dL (70-99) 162 mg/dL (70-99) Test 09/18/17 02:15 09/18/17 07:42 White Blood Count 8.7 x10^3/uL (4.0-11.0) Red Blood Count 4.97 x10^6/uL (3.50-5.40) Hemoglobin 10.6 g/dL (12.0-15.5) Hematocrit 33.9 % (36.0-47.0) Mean Corpuscular Volume 68 fL (79-100) Mean Corpuscular Hemoglobin 21 pg (25-35) Mean Corpuscular Hemoglobin Concent 31 g/dL (31-37) Red Cell Distribution Width 18.8 % (11.5-14.5) Platelet Count 202 x10^3/uL (140-400) Neutrophils (%) (Auto) 83 % (31-73) Lymphocytes (%) (Auto) 8 % (24-48) Monocytes (%) (Auto) 8 % (0-9) Eosinophils (%) (Auto) 0 % (0-3) Basophils (%) (Auto) 1 % (0-3) Neutrophils # (Auto) 7.2 x10^3uL (1.8-7.7) Lymphocytes # (Auto) 0.7 x10^3/uL (1.0-4.8) Monocytes # (Auto) 0.7 x10^3/uL (0.0-1.1) Eosinophils # (Auto) 0.0 x10^3/uL (0.0-0.7) Basophils # (Auto) 0.1 x10^3/uL (0.0-0.2) Sodium Level 141 mmol/L (136-145) Potassium Level 5.0 mmol/L (3.5-5.1) Chloride Level 104 mmol/L (98-107) Carbon Dioxide Level 25 mmol/L (21-32) Anion Gap 12 (6-14) Blood Urea Nitrogen 62 mg/dL (7-20) Creatinine 2.3 mg/dL (0.6-1.0) Estimated GFR (Cockcroft-Gault) 24.2 Glucose Level 160 mg/dL (70-99) Calcium Level 9.8 mg/dL (8.5-10.1) Glucose (Fingerstick) 143 mg/dL (70-99) Laboratory Tests Test 09/17/17 11:21 09/17/17 16:17 09/17/17 20:41 09/18/17 02:15 Glucose (Fingerstick) 147 mg/dL (70-99) 182 mg/dL (70-99) 162 mg/dL (70-99) White Blood Count 8.7 x10^3/uL (4.0-11.0) Red Blood Count 4.97 x10^6/uL (3.50-5.40) Hemoglobin 10.6 g/dL (12.0-15.5) Hematocrit 33.9 % (36.0-47.0) Mean Corpuscular Volume 68 fL (79-100) Mean Corpuscular Hemoglobin 21 pg (25-35) Mean Corpuscular Hemoglobin Concent 31 g/dL (31-37) Red Cell Distribution Width 18.8 % (11.5-14.5) Platelet Count 202 x10^3/uL (140-400) Neutrophils (%) (Auto) 83 % (31-73) Lymphocytes (%) (Auto) 8 % (24-48) Monocytes (%) (Auto) 8 % (0-9) Eosinophils (%) (Auto) 0 % (0-3) Basophils (%) (Auto) 1 % (0-3) Neutrophils # (Auto) 7.2 x10^3uL (1.8-7.7) Lymphocytes # (Auto) 0.7 x10^3/uL (1.0-4.8) Monocytes # (Auto) 0.7 x10^3/uL (0.0-1.1) Eosinophils # (Auto) 0.0 x10^3/uL (0.0-0.7) Basophils # (Auto) 0.1 x10^3/uL (0.0-0.2) Sodium Level 141 mmol/L (136-145) Potassium Level 5.0 mmol/L (3.5-5.1) Chloride Level 104 mmol/L (98-107) Carbon Dioxide Level 25 mmol/L (21-32) Anion Gap 12 (6-14) Blood Urea Nitrogen 62 mg/dL (7-20) Creatinine 2.3 mg/dL (0.6-1.0) Estimated GFR (Cockcroft-Gault) 24.2 Glucose Level 160 mg/dL (70-99) Calcium Level 9.8 mg/dL (8.5-10.1) Test 09/18/17 07:42 Glucose (Fingerstick) 143 mg/dL (70-99) Medications Active Scripts Medications Dose Route/Sig Max Daily Dose Days Date Category Dose Instructions Lorazepam 0.5 Mg Tablet 1 Tab PO TID 09/15/17 Reported Haloperidol 2 Mg Tablet 0.5 Tab PO PRN Q4HRS PRN 09/15/17 Reported Voltaren (Diclofenac Sodium) 100 Gm Gel..gram. 1 Gm TP PRN BID PRN 09/15/17 Reported Gabapentin 100 Mg Capsule 200 Mg PO TID 09/15/17 Reported Levsin (Hyoscyamine Sulfate) 0.125 Mg Tablet 1 Tab PO Q4HRS 09/15/17 Reported Spironolactone 25 Mg Tablet 1 Tab PO DAILY 09/15/17 Reported Levemir (Insulin Detemir) 100 Unit/1 Ml Vial 10 Unit SQ HS 01/18/17 Reported Furosemide 40 Mg Tablet 1 Tab PO DAILY 01/18/17 Reported K-Tab ER (Potassium Chloride) 20 Meq Tablet.er 20 Meq PO DAILY 01/18/17 Reported Isosorbide Mononitrate 20 Mg Tablet 20 Mg PO DAILY 01/05/17 Reported Voltaren (Diclofenac Sodium) 100 Gm Gel..gram. 2 Gm TP QID 12/17/16 Reported Vitamin D-3 (Cholecalciferol (Vitamin D3)) 2,000 Unit Tablet 3,000 Unit PO 12/17/16 Reported Santyl Ointment (Collagenase) 30 Gm Oint...g. 1 Sade TP DAILY 12/17/16 Reported DIRECTED BY PHYSICIAN Protonix (Pantoprazole Sodium) 40 Mg Granpkt.dr 40 Mg PO DAILY 12/17/16 Reported Mirtazapine 7.5 Mg Tablet 7.5 Mg PO HS 12/17/16 Reported Milk Of Magnesia (Magnesium Hydroxide) 400 Mg/5 Ml Oral.susp 1,200 Mg PO 12/17/16 Reported Colace (Docusate Sodium) 100 Mg Capsule 1 Cap PO DAILY08 12/17/16 Reported Acetaminophen 500 Mg Tablet 1 Tab PO PRN Q8HRS PRN 12/17/16 Reported Cozaar (Losartan Potassium) 25 Mg Tablet 25 Mg PO DAILY 05/10/14 Rx Hydralazine Hcl 50 Mg Tablet 25 Mg PO TIDWMEALS 05/07/14 Reported Toprol Xl (Metoprolol Succinate) 50 Mg Tab.er.24h 25 Mg PO HS 05/07/14 Reported [place] 7.5-325 Tablet (Acetaminophen/Hydrocodone Bitart) 1 Each Tablet 1 Tab PO PRN TID PRN 05/07/14 Reported Daily Multiple Vitamin (Multivitamin) 1 Each Tablet 1 Each PO [id number] 05/07/14 Reported Impression . 1. Acute hypoxic respiratory failure secondary to acute systolic heart failure/cardiogenic shock. 2. Hypotension secondary to cardiogenic shock. Unlikely sepsis. 3. History of cardiomyopathy with an ejection fraction of 45% . She also has [id number] aortic insufficiency. 4. Increased troponin, suspect non-ST myocardial infarction. 5. Mild reactive leukocytosis. 6. Underlying dementia and encephalopathy. Plan . 1. Continue with present oxygen via nasal cannula 4. Cardiology recommendations. 5. DNR/DNI. continue medical treatment 6. Cautious diuresis. 7. Discussed with RN/ DR ALMAZAN transfer to WILL KIRKLAND MD Sep 18, 2017 10:46
[2017-09-18 11:00] VITALS: BP 182/86
--- NOTE | 2017-09-18 12:21 | PDOC ---
PROGRESS NOTES Subjective Subjective doing much better than yesterday Objective Objective Vital Signs Date Time Temp Pulse Resp B/P (MAP) Pulse Ox O2 Delivery O2 Flow Rate FiO2 09/18/17 11:00 97.7 94 22 182/86 (118) Room Air 97.7 09/18/17 08:56 4.0 09/18/17 03:10 96 Intake and Output 09/18/17 07:00 Intake Total 25 ml Output Total 150 ml Balance -125 ml Intake Oral 25 ml Output Urine Total 150 ml # Bowel Movements 5 Physical Exam Abdomen: Soft Heart: Other (4/6 systolic murmur to LLS border, tachycardia improving 100 range) Extremities: Other (3+ bilateral LE pitting edema) General: Alert, Other (awake) HEENT: Atraumatic Lungs: Other (basilar crackles) MUSCULOSKELETAL: Osteoarthritic changes both hands Neuro: Normal speech, Sensation intact Psych/Mental Status: Other (lethargic) Skin: No breakdown COMMENT edema both legs 2+ Diagnosis Problem List Problems Medical Problems: (1) CHF exacerbation Status: Acute (2) Elevated troponin Status: Acute (3) Right lower lobe pneumonia Status: Acute Assessment Assessment Problems Medical Problems: (1) CHF exacerbation Status: Acute (2) Elevated troponin Status: Acute (3) Right lower lobe pneumonia Status: Acute FINAL IMPRESSION:Pul edema. 1. Acute shortness of breath with hypotension on pressors (levophed) , resolved.pul edema 2. Doubt Healthcare-associated pneumonia. cxr improved,more likely chf rather than pneumonia 3. Hypotension with possible sepsis. 4. Atrial fibrillation. 5. Hypertension. 6. Chronic systolic heart failure. 7. Diabetes. 8. 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 9. Protein-calorie malnutrition. 10.Elevated troponin due to demand ischemia vs non stemi, family donot want cardiac cath. PLAN: clinically improved d/c to [facility] today d/c birch off pressors off antibiotics inc Bb presley dose spoke with daughter , ECHO 40% ejf, doppler leg -neg for DVT. dvt prevention Problems: Plan Plan of Care Problems Medical Problems: (1) CHF exacerbation Status: Acute (2) Elevated troponin Status: Acute (3) Right lower lobe pneumonia Status: Acute Comment Review of Relevant I have reviewed the following items davin (where applicable) has been applied. Labs Laboratory Tests Test 09/17/17 16:17 09/17/17 20:41 09/18/17 02:15 09/18/17 07:42 Glucose (Fingerstick) 182 mg/dL (70-99) 162 mg/dL (70-99) 143 mg/dL (70-99) White Blood Count 8.7 x10^3/uL (4.0-11.0) Red Blood Count 4.97 x10^6/uL (3.50-5.40) Hemoglobin 10.6 g/dL (12.0-15.5) Hematocrit 33.9 % (36.0-47.0) Mean Corpuscular Volume 68 fL (79-100) Mean Corpuscular Hemoglobin 21 pg (25-35) Mean Corpuscular Hemoglobin Concent 31 g/dL (31-37) Red Cell Distribution Width 18.8 % (11.5-14.5) Platelet Count 202 x10^3/uL (140-400) Neutrophils (%) (Auto) 83 % (31-73) Lymphocytes (%) (Auto) 8 % (24-48) Monocytes (%) (Auto) 8 % (0-9) Eosinophils (%) (Auto) 0 % (0-3) Basophils (%) (Auto) 1 % (0-3) Neutrophils # (Auto) 7.2 x10^3uL (1.8-7.7) Lymphocytes # (Auto) 0.7 x10^3/uL (1.0-4.8) Monocytes # (Auto) 0.7 x10^3/uL (0.0-1.1) Eosinophils # (Auto) 0.0 x10^3/uL (0.0-0.7) Basophils # (Auto) 0.1 x10^3/uL (0.0-0.2) Sodium Level 141 mmol/L (136-145) Potassium Level 5.0 mmol/L (3.5-5.1) Chloride Level 104 mmol/L (98-107) Carbon Dioxide Level 25 mmol/L (21-32) Anion Gap 12 (6-14) Blood Urea Nitrogen 62 mg/dL (7-20) Creatinine 2.3 mg/dL (0.6-1.0) Estimated GFR (Cockcroft-Gault) 24.2 Glucose Level 160 mg/dL (70-99) Calcium Level 9.8 mg/dL (8.5-10.1) Microbiology 09/15/17 Blood Culture - Preliminary, Resulted NO GROWTH AFTER 3 DAYS 09/14/17 Urine Culture - Final, Complete 09/14/17 Urine Culture Result 1 ([facility]) - Final, Complete Medications Current Medications Vancomycin HCl 1 each 1X ONCE [facility] ; Start 09/18/17 at 22:30; Stop 09/18/17 at 22:31; Status Cancel Vitals/I & O Vital Sign - Last 24 Hours 09/17/17 09/17/17 09/17/17 09/17/17 14:35 19:48 19:50 20:00 Temp 98.6 98.4 98.6 98.4 Pulse 113 109 109 Resp 20 24 B/P (MAP) 178/84 (115) 183/103 (129) 183/103 Pulse Ox 93 100 O2 Delivery Room Air Room Air Room Air 09/17/17 09/17/17 09/17/17 09/18/17 20:25 23:22 23:23 00:22 Temp 98.1 98.1 Pulse 69 98 81 69 Resp 24 B/P (MAP) 168/73 (104) 182/81 (114) 182/81 164/75 (104) Pulse Ox 95 O2 Delivery Room Air 09/18/17 09/18/17 09/18/17 09/18/17 03:10 07:00 07:43 08:25 Temp 98.2 98.6 98.2 98.6 Pulse 66 87 87 Resp 21 20 B/P (MAP) 158/85 (109) 172/95 (120) 172/95 Pulse Ox 96 O2 Delivery Room Air Room Air Room Air 09/18/17 09/18/17 08:56 11:00 Temp 97.7 97.7 Pulse 94 Resp 22 B/P (MAP) 182/86 (118) O2 Delivery Room Air Room Air O2 Flow Rate 4.0 Intake and Output 09/17/17 09/17/17 09/18/17 15:00 23:00 07:00 Intake Total 25 ml Output Total 150 ml Balance -125 ml Nutrition Consultation Dietary Evaluation: Recommendations by RD: Increase Calorie Intake, Add supplement feedings Comments: REC Cardiac/ADA Pt needs assistance w/feeding at mealtimes - discussed w/nursing Will add Boost Glucose Control TID Expected Outcomes/Goals: PO intake/supplement intake to meet > 75% est needs Malnutrition Findings: Food and Nutrition Intake (Mod: <75% est energy req 7days Weight Status: Overweight TAMERA ALMAZAN MD Sep 18, 2017 12:21
--- NOTE | 2017-09-22 10:15 | PDOC ---
Provider Note Provider Note Discharge summary dictated. #[id number] TAMERA ALMAZAN MD Sep 22, 2017 10:15
--- NOTE | 2017-09-22 11:41 | DS ---
DATE OF DISCHARGE: 09/18/2017 REASON FOR ADMISSION TO THE HOSPITAL: Shortness of breath/pulmonary edema. CONSULTATIONS: 1. Dr. Bess, Pulmonology. 2. Dr. Carter. PROCEDURES DONE: Echocardiogram and venous Doppler of lower extremities. HOSPITAL COURSE: The patient is an 87-year-old female, had a history of chronic AFib, congestive heart failure, bypass surgery, pacemaker and she has been in the residential, wheelchair level of activity. She was having shortness of breath, was found to have pulmonary edema, was admitted to the Emergency Room. She was hypotensive, was put on pressors, was given BiPAP and diuretics. The patient had echocardiogram, shows ejection fraction 40-45%, atrial fibrillation and the patient had a venous Doppler negative for pulmonary embolism. The patient was given diuretics and her heart failure improved. Initially, there was question of pneumonia, was treated with broad spectrum antibiotic, but white count was normal, chest x-ray shows improved infiltrates. No fever. Antibiotic was discontinued. The patient was feeling better and she was discharged back to the residential, had a family discussion with the palliative team and she would like to go back to senior care. FINAL DIAGNOSES: 1. Acute pulmonary edema. 2. Chronic systolic heart failure. 3. Chronic atrial fibrillation. 4. Coronary artery disease, history of bypass surgery and a pacemaker. 5. General debility and protein-calorie malnutrition, moderate. DISPOSITION: The patient is discharged back to senior care and did not want hospice right now, to continue the present treatment plan. TAMERA ALMAZAN MD DR: PORSHA/julio JOB#: [id number] / [id number] JARAD Morales
== END 2017-09-18 15:40 | disposition home or self-care (01) | DRG 280 ==
LOC: ER 20:13 → 1 WEST ICU 22:49 → 2 NORTH 09-16 18:10
PROVIDERS: ADMIT Internal Medicine; ATTEND Internal Medicine
DX: I21.4 Non-ST elevation (NSTEMI) myocardial infarction (principal); R57.0 Cardiogenic shock; J96.01 Acute respiratory failure with hypoxia; I50.43 Acute on chronic combined systolic (congestive) and diastolic (congestive) heart failure; G93.40 Encephalopathy, unspecified; J18.9 Pneumonia, unspecified organism; E46 Unspecified protein-calorie malnutrition; N17.9 Acute kidney failure, unspecified; I13.0 Hypertensive heart and chronic kidney disease with heart failure and stage 1 through stage 4 chronic kidney disease, or unspecified chronic kidney disease; I42.9 Cardiomyopathy, unspecified; E11.22 Type 2 diabetes mellitus with diabetic chronic kidney disease; I27.20 Pulmonary hypertension, unspecified; I48.0 Paroxysmal atrial fibrillation; D50.9 Iron deficiency anemia, unspecified; D72.828 Other elevated white blood cell count; E78.5 Hyperlipidemia, unspecified; F03.90 Unspecified dementia, unspecified severity, without behavioral disturbance, psychotic disturbance, mood disturbance, and anxiety; I25.10 Atherosclerotic heart disease of native coronary artery without angina pectoris; I25.2 Old myocardial infarction; I35.1 Nonrheumatic aortic (valve) insufficiency; K21.9 Gastro-esophageal reflux disease without esophagitis; M19.90 Unspecified osteoarthritis, unspecified site; N18.3 Chronic kidney disease, stage 3 (moderate); Y95 Nosocomial condition; F32.9 Major depressive disorder, single episode, unspecified; Z51.5 Encounter for palliative care; Z82.49 Family history of ischemic heart disease and other diseases of the circulatory system; Z83.3 Family history of diabetes mellitus; Z86.718 Personal history of other venous thrombosis and embolism; Z95.0 Presence of cardiac pacemaker; Z95.1 Presence of aortocoronary bypass graft; Z87.440 Personal history of urinary (tract) infections; Z88.2 Allergy status to sulfonamides; Z88.8 Allergy status to other drugs, medicaments and biological substances; Z88.6 Allergy status to analgesic agent; Z91.041 Radiographic dye allergy status; Z90.49 Acquired absence of other specified parts of digestive tract; Z90.710 Acquired absence of both cervix and uterus; Z68.28 Body mass index [BMI] 28.0-28.9, adult
CPT/HCPCS: 36415; 51702; 71010; 80048; 80053; 80061; 81001; 82962; 83605; 83880; 84484; 85007; 85025; 85520; 87040; 87086; 87641; 93005; 93306; 93970; 94660; J1160; J1644; J1815; J1940; J2543; J3370; J3490; J7030; J7040; 97530; 99285-25